=== PATIENT | female | born 1940 | race Caucasian/White ===

== ENCOUNTER 2016-09-08 18:44 | Inpatient (IN) ==
[2016-09-08] MEDS ORDERED: Aspirin 81 MG TAB.CHEW PO ONE (18:51)
[2016-09-08] MEDS ORDERED: Ipratropium/Albuterol Neb 3 ML IH ONE ×2 (18:55→19:16)
[2016-09-08] MEDS ORDERED: Ondansetron 4 MG/2 ML VIAL IVP ONE (19:29)
[2016-09-08] MEDS ORDERED: *HR* HYDROmorphone (PF) 1 MG/ML SYRINGE IVP ONE (19:30)
--- NOTE | 2016-09-08 19:30 | Emergency Department Note ---
START Narrative - START START: I examined this patient and my medical decision-making was reviewed with the EXPLOSIVE OPERATOR FUSE/PA/Advanced Practice Nurse/Resident Physician. I agree with the documented findings, disposition and treatment plan as described except to the extent set forth below. ED attending note: Patient seen with TRANSITIONAL Resident Dr. Cartagena. Please see a copy of his note for details of the H&P, evaluation, management and disposition of this patient. We independently had [id number] contact with the patient Briefly: 76-year-old female via EMS from alf facility diagnosed with pneumonia on IV antibiotics next 4 days. Comes in with increasing thoracic back discomfort like "elephant on back. Cough shortness of breath and abdominal distention that slightly tympanitic. COPD, pneumonia, acute coronary syndrome, MO, small bowel obstruction normal other items in the differential. Provided 40 minutes critical care service this patient. She is getting parenteral narcotics for pain control and was otherwise bronchodilators and IV fluids anti-emetics. Disposition pending. Patient stable.
--- NOTE | 2016-09-08 19:34 | Emergency Department Note ---
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 Patient reports right sided, thoracic pain. She described it as a "elephant sitting on my back." The pain did come and go but is now constant, and is 7/10 in severity. She states the pain is so bad that it is hard to breath. Patient was diagnosed with pneumonia 4 days ago by the doctor at the care home and started on antibiotics. She also complains of progressive abdominal distention and pain for the past 3 weeks. The care home is watching it , measuring daily weights and was recently started on lasix. Patient reports associated cough, congestion and runny nose. Patient states that she is chronically constipated from her medication but denies any changes in bowel habits from normal or any blood in her stool. Patient denies fever/chills, headache or nausea/vomiting. On arrival, patient was afebrile with heart rate of 114-118, respiratory rate around 20 and blood pressure of 118/64. Oxygenation saturation of 92-94% on 4L supplemental oxygen. She is awake and alert, communicating appropriately. Lungs are clear to auscultation bilaterally - no wheezing noted. Abdomen significantly distended, tympanic and tender to palpation. Onset (ago): hour(s) Location: back Radiation: non-radiation Pain Severity: moderate Pain Scale: 6 Quality: crushing, constant Consistency: constant Improves with: nothing Worsens with: nothing Associated symptoms: Reports: cough, shortness of breath. Denies: confusion, chest pain, diaphoresis, fever/chills, headaches, loss of appetite, malaise, nausea/vomiting, rash, seizure, syncope, weakness Treatments Prior to Arrival: none - Related Data Home Medications Medication Instructions Recorded Confirmed Acetaminophen [Tylenol] 500 mg PO HS 04/20/16 04/20/16 Albuterol Neb [Proventil Neb] 2.5 mg IH QID PRN 04/20/16 04/20/16 Albuterol Sulfate [Ventolin Hfa] 2 puff IH QID PRN 04/20/16 04/20/16 Ascorbate Calcium [Vitamin C] 500 mg PO DAILY 04/20/16 04/20/16 Aspirin 81 mg PO DAILY 04/20/16 04/20/16 Bisacodyl [Dulcolax] 10 mg PO DAILY PRN 04/20/16 04/20/16 Carvedilol 3.125 mg PO BID 04/20/16 04/20/16 Cetirizine HCl [Zyrtec] 10 mg PO DAILY 04/20/16 04/20/16 Citalopram [CeleXA] 20 mg PO DAILY 04/20/16 04/20/16 Cyanocobalamin (Vitamin B-12) 1,000 mcg SL DAILY 04/20/16 04/20/16 [Vitamin B-12] Ergocalciferol (VITAMIN D2) 50,000 unit PO Q2W 04/20/16 04/20/16 [Vitamin D2 (50,000 UNIT)] Fluticasone Propionate Nasal 2 spr NS DAILY 04/20/16 04/20/16 [Flonase] Gabapentin [Neurontin] 300 mg PO QA 04/20/16 04/20/16 Gabapentin [Neurontin] 600 mg PO 04/20/16 04/20/16 Hydrochlorothiazide 12.5 mg PO DAILY 04/20/16 04/20/16 Levothyroxine [Synthroid] 112 mcg PO 0630 04/20/16 04/20/16 Montelukast [Singulair] 10 mg PO 04/20/16 04/20/16 Mv-Mn/FA/Vit K1/Lycop/Lut/Zeax 2 tab PO DAILY 04/20/16 04/20/16 [Ocuvite Eye + Multi Tablet] Omeprazole [PriLOSEC] 20 mg PO DAILY 04/20/16 04/20/16 OxyCODONE Immed Rel [Roxicodone 5 5 mg PO Q6HR PRN 04/20/16 04/20/16 MG] Tiotropium [place] [Spiriva 2 puff IH DAILY 04/20/16 04/20/16 Respimat] TraZODone 50 mg PO HS 04/20/16 04/20/16 Previous Rx's Medication Instructions Recorded Docusate [Colace] 100 mg PO BID #60 capsule 04/20/16 HYDROcodone/Acet 5/325 mg [Hiram 1 tab PO Q4H PRN #15 tab 04/20/16 5-325 mg] Phenazopyridine HCl [Pyridium] 200 mg PO TIDAC #12 tab 04/20/16 Allergies Allergy/AdvReac Type Severity Reaction Status Date / Time codeine AdvReac Rash Verified 09/08/16 18:47 levofloxacin [From Levaquin] AdvReac Hives Verified 09/08/16 18:47 NSAIDS (Non-Steroidal AdvReac Nausea Verified 09/08/16 18:47 Anti-Inflamma Penicillins AdvReac Rash Verified 09/08/16 18:47 pregabalin [From Lyrica] AdvReac Blurry Verified 09/08/16 18:47 Vision Constitutional: Denies: fever, chills ENT ED: Reports: congestion Cardiovascular: Reports: dyspnea on exertion. Denies: chest pain, palpitations Respiratory: Reports: cough, dyspnea, wheezes Gastrointestinal: Reports: abdominal pain, constipation. Denies: nausea, vomiting, diarrhea, hematemesis, melena, hematochezia Genitourinary: Denies: urgency, dysuria, frequency Musculoskeletal: Reports: back pain Integumentary: Denies: rash Neurological: Denies: headache, weakness, numbness Past Medical History - Past Medical History Medical history: Reports: asthma, atrial fibrillation, COPD, coronary artery disease, GERD, hypertension, myocardial infarction, other Surgical history: Reports: other Psychiatric history: Reports: no psych history CATTLE STICKER history: Reports: no CATTLE STICKER history - Social History Smoking Status: Current some day smoker Smokeless Tobacco Status: No Alcohol use: Reports: none Drug use: Reports: none Physical Exam - General Limitations: no limitations General appearance: alert, anxious - Head Head exam: atraumatic, normocephalic - Eye Eye exam: Present: normal appearance, PERRL, EOMI. Absent: conjunctival injection - ENT ENT exam: normal exam, normal oropharynx, mucous membranes moist - Neck Neck exam: Present: normal inspection, full ROM - Chest Chest inspection: Present: normal inspection, symmetric chest wall rise. Absent : tenderness - Respiratory Respiratory exam: Present: normal lung sounds bilaterally. Absent: respiratory distress, wheezes - Cardiovascular Cardiovascular exam: Present: tachycardia, other (ventricular pacemaker) - Abdominal Exam Abdominal exam: Present: tenderness, distention - Extremities Exam Extremities exam: Present: pedal edema (2+ pitting edema) - Back Exam Back exam: Present: normal inspection - Neurological Exam Neurological exam: Present: alert, oriented X3, CN II-XII intact - Psychiatric Psychiatric exam: Present: normal affect, normal mood - Skin Skin exam: Present: warm, dry, intact Course Course Narrative: Ms Perez is a 76yo female who was brought via EMS to the ED for back pain described as a "elephant sitting on my back." Patient was diagnosed with pneumonia 4 days ago by the doctor at the care home and started on antibiotics. She also complains of progressive abdominal distention and pain for the past 3 weeks. TOn arrival, patient was afebrile with heart rate of 114- 118, respiratory rate around 20 and blood pressure of 118/64. Oxygenation saturation of 92-94% on 4L supplemental oxygen. She is awake and alert, communicating appropriately. Lungs are clear to auscultation bilaterally - no wheezing noted. Abdomen significantly distended, tympanic and tender to palpation. Differential diagnosis includes ACS and other cardiac causes, pneumonia, pulmonary edema, bowel obstruction, ascities or other GI abnormality. Will get a CXR, EKG and labs including BNP and troponin. Will get a CT abdomen/pelvis with IV contrast. Will get hepatic labs. - Reevaluation(s) Reevaluation #1: Nurse reported that patient had sustained lower blood pressure around 80 systolic compared to the 118 systolic on admit. Also reports oxygenation saturation around 81-84% on nasal canulla. Patient has just received pain medications. She is mentating appropriately and responds to questions. Will give patient 500cc fluid bolus for the hypotension and switch patient from nasal cannula to venti mask for the low oxygenation saturation. Thus far, CXR read as no acute process with some course lung markings likely chornic. Patient does have an elevated WBC of 16.5, Hgb 10.7 which on review appears to be within normal limits for patient. Time: 20:26 Reevaluation #2: Patient with troponin of 0.07 with last troponin in medical records 0.02. This could be demand ischemia or ACS. BNP is elevated at 386. GFR low at 48 - CT scan will be done with decreased amount of contrast. Blood pressure improved with fluid bolus. Patient continues to have lower oxygenation saturation despite increase oxygen - as such must rule out a PE. Will get a D-Dimer to start. Time: 21:02 Reevaluation #3: D-dimer elevated at 1585. Will get CTA evaluate for PE. Time: 22:49 Additional Reevaluation(s): CTA came back negative for acute PE. Will give patient 500cc bolus and start maintance fluids at 150ml/hr due to contrast load for CTA. Discussed patient with hospitalist and she accepted the patient for admission - Consultations Consultation #1: Discussed patient with Dr. Malin and she accepted the patient for admission. She asked for blood cultures, IV steroids and levaquin. Vital Signs Temperature 98.0 F 09/08/16 18:48 Pulse Rate 114 09/08/16 18:48 Respiratory Rate 21 09/08/16 18:48 Blood Pressure 118/64 09/08/16 18:48 O2 Sat by Pulse Oximetry 93 L 09/08/16 18:48 Temperature 98.0 F 09/08/16 18:48 Pulse Rate 116 09/08/16 23:57 Respiratory Rate 17 09/09/16 00:37 Blood Pressure 111/95 09/09/16 00:37 O2 Sat by Pulse Oximetry 97 09/08/16 23:57 Oxygen Delivery Oxygen Delivery Bipap Medical Decision Making - [facility] Narrative Medical decision making narrative: Ms Perez is a 76yo female who was brought via EMS to the ED for back pain described as a "elephant sitting on my back." Patient was diagnosed with pneumonia 4 days ago by the doctor at the care home and started on antibiotics. She also complains of progressive abdominal distention and pain for the past 3 weeks. TOn arrival, patient was afebrile with heart rate of 114- 118, respiratory rate around 20 and blood pressure of 118/64. Oxygenation saturation of 92-94% on 4L supplemental oxygen. She is awake and alert, communicating appropriately. Lungs are clear to auscultation bilaterally - no wheezing noted. Abdomen significantly distended, tympanic and tender to palpation. Differential diagnosis includes ACS and other cardiac causes, pneumonia, pulmonary edema, bowel obstruction, ascities or other GI abnormality. CXR read as no acute process with some course lung markings likely chornic. Patient does have an elevated WBC of 16.5. While down in the in the ED patient had lower blood pressures that improved with IV fluids. She also had lower oxygenation saturation and required placement on oxygen mask and then BiPAP to maintain oxygenation. Patient with troponin of 0.07 with last troponin in medical records 0.02. This could be demand ischemia or ACS. BNP is elevated at 386. GFR low at 48. CTA came back negative for acute PE. Will give patient 500cc bolus and start maintance fluids at 150ml/hr due to contrast load for CTA. Believe this is a COPD exacerbation, possibly secondary to a pneumonia. However cannot rule out another cause. Patient also warrants further work up for her progressive abdominal distention. Patient accepted by hospitalist for admission. - Lab Data Lab results reviewed: Yes I reviewed the patient's lab results. Lab results narrative: WBC elevated at 16.5. Hgb low at 10.7 in setting of chronic anemia. BNP elevated at 386. Troponin acutely elevated at 0.07. D-Dimer 1538 Result diagrams: 09/08/16 19:58 09/08/16 19:58 Lab Results 09/08/16 09/08/16 09/08/16 Range/Units 19:58 19:58 19:58 WBC 16.5 H (4.3-11.1) K/mcL RBC 3.79 L (3.82-4.97) M/mcL Hgb 10.7 L (11.5-15.4) g/dL Hct 35.6 (35.3-44.9) % MCV 93.9 (83.0-100.0) fL MCH 28.2 (28.0-33.3) pg MCHC 30.1 L (31.6-35.5) g/dL RDW 16.5 H (11.5-14.5) % Plt Count 238 (140-400) K/mcL MPV 9.7 (9.4-12.4) fL Immature Gran % 0.9 (0-4) % Seg Neutrophils % 66.8 % Lymphocytes % 16.6 % Monocytes % 10.8 % Eosinophils % 4.4 % Basophils % 0.5 % Neutrophils # 11.0 H (1.6-8.9) K/mcL Lymphocytes # 2.7 (0.6-4.6) K/mcL Monocytes # 1.8 H (0.0-1.3) K/mcL Eosinophils # 0.7 H (0.0-0.6) K/mcL Basophils # 0.1 (0.0-0.2) K/mcL PT 11.2 (9.4-12.1) Seconds INR 1.0 APTT 28.4 (26.0-36.0) Seconds D-Dimer (0-500) ng/mLFEU Sodium (136-145) mEq/L Potassium (3.5-4.5) mEq/L Chloride (98-109) mEq/L Carbon Dioxide (19-29) mEq/L BUN (7-20) mg/dL Creatinine (0.57-1.11) mg/dL Est GFR ( Amer) (> 60) Est GFR (Non-Af Amer) (> 60) BUN/Creatinine Ratio (6-26) Glucose (70-99) mg/dL Calculated Osmolality (280-300) Calcium (8.6-10.8) mg/dL Total Bilirubin (0.2-1.2) mg/dL Direct Bilirubin (0.0-0.5) mg/dL Indirect Bilirubin (0.0-1.2) mg/dL AST (5-34) Units/L ALT (0-55) Units/L Alkaline Phosphatase (38-126) Units/L Troponin I (0-0.03) ng/mL B-Natriuretic Peptide 386 H (0-100) pg/mL Serum Total Protein (6.0-8.3) g/dL Albumin (3.5-5.0) g/dL Globulin (2.4-3.5) g/dL Albumin/Globulin Ratio (1.1-2.2) Amylase (25-125) Units/L 09/08/16 09/08/16 09/08/16 Range/Units 19:58 19:58 22:22 WBC (4.3-11.1) K/mcL RBC (3.82-4.97) M/mcL Hgb (11.5-15.4) g/dL Hct (35.3-44.9) % MCV (83.0-100.0) fL MCH (28.0-33.3) pg MCHC (31.6-35.5) g/dL RDW (11.5-14.5) % Plt Count (140-400) K/mcL MPV (9.4-12.4) fL Immature Gran % (0-4) % Seg Neutrophils % % Lymphocytes % % Monocytes % % Eosinophils % % Basophils % % Neutrophils # (1.6-8.9) K/mcL Lymphocytes # (0.6-4.6) K/mcL Monocytes # (0.0-1.3) K/mcL Eosinophils # (0.0-0.6) K/mcL Basophils # (0.0-0.2) K/mcL PT (9.4-12.1) Seconds INR APTT (26.0-36.0) Seconds D-Dimer 1585 H (0-500) ng/mLFEU Sodium 140 (136-145) mEq/L Potassium 3.9 (3.5-4.5) mEq/L Chloride 100 (98-109) mEq/L Carbon Dioxide 29 (19-29) mEq/L BUN 20 (7-20) mg/dL Creatinine 1.11 (0.57-1.11) mg/dL Est GFR ( Amer) 58 L (> 60) Est GFR (Non-Af Amer) 48 L (> 60) BUN/Creatinine Ratio 18 (6-26) Glucose 180 H (70-99) mg/dL Calculated Osmolality 297 (280-300) Calcium 8.8 (8.6-10.8) mg/dL Total Bilirubin 0.3 (0.2-1.2) mg/dL Direct Bilirubin 0.1 (0.0-0.5) mg/dL Indirect Bilirubin 0.2 (0.0-1.2) mg/dL AST 24 (5-34) Units/L ALT 18 (0-55) Units/L Alkaline Phosphatase 115 (38-126) Units/L Troponin I 0.07 H* (0-0.03) ng/mL B-Natriuretic Peptide (0-100) pg/mL Serum Total Protein 6.7 (6.0-8.3) g/dL Albumin 3.1 L (3.5-5.0) g/dL Globulin 3.6 H (2.4-3.5) g/dL Albumin/Globulin Ratio 0.9 L (1.1-2.2) Amylase 26 (25-125) Units/L - Radiology Data Radiology results reviewed: Yes I reviewed the patient's radiology results. Chest X-Ray 09/08/16 18:51 IMPRESSION: No acute cardiopulmonary disease. Coarsening of the interstitial markings, likely chronic. D/ / Mansoor Rawls MD / Mansoor Rawls MD Interpreting Provider: Mansoor Rawls MD Abdomen/Pelvis CT 09/08/16 19:29 IMPRESSION: 1. No acute abdominal or pelvic abnormality. 2. Stable 0.9 cm left adrenal nodule, likely an adenoma. 3. Stable mild biliary dilation likely related to postcholecystectomy changes. Findings can be correlated with LFTs. 4. Small amount of fluid and gas within the vagina. Given closely opposed small bowel, a fistula is not excluded and can be correlated clinically. 5. Mild mediastinal adenopathy which is partially visualized and not significantly changed since 2012. This is likely reactive. Bibasilar atelectasis and/or scarring. 6. Age-indeterminate compression deformity of the T8 vertebral body. Findings can be further evaluated with MRI for acuity given patient's symptoms. D/ / 09/08/2016 21:58:55 Jelly Bee MD / vasiliy Interpreting Provider: Jelly Bee MD Chest CTA 09/08/16 22:49 IMPRESSION: 1. Slightly limited exam due to significant respiratory motion. No acute pulmonary embolus. 2. Patchy opacities predominate within the lingula and right lower lobe which are nonspecific and may reflect atelectasis. Pneumonia is not excluded. 3. Mild mediastinal adenopathy, which is nonspecific but new since the prior exam. Correlate with any history of malignancy. 4. Reflux of contrast into the hepatic veins and IVC which can be seen in setting of right heart failure. D/ / Jelly Bee MD / Jelly Bee MD Interpreting Provider: Jelly Bee MD - EKG Data EKG #1 EKG attestation: Yes I reviewed and interpreted this EKG. EKG results narrative: EKG shows a ventricular paced rhythm. There is some slight ST elevation in leads II, III. Vent rate 103bpm, NV int 152ms, QR 146ms, QTC 440ms. Previous EKG from 04/11/2016 showed the ventricular paced rhythm.
[2016-09-08 20:08] LABS: Basophils # 0.1 K/mcL (0.0-0.2); Basophils % 0.5 %; Eosinophils # 0.7 K/mcL (0.0-0.6); Eosinophils % 4.4 %; Hematocrit 35.6 % (35.3-44.9); Hemoglobin 10.7 g/dL (11.5-15.4); Immature Granulocytes % 0.9 % (0-4); Lymphocytes # 2.7 K/mcL (0.6-4.6); Lymphocytes % 16.6 %; Mean Corpuscular HGB Conc 30.1 g/dL (31.6-35.5); Mean Corpuscular Hemoglobin 28.2 pg (28.0-33.3); Mean Corpuscular Volume 93.9 fL (83.0-100.0); Mean Platelet Volume 9.7 fL (9.4-12.4); Monocytes # 1.8 K/mcL (0.0-1.3); Monocytes % 10.8 %; Platelet Count 238 K/mcL (140-400); Red Blood Count 3.79 M/mcL (3.82-4.97); Red Cell Distribution Width 16.5 % (11.5-14.5); Segmented Neutrophils % 66.8 %
[2016-09-08 20:14] LABS: Prothrombin Time 11.2 Seconds (9.4-12.1)
[2016-09-08 20:16] LABS: Activated Partial Thrombo Time 28.4 Seconds (26.0-36.0)
[2016-09-08] MEDS ORDERED: 0.9 % Sodium Chloride 500 ML IVC ONE ×2 (20:23→23:17)
[2016-09-08 20:24] LABS: Albumin 3.1 g/dL (3.5-5.0); Albumin/Globulin Ratio 0.9 (1.1-2.2); Bilirubin,Direct 0.1 mg/dL (0.0-0.5); Bilirubin,Indirect 0.2 mg/dL (0.0-1.2); Bilirubin,Total 0.3 mg/dL (0.2-1.2); Calcium 8.8 mg/dL (8.6-10.8); Globulin 3.6 g/dL (2.4-3.5); Potassium 3.9 mEq/L (3.5-4.5); Total Protein 6.7 g/dL (6.0-8.3)
[2016-09-08] MEDS ORDERED: 0.9 % Sodium Chloride 1,000 ML IVC SCH (23:15)
[2016-09-08] MEDS: 0.9 % Sodium Chloride 1,000 ML IVC SCH (23:56)
[2016-09-09] MEDS ORDERED: methylPREDNISolone 125 MG/2 ML VIAL IVP ONE (00:02)
[2016-09-09] MEDS ORDERED: levoFLOXacin 500 MG TABLET PO ONE (00:02)
[2016-09-09] MEDS ORDERED: Levofloxacin 750 MG/150 ML 750 MG/150 ML BAG IVPB ONE (00:17)
[2016-09-09] MEDS ORDERED: *HR* LORazepam 2 MG/ML VIAL IVP ONE (00:22)
[2016-09-09 01:18] LABS: ABG HCO3 32.5 mEQ/L (21-27); ABG Oxygen Saturation 98 % (95-98); ABG PO2 127 mmHg (85-104); ABG TCO2 35.2 mEq/L (20-26)
[2016-09-09 01:19] LABS: Blood Gas FiO2 50 %
[2016-09-09 01:21] LABS: ABG PCO2 87 mmHg (35-45); ABG PH 7.18 pH Units (7.32-7.45)
--- NOTE | 2016-09-09 01:22 | Internal Med History&Physical ---
Date of Encounter: 09/09/16 Time of Encounter: 01:05 Internal Medicine - H&P: HPI Chief complaint: Patient unarousable, as per ED notes, she reported back pain, SOB Admitted From: Emergency Dept Plans for Post Hospital Care: Transfer Longterm Facility History of present illness: Ms. Perez is a 76 year old female resident of [place], with medical history significant for COPD, CAD/paroxysmal atrial fibrillation s/p implanted pacemaker was brought to the ED ht via EMS for evaluation of back pain which as per ED staff was described as "an elephant sitting on my in place, back." I am unable to obtain qualifiers for her pain as she is sleeping. I am unbale to obtain any history from the patient as she is sedated. She is wearing BiPAP. Apparently As per ED notes, she was diagnosed with pneumonia and treated by the doctor at the shelter and started on antibiotics. As per ED notes: she was able to give some history at arrival: "Ms Perez is a 76yo female with reported PMH of COPD, GERD, CAD with pacemaker in place, paroxysmal atrial fibrillation and chronic low back pain who was brought via EMS to the ED for back pain. Patient reports right sided, thoracic pain. She described it as a "elephant sitting on my back." The pain did come and go but is now constant, and is 7/10 in severity. She states the pain is so bad that it is hard to breath. Patient was diagnosed with pneumonia 4 days ago by the doctor at the shelter and started on antibiotics. She also complains of progressive abdominal distention and pain for the past 3 weeks. The shelter is watching it , measuring daily weights and was recently started on lasix. Patient reports associated cough, congestion and runny nose. Patient states that she is chronically constipated from her medication but denies any changes in bowel habits from normal or any blood in her stool. Patient denies fever/chills, headache or nausea/vomiting" Upon arriving the ED, the patient was afebrile with heart rate of 114-118, respiratory rate around 20 and blood pressure of 118/64. Oxygenation saturation of 92-94% on 4L supplemental oxygen. At the time of arrival in the ED , she is awake and alert, communicating appropriately. No one is listed as her NOK/POA. [facility] is listed as her emergency conatct. I am unable to obtain he CODE STATUS, hence will assume a FULL CODE STATUS until informed otherwise by patient, NOK/POA or a living will document. Medical history: Reports: asthma, atrial fibrillation, COPD, coronary artery disease, GERD, hypertension, myocardial infarction, other Surgical history: Reports: other Psychiatric history: Reports: no psych history VOUCHER EXAMINER history: Reports: no VOUCHER EXAMINER history Smoking Status: Current some day smoker Smokeless Tobacco Status: No Alcohol use: Reports: none Drug use: Reports: none Family history: unable to obatin due to patients status ROS: unable to obatin due to patients status Vital Signs Temperature 98.0 F 09/08/16 18:48 Pulse Rate 114 09/08/16 18:48 Respiratory Rate 21 09/08/16 18:48 Blood Pressure 118/64 09/08/16 18:48 O2 Sat by Pulse Oximetry 93 L 09/08/16 18:48 Temperature 98.0 F 09/08/16 18:48 Pulse Rate 116 09/08/16 23:57 Respiratory Rate 18 09/08/16 23:57 Blood Pressure 109/58 09/08/16 23:57 O2 Sat by Pulse Oximetry 97 09/08/16 23:57 O/E: Not pale, anicteric, febrile,acyanotic. HEENT: Trachea is central, no cervical or jugular lymphadenopathy Chest: BiPAP-generated breath sounds Heart: hs1/2 Abdomen: Distended++, soft, , non-tender,no masses. BS+ : unable to assess FLOOR COVERINGS SALESPERSON: Difficult to arouse, she is unable to localize sternal pressure Psychiatry: unable to assess Extremities: 2- pitting peal edema, left>right, normal pedal pulses, no calf tenderness SKIN: No active skin lesion Lab Results 09/08/16 09/08/16 09/08/16 Range/Units 19:58 19:58 19:58 WBC 16.5 H (4.3-11.1) K/mcL RBC 3.79 L (3.82-4.97) M/mcL Hgb 10.7 L (11.5-15.4) g/dL Hct 35.6 (35.3-44.9) % MCV 93.9 (83.0-100.0) fL MCH 28.2 (28.0-33.3) pg MCHC 30.1 L (31.6-35.5) g/dL RDW 16.5 H (11.5-14.5) % Plt Count 238 (140-400) K/mcL MPV 9.7 (9.4-12.4) fL Immature Gran % 0.9 (0-4) % Seg Neutrophils % 66.8 % Lymphocytes % 16.6 % Monocytes % 10.8 % Eosinophils % 4.4 % Basophils % 0.5 % Neutrophils # 11.0 H (1.6-8.9) K/mcL Lymphocytes # 2.7 (0.6-4.6) K/mcL Monocytes # 1.8 H (0.0-1.3) K/mcL Eosinophils # 0.7 H (0.0-0.6) K/mcL Basophils # 0.1 (0.0-0.2) K/mcL PT 11.2 (9.4-12.1) Seconds INR 1.0 APTT 28.4 (26.0-36.0) Seconds D-Dimer (0-500) ng/mLFEU Sodium (136-145) mEq/L Potassium (3.5-4.5) mEq/L Chloride (98-109) mEq/L Carbon Dioxide (19-29) mEq/L BUN (7-20) mg/dL Creatinine (0.57-1.11) mg/dL Est GFR ( Amer) (> 60) Est GFR (Non-Af Amer) (> 60) BUN/Creatinine Ratio (6-26) Glucose (70-99) mg/dL Calculated Osmolality (280-300) Calcium (8.6-10.8) mg/dL Total Bilirubin (0.2-1.2) mg/dL Direct Bilirubin (0.0-0.5) mg/dL Indirect Bilirubin (0.0-1.2) mg/dL AST (5-34) Units/L ALT (0-55) Units/L Alkaline Phosphatase (38-126) Units/L Troponin I (0-0.03) ng/mL B-Natriuretic Peptide 386 H (0-100) pg/mL Serum Total Protein (6.0-8.3) g/dL Albumin (3.5-5.0) g/dL Globulin (2.4-3.5) g/dL Albumin/Globulin Ratio (1.1-2.2) Amylase (25-125) Units/L 09/08/16 09/08/16 09/08/16 Range/Units 19:58 19:58 22:22 WBC (4.3-11.1) K/mcL RBC (3.82-4.97) M/mcL Hgb (11.5-15.4) g/dL Hct (35.3-44.9) % MCV (83.0-100.0) fL MCH (28.0-33.3) pg MCHC (31.6-35.5) g/dL RDW (11.5-14.5) % Plt Count (140-400) K/mcL MPV (9.4-12.4) fL Immature Gran % (0-4) % Seg Neutrophils % % Lymphocytes % % Monocytes % % Eosinophils % % Basophils % % Neutrophils # (1.6-8.9) K/mcL Lymphocytes # (0.6-4.6) K/mcL Monocytes # (0.0-1.3) K/mcL Eosinophils # (0.0-0.6) K/mcL Basophils # (0.0-0.2) K/mcL PT (9.4-12.1) Seconds INR APTT (26.0-36.0) Seconds D-Dimer 1585 H (0-500) ng/mLFEU Sodium 140 (136-145) mEq/L Potassium 3.9 (3.5-4.5) mEq/L Chloride 100 (98-109) mEq/L Carbon Dioxide 29 (19-29) mEq/L BUN 20 (7-20) mg/dL Creatinine 1.11 (0.57-1.11) mg/dL Est GFR ( Amer) 58 L (> 60) Est GFR (Non-Af Amer) 48 L (> 60) BUN/Creatinine Ratio 18 (6-26) Glucose 180 H (70-99) mg/dL Calculated Osmolality 297 (280-300) Calcium 8.8 (8.6-10.8) mg/dL Total Bilirubin 0.3 (0.2-1.2) mg/dL Direct Bilirubin 0.1 (0.0-0.5) mg/dL Indirect Bilirubin 0.2 (0.0-1.2) mg/dL AST 24 (5-34) Units/L ALT 18 (0-55) Units/L Alkaline Phosphatase 115 (38-126) Units/L Troponin I 0.07 H* (0-0.03) ng/mL B-Natriuretic Peptide (0-100) pg/mL Serum Total Protein 6.7 (6.0-8.3) g/dL Albumin 3.1 L (3.5-5.0) g/dL Globulin 3.6 H (2.4-3.5) g/dL Albumin/Globulin Ratio 0.9 L (1.1-2.2) Amylase 26 (25-125) Units/L ABG: pH=7.18, pCO2=87, mD7=518. Chest X-Ray 09/08/16 18:51 No acute cardiopulmonary disease. Coarsening of the interstitial markings, likely chronic. Abdomen/Pelvis CT 09/08/16 19:29 1. No acute abdominal or pelvic abnormality. 2. Stable 0.9 cm left adrenal nodule, likely an adenoma. 3. Stable mild biliary dilation likely related to postcholecystectomy changes. Findings can be correlated with LFTs. 4. Small amount of fluid and gas within the vagina. Given closely opposed small bowel, a fistula is not excluded and can be correlated clinically. 5. Mild mediastinal adenopathy which is partially visualized and not significantly changed since 2012. This is likely reactive. Bibasilar atelectasis and/or scarring. 6. Age-indeterminate compression deformity of the T8 vertebral body. Chest CTA 09/08/16 22:49 1. Slightly limited exam due to significant respiratory motion. No acute pulmonary embolus. 2. Patchy opacities predominate within the lingula and right lower lobe which are nonspecific and may reflect atelectasis. Pneumonia is not excluded. 3. Mild mediastinal adenopathy, which is nonspecific but new since the prior exam. Correlate with any history of malignancy. 4. Reflux of contrast into the hepatic veins and IVC which can be seen in setting of right heart failure. EKG: ventricular paced rhythm. similar to EKG OF 04/11/2016. IMP: Hypercapneic respiratory failure with severe respiratory acidosis Right lobar pneumonia COPD exacerbation Pleuritic chest pain Elevated troponin in the setting of respiratory failure and tachycardia, more consistent with troponin leak CT concern for probable enterovaginal fistula, likely an artifact, but worth investigating. with barium Follow-through later. Abdominal distension with abnormal CT ABDOMEN FINDING. Chronic morbidities COPD/ASTHMA CAD s/p [place] HTN Atrial fibrillation GERD Morbid obesity Probable sleep apnea. osteoporosis with vertebral compression fracture PLAN admit BiPAP 12/02, 14 fIo2=35% Lovenox 80mg Q12H IV Cefepime and Azithromycin Duonebs QIDR, albuterol nebs q4h prn. Solumedol 40mg Q8H IV Protonix 40mg mg QD Trend troponin, 2D ECHO Cardiology and pulmonary consult. I am unable to discuss my assessment with the patient due to her status. She is high risk due to acute hypercapneic respiratory failure Past Med Surg Social Fam HX - Past Medical History Medical history: asthma, atrial fibrillation, COPD, coronary artery disease, GERD, hypertension, myocardial infarction, other Psychiatric history: no psych history - Past Surgical History Surgical History: other - Social History Smoking Status: Current some day smoker Smokeless Tobacco Status: No Alcohol use: none Drug use: none Internal Medicine - H&P: Meds Acetaminophen [Tylenol] 500 mg PO HS 04/20/16 [History] Albuterol Neb [Proventil Neb] 2.5 mg IH QID PRN 04/20/16 [History] Albuterol Sulfate [Ventolin Hfa] 2 puff IH QID PRN 04/20/16 [History] Ascorbate Calcium [Vitamin C] 500 mg PO DAILY 04/20/16 [History] Aspirin 81 mg PO DAILY 04/20/16 [History] Bisacodyl [Dulcolax] 10 mg PO DAILY PRN 04/20/16 [History] Carvedilol 3.125 mg PO BID 04/20/16 [History] Cetirizine HCl [Zyrtec] 10 mg PO DAILY 04/20/16 [History] Citalopram [CeleXA] 20 mg PO DAILY 04/20/16 [History] Cyanocobalamin (Vitamin B-12) [Vitamin B-12] 1,000 mcg SL DAILY 04/20/16 [ History] Docusate [Colace] 100 mg PO BID #60 capsule 04/20/16 [Rx] Ergocalciferol (VITAMIN D2) [Vitamin D2 (50,000 UNIT)] 50,000 unit PO Q2W [History] Fluticasone Propionate Nasal [Flonase] 2 spr NS DAILY 04/20/16 [History] Gabapentin [Neurontin] 300 mg PO QAM 04/20/16 [History] Gabapentin [Neurontin] 600 mg PO HS 04/20/16 [History] HYDROcodone/Acet 5/325 mg [[place] 5-325 mg] 1 tab PO Q4H PRN #15 tab 04/20/16 [Rx ] Hydrochlorothiazide 12.5 mg PO DAILY 04/20/16 [History] Levothyroxine [Synthroid] 112 mcg PO 0630 04/20/16 [History] Montelukast [Singulair] 10 mg PO HS 04/20/16 [History] Mv-Mn/FA/Vit K1/Lycop/Lut/Zeax [Ocuvite Eye + Multi Tablet] 2 tab PO DAILY 04/20 [History] Omeprazole [PriLOSEC] 20 mg PO DAILY 04/20/16 [History] OxyCODONE Immed Rel [Roxicodone 5 MG] 5 mg PO Q6HR PRN 04/20/16 [History] Phenazopyridine HCl [Pyridium] 200 mg PO TIDAC #12 tab 04/20/16 [Rx] Tiotropium [place] [Spiriva Respimat] 2 puff IH DAILY 04/20/16 [History] TraZODone 50 mg PO HS 04/20/16 [History] Allergies codeine Adverse Reaction (Verified 09/08/16 18:47) Rash levofloxacin [From Levaquin] Adverse Reaction (Verified 09/08/16 18:47) Hives NSAIDS (Non-Steroidal Anti-Inflamma Adverse Reaction (Verified 09/08/16 18:47) Nausea Penicillins Adverse Reaction (Verified 09/08/16 18:47) Rash pregabalin [From Lyrica] Adverse Reaction (Verified 09/08/16 18:47) Blurry [employer] Systems PM: A 10-system review of systems was performed and is negative for pertinent findings except as documented above in the HPI. - Constitutional Vitals: Temp Pulse Resp BP Pulse Ox 98.0 F 116 17 111/95 97 09/08/16 18:48 09/08/16 23:57 09/09/16 00:37 09/09/16 00:37 09/08/16 23:57 Internal Med - H&P Results - Labs CBC & Chem 7: 09/08/16 19:58 09/08/16 19:58
[2016-09-09] MEDS ORDERED: *HR* Enoxaparin 80 MG/0.8 ML SYRINGE SQ SCH (03:00)
[2016-09-09] MEDS: Azithromycin 500 MG in D5% in Water 250 ML IVPB SCH (03:07)
[2016-09-09] MEDS ORDERED: Ipratropium/Albuterol Neb 3 ML IH SCH (05:00)
[2016-09-09] MEDS ORDERED: *HR* Enoxaparin 40 MG/0.4 ML SYRINGE SQ SCH (06:00)
[2016-09-09] MEDS: Cefepime HCl 2,000 MG in D5% in Water (Mini-Bag+) 100 ML IVPB SCH ×2 (06:39→17:46)
[2016-09-09] MEDS ORDERED: *HR* Etomidate 20 MG/10 ML AMPUL IVP ONE (07:41)
[2016-09-09] MEDS ORDERED: *HR* Midazolam HCl 2 MG/2 ML VIAL IV ONE (07:41)
--- NOTE | 2016-09-09 08:10 | Internal Med Progress Note ---
Date of Encounter: 09/09/16 Time of Encounter: 08:00 - Assessment and plan (1) Atrial fibrillation Current Visit: Yes Status: Acute Assessment and plan: Add Lopressor, continue Lovenox, cardiology was consulted Qualifiers: Atrial fibrillation type: chronic Qualified Code(s): I48.2 - Chronic atrial fibrillation (2) Abdominal pain Current Visit: Yes Status: Acute Assessment and plan: Possible secondary to constipation, question about the enterovaginal fistula. Once is stable we will investigate Qualifiers: Abdominal location: generalized Qualified Code(s): R10.84 - Generalized abdominal pain (3) Costochondritis, acute Current Visit: Yes Status: Acute Assessment and plan: Continue steroid (4) Acute respiratory failure Current Visit: Yes Status: Acute Assessment and plan: ABG stat discussed with staff about need for BiPAP. We will decide after ABG. Pulmonary was consulted Qualifiers: Respiratory failure complication: hypoxia and hypercapnia Qualified Code(s) : J96.01 - Acute respiratory failure with hypoxia; J96.02 - Acute respiratory failure with hypercapnia (5) COPD exacerbation Current Visit: Yes Status: Acute (6) Elevated troponin Current Visit: Yes Status: Acute Assessment and plan: Continue Lovenox and beta lena nitroglycerin cardiology was consulted. Aspirin 325 mg daily - Time Spent With Patient 25 - 35 minutes - Subjective Interval history: Patient is awake now, staff stated that patient was more arousable BiPAP was removed .Per staff early this morning . Patient complaining of generalized abdominal and chest wall pain. She complains of shortness of breath - Constitutional Vitals: Temp Pulse Resp BP Pulse Ox 98.1 F 102 18 152/100 94 L 09/09/16 06:55 09/09/16 06:55 09/09/16 06:55 09/09/16 06:55 09/09/16 06:55 General appearance: Present: mild distress, morbidly obese - Respiratory Respiratory exam: Present: accessory muscle use, decreased breath sounds, prolonged expiratory phase, rales, respiratory distress, rhonchi, wheezes, tachypnea - Cardiovascular Cardiovascular exam: Present: RRR, +S1, +S2. Absent: diastolic murmur, gallop, rubs, systolic murmur - GI/Abdominal GI/Abdominal exam: Present: normal bowel sounds, soft, tenderness (Diffuse abdominal tenderness) - Extremities Exam Extremities exam: Present: pedal edema (Positive 3 bilateral), warm. Absent: calf tenderness, cyanotic - Neurological Exam Neurological exam: Present: alert - Skin Skin exam: Present: dry, intact Internal Medicine: Result - Labs CBC & Chem 7: 09/08/16 19:58 09/08/16 19:58 Labs: Cardiac Enzymes 09/09/16 Range/Units 06:43 Troponin I 0.20 H* (0-0.03) ng/mL - ABG Interpretation ABG results: ABG ABG pH 7.18 pH Units (7.32-7.45) L* 09/09/16 01:10 ABG pCO2 87 mmHg (35-45) H* 09/09/16 01:10 ABG pO2 127 mmHg (85-104) H 09/09/16 01:10 ABG O2 Saturation 98 % (95-98) 09/09/16 01:10 PT/INR, D-dimer PT 11.2 Seconds (9.4-12.1) 09/08/16 19:58 D-Dimer 1585 ng/mLFEU (0-500) H 09/08/16 22:22 Consult Discharge Plan - Plan Referrals: Bushra Landry MD [Primary Care Provider] -
[2016-09-09] MEDS ORDERED: *HR* Metoprolol 5 MG/5 ML VIAL IVP PRN (08:15)
[2016-09-09] MEDS ORDERED: Nitroglycerin 0.4 MG TAB.SUBL SL PRN (08:26)
[2016-09-09] MEDS: Ipratropium/Albuterol Neb 3 ML IH SCH ×4 (08:31→20:52)
[2016-09-09 08:32] LABS: ABG Base Excess 0.7 mEq/L (-2.0 to 3.0); ABG Oxygen Saturation 99 % (95-98); ABG PO2 166 mmHg (85-104); ABG TCO2 36.2 mEq/L (20-26)
[2016-09-09 08:34] LABS: Blood Gas FiO2 44 %
[2016-09-09 08:35] LABS: ABG PCO2 104 mmHg (35-45); ABG PH 7.11 pH Units (7.32-7.45)
--- NOTE | 2016-09-09 08:50 | Pulmonology Consult Note ---
Date of Encounter: 09/09/16 Time of Encounter: 08:47 Assessment and Plan (1) Acute respiratory failure Current Visit: Yes Status: Acute Acute hypoxic hypercapnic respiratory failure likely secondary to COPD exacerbation possible underlying acquired pneumonia was the trigger. She has been given BiPAP trial for now may require intubation based upon clinical course recommended transfer to ICU for higher for closer monitoring given tenuous respiratory status. Will need aggressive bronchodilators and IV steroids and will initiate empiric and antimicrobials. Qualifiers: Respiratory failure complication: hypoxia and hypercapnia Qualified Code(s) : J96.01 - Acute respiratory failure with hypoxia; J96.02 - Acute respiratory failure with hypercapnia (2) NSTEMI (non-ST elevated myocardial infarction) Current Visit: Yes Status: Acute Patient has vague abdominal/chest pain with rising troponin history of coronary artery disease in the past concerning for non-ST elevation [place]. Will start ACS protocol has been on Lovenox when she transitioned over to heparin drip has been given aspirin which we will continue beta lena etiologies been consult and echocardiogram pending (3) Community acquired pneumonia Current Visit: Yes Status: Acute CT scan is inconclusive but possibly consistent with infiltrate in the lingula and right lower lobe will cover in. Clear for me acquired organisms restrained infectious panel pending sputum culture pending blood cultures pending legionella and strep pneumo antigens have been sent (4) Atrial fibrillation Current Visit: Yes Status: Acute Currently rate controlled will continue beta lena at this time Qualifiers: Atrial fibrillation type: chronic Qualified Code(s): I48.2 - Chronic atrial fibrillation (5) COPD exacerbation Current Visit: Yes Status: Acute IV Solu-Medrol and Medrol has been given which we will continue also bronchodilators every 2-4 hours as needed noninvasive positive pressure ventilation. Check ABG good saturation on minimal oxygen at this time goal approximately SPO2 of 90% (6) Abdominal pain Current Visit: Yes Status: Acute Unclear if this is clearly coming from her abdomen or if this is more chest associated with pleuritic pain with possible pneumonia although CT scan is not conclusive for this this could be a manifestation of ACS which workup is ongoing could have underlying and entero-vaginal fistula doubt this is the acute cause of her pain but would consult surgery to evaluate if this is a real or more artifactual finding on CT scan. Clearly with history of atrial fibrillation coronary artery disease would be at risk for mesenteric ischemia or ischemic colitis no clear radiographic evidence of this lactate pending will have serial abdominal exams which to my exam in the room at this time was not concerning for surgical abdomen. Additionally she has had some findings of chronic biliary dilatation which may or may not be compatible with current presentation although suspect this is more chronic and not responsible surgical consult also be helpful for this Qualifiers: Abdominal location: generalized Qualified Code(s): R10.84 - Generalized abdominal pain (7) Sepsis Current Visit: Yes Status: Acute Patient has surgical criteria with evidence of infectious source including lung possibly abdomen being covered with azithromycin and cefepime currently cultures pending checking lactate blood pressures been stable urine output is appropriate with underlying heart failure and respiratory issues would not aggressively fluid resuscitate unless clinical course changes. Qualifiers: Sepsis type: sepsis due to unspecified organism Qualified Code(s): A41.9 - Sepsis, unspecified organism (8) (HFpEF) heart failure with preserved ejection fraction Current Visit: Yes Status: Acute Preserved ejection fraction elevated BNP on arrival some increased septal thickening all c/w with cardiogenic edema that is likely complicating respiratory failure based on clinical course and blood pressure would consider trial of diuresis after cardiology evaluation and echocardiogram History of Present Illness Consult date: 09/09/16 Requesting physician: Kirsten Chávez Reason for consult: COPD Chief complaint: Chest Pain History of present illness: This is a 76-year-old woman with past medical history of CAD status post permanent pacemaker placement also with COPD unclear what her FEV1 is based upon history that I have shows a history of paroxysmal atrial fibrillation she presented with 3-4 days history of shortness of breath that has gotten worse also presented with chest pain that felt like something was sitting on her back per the report. Thus far she presented to the ED with increased work of breathing aboeminal pain and back pain found to have respiratory acidosis her on BiPAP CTA was performed which was notable for atelectasis versus infiltrate without evidence of venous thromboembolism she was placed on noninvasive positive pressure ventilation given bronchodilators and antibiotics and triaged to the medical floor overnight she has had worsening respiratory status and has become increasingly lethargic when I saw her she was off BiPAP saturating well on a few liters of oxygen but complaining of pain and quite disoriented. She was not using BiPAP at the time that I saw her. CT of abd and pelvis was notable for possible entrovaginal fistula but this is not conclusive. Additionally she has had ECG was some changes but without evidence of STEMI however troponin has continued to rise cardiology been consult and echo as been requested results of the result has not been obtained as of yet Past Med Surg Social Fam HX - Past Medical History Medical history: asthma, atrial fibrillation, COPD, coronary artery disease, GERD, hypertension, myocardial infarction, other Psychiatric history: no psych history - Past Surgical History Surgical History: other - Social History Smoking Status: Current some day smoker Smokeless Tobacco Status: No Alcohol use: none Drug use: none Medications and Allergies Acetaminophen [Tylenol] 500 mg PO HS 04/20/16 [History] Albuterol Neb [Proventil Neb] 2.5 mg IH QID PRN 04/20/16 [History] Albuterol Sulfate [Ventolin Hfa] 2 puff IH QID PRN 04/20/16 [History] Ascorbate Calcium [Vitamin C] 500 mg PO DAILY 04/20/16 [History] Aspirin 81 mg PO DAILY 04/20/16 [History] Bisacodyl [Dulcolax] 10 mg PO DAILY PRN 04/20/16 [History] Carvedilol 3.125 mg PO BID 04/20/16 [History] Cetirizine HCl [Zyrtec] 10 mg PO DAILY 04/20/16 [History] Citalopram [CeleXA] 20 mg PO DAILY 04/20/16 [History] Cyanocobalamin (Vitamin B-12) [Vitamin B-12] 1,000 mcg SL DAILY 04/20/16 [ History] Docusate [Colace] 100 mg PO BID #60 capsule 04/20/16 [Rx] Ergocalciferol (VITAMIN D2) [Vitamin D2 (50,000 UNIT)] 50,000 unit PO Q2W [History] Fluticasone Propionate Nasal [Flonase] 2 spr NS DAILY 04/20/16 [History] Gabapentin [Neurontin] 300 mg PO QAM 04/20/16 [History] Gabapentin [Neurontin] 600 mg PO HS 04/20/16 [History] HYDROcodone/Acet 5/325 mg [[place] 5-325 mg] 1 tab PO Q4H PRN #15 tab 04/20/16 [Rx ] Hydrochlorothiazide 12.5 mg PO DAILY 04/20/16 [History] Levothyroxine [Synthroid] 112 mcg PO 0630 04/20/16 [History] Montelukast [Singulair] 10 mg PO HS 04/20/16 [History] Mv-Mn/FA/Vit K1/Lycop/Lut/Zeax [Ocuvite Eye + Multi Tablet] 2 tab PO DAILY 04/20 [History] Omeprazole [PriLOSEC] 20 mg PO DAILY 04/20/16 [History] OxyCODONE Immed Rel [Roxicodone 5 MG] 5 mg PO Q6HR PRN 04/20/16 [History] Phenazopyridine HCl [Pyridium] 200 mg PO TIDAC #12 tab 04/20/16 [Rx] Tiotropium [place] [Spiriva Respimat] 2 puff IH DAILY 04/20/16 [History] TraZODone 50 mg PO HS 04/20/16 [History] Allergies codeine Adverse Reaction (Verified 09/08/16 18:47) Rash levofloxacin [From Levaquin] Adverse Reaction (Verified 09/08/16 18:47) Hives NSAIDS (Non-Steroidal Anti-Inflamma Adverse Reaction (Verified 09/08/16 18:47) Nausea Penicillins Adverse Reaction (Verified 09/08/16 18:47) Rash pregabalin [From Lyrica] Adverse Reaction (Verified 09/08/16 18:47) Blurry Vision All Systems: A 10-system review of systems was performed and is negative for pertinent findings except as documented above in the HPI. Physical Examination Vital Signs: Vital Signs, Last 4 Hours Temp Pulse Resp BP Pulse Ox 09/09/16 06:55 98.1 F 102 18 152/100 94 L General appearance: lethargic, appears uncomfortable Eyes: nonicteric ENT: oropharynx dry Neck: supple Effort: mildly labored Auscultation: bilateral: diminished breath sounds, wheezes Gastrointestinal: normoactive bowel sounds, non-tender Integumentary: normal Extremities: edema Musculoskeletal: no deformities pupils equal and round, unable to assess due to mental status, other (does have movement of all extremities and will follow commands with prodding ) anxious Results - Laboratory Findings CBC and BMP: 09/08/16 19:58 09/08/16 19:58 ABG ABG pH 7.11 pH Units (7.32-7.45) L* 09/09/16 08:20 ABG pCO2 104 mmHg (35-45) H* 09/09/16 08:20 ABG pO2 166 mmHg (85-104) H 09/09/16 08:20 ABG O2 Saturation 99 % (95-98) H 09/09/16 08:20 PT/INR, D-dimer PT 11.2 Seconds (9.4-12.1) 09/08/16 19:58 D-Dimer 1585 ng/mLFEU (0-500) H 09/08/16 22:22 Abnormal lab findings: Abnormal lab results WBC 16.5 K/mcL (4.3-11.1) H 09/08/16 19:58 RBC 3.79 M/mcL (3.82-4.97) L 09/08/16 19:58 Hgb 10.7 g/dL (11.5-15.4) L 09/08/16 19:58 MCHC 30.1 g/dL (31.6-35.5) L 09/08/16 19:58 RDW 16.5 % (11.5-14.5) H 09/08/16 19:58 Neutrophils # 11.0 K/mcL (1.6-8.9) H 09/08/16 19:58 Monocytes # 1.8 K/mcL (0.0-1.3) H 09/08/16 19:58 Eosinophils # 0.7 K/mcL (0.0-0.6) H 09/08/16 19:58 D-Dimer 1585 ng/mLFEU (0-500) H 09/08/16 22:22 ABG pH 7.11 pH Units (7.32-7.45) L* 09/09/16 08:20 ABG pCO2 104 mmHg (35-45) H* 09/09/16 08:20 ABG pO2 166 mmHg (85-104) H 09/09/16 08:20 ABG HCO3 33.0 mEQ/L (21-27) H 09/09/16 08:20 ABG Total CO2 36.2 mEq/L (20-26) H 09/09/16 08:20 ABG O2 Saturation 99 % (95-98) H 09/09/16 08:20 Est GFR ( Amer) 58 (> 60) L 09/08/16 19:58 Est GFR (Non-Af Amer) 48 (> 60) L 09/08/16 19:58 Glucose 180 mg/dL (70-99) H 09/08/16 19:58 Troponin I 0.20 ng/mL (0-0.03) H* 09/09/16 06:43 B-Natriuretic Peptide 386 pg/mL (0-100) H 09/08/16 19:58 Albumin 3.1 g/dL (3.5-5.0) L 09/08/16 19:58 Globulin 3.6 g/dL (2.4-3.5) H 09/08/16 19:58 Albumin/Globulin Ratio 0.9 (1.1-2.2) L 09/08/16 19:58 - Diagnostic Findings Chest x-ray: report reviewed, image reviewed CT scan - chest: report reviewed, image reviewed - Clinical Findings Intake & Output: Intake & Output 09/08/16 09/09/16 09/09/16 23:59 07:59 15:59 Output Total 425 / 425 Balance -425 / -425 Weight 75.8 kg Consult Discharge Plan - Plan Referrals: Bushra Landry MD [Primary Care Provider] -
[2016-09-09] MEDS: *HR* Morphine 2 MG/ML SYRINGE IVP PRN (08:59)
[2016-09-09] MEDS: MethylPREDNISolone 40 MG/ML VIAL IVP SCH ×2 (08:59→15:44)
[2016-09-09] MEDS ORDERED: Aspirin 325 MG TABLET PO SCH (09:00)
[2016-09-09] MEDS ORDERED: Aspirin 81 MG TAB.CHEW PO SCH ×2 (09:00)
[2016-09-09 09:30] LABS: Magnesium 2.1 mg/dL (1.6-2.6); Phosphorous 4.6 mg/dL (2.3-4.7)
--- NOTE | 2016-09-09 10:11 | Cardiology Consult Note ---
Date of Encounter: 09/09/16 Time of Encounter: 10:09 Assessment and Plan (1) (HFpEF) heart failure with preserved ejection fraction Current Visit: Yes Status: Acute Agree with Bipap - and transfer to the ICU. May need intubation. D/w activity director - agree CXR and BNP are underwhelming. Await echo results (2) Acute respiratory failure Current Visit: Yes Status: Acute Continue supportive care. Worsening ABG is concerning - may need intubation. Diuresis as tolerated Await Echo Qualifiers: Respiratory failure complication: hypoxia and hypercapnia Qualified Code(s) : J96.01 - Acute respiratory failure with hypoxia; J96.02 - Acute respiratory failure with hypercapnia (3) COPD exacerbation Current Visit: Yes Status: Acute (4) Elevated troponin Current Visit: Yes Status: Acute Given acidosis/respiratory failure - this could be secondary to other issues. Will need to trend. Standard [place] type care for now, in addition to respiratory support Discussion w patient/family: Care was discussed with the family - however due to respiratory distress - will need to be discussed further once stabillized History of Present Illness Consult date: 09/09/16 Requesting physician: Kirsten Chávez Consult reason: + Trop, chest pain, Resp Failure Chief complaint: SOB History of present illness: Ms. Perez is a 76 year old female with known HFpEF, Afib, s/p PPM - presents with Respiratory failure/SOB. She mentioned some back pain while being assessed in the ER. After arrival - was noted to have worsening Acidosis - with BiPAP started. While this occured - serial troponins showed an increase - prompting cardiology consultation. The patient is currently on Bi-PAP - and is unable to provide much usable history - therefore history obtained from the medical record. She was able to open her eyes and gave brief nods - did not indicate any holly chest pain while at bedside. Past Med Surg Social Fam HX - Past Medical History Medical history: asthma, atrial fibrillation, COPD, coronary artery disease, GERD, hypertension, myocardial infarction, other Psychiatric history: no psych history - Past Surgical History Surgical History: other - Social History Smoking Status: Current some day smoker Smokeless Tobacco Status: No Alcohol use: none Drug use: none Medications and Allergies Acetaminophen [Tylenol] 500 mg PO HS 04/20/16 [History] Albuterol Neb [Proventil Neb] 2.5 mg IH QID PRN 04/20/16 [History] Albuterol Sulfate [Ventolin Hfa] 2 puff IH QID PRN 04/20/16 [History] Ascorbate Calcium [Vitamin C] 500 mg PO DAILY 04/20/16 [History] Aspirin 81 mg PO DAILY 04/20/16 [History] Bisacodyl [Dulcolax] 10 mg PO DAILY PRN 04/20/16 [History] Carvedilol 3.125 mg PO BID 04/20/16 [History] Cetirizine HCl [Zyrtec] 10 mg PO DAILY 04/20/16 [History] Citalopram [CeleXA] 20 mg PO DAILY 04/20/16 [History] Cyanocobalamin (Vitamin B-12) [Vitamin B-12] 1,000 mcg SL DAILY 04/20/16 [ History] Docusate [Colace] 100 mg PO BID #60 capsule 04/20/16 [Rx] Ergocalciferol (VITAMIN D2) [Vitamin D2 (50,000 UNIT)] 50,000 unit PO Q2W [History] Fluticasone Propionate Nasal [Flonase] 2 spr NS DAILY 04/20/16 [History] Gabapentin [Neurontin] 300 mg PO QAM 04/20/16 [History] Gabapentin [Neurontin] 600 mg PO HS 04/20/16 [History] HYDROcodone/Acet 5/325 mg [[place] 5-325 mg] 1 tab PO Q4H PRN #15 tab 04/20/16 [Rx ] Hydrochlorothiazide 12.5 mg PO DAILY 04/20/16 [History] Levothyroxine [Synthroid] 112 mcg PO 0630 04/20/16 [History] Montelukast [Singulair] 10 mg PO HS 04/20/16 [History] Mv-Mn/FA/Vit K1/Lycop/Lut/Zeax [Ocuvite Eye + Multi Tablet] 2 tab PO DAILY 04/20 [History] Omeprazole [PriLOSEC] 20 mg PO DAILY 04/20/16 [History] OxyCODONE Immed Rel [Roxicodone 5 MG] 5 mg PO Q6HR PRN 04/20/16 [History] Phenazopyridine HCl [Pyridium] 200 mg PO TIDAC #12 tab 04/20/16 [Rx] Tiotropium [employer] [Spiriva Respimat] 2 puff IH DAILY 04/20/16 [History] TraZODone 50 mg PO HS 04/20/16 [History] Allergies codeine Adverse Reaction (Verified 09/08/16 18:47) Rash levofloxacin [From Levaquin] Adverse Reaction (Verified 09/08/16 18:47) Hives NSAIDS (Non-Steroidal Anti-Inflamma Adverse Reaction (Verified 09/08/16 18:47) Nausea Penicillins Adverse Reaction (Verified 09/08/16 18:47) Rash pregabalin [From Lyrica] Adverse Reaction (Verified 09/08/16 18:47) Blurry Vision ROS unobtainable: due to mental status All Systems Review: A 10-system review of systems was performed and is negative for pertinent findings except as documented above in the HPI. Physical Examination General: No Apparent Distress, Other (Opens eyes to voice - on BiPAP - minimal verbal responses) HEENT: Atraumatic, Normocephaly Neck: No JVD Cardiac: Normal S1 and S2, No Murmur Lungs: Other (Decreased Breath sounds, reduced air movement) Neuro: Other (spontaneously moves extremities) Abdomen: Soft, Non-Tender Skin: No rashes noted on visualized skin Musculoskeletal: Other Extremities: No Clubbing, No Cyanosis Results 09/08/16 19:58 09/08/16 19:58 Lab Results 09/09/16 09/09/16 09:10 09:10 Magnesium 2.1 B-Natriuretic Peptide 1617 H Laboratory Results - last 24 hr 09/08/16 09/08/16 09/08/16 19:58 19:58 19:58 WBC 16.5 H RBC 3.79 L Hgb 10.7 L Hct 35.6 MCV 93.9 MCH 28.2 MCHC 30.1 L RDW 16.5 H Plt Count 238 MPV 9.7 Immature Gran % 0.9 Seg Neutrophils % 66.8 Lymphocytes % 16.6 Monocytes % 10.8 Eosinophils % 4.4 Basophils % 0.5 Neutrophils # 11.0 H Lymphocytes # 2.7 Monocytes # 1.8 H Eosinophils # 0.7 H Basophils # 0.1 PT 11.2 INR 1.0 APTT 28.4 D-Dimer ABG pH ABG pCO2 ABG pO2 ABG HCO3 ABG Total CO2 ABG O2 Saturation ABG Base Excess Blood Gas Modality Inspired O2 Sodium Potassium Chloride Carbon Dioxide BUN Creatinine Est GFR ( Amer) Est GFR (Non-Af Amer) BUN/Creatinine Ratio Glucose Calculated Osmolality Lactic Acid Calcium Phosphorus Magnesium Total Bilirubin Direct Bilirubin Indirect Bilirubin AST ALT Alkaline Phosphatase Troponin I B-Natriuretic Peptide 386 H Serum Total Protein Albumin Globulin Albumin/Globulin Ratio Amylase 09/08/16 09/08/16 09/08/16 19:58 19:58 22:22 WBC RBC Hgb Hct MCV MCH MCHC RDW Plt Count MPV Immature Gran % Seg Neutrophils % Lymphocytes % Monocytes % Eosinophils % Basophils % Neutrophils # Lymphocytes # Monocytes # Eosinophils # Basophils # PT INR APTT D-Dimer 1585 H ABG pH ABG pCO2 ABG pO2 ABG HCO3 ABG Total CO2 ABG O2 Saturation ABG Base Excess Blood Gas Modality Inspired O2 Sodium 140 Potassium 3.9 Chloride 100 Carbon Dioxide 29 BUN 20 Creatinine 1.11 Est GFR ( Amer) 58 L Est GFR (Non-Af Amer) 48 L BUN/Creatinine Ratio 18 Glucose 180 H Calculated Osmolality 297 Lactic Acid Calcium 8.8 Phosphorus Magnesium Total Bilirubin 0.3 Direct Bilirubin 0.1 Indirect Bilirubin 0.2 AST 24 ALT 18 Alkaline Phosphatase 115 Troponin I 0.07 H* B-Natriuretic Peptide Serum Total Protein 6.7 Albumin 3.1 L Globulin 3.6 H Albumin/Globulin Ratio 0.9 L Amylase 26 09/09/16 09/09/16 09/09/16 01:10 06:43 08:20 WBC RBC Hgb Hct MCV MCH MCHC RDW Plt Count MPV Immature Gran % Seg Neutrophils % Lymphocytes % Monocytes % Eosinophils % Basophils % Neutrophils # Lymphocytes # Monocytes # Eosinophils # Basophils # PT INR APTT D-Dimer ABG pH 7.18 L* 7.11 L* ABG pCO2 87 H* 104 H* ABG pO2 127 H 166 H ABG HCO3 32.5 H 33.0 H ABG Total CO2 35.2 H 36.2 H ABG O2 Saturation 98 99 H ABG Base Excess 2.0 0.7 Blood Gas Modality BIPAP [place] Inspired O2 50 44 Sodium Potassium Chloride Carbon Dioxide BUN Creatinine Est GFR ( Amer) Est GFR (Non-Af Amer) BUN/Creatinine Ratio Glucose Calculated Osmolality Lactic Acid Calcium Phosphorus Magnesium Total Bilirubin Direct Bilirubin Indirect Bilirubin AST ALT Alkaline Phosphatase Troponin I 0.20 H* B-Natriuretic Peptide Serum Total Protein Albumin Globulin Albumin/Globulin Ratio Amylase 09/09/16 09/09/16 09/09/16 09:10 09:10 09:10 WBC RBC Hgb Hct MCV MCH MCHC RDW Plt Count MPV Immature Gran % Seg Neutrophils % Lymphocytes % Monocytes % Eosinophils % Basophils % Neutrophils # Lymphocytes # Monocytes # Eosinophils # Basophils # PT INR APTT D-Dimer ABG pH ABG pCO2 ABG pO2 ABG HCO3 ABG Total CO2 ABG O2 Saturation ABG Base Excess Blood Gas Modality Inspired O2 Sodium Potassium Chloride Carbon Dioxide BUN Creatinine Est GFR ( Amer) Est GFR (Non-Af Amer) BUN/Creatinine Ratio Glucose Calculated Osmolality Lactic Acid 1.5 Calcium Phosphorus 4.6 Magnesium 2.1 Total Bilirubin Direct Bilirubin Indirect Bilirubin AST ALT Alkaline Phosphatase Troponin I B-Natriuretic Peptide 1617 H Serum Total Protein Albumin Globulin Albumin/Globulin Ratio Amylase - Imaging and Cardiology Chest Xray: report reviewed Echo: pending - EKG Interpretation EKG results cardiology: personally reviewed, ventricular paced rhythm Consult Discharge Plan - Plan Referrals: Bushra Landry MD [Primary Care Provider] -
[2016-09-09 10:28] LABS: ABG Base Excess 2.6 mEq/L (-2.0 to 3.0); ABG HCO3 31.7 mEQ/L (21-27); ABG Oxygen Saturation 96 % (95-98); ABG PH 7.24 pH Units (7.32-7.45); ABG PO2 91 mmHg (85-104)
[2016-09-09 10:29] LABS: ABG PCO2 74 mmHg (35-45); Blood Gas FiO2 35 %
[2016-09-09] MEDS ORDERED: Perflutren Lipid Microsphere 1.3 ML in 0.9 % Sodium Chloride 8.7 ML IVP ONE (11:15)
[2016-09-09] MEDS ORDERED: *HR* FentaNYL (PF) 100 MCG/2 ML VIAL ONE (11:51)
--- NOTE | 2016-09-09 12:17 | Procedure Note ---
Date of procedure: 09/09/16 Pre-op diagnosis: respiratory failure Post-op diagnosis: same Procedure: A time-out was deferred as the procedure was emergent. Sedative agent used: Etomidate, fentanyl and versed see nursing flow sheet for doses. Paralysis agent used: None The patient was prepared in the appropriate fashion and a 3.0 glidescope was used vocal cords were visualized a 7. 5 [place] endotracheal tube was placed under under direct visualization on the first attempt to 24 cm at the lip and balloon was inflated with 10mL of air. Bilateral breath sounds were heard without air sounds in the abdomen. An end-tital Co2 monitor was used to confirm tracheal placement of the ET tube. Patient tolerated the procedure well and there were no complications. Chest xray was ordered to assess for pneumothorax and endotracheal tube placement. Anesthesia: IV sedation Surgeon: Leno Bowers Condition: critical Disposition: ICU
--- NOTE | 2016-09-09 12:19 | Event Note ---
Date of Encounter: 09/09/16 Time of Encounter: 12:18 Patient in the ICU was given trial BiPAP for respiratory failure had some improvement in ABG with BiPAP settings and became more responsive however during echocardiogram patient was known to take off mask and quickly became much more lethargic unresponsive with drop in saturations emergent endotracheal intubation was performed as outlined in procedure note I attempted update the family's emergency contact which is listed as her son I reached his girlfriend which said that he was on his way to [place] but she would attempt to contact him for further update.
[2016-09-09] MEDS: FentaNYL (PF) 1,000 MCG in 0.9 % Sodium Chloride 80 ML IVC SCH ×2 (12:31→22:27)
[2016-09-09] MEDS ORDERED: *HR* FentaNYL (PF) 100 MCG/2 ML VIAL IVP ONE (12:35)
[2016-09-09 12:39] LABS: Bilirubin,Urine Negative (Negative); Blood,Urine Large (Negative); Clarity,Urine Clear (Clear); Color,Urine Yellow (Yellow); Glucose,Urine (UA) Normal (Normal); Ketones,Urine Negative (Negative); Leukocyte Esterase,Urine Negative (Negative); Nitrite,Urine Negative (Negative); Protein,Urine 100 mg/dL (Neg-Trace); Specific Gravity,Urine > 1.030 (1.010-1.025); Urobilinogen,Urine Normal (Normal)
[2016-09-09 12:42] LABS: RBC,Urine TNTC per hpf (0-3); WBC,Urine 15-30 per hpf (0-3)
[2016-09-09 12:49] LABS: Bacteria,Urine Few per hpf (None-Few); Hyaline Casts,Urine Few per lpf (None-Few); Squamous Epithelial Cell,Urine Moderate per lpf (None-Few)
--- NOTE | 2016-09-09 13:06 | ECHO - Doppler Report ---
Echo with Imaging Enhancement Agent Name: Chani Ryder Recor Date of Study: 09/09/2016 Date: 1940 Ht: 58.0 in Medical Record#: [id number] Age: 76 Wt: 167.0 lb Gender: Female BSA: 1.69 Order #: [id number] Location: [facility] Room #: 07 Reading Physician: Nigel Bernard MD, [facility] [employer] Filler: Annemarie Stapleton RDCS, T Ordering Physician: Kirsten Chávez MD Primary Physician: Bushra Landry MD Indications: Congestive heart failure Impressions: LVEF 40% with regional wall motion abnormality consistent with ischemic cardiomyopathy. EF decreased compared to 2016 echo There is a moderate pericardial effusion present measuring at maximal 1.7cm mostly located inferoposteriorly. No definite echo criteria for tamponade. Clinical correlation is advised as cardiac tamponade is a clinical diagnosis. The IVC is dilated. < 50% respiratory change which is commonly seen on patients on mechanical ventilator Recommend repeat limited echo in 1-2 days, consider cardiology consultation. Results sent via [employer] to ordering physician Left Ventricular Wall Motion: Rest Echo Findings The apex, apical inferior, apical anterior, apical septal, mid inferior septal and apical lateral hope were hypokinetic. All other wall segments showed normal motion. Findings: Study Quality * Technically adequate exam. Right Ventricle * Normal right ventricular structure and function. Left Atrium * Normal left atrial size. Aorta * Normally sized aortic root. Pulmonic Valve * No pulmonic stenosis. * Mild pulmonic regurgitation. Pericardium * There is a moderate pericardial effusion present measuring at maximal 1.7cm mostly located inferoposteriorly * Excessive respiratory variation is absent. Aortic Valve * No aortic regurgitation. * No aortic stenosis. * Aortic valve not well visualized. Tricuspid Valve * Estimated RA pressure is 10-15 mmHg. * Borderline pulmonary hypertension. * No tricuspid stenosis. * Trace tricuspid regurgitation. * Estimated RVSP is 28 mmHg. Mitral Valve * Normal mitral valve structure. * Trace mitral regurgitation. * No mitral stenosis. Interatrial Septum * Interatrial septum not well evaluated. IVC * The IVC is dilated. * < 50% respiratory change. ECG Findings * Sinus rhythm with BBB. Left Ventricle * LVEF 40%. * Mild segmental left ventricular systolic dysfunction. * Indeterminate diastolic function. Right Atrium * Normal right atrial size. History Hypertension History of Smoking Years 55 Packs 0.1 Congestive Heart Failure Pacer/ICD Implant 10-19-2015 a Previous Echo was performed. Contrast: Definity 1.3 ml in 8.7 ml of saline 2 ml. Measurements: BP: 152/ 100 2D Normal Values RVIDd: 3.45 cm <2.7 cm IVSd: .90 cm 0.6 - 1.0 cm LVIDd: 5.04 cm 3.7 - 5.6 cm LVPWd: .93 cm 0.6 - 1.1 cm LVIDs: 3.92 cm 1.5 - 3.6 cm AO: 3.10 cm < 4.0 cm LA: 3.30 cm 2.0 - 4.0cm %FS: 22.20 cm >25 % LA volume: 56 Mitral Valve Peak E:1.32 m/sec Peak A:1.05 m/sec E/A Ratio:1.3 Peak E' Lat Deacon:6.74 cm/s Peak E' Med Deacon:4.46 cm/s E/E' Lat Ratio:19.6 E/E' Med Ratio:29.6 Tricuspid Valve TV Regurg Peak Grad: 25.00mmHg TV Regurg Peak Deacon: 2.52m/sec Updated by Nigel Bernard MD, [facility] on 09/09/2016 12:52:46 PM electronically signed on 09/09/2016 1:00:10 PM with status of Final Wall Motion Marie: 1=Normal, 2=Hypokinesis, 3=Akinesis, 4=Dyskinesis, 5=Aneurysmal, 6=Hyperkinetic, X=Not Visualized (Blank)=Missing
[2016-09-09 13:24] LABS: ABG Base Excess -1.5 mEq/L (-2.0 to 3.0); ABG HCO3 29.3 mEQ/L (21-27); ABG Oxygen Saturation 95 % (95-98); ABG PO2 98 mmHg (85-104)
[2016-09-09 13:25] LABS: ABG PCO2 88 mmHg (35-45); ABG PH 7.13 pH Units (7.32-7.45); Blood Gas FiO2 50 %
[2016-09-09] MEDS: *HR* Midazolam HCl 2 MG/2 ML VIAL IVP PRN ×2 (13:34→14:39)
[2016-09-09] MEDS: Gabapentin 300 MG CAPSULE PO SCH ×2 (13:34→22:05)
[2016-09-09] MEDS: Sennosides 8.6 MG TABLET PO SCH ×2 (13:34→22:06)
[2016-09-09] MEDS: Pantoprazole 40 MG VIAL IVP SCH (13:34)
[2016-09-09] MEDS: *HR* HYDROcodone/Acet 5/325 mg TABLET PO PRN (13:36)
[2016-09-09] MEDS: Loratadine 10 MG TABLET PO SCH (13:37)
[2016-09-09] MEDS ORDERED: *HR* Heparin 5,000 UNIT/ML VIAL IVP PRN ×2 (13:56)
[2016-09-09] MEDS ORDERED: *HR* Heparin 5,000 UNIT/ML VIAL IVP ONE (13:56)
[2016-09-09] MEDS ORDERED: Heparin 25,000 UNIT/500 ML D5W 25,000 UNIT/500 ML MLS IVC SCH (14:00)
[2016-09-09 14:04] LABS: Adenovirus Not Detected (Not Detect); Bordetella Pertussis Not Detected (Not Detect); Chlamydophila pneumoniae Not Detected (Not Detect); Coronavirus 229E Not Detected (Not Detect); Coronavirus HKU1 Not Detected (Not Detect); Coronavirus NL63 Not Detected (Not Detect); Coronavirus OC43 ***DETECTED*** (Not Detect); Human Metapneumovirus Not Detected (Not Detect); Human Rhinovirus/Enterovirus Not Detected (Not Detect); Influenza A Subtype 2009 H1 Not Detected (Not Detect); Influenza A Untypeable Not Detected (Not Detect); Influenza B Not Detected (Not Detect); Mycoplasma pneumoniae Not Detected (Not Detect); Parainfluenza Virus 1 Not Detected (Not Detect); Parainfluenza Virus 2 Not Detected (Not Detect); Parainfluenza Virus 3 Not Detected (Not Detect); Parainfluenza Virus 4 Not Detected (Not Detect); Respiratory Syncytial Virus Not Detected (Not Detect)
[2016-09-09] MEDS: Albuterol 2.5 MG/3 ML NEBULIZER IH PRN ×3 (14:26→22:22)
[2016-09-09] MEDS: hydroCHLOROthiazide 25 MG TABLET PO SCH (14:41)
--- NOTE | 2016-09-09 14:50 | Event Note ---
Date of Encounter: 09/09/16 Time of Encounter: 14:48 - Cardiology Event Note Patient's echo was reviewed. EF has decreased compared to previous- possible regional wall motion abnormalities Pericardial effusion noted - small to moderate Clinically no tamponade at present Case d/w [place] - heparin gtt and supportive care Will eventually need an ischemic evaluation.
[2016-09-09 14:56] LABS: Hematocrit 33.6 % (35.3-44.9); Hemoglobin 9.9 g/dL (11.5-15.4); Mean Corpuscular HGB Conc 29.5 g/dL (31.6-35.5); Mean Corpuscular Hemoglobin 28.4 pg (28.0-33.3); Mean Corpuscular Volume 96.3 fL (83.0-100.0); Mean Platelet Volume 9.7 fL (9.4-12.4); Platelet Count 212 K/mcL (140-400); Red Blood Count 3.49 M/mcL (3.82-4.97); Red Cell Distribution Width 16.7 % (11.5-14.5)
[2016-09-09 15:02] LABS: INR 1.2; Prothrombin Time 12.6 Seconds (9.4-12.1)
[2016-09-09 15:05] LABS: Activated Partial Thrombo Time 31.7 Seconds (26.0-36.0)
[2016-09-09 15:55] LABS: ABG Base Excess 2.3 mEq/L (-2.0 to 3.0); ABG Oxygen Saturation 99 % (95-98); ABG PCO2 55 mmHg (35-45); ABG PH 7.33 pH Units (7.32-7.45); ABG PO2 137 mmHg (85-104); ABG TCO2 30.7 mEq/L (20-26)
[2016-09-09 15:56] LABS: Blood Gas FiO2 50 %
[2016-09-09] MEDS ORDERED: traZODone 50 MG TABLET PO SCH (21:00)
[2016-09-10] MEDS: MethylPREDNISolone 40 MG/ML VIAL IVP SCH ×2 (00:08→08:31)
[2016-09-10] MEDS: Ipratropium/Albuterol Neb 3 ML IH SCH ×6 (00:30→20:41)
[2016-09-10] MEDS: Albuterol 2.5 MG/3 ML NEBULIZER IH PRN (02:29)
[2016-09-10 03:27] LABS: Basophils % 0.1 %; Hematocrit 30.2 % (35.3-44.9); Hemoglobin 9.3 g/dL (11.5-15.4); Immature Granulocytes % 1.1 % (0-4); Immature Platelets 3.3 % (1.1-6.1); Lymphocytes % 7.4 %; Mean Corpuscular HGB Conc 30.8 g/dL (31.6-35.5); Mean Corpuscular Hemoglobin 28.1 pg (28.0-33.3); Mean Corpuscular Volume 91.2 fL (83.0-100.0); Mean Platelet Volume 10.1 fL (9.4-12.4); Monocytes # 1.3 K/mcL (0.0-1.3); Monocytes % 9.9 %; Neutrophils # 10.9 K/mcL (1.6-8.9); Platelet Count 227 K/mcL (140-400); Red Blood Count 3.31 M/mcL (3.82-4.97); Red Cell Distribution Width 16.8 % (11.5-14.5); Segmented Neutrophils % 81.5 %
[2016-09-10 03:40] LABS: Alanine Aminotransferase 25 Units/L (0-55); Albumin 2.9 g/dL (3.5-5.0); Albumin/Globulin Ratio 0.9 (1.1-2.2); Alkaline Phosphatase 98 Units/L (38-126); Aspartate Amino Transferase 33 Units/L (5-34); BUN/Creatinine Ratio 22 (6-26); Bilirubin,Total 0.5 mg/dL (0.2-1.2); Blood Urea Nitrogen 20 mg/dL (7-20); Calcium 8.8 mg/dL (8.6-10.8); Carbon Dioxide 22 mEq/L (19-29); Chloride 104 mEq/L (98-109); Globulin 3.4 g/dL (2.4-3.5); Glucose 195 mg/dL (70-99); Osmolality,Calculated 298 (280-300); Potassium 4.1 mEq/L (3.5-4.5); Sodium 140 mEq/L (136-145); Total Protein 6.3 g/dL (6.0-8.3); eGFR For African Americans > 60 (> 60); eGFR For Non-African Americans 59 (> 60)
[2016-09-10 05:28] LABS: ABG Base Excess 5.5 mEq/L (-2.0 to 3.0); ABG HCO3 29.9 mEQ/L (21-27); ABG Oxygen Saturation 99 % (95-98); ABG PCO2 42 mmHg (35-45); ABG PH 7.46 pH Units (7.32-7.45); ABG PO2 117 mmHg (85-104); ABG TCO2 31.2 mEq/L (20-26)
[2016-09-10] MEDS: Cefepime HCl 2,000 MG in D5% in Water (Mini-Bag+) 100 ML IVPB SCH (05:28)
[2016-09-10 05:37] LABS: Blood Gas FiO2 40 %
[2016-09-10] MEDS: FentaNYL (PF) 1,000 MCG in 0.9 % Sodium Chloride 80 ML IVC SCH ×3 (07:05→16:16)
[2016-09-10] MEDS: Aspirin 81 MG TAB.CHEW PO SCH (08:30)
[2016-09-10] MEDS: Gabapentin 300 MG CAPSULE PO SCH ×2 (08:30→21:15)
[2016-09-10] MEDS: Sennosides 8.6 MG TABLET PO SCH ×2 (08:30→21:16)
[2016-09-10] MEDS: Pantoprazole 40 MG VIAL IVP SCH (08:31)
[2016-09-10] MEDS: Loratadine 10 MG TABLET PO SCH (08:31)
--- NOTE | 2016-09-10 09:26 | Pulmonology Progress Note ---
Date of Encounter: 09/10/16 Time of Encounter: 07:30 Assessment and Plan (1) Acute respiratory failure Current Visit: Yes Status: Acute Acute hypoxic hypercapnic respiratory failure likely s/t COPD exacerbation, possible underlying acquired pneumonia Was intubated yesterday afternoon due to decreased responsiveness and drop in saturations during echocardiogram Currently on FIO2 40%, PEEP 5, with saturation of 98% Bronchodilators and IV steroids Coronavirus positive Urine culture for Legionella and S. pneumoniae were negative Sputum demonstrated no bacteria Will discontinue Cefepime today Continue Azithromycin for COPD exacerbation Qualifiers: Respiratory failure complication: hypoxia and hypercapnia Qualified Code(s) : J96.01 - Acute respiratory failure with hypoxia; J96.02 - Acute respiratory failure with hypercapnia (2) NSTEMI (non-ST elevated myocardial infarction) Current Visit: Yes Status: Acute Pt had vague abd/chest pain with rising troponin (0.07, 0.20, 0.20) History of CAD in past concerning for NSTEMI Echo showed LVEF 40% with regional wall motion abnormality consistent with ischemic cardiomyopathy, Moderate pericardial effusion present located inferoposteriorly with no criteria for tamponade Cardiology consulted (3) Cardiomyopathy Current Visit: Yes Status: Acute Newly diagnosed cardiomyopathy Segmental wall motion abnormalities on echo suggest ischemic origin Per cardiology, diurese as tolerated-creatinine 0.92 today, continue aspirin, statin therapy, stop heparin drip LHC recommended prior to discharge once stable Qualifiers: Cardiomyopathy type: unspecified Qualified Code(s): I42.9 - Cardiomyopathy , unspecified (4) Systolic CHF, acute Current Visit: Yes Status: Acute Serial CXRs and BNPs suggest development of CHF, BNP:1617 EF newly reduced on echo at 40% HCTZ held and lasix 20mg IV given this morning per cardiology (5) Community acquired pneumonia Current Visit: Yes Status: Acute CT scan inconclusive but possibly consistent with infiltrate in lingula and RLL Cultures negative Will discontinue Cefepime, continue Azithromycin for COPD exacerbation (6) Atrial fibrillation Current Visit: Yes Status: Acute Currently rate controlled, continue beta lena Qualifiers: Atrial fibrillation type: chronic Qualified Code(s): I48.2 - Chronic atrial fibrillation (7) COPD exacerbation Current Visit: Yes Status: Acute IV steroids and bronchodilators Azithromycin 500mg (8) Abdominal pain Current Visit: Yes Status: Acute CT Abd/Pelvis demonstrated small amount of fluid and gas within the vagina, given closely opposed small bowel, fistula is not excluded Doubt this is acute cause of pain Qualifiers: Abdominal location: generalized Qualified Code(s): R10.84 - Generalized abdominal pain (9) Sepsis Current Visit: Yes Status: Acute Pt met criteria with evidence of infectious source including lung, possibly abdomen Was started on Cefepime and Azithromycin, cultures are negative Cefepime stopped today, will continue Azithromycin Qualifiers: Sepsis type: sepsis due to unspecified organism Qualified Code(s): A41.9 - Sepsis, unspecified organism Subjective Principal diagnosis: Acute respiratory failure Interval history: Pt intubated, will respond to verbal commands. Marsh catheter and NG tube in place. Objective PUL Vital signs: Last Vital Signs Temp 98.9 F 09/10/16 07:25 Pulse 96 09/10/16 08:00 Resp 26 09/10/16 08:00 BP 111/71 09/10/16 08:00 Pulse Ox 97 09/10/16 08:00 General appearance: other (Currently intubated and sedated, Will respond to verbal commands) Eyes: nonicteric Neck: supple Auscultation: bilateral: rhonchi Cardiovascular: regular rate and rhythm Gastrointestinal: absent bowel sounds, other (distended) Extremities: no cyanosis, edema Musculoskeletal: no deformities non-focal exam, other (Able to move all extremities) Ventilator Settings Ventilator Settings: Ventilator Settings, Last 8 Hours Ventilator Mode A/C Ventilator Mode A/C Ventilator Mode A/C Ventilator Mode SIMV Ventilator Mode A/C Ventilator Mode A/C Ventilator Mode A/C Ventilator Mode A/C Ventilator Mode A/C Ventilator Tidal Volume 380 Setting Ventilator Tidal Volume 380 Setting Ventilator Tidal Volume 380 Setting Ventilator Tidal Volume 380 Setting Ventilator Tidal Volume 380 Setting Ventilator Tidal Volume 380 Setting Ventilator Tidal Volume 380 Setting Ventilator Tidal Volume 380 Setting Ventilator Tidal Volume 380 Setting Ventilator Respiratory Rate 26 Setting Ventilator Respiratory Rate 26 Setting Ventilator Respiratory Rate 26 Setting Ventilator Respiratory Rate 26 Setting Ventilator Respiratory Rate 26 Setting Ventilator Respiratory Rate 26 Setting Ventilator Respiratory Rate 26 Setting Ventilator Respiratory Rate 26 Setting Ventilator Respiratory Rate 26 Setting Actual Respiratory Rate 26 Actual Respiratory Rate 26 Actual Respiratory Rate 26 Actual Respiratory Rate 26 Actual Respiratory Rate 26 Actual Respiratory Rate 26 Actual Respiratory Rate 26 Actual Respiratory Rate 26 Actual Respiratory Rate 26 Positive End Expiratory 5 Pressure Positive End Expiratory 5 Pressure Positive End Expiratory 5 Pressure Positive End Expiratory 5 Pressure Positive End Expiratory 5 Pressure Positive End Expiratory 5 Pressure Positive End Expiratory 5 Pressure Positive End Expiratory 5 Pressure Positive End Expiratory 5 Pressure Peak Inspiratory Airway 45 Pressure Peak Inspiratory Airway 46 Pressure Peak Inspiratory Airway 41 Pressure Peak Inspiratory Airway 39 Pressure Peak Inspiratory Airway 41 Pressure Peak Inspiratory Airway 40 Pressure Peak Inspiratory Airway 37 Pressure Peak Inspiratory Airway 38 Pressure Peak Inspiratory Airway 36 Pressure Results - Laboratory Findings CBC and BMP: 09/10/16 03:09 09/10/16 03:09 ABG ABG pH 7.46 pH Units (7.32-7.45) H 09/10/16 05:18 ABG pCO2 42 mmHg (35-45) 09/10/16 05:18 ABG pO2 117 mmHg (85-104) H 09/10/16 05:18 ABG O2 Saturation 99 % (95-98) H 09/10/16 05:18 PT/INR, D-dimer PT 12.6 Seconds (9.4-12.1) H 09/09/16 14:50 D-Dimer 1585 ng/mLFEU (0-500) H 09/08/16 22:22 Abnormal lab findings: Abnormal lab results WBC 13.3 K/mcL (4.3-11.1) H 09/10/16 03:09 RBC 3.31 M/mcL (3.82-4.97) L 09/10/16 03:09 Hgb 9.3 g/dL (11.5-15.4) L 09/10/16 03:09 Hct 30.2 % (35.3-44.9) L 09/10/16 03:09 MCHC 30.8 g/dL (31.6-35.5) L 09/10/16 03:09 RDW 16.8 % (11.5-14.5) H 09/10/16 03:09 Neutrophils # 10.9 K/mcL (1.6-8.9) H 09/10/16 03:09 PT 12.6 Seconds (9.4-12.1) H 09/09/16 14:50 APTT 81.4 Seconds (26.0-36.0) H 09/10/16 03:09 D-Dimer 1585 ng/mLFEU (0-500) H 09/08/16 22:22 ABG pH 7.46 pH Units (7.32-7.45) H 09/10/16 05:18 ABG pO2 117 mmHg (85-104) H 09/10/16 05:18 ABG HCO3 29.9 mEQ/L (21-27) H 09/10/16 05:18 ABG Total CO2 31.2 mEq/L (20-26) H 09/10/16 05:18 ABG O2 Saturation 99 % (95-98) H 09/10/16 05:18 ABG Base Excess 5.5 mEq/L (-2.0 to 3.0) H 09/10/16 05:18 Est GFR (Non-Af Amer) 59 (> 60) L 09/10/16 03:09 Glucose 195 mg/dL (70-99) H 09/10/16 03:09 POC Glucose 189 (58-89) H 09/09/16 23:50 Troponin I 0.20 ng/mL (0-0.03) H* 09/09/16 14:50 B-Natriuretic Peptide 1617 pg/mL (0-100) H 09/09/16 09:10 Albumin 2.9 g/dL (3.5-5.0) L 09/10/16 03:09 Albumin/Globulin Ratio 0.9 (1.1-2.2) L 09/10/16 03:09 Ur Specific [place] > 1.030 (1.010-1.025) H 09/09/16 12:17 Urine Protein 100 mg/dL (Neg-Trace) H 09/09/16 12:17 Urine Blood Large (Negative) H 09/09/16 12:17 Urine Microscopic RBC TNTC per hpf (0-3) H 09/09/16 12:17 Urine Microscopic WBC 15-30 per hpf (0-3) H 09/09/16 12:17 Ur Squamous Epith Cells Moderate per lpf (None-Few) H 09/09/16 12:17 Ur Culture Indicated? YES (NO) A 09/09/16 12:17 Coronavirus OC43 (PCR) DETECTED (Not Detect) A 09/09/16 12:20 - Microbiology Findings Microbiology Findings: Microbiology, Last 48 Hours 09/09/16 22:39 Sputum Culture - Preliminary Sputum 09/09/16 13:00 Legionella Antigen - Final Urine,Catheterized 09/09/16 13:00 Streptococcus pneumoniae Antigen (M - Final Urine,Catheterized - Clinical Findings Intake & Output: Intake & Output 09/09/16 09/10/16 09/10/16 23:59 07:59 15:59 Intake Total 295 / 295 317 / 317 Output Total 250 / 250 500 / 500 Balance 45 / 45 -183 / -183 Weight 78.381 kg Consult Discharge Plan - Plan Referrals: Bushra Landry MD [Primary Care Provider] -
--- NOTE | 2016-09-10 09:35 | Cardiology Progress Note ---
Date of Encounter: 09/10/16 Time of Encounter: 09:34 Assessment and Plan (1) Cardiomyopathy Current Visit: Yes Status: Acute Newly diagnosed CMP. Segmental wall motion abnormalities suggest ischemic origin. Currently, appears stable, but remains intubated/sedated. Minimal troponin elevation - ? significance, trend not indicative of ACS. No acute ECG changes. Recommend ongoing supportive care for respiratory issues. Diurese as tolerated - Cr stable. Your pulmonary management regarding AECOPD. Continue aspirin, statin therapy. Okay to stop heparin drip. Resume BB therapy if okay from a pulmonology standpoint. Avoid ACEi for now given relative hypotension. Once stable, I would recommend LHC prior to discharge. Qualifiers: Cardiomyopathy type: unspecified Qualified Code(s): I42.9 - Cardiomyopathy , unspecified (2) Systolic CHF, acute Current Visit: Yes Status: Acute Initial presentation suggestive of AECOPD. Serial CXRs and BNPs suggests development of CHF. EF newly reduced, 40%. Recommend 2L daily fluid restriction, low sodium diet when PO. Cautions diuresis, monitor Cr - should hopefully help improve respiratory status. Hold HCTZ. Given lasix 20 mg IV this morning. See other recs with CMP dx. (3) COPD exacerbation Current Visit: Yes Status: Acute Your pulmonary management. Discussion w patient/family: The assessment and plan as outlined above was discussed with the patient and/or family members who expressed understanding and agreement. All questions were answered. Thank you for involving us in the care of your patient. Please call with any questions. Subjective Principal diagnosis: Acute respiratory failure Interval history: Patient seen and examined in ICU - my first encounter with her. 76 y/o with a history of SVT s/p ablation, SSS s/p pacemaker. Presented with respiratory insufficency. CT negative for PE. No pleural effusions reported. Worsening respiratory acidosis noted, requiring intubation. Serial CXR and BNPs suggests developement of CHF. EF 40%, SWMAs on echocardiogram, which is new. Minimal, mostly adynamic troponin elevation. Currently sedated - unable to provide history. Objective Vital Signs, Last 4 Hours Temp Pulse Resp BP Pulse Ox 09/10/16 09:00 103 26 106/61 98 09/10/16 08:00 96 26 111/71 97 09/10/16 07:46 26 108/65 98 09/10/16 07:25 98.9 F 09/10/16 06:00 101 26 111/56 98 General: Other (Sedated, intubated, appears comfortable. ) HEENT: Atraumatic, Normocephaly, Mucus Membranes Moist Neck: No JVD Cardiac: Reg Rate and Rhythm, Normal S1 and S2, No Murmur Lungs: Other (Shallow, few rhonchi) Neuro: Other (Sedated. ) Abdomen: Soft, Non-Tender Skin: No rashes noted on visualized skin Musculoskeletal: No Chest Wall Tenderness Extremities: No Clubbing, No Cyanosis, No Edema Results 09/10/16 03:09 09/10/16 03:09 Lab Results 09/09/16 09/09/16 09/09/16 09:10 14:50 14:50 WBC 10.3 Hgb 9.9 L Hct 33.6 L Plt Count 212 INR APTT Sodium Potassium Chloride Carbon Dioxide BUN Creatinine Glucose Calcium Total Bilirubin AST ALT Alkaline Phosphatase Troponin I 0.20 H* B-Natriuretic Peptide 1617 H 09/09/16 09/09/16 09/10/16 14:50 21:20 03:09 WBC Hgb Hct Plt Count INR 1.2 APTT 31.7 81.8 H D Sodium 140 Potassium 4.1 Chloride 104 Carbon Dioxide 22 BUN 20 Creatinine 0.92 Glucose 195 H Calcium 8.8 Total Bilirubin 0.5 AST 33 ALT 25 Alkaline Phosphatase 98 Troponin I B-Natriuretic Peptide 09/10/16 09/10/16 03:09 03:09 WBC 13.3 H Hgb 9.3 L Hct 30.2 L Plt Count 227 INR APTT 81.4 H Sodium Potassium Chloride Carbon Dioxide BUN Creatinine Glucose Calcium Total Bilirubin AST ALT Alkaline Phosphatase Troponin I B-Natriuretic Peptide - Imaging and Cardiology Chest Xray: report reviewed Echo: report reviewed - EKG Interpretation EKG results cardiology: personally reviewed Consult Discharge Plan - Plan Referrals: Bushra Landry MD [Primary Care Provider] -
[2016-09-10] MEDS: Furosemide 20 MG/2 ML VIAL IVP SCH (10:46)
[2016-09-10] MEDS: Metoprolol XL (24 HR) Succ 25 MG TAB.ER.24H PO SCH (10:46)
[2016-09-10] MEDS: Azithromycin 500 MG in D5% in Water 250 ML IVPB SCH (10:47)
[2016-09-10] MEDS: *HR* HYDROcodone/Acet 5/325 mg TABLET PO PRN (13:04)
[2016-09-10] MEDS ORDERED: D5% in Water 1,000 ML IV PRN (14:31)
[2016-09-10] MEDS ORDERED: Dextrose Gel 15 GM PO PRN ×2 (14:31)
[2016-09-10] MEDS ORDERED: *HR* Dextrose 50 % in Water (Syg) 50 ML SYRINGE IVP PRN (14:31)
[2016-09-10] MEDS ORDERED: Bisacodyl 10 MG RECTAL SUPPOSITORY RC ONE (16:23)
[2016-09-10] MEDS: *HR* Heparin 5,000 UNIT/ML VIAL SQ SCH (16:25)
[2016-09-10] MEDS ORDERED: MethylPREDNISolone 40 MG/ML VIAL IVP SCH (18:00)
[2016-09-10] MEDS: Insulin LISPRO 300 UNITS/3 ML VIAL SQ SCH (18:18)
[2016-09-10] MEDS: 0.9 % Sodium Chloride 1,000 ML IVC SCH ×2 (20:36→21:23)
[2016-09-10] MEDS: hydroCHLOROthiazide 25 MG TABLET PO SCH (20:36)
[2016-09-10] MEDS: Chlorhexidine Rinse 15 ML MOUTHWASH MM SCH (21:15)
[2016-09-10] MEDS: *HR* Morphine 2 MG/ML SYRINGE IVP PRN (22:00)
[2016-09-11] MEDS: *HR* Heparin 5,000 UNIT/ML VIAL SQ SCH ×3 (00:13→20:56)
[2016-09-11] MEDS: Insulin LISPRO 300 UNITS/3 ML VIAL SQ SCH ×4 (00:14→20:56)
[2016-09-11] MEDS: Ipratropium/Albuterol Neb 3 ML IH SCH ×6 (00:23→19:50)
[2016-09-11] MEDS: FentaNYL (PF) 1,000 MCG in 0.9 % Sodium Chloride 80 ML IVC SCH ×2 (02:16→15:33)
[2016-09-11 03:37] LABS: Basophils % 0.1 %; Hematocrit 29.1 % (35.3-44.9); Hemoglobin 9.2 g/dL (11.5-15.4); Immature Granulocytes % 0.7 % (0-4); Immature Platelets 3.1 % (1.1-6.1); Lymphocytes # 1.7 K/mcL (0.6-4.6); Lymphocytes % 11.8 %; Mean Corpuscular HGB Conc 31.6 g/dL (31.6-35.5); Mean Corpuscular Volume 88.7 fL (83.0-100.0); Mean Platelet Volume 9.5 fL (9.4-12.4); Monocytes # 1.4 K/mcL (0.0-1.3); Monocytes % 9.8 %; Neutrophils # 10.9 K/mcL (1.6-8.9); Platelet Count 252 K/mcL (140-400); Red Blood Count 3.28 M/mcL (3.82-4.97); Red Cell Distribution Width 17.4 % (11.5-14.5); Segmented Neutrophils % 77.6 %
[2016-09-11 03:52] LABS: BUN/Creatinine Ratio 35 (6-26); Blood Urea Nitrogen 30 mg/dL (7-20); Calcium 8.7 mg/dL (8.6-10.8); Carbon Dioxide 26 mEq/L (19-29); Chloride 103 mEq/L (98-109); Glucose 119 mg/dL (70-99); Osmolality,Calculated 293 (280-300); Potassium 3.6 mEq/L (3.5-4.5); Sodium 138 mEq/L (136-145); eGFR For African Americans > 60 (> 60); eGFR For Non-African Americans > 60 (> 60)
[2016-09-11] MEDS: predniSONE 20 MG TABLET PO SCH ×2 (05:26→08:39)
[2016-09-11 06:41] LABS: ABG Base Excess 9.7 mEq/L (-2.0 to 3.0); ABG HCO3 31.7 mEQ/L (21-27); ABG PCO2 33 mmHg (35-45); ABG PH 7.59 pH Units (7.32-7.45); ABG PO2 109 mmHg (85-104); ABG TCO2 32.7 mEq/L (20-26)
[2016-09-11 06:42] LABS: ABG Oxygen Saturation 99 % (95-98); Blood Gas FiO2 40 %
--- NOTE | 2016-09-11 08:05 | Pulmonology Progress Note ---
Date of Encounter: 09/11/16 Time of Encounter: 07:30 Assessment and Plan (1) Acute respiratory failure Current Visit: Yes Status: Acute Acute hypoxic hypercapnic respiratory failure likely s/t COPD exacerbation, possible underlying acquired pneumonia Was intubated 09/09 due to decreased responsiveness and drop in saturations during echocardiogram Currently on FIO2 40%, PEEP 5, with saturation of 98% Bronchodilators and IV steroids Coronavirus positive Urine culture for Legionella and S. pneumoniae were negative Sputum demonstrated no bacteria Discontinued Cefepime yesterday Continue Azithromycin for COPD exacerbation Qualifiers: Respiratory failure complication: hypoxia and hypercapnia Qualified Code(s) : J96.01 - Acute respiratory failure with hypoxia; J96.02 - Acute respiratory failure with hypercapnia (2) NSTEMI (non-ST elevated myocardial infarction) Current Visit: Yes Status: Acute Pt had vague abd/chest pain with rising troponin (0.07, 0.20, 0.20) History of CAD in past concerning for NSTEMI Echo showed LVEF 40% with regional wall motion abnormality consistent with ischemic cardiomyopathy, Moderate pericardial effusion present located inferoposteriorly with no criteria for tamponade Cardiology consulted (3) Cardiomyopathy Current Visit: Yes Status: Acute Newly diagnosed cardiomyopathy Segmental wall motion abnormalities on echo suggest ischemic origin Per cardiology, diurese as tolerated-creatinine 0.86 today, continue aspirin, statin therapy Heparin drip stopped yesterday and placed on Heparin SQ LHC recommended prior to discharge once stable Qualifiers: Cardiomyopathy type: unspecified Qualified Code(s): I42.9 - Cardiomyopathy , unspecified (4) Systolic CHF, acute Current Visit: Yes Status: Acute Serial CXRs and BNPs suggest development of CHF, BNP:1617 EF newly reduced on echo at 40% HCTZ held and lasix 20mg IV given this morning per cardiology (5) Community acquired pneumonia Current Visit: Yes Status: Acute CT scan inconclusive but possibly consistent with infiltrate in lingula and RLL Cultures negative Discontinued Cefepime, continue Azithromycin for COPD exacerbation (6) Atrial fibrillation Current Visit: Yes Status: Acute Currently rate controlled, continue beta lena Qualifiers: Atrial fibrillation type: chronic Qualified Code(s): I48.2 - Chronic atrial fibrillation (7) COPD exacerbation Current Visit: Yes Status: Acute IV steroids and bronchodilators Azithromycin 500mg (8) Abdominal pain Current Visit: Yes Status: Acute CT Abd/Pelvis demonstrated small amount of fluid and gas within the vagina, given closely opposed small bowel, fistula is not excluded Qualifiers: Abdominal location: generalized Qualified Code(s): R10.84 - Generalized abdominal pain (9) Sepsis Current Visit: Yes Status: Acute Pt met criteria with evidence of infectious source including lung, possibly abdomen Was started on Cefepime and Azithromycin, cultures are negative Cefepime stopped, will continue Azithromycin Qualifiers: Sepsis type: sepsis due to unspecified organism Qualified Code(s): A41.9 - Sepsis, unspecified organism Subjective Principal diagnosis: Acute respiratory failure Interval history: Pt intubated, will respond to verbal commands. Marsh catheter with 1675 output and NG tube in place with 250mL output. Spoke with nurse who states pt has had no vaginal discharge Objective PUL Vital signs: Last Vital Signs Temp 98.9 F 09/11/16 07:46 Pulse 93 09/11/16 07:54 Resp 14 09/11/16 07:54 BP 145/83 09/11/16 07:54 Pulse Ox 96 09/11/16 07:54 General appearance: other (Intubated, will respond to verbal commands) Eyes: nonicteric Effort: other (Ventilator) Auscultation: bilateral: rhonchi Cardiovascular: regular rate and rhythm Gastrointestinal: hypoactive bowel sounds, non-tender, other (Distende) Extremities: no cyanosis, edema Musculoskeletal: no deformities non-focal exam anxious Ventilator Settings Ventilator Settings: Ventilator Settings, Last 8 Hours Ventilator Mode A/C Ventilator Mode A/C Ventilator Mode A/C Ventilator Mode A/C Ventilator Mode A/C Ventilator Mode A/C Ventilator Mode A/C Ventilator Tidal Volume 380 Setting Ventilator Tidal Volume 380 Setting Ventilator Tidal Volume 380 Setting Ventilator Tidal Volume 380 Setting Ventilator Tidal Volume 380 Setting Ventilator Respiratory Rate 26 Setting Ventilator Respiratory Rate 26 Setting Ventilator Respiratory Rate 26 Setting Ventilator Respiratory Rate 26 Setting Ventilator Respiratory Rate 26 Setting Actual Respiratory Rate 14 Actual Respiratory Rate 14 Actual Respiratory Rate 26 Actual Respiratory Rate 26 Actual Respiratory Rate 26 Actual Respiratory Rate 26 Positive End Expiratory 5 Pressure Positive End Expiratory 5 Pressure Positive End Expiratory 5 Pressure Positive End Expiratory 5 Pressure Positive End Expiratory 5 Pressure Positive End Expiratory 5 Pressure Positive End Expiratory 5 Pressure Peak Inspiratory Airway 11 Pressure Peak Inspiratory Airway 11 Pressure Peak Inspiratory Airway 32 Pressure Peak Inspiratory Airway 33 Pressure Peak Inspiratory Airway 31 Pressure Peak Inspiratory Airway 33 Pressure Results - Laboratory Findings CBC and BMP: 09/11/16 03:23 09/11/16 03:23 ABG ABG pH 7.59 pH Units (7.32-7.45) H 09/11/16 04:33 ABG pCO2 33 mmHg (35-45) L 09/11/16 04:33 ABG pO2 109 mmHg (85-104) H 09/11/16 04:33 ABG O2 Saturation 99 % (95-98) H 09/11/16 04:33 PT/INR, D-dimer PT 12.6 Seconds (9.4-12.1) H 09/09/16 14:50 D-Dimer 1585 ng/mLFEU (0-500) H 09/08/16 22:22 Abnormal lab findings: Abnormal lab results WBC 14.0 K/mcL (4.3-11.1) H 09/11/16 03:23 RBC 3.28 M/mcL (3.82-4.97) L 09/11/16 03:23 Hgb 9.2 g/dL (11.5-15.4) L 09/11/16 03:23 Hct 29.1 % (35.3-44.9) L 09/11/16 03:23 RDW 17.4 % (11.5-14.5) H 09/11/16 03:23 Neutrophils # 10.9 K/mcL (1.6-8.9) H 09/11/16 03:23 Monocytes # 1.4 K/mcL (0.0-1.3) H 09/11/16 03:23 PT 12.6 Seconds (9.4-12.1) H 09/09/16 14:50 APTT 81.4 Seconds (26.0-36.0) H 09/10/16 03:09 D-Dimer 1585 ng/mLFEU (0-500) H 09/08/16 22:22 ABG pH 7.59 pH Units (7.32-7.45) H 09/11/16 04:33 ABG pCO2 33 mmHg (35-45) L 09/11/16 04:33 ABG pO2 109 mmHg (85-104) H 09/11/16 04:33 ABG HCO3 31.7 mEQ/L (21-27) H 09/11/16 04:33 ABG Total CO2 32.7 mEq/L (20-26) H 09/11/16 04:33 ABG O2 Saturation 99 % (95-98) H 09/11/16 04:33 ABG Base Excess 9.7 mEq/L (-2.0 to 3.0) H 09/11/16 04:33 BUN 30 mg/dL (7-20) H D 09/11/16 03:23 BUN/Creatinine Ratio 35 (6-26) H 09/11/16 03:23 Glucose 119 mg/dL (70-99) H 09/11/16 03:23 POC Glucose 127 (58-89) H 09/11/16 00:01 Troponin I 0.20 ng/mL (0-0.03) H* 09/09/16 14:50 B-Natriuretic Peptide 1617 pg/mL (0-100) H 09/09/16 09:10 Albumin 2.9 g/dL (3.5-5.0) L 09/10/16 03:09 Albumin/Globulin Ratio 0.9 (1.1-2.2) L 09/10/16 03:09 Ur Specific [place] > 1.030 (1.010-1.025) H 09/09/16 12:17 Urine Protein 100 mg/dL (Neg-Trace) H 09/09/16 12:17 Urine Blood Large (Negative) H 09/09/16 12:17 Urine Microscopic RBC TNTC per hpf (0-3) H 09/09/16 12:17 Urine Microscopic WBC 15-30 per hpf (0-3) H 09/09/16 12:17 Ur Squamous Epith Cells Moderate per lpf (None-Few) H 09/09/16 12:17 Ur Culture Indicated? YES (NO) A 09/09/16 12:17 Coronavirus OC43 (PCR) DETECTED (Not Detect) A 09/09/16 12:20 - Microbiology Findings Microbiology Findings: Microbiology, Last 48 Hours 09/09/16 22:39 Sputum Culture - Preliminary Sputum Yeast Species 09/09/16 12:17 Urine Culture - Final Urine,[place] No growth. 09/09/16 13:00 Legionella Antigen - Final Urine,Catheterized 09/09/16 13:00 Streptococcus pneumoniae Antigen (M - Final Urine,Catheterized - Clinical Findings Intake & Output: Intake & Output 09/10/16 09/11/16 09/11/16 23:59 07:59 15:59 Intake Total 200 / 200 100 / 100 Output Total 100 / 100 400 / 400 Balance 100 / 100 -300 / -300 Consult Discharge Plan - Plan Referrals: Bushra Landry MD [Primary Care Provider] -
[2016-09-11] MEDS: Aspirin 81 MG TAB.CHEW PO SCH (08:37)
[2016-09-11] MEDS: Sennosides 8.6 MG TABLET PO SCH ×2 (08:37→21:03)
[2016-09-11] MEDS: Metoprolol XL (24 HR) Succ 25 MG TAB.ER.24H PO SCH (08:37)
[2016-09-11] MEDS: Gabapentin 300 MG CAPSULE PO SCH ×2 (08:38→21:02)
[2016-09-11] MEDS: Furosemide 20 MG/2 ML VIAL IVP SCH (08:38)
[2016-09-11] MEDS: Pantoprazole 40 MG VIAL IVP SCH (08:38)
[2016-09-11] MEDS: Chlorhexidine Rinse 15 ML MOUTHWASH MM SCH ×2 (08:38→21:02)
[2016-09-11] MEDS: Loratadine 10 MG TABLET PO SCH (08:38)
[2016-09-11] MEDS ORDERED: Bisacodyl 10 MG RECTAL SUPPOSITORY RC PRN (11:05)
[2016-09-11] MEDS ORDERED: Docusate Oral Soln 100 MG/10 ML UDC PO PRN (11:07)
[2016-09-11] MEDS: Azithromycin 500 MG in D5% in Water 250 ML IVPB SCH (11:24)
--- NOTE | 2016-09-11 12:46 | Cardiology Progress Note ---
Date of Encounter: 09/11/16 Time of Encounter: 12:42 Assessment and Plan (1) Cardiomyopathy Current Visit: Yes Status: Acute Newly diagnosed cardiomyopathy during this admission. Segmental wall motion abnormalities on echo suggest ischemic origin. Continue diuresis as tolerated. Monitor I/Os, daily weights, Cr. LHC should be considered prior to discharge as overall condition hopefully improves. Qualifiers: Cardiomyopathy type: unspecified Qualified Code(s): I42.9 - Cardiomyopathy , unspecified (2) Systolic CHF, acute Current Visit: Yes Status: Acute No effusions described on CXR 09/10. Agree with diuresis as tolerated. (3) COPD exacerbation Current Visit: Yes Status: Acute Your pulmonary management. Discussion w patient/family: The assessment and plan as outlined above was discussed with the patient and/or family members who expressed understanding and agreement. All questions were answered. Thank you for involving us in the care of your patient. Please call with any questions. Subjective Principal diagnosis: Acute respiratory failure Interval history: Patient seen and examined. Remains sedated and intubated. Per ICU, patient did not tolerate weaning trial well. Objective Vital Signs, Last 4 Hours Temp Pulse Resp BP Pulse Ox 09/11/16 12:27 26 99 09/11/16 11:43 72 26 144/88 99 09/11/16 11:24 98.2 F 09/11/16 11:02 26 99 09/11/16 10:00 70 14 118/66 96 09/11/16 09:00 91 14 110/65 96 HEENT: Atraumatic, Normocephaly, Mucus Membranes Moist Neck: No JVD, Normal carotid pulses Cardiac: Reg Rate and Rhythm, Normal S1 and S2, No Murmur Lungs: Normal Breath Sounds, No Wheeze, Rales, Rhonchi Neuro: Alert and responsive, No focal deficits noted Abdomen: Soft, Non-Tender Skin: No rashes noted on visualized skin Musculoskeletal: No Chest Wall Tenderness Extremities: No Clubbing, No Cyanosis, No Edema Results 09/11/16 03:23 09/11/16 03:23 Lab Results 09/11/16 09/11/16 03:23 03:23 WBC 14.0 H Hgb 9.2 L Hct 29.1 L Plt Count 252 Sodium 138 Potassium 3.6 Chloride 103 Carbon Dioxide 26 BUN 30 H D Creatinine 0.86 Glucose 119 H Calcium 8.7 - Imaging and Cardiology Chest Xray: report reviewed Echo: report reviewed Consult Discharge Plan - Plan Referrals: Bushra Landry MD [Primary Care Provider] -
--- NOTE | 2016-09-11 17:08 | Electrocardiograph Report ---
[facility] Test Date: 2016-09-10 Pat Name: Chani Perez Department: 109 Room: [facility] Gender: F Rf Engineer: VALERIA : 1940 Requested By: J Carlos Mendez Order Number: [id number] Reading MD: Dara Castelan Measurements Intervals [place] Rate: 102 P: 69 DC: 159 QRS: -80 QRSD: 139 T: 112 QT: 420 QTc: 479 Interpretive Statements ELECTRONIC VENTRICULAR PACEMAKER ABNORMAL RHYTHM ECG Electronically Signed On 09-11-16 17:06:03 EST by Dara Castelan
[2016-09-12] MEDS: Ipratropium/Albuterol Neb 3 ML IH SCH ×7 (00:03→23:48)
[2016-09-12] MEDS: *HR* Heparin 5,000 UNIT/ML VIAL SQ SCH ×3 (00:21→16:48)
[2016-09-12] MEDS: Insulin LISPRO 300 UNITS/3 ML VIAL SQ SCH ×4 (00:21→18:13)
[2016-09-12] MEDS: FentaNYL (PF) 1,000 MCG in 0.9 % Sodium Chloride 80 ML IVC SCH ×3 (01:15→21:28)
[2016-09-12 04:29] LABS: Basophils % 0.1 %; Eosinophils # 0.4 K/mcL (0.0-0.6); Eosinophils % 2.2 %; Hemoglobin 9.5 g/dL (11.5-15.4); Immature Granulocytes % 0.7 % (0-4); Lymphocytes # 3.5 K/mcL (0.6-4.6); Lymphocytes % 21.6 %; Mean Corpuscular HGB Conc 31.7 g/dL (31.6-35.5); Mean Corpuscular Hemoglobin 28.4 pg (28.0-33.3); Mean Corpuscular Volume 89.8 fL (83.0-100.0); Mean Platelet Volume 9.8 fL (9.4-12.4); Monocytes # 1.7 K/mcL (0.0-1.3); Monocytes % 10.7 %; Neutrophils # 10.4 K/mcL (1.6-8.9); Platelet Count 262 K/mcL (140-400); Red Blood Count 3.34 M/mcL (3.82-4.97); Red Cell Distribution Width 17.9 % (11.5-14.5); Segmented Neutrophils % 64.7 %
[2016-09-12 04:31] LABS: ABG Base Excess 8.2 mEq/L (-2.0 to 3.0); ABG HCO3 31.9 mEQ/L (21-27); ABG Oxygen Saturation 95 % (95-98); ABG PCO2 40 mmHg (35-45); ABG PH 7.51 pH Units (7.32-7.45); ABG PO2 66 mmHg (85-104); ABG TCO2 33.1 mEq/L (20-26)
[2016-09-12 04:35] LABS: Blood Gas FiO2 30 %
[2016-09-12 04:38] LABS: Ionized Calcium 1.09 mmol/L (1.15-1.35)
[2016-09-12 04:45] LABS: BUN/Creatinine Ratio 38 (6-26); Blood Urea Nitrogen 35 mg/dL (7-20); Calcium 8.7 mg/dL (8.6-10.8); Carbon Dioxide 26 mEq/L (19-29); Chloride 102 mEq/L (98-109); Glucose 99 mg/dL (70-99); Magnesium 2.1 mg/dL (1.6-2.6); Osmolality,Calculated 298 (280-300); Potassium 3.3 mEq/L (3.5-4.5); Sodium 140 mEq/L (136-145); eGFR For African Americans > 60 (> 60); eGFR For Non-African Americans 59 (> 60)
[2016-09-12 04:49] LABS: Phosphorous 2.2 mg/dL (2.3-4.7)
--- NOTE | 2016-09-12 07:18 | Pulmonology Progress Note ---
Date of Encounter: 09/12/16 Time of Encounter: 07:45 Assessment and Plan (1) Acute respiratory failure Current Visit: Yes Status: Acute Acute hypoxic hypercapnic respiratory failure likely s/t COPD exacerbation, possible underlying acquired pneumonia Was intubated 09/09 due to decreased responsiveness and drop in saturations during echocardiogram Currently on FIO2 30%, PEEP 5, with saturation of 96%, Unable to tolerate CPAP trials, will discuss with family today Bronchodilators and IV steroids Coronavirus positive Urine culture for Legionella and S. pneumoniae were negative Sputum demonstrated no bacteria Continue Azithromycin for COPD exacerbation Tube feeds initiated for nutritional support Qualifiers: Respiratory failure complication: hypoxia and hypercapnia Qualified Code(s) : J96.01 - Acute respiratory failure with hypoxia; J96.02 - Acute respiratory failure with hypercapnia (2) NSTEMI (non-ST elevated myocardial infarction) Current Visit: Yes Status: Acute Pt had vague abd/chest pain with rising troponin (0.07, 0.20, 0.20) History of CAD in past concerning for NSTEMI Echo showed LVEF 40% with regional wall motion abnormality consistent with ischemic cardiomyopathy, Moderate pericardial effusion present located inferoposteriorly with no criteria for tamponade Cardiology consulted (3) Cardiomyopathy Current Visit: Yes Status: Acute Newly diagnosed cardiomyopathy Segmental wall motion abnormalities on echo suggest ischemic origin Per cardiology, diurese as tolerated-creatinine 0.92 today, continue aspirin, statin therapy Heparin drip stopped yesterday and placed on Heparin SQ LHC recommended prior to discharge once stable Qualifiers: Cardiomyopathy type: unspecified Qualified Code(s): I42.9 - Cardiomyopathy , unspecified (4) Systolic CHF, acute Current Visit: Yes Status: Acute Serial CXRs and BNPs suggest development of CHF, BNP:1617 EF newly reduced on echo at 40% HCTZ held and lasix 20mg IV given this morning per cardiology (5) Community acquired pneumonia Current Visit: Yes Status: Acute CT scan inconclusive but possibly consistent with infiltrate in lingula and RLL Cultures negative Continue Azithromycin for COPD exacerbation (6) Atrial fibrillation Current Visit: Yes Status: Acute Currently rate controlled, continue beta lena Qualifiers: Atrial fibrillation type: chronic Qualified Code(s): I48.2 - Chronic atrial fibrillation (7) COPD exacerbation Current Visit: Yes Status: Acute IV steroids and bronchodilators Azithromycin 500mg (8) Abdominal pain Current Visit: Yes Status: Acute CT Abd/Pelvis demonstrated small amount of fluid and gas within the vagina, given closely opposed small bowel, fistula is not excluded Qualifiers: Abdominal location: generalized Qualified Code(s): R10.84 - Generalized abdominal pain (9) Sepsis Current Visit: Yes Status: Acute Pt met criteria with evidence of infectious source including lung, possibly abdomen Was started on Cefepime and Azithromycin, cultures are negative Cefepime stopped, will continue Azithromycin Qualifiers: Sepsis type: sepsis due to unspecified organism Qualified Code(s): A41.9 - Sepsis, unspecified organism Subjective Principal diagnosis: Acute respiratory failure Interval history: Pt intubated, will respond to verbal commands. Marsh catheter and NG tube in place. Pt had multiple bowel movements yesterday. Abdomen is distended and tender this morning with no bowel movements last shift. Objective PUL Vital signs: Last Vital Signs Temp 99.1 F 09/12/16 04:59 Pulse 90 09/12/16 06:00 Resp 26 09/12/16 06:19 BP 116/73 09/12/16 06:00 Pulse Ox 96 09/12/16 06:19 General appearance: other (Intubated, responds to verbal commands) Eyes: nonicteric ENT: oropharynx moist Auscultation: bilateral: wheezes, rhonchi Cardiovascular: regular rate and rhythm Gastrointestinal: hypoactive bowel sounds, tender (Diffusely), other (Distended) Extremities: no cyanosis, no edema, no clubbing Musculoskeletal: no deformities non-focal exam Ventilator Settings Ventilator Settings: Ventilator Settings, Last 8 Hours Ventilator Mode A/C Ventilator Mode A/C Ventilator Mode A/C Ventilator Mode A/C Ventilator Mode A/C Ventilator Mode A/C Ventilator Tidal Volume 380 Setting Ventilator Tidal Volume 380 Setting Ventilator Tidal Volume 380 Setting Ventilator Tidal Volume 380 Setting Ventilator Tidal Volume 380 Setting Ventilator Tidal Volume 380 Setting Ventilator Respiratory Rate 26 Setting Ventilator Respiratory Rate 26 Setting Ventilator Respiratory Rate 26 Setting Ventilator Respiratory Rate 26 Setting Ventilator Respiratory Rate 26 Setting Ventilator Respiratory Rate 26 Setting Actual Respiratory Rate 26 Actual Respiratory Rate 26 Actual Respiratory Rate 26 Positive End Expiratory 5 Pressure Positive End Expiratory 5 Pressure Positive End Expiratory 5 Pressure Positive End Expiratory 5 Pressure Positive End Expiratory 5 Pressure Positive End Expiratory 5 Pressure Peak Inspiratory Airway 27 Pressure Peak Inspiratory Airway 29 Pressure Peak Inspiratory Airway 30 Pressure Peak Inspiratory Airway 32 Pressure Peak Inspiratory Airway 36 Pressure Results - Laboratory Findings CBC and BMP: 09/12/16 04:15 09/12/16 04:15 ABG ABG pH 7.51 pH Units (7.32-7.45) H 09/12/16 04:11 ABG pCO2 40 mmHg (35-45) 09/12/16 04:11 ABG pO2 66 mmHg (85-104) L 09/12/16 04:11 ABG O2 Saturation 95 % (95-98) 09/12/16 04:11 PT/INR, D-dimer PT 12.6 Seconds (9.4-12.1) H 09/09/16 14:50 D-Dimer 1585 ng/mLFEU (0-500) H 09/08/16 22:22 Abnormal lab findings: Abnormal lab results WBC 16.1 K/mcL (4.3-11.1) H 09/12/16 04:15 RBC 3.34 M/mcL (3.82-4.97) L 09/12/16 04:15 Hgb 9.5 g/dL (11.5-15.4) L 09/12/16 04:15 Hct 30.0 % (35.3-44.9) L 09/12/16 04:15 RDW 17.9 % (11.5-14.5) H 09/12/16 04:15 Neutrophils # 10.4 K/mcL (1.6-8.9) H 09/12/16 04:15 Monocytes # 1.7 K/mcL (0.0-1.3) H 09/12/16 04:15 PT 12.6 Seconds (9.4-12.1) H 09/09/16 14:50 APTT 81.4 Seconds (26.0-36.0) H 09/10/16 03:09 D-Dimer 1585 ng/mLFEU (0-500) H 09/08/16 22:22 ABG pH 7.51 pH Units (7.32-7.45) H 09/12/16 04:11 ABG pO2 66 mmHg (85-104) L 09/12/16 04:11 ABG HCO3 31.9 mEQ/L (21-27) H 09/12/16 04:11 ABG Total CO2 33.1 mEq/L (20-26) H 09/12/16 04:11 ABG Base Excess 8.2 mEq/L (-2.0 to 3.0) H 09/12/16 04:11 Potassium 3.3 mEq/L (3.5-4.5) L 09/12/16 04:15 BUN 35 mg/dL (7-20) H 09/12/16 04:15 Est GFR (Non-Af Amer) 59 (> 60) L 09/12/16 04:15 BUN/Creatinine Ratio 38 (6-26) H 09/12/16 04:15 POC Glucose 98 (58-89) H 09/12/16 05:13 Ionized Calcium 1.09 mmol/L (1.15-1.35) L 09/12/16 04:15 Phosphorus 2.2 mg/dL (2.3-4.7) L D 09/12/16 04:15 Troponin I 0.20 ng/mL (0-0.03) H* 09/09/16 14:50 B-Natriuretic Peptide 1617 pg/mL (0-100) H 09/09/16 09:10 Albumin 2.9 g/dL (3.5-5.0) L 09/10/16 03:09 Albumin/Globulin Ratio 0.9 (1.1-2.2) L 09/10/16 03:09 Ur Specific [place] > 1.030 (1.010-1.025) H 09/09/16 12:17 Urine Protein 100 mg/dL (Neg-Trace) H 09/09/16 12:17 Urine Blood Large (Negative) H 09/09/16 12:17 Urine Microscopic RBC TNTC per hpf (0-3) H 09/09/16 12:17 Urine Microscopic WBC 15-30 per hpf (0-3) H 09/09/16 12:17 Ur Squamous Epith Cells Moderate per lpf (None-Few) H 09/09/16 12:17 Ur Culture Indicated? YES (NO) A 09/09/16 12:17 Coronavirus OC43 (PCR) DETECTED (Not Detect) A 09/09/16 12:20 - Microbiology Findings Microbiology Findings: Microbiology, Last 48 Hours 09/09/16 22:39 Sputum Culture - Preliminary Sputum Yeast Species 09/09/16 12:17 Urine Culture - Final Urine,[place] No growth. - Clinical Findings Intake & Output: Intake & Output 09/11/16 09/11/1609/12/17 15:59 23:59 07:59 Intake Total 320 / 320 100 / 100 200 / 200 Output Total 1000 / 1000 100 / 100 255 / 255 Balance -680 / -680 0 / 0 -55 / -55 Weight 79.038 kg Consult Discharge Plan - Plan Referrals: Bushra Landry MD [Primary Care Provider] -
[2016-09-12] MEDS: Chlorhexidine Rinse 15 ML MOUTHWASH MM SCH ×2 (08:41→19:52)
[2016-09-12] MEDS: Gabapentin 300 MG CAPSULE PO SCH ×2 (08:41→19:51)
[2016-09-12] MEDS: Aspirin 81 MG TAB.CHEW PO SCH (08:41)
[2016-09-12] MEDS: Sennosides 8.6 MG TABLET PO SCH ×2 (08:41→19:51)
[2016-09-12] MEDS: Pantoprazole 40 MG VIAL IVP SCH (08:41)
[2016-09-12] MEDS: Furosemide 20 MG/2 ML VIAL IVP SCH (08:41)
[2016-09-12] MEDS: predniSONE 20 MG TABLET PO SCH (08:42)
[2016-09-12] MEDS: Loratadine 10 MG TABLET PO SCH (08:43)
--- NOTE | 2016-09-12 09:42 | Cardiology Progress Note ---
Date of Encounter: 09/12/16 Time of Encounter: 09:40 Assessment and Plan (1) Cardiomyopathy Current Visit: Yes Status: Acute Newly diagnosed cardiomyopathy. Segmental wall motion to suggest ischemic origin. Clinically and on chest x-ray, appears to be euvolemic at this time. Suspect ongoing respiratory failure related to underlying COPD/pulmonary issues. Continue aspirin, statin, beta lena therapy. Continue low-dose Lasix for now. Monitor time status, daily weights, and creatinine. Consider diagnostic left heart catheterization once condition improves. Qualifiers: Cardiomyopathy type: unspecified Qualified Code(s): I42.9 - Cardiomyopathy , unspecified (2) Systolic CHF, acute Current Visit: Yes Status: Acute No effusions described on chest x-ray. Continue diuresis as tolerated. See recommendations under cardiomyopathy. (3) COPD exacerbation Current Visit: Yes Status: Acute Your pulmonary management. Discussion w patient/family: The assessment and plan as outlined above was discussed with the patient and/or family members who expressed understanding and agreement. All questions were answered. Thank you for involving us in the care of your patient. Please call with any questions. Subjective Principal diagnosis: Acute respiratory failure Interval history: Patient seen and examined. She remained sedated and intubated. Hemodynamics remained stable. Per reports, positive cornavirus. Also being treated for an acute exacerbation of COPD. Newly diagnosed cardiomyopathy, EF 40% with segmental wall motion abnormalities. Cumulative intake/output - 1256 mL with cautious diuresis. Creatinine remains normal. Objective Vital Signs, Last 4 Hours Temp Pulse Resp BP Pulse Ox 09/12/16 09:00 91 26 142/82 97 09/12/16 08:06 98.5 F 09/12/16 08:00 89 27 109/59 96 09/12/16 07:38 26 102/53 97 09/12/16 06:19 26 96 09/12/16 06:00 90 26 116/73 97 General: Other (Sedated.) HEENT: Atraumatic, Normocephaly, Mucus Membranes Moist Neck: No JVD Cardiac: Reg Rate and Rhythm, Normal S1 and S2, Other (No murmurs appreciated.) Lungs: Other (Shallow.) Neuro: Other (Sedated, intubated.) Abdomen: Soft, Non-Tender Skin: No rashes noted on visualized skin Musculoskeletal: No Chest Wall Tenderness Extremities: No Clubbing, No Cyanosis, Other (Minimal edema bilaterally.) Results 09/12/16 04:15 09/12/16 04:15 Lab Results 09/12/16 09/12/16 04:15 04:15 WBC 16.1 H Hgb 9.5 L Hct 30.0 L Plt Count 262 Sodium 140 Potassium 3.3 L Chloride 102 Carbon Dioxide 26 BUN 35 H Creatinine 0.92 Glucose 99 Calcium 8.7 Magnesium 2.1 - Imaging and Cardiology Echo: report reviewed Consult Discharge Plan - Plan Referrals: Bushra Landry MD [Primary Care Provider] -
[2016-09-12] MEDS: Potassium Chloride Elixir 20 MEQ/15 ML UDC PO SCH ×2 (10:41→19:50)
[2016-09-12] MEDS: Azithromycin 500 MG in D5% in Water 250 ML IVPB SCH (10:41)
[2016-09-12] MEDS ORDERED: Magnesium Sulfate 2 GM in D5% in Water 100 ML IVPB PRN (11:04)
[2016-09-12] MEDS ORDERED: Potassium Phosphate 44 MEQ in 0.9 % Sodium Chloride 250 ML IVPB PRN (11:04)
[2016-09-12] MEDS ORDERED: Calcium Gluconate 1,000 MG in D5% in Water 100 ML IVPB PRN (11:04)
[2016-09-12] MEDS: *HR* Metoprolol 5 MG/5 ML VIAL IVP SCH ×2 (12:17→18:08)
[2016-09-12 13:32] LABS: BUN/Creatinine Ratio 31 (6-26); Blood Urea Nitrogen 32 mg/dL (7-20); Calcium 8.5 mg/dL (8.6-10.8); Carbon Dioxide 23 mEq/L (19-29); Chloride 102 mEq/L (98-109); Glucose 171 mg/dL (70-99); Osmolality,Calculated 297 (280-300); Potassium 4.2 mEq/L (3.5-4.5); Sodium 138 mEq/L (136-145); eGFR For African Americans > 60 (> 60); eGFR For Non-African Americans 52 (> 60)
[2016-09-13] MEDS: Insulin LISPRO 300 UNITS/3 ML VIAL SQ SCH ×5 (00:16→23:49)
[2016-09-13] MEDS: *HR* Heparin 5,000 UNIT/ML VIAL SQ SCH ×4 (00:26→23:48)
[2016-09-13] MEDS: *HR* Metoprolol 5 MG/5 ML VIAL IVP SCH ×5 (00:27→23:44)
[2016-09-13] MEDS: Ipratropium/Albuterol Neb 3 ML IH SCH ×6 (03:22→23:50)
[2016-09-13] MEDS ORDERED: Dexmedetomidine HCl 400 MCG/100 ML MLS IVC ONE (04:19)
[2016-09-13 04:22] LABS: Basophils % 0.1 %; Eosinophils # 0.4 K/mcL (0.0-0.6); Eosinophils % 2.6 %; Hematocrit 27.8 % (35.3-44.9); Hemoglobin 8.8 g/dL (11.5-15.4); Immature Granulocytes % 0.8 % (0-4); Immature Platelets 3.5 % (1.1-6.1); Lymphocytes # 3.8 K/mcL (0.6-4.6); Lymphocytes % 27.7 %; Mean Corpuscular HGB Conc 31.7 g/dL (31.6-35.5); Mean Corpuscular Hemoglobin 28.4 pg (28.0-33.3); Mean Corpuscular Volume 89.7 fL (83.0-100.0); Mean Platelet Volume 9.9 fL (9.4-12.4); Monocytes # 1.4 K/mcL (0.0-1.3); Monocytes % 10.4 %; Platelet Count 273 K/mcL (140-400); Red Cell Distribution Width 17.9 % (11.5-14.5); Segmented Neutrophils % 58.4 %
[2016-09-13 04:27] LABS: Ionized Calcium 1.11 mmol/L (1.15-1.35)
[2016-09-13] MEDS: Dexmedetomidine HCl 400 MCG/100 ML MLS IVC SCH (04:31)
[2016-09-13 04:37] LABS: BUN/Creatinine Ratio 40 (6-26); Blood Urea Nitrogen 34 mg/dL (7-20); Calcium 8.6 mg/dL (8.6-10.8); Carbon Dioxide 24 mEq/L (19-29); Chloride 106 mEq/L (98-109); Glucose 114 mg/dL (70-99); Magnesium 2.2 mg/dL (1.6-2.6); Osmolality,Calculated 298 (280-300); Phosphorous 2.7 mg/dL (2.3-4.7); Potassium 3.9 mEq/L (3.5-4.5); Sodium 140 mEq/L (136-145); eGFR For African Americans > 60 (> 60); eGFR For Non-African Americans > 60 (> 60)
--- NOTE | 2016-09-13 07:07 | Pulmonology Progress Note ---
Date of Encounter: 09/13/16 Time of Encounter: 06:30 Assessment and Plan (1) Acute respiratory failure Current Visit: Yes Status: Acute Acute hypoxic hypercapnic respiratory failure likely s/t COPD exacerbation, possible underlying acquired pneumonia Was intubated 09/09 due to decreased responsiveness and drop in saturations during echocardiogram Currently on FIO2 30%, PEEP 5, with saturation of 100%, continue with CPAP trial , Will discuss course with family today Bronchodilators and Steroids Coronavirus positive Urine culture for Legionella and S. pneumoniae were negative Sputum demonstrated Claudia tropicalis Continue Azithromycin for COPD exacerbation Tube feeds for nutritional support Qualifiers: Respiratory failure complication: hypoxia and hypercapnia Qualified Code(s) : J96.01 - Acute respiratory failure with hypoxia; J96.02 - Acute respiratory failure with hypercapnia (2) NSTEMI (non-ST elevated myocardial infarction) Current Visit: Yes Status: Acute Pt had vague abd/chest pain with rising troponin (0.07, 0.20, 0.20) History of CAD in past concerning for NSTEMI Echo showed LVEF 40% with regional wall motion abnormality consistent with ischemic cardiomyopathy, Moderate pericardial effusion present located inferoposteriorly with no criteria for tamponade Cardiology consulted (3) Cardiomyopathy Current Visit: Yes Status: Acute Newly diagnosed cardiomyopathy Segmental wall motion abnormalities on echo suggest ischemic origin Per cardiology, diurese as tolerated-creatinine 0.92 today, continue aspirin, statin therapy Heparin SQ LHC recommended prior to discharge once stable Qualifiers: Cardiomyopathy type: unspecified Qualified Code(s): I42.9 - Cardiomyopathy , unspecified (4) Systolic CHF, acute Current Visit: Yes Status: Acute Serial CXRs and BNPs suggest development of CHF, BNP:1617 EF newly reduced on echo at 40% HCTZ held and lasix 20mg IV given per cardiology (5) Community acquired pneumonia Current Visit: Yes Status: Acute CT scan inconclusive but possibly consistent with infiltrate in lingula and RLL Cultures negative Continue Azithromycin for COPD exacerbation (6) Atrial fibrillation Current Visit: Yes Status: Acute Currently rate controlled, continue beta lena Qualifiers: Atrial fibrillation type: chronic Qualified Code(s): I48.2 - Chronic atrial fibrillation (7) COPD exacerbation Current Visit: Yes Status: Acute IV steroids and bronchodilators Azithromycin 500mg (8) Abdominal pain Current Visit: Yes Status: Acute CT Abd/Pelvis demonstrated small amount of fluid and gas within the vagina, given closely opposed small bowel, fistula is not excluded Qualifiers: Abdominal location: generalized Qualified Code(s): R10.84 - Generalized abdominal pain (9) Sepsis Current Visit: Yes Status: Acute Pt met criteria with evidence of infectious source including lung, possibly abdomen Was started on Cefepime and Azithromycin initially, cultures are negative Continue Azithromycin Qualifiers: Sepsis type: sepsis due to unspecified organism Qualified Code(s): A41.9 - Sepsis, unspecified organism Subjective Principal diagnosis: Acute respiratory failure Interval history: Pt intubated and resting comfortably. Marsh catheter and NG tube in place. Switched to Precedex this morning, Propofol stopped. Objective PUL Vital signs: Last Vital Signs Temp 97.6 F 09/13/16 04:07 Pulse 69 09/13/16 06:00 Resp 26 09/13/16 06:00 BP 129/69 09/13/16 06:00 Pulse Ox 100 09/13/16 06:00 General appearance: other (Intubated, appears comfortable) Eyes: nonicteric ENT: oropharynx moist Neck: supple Auscultation: bilateral: rhonchi Cardiovascular: regular rate and rhythm Gastrointestinal: hypoactive bowel sounds, soft, non-tender Extremities: no cyanosis, edema (BUE edema) Musculoskeletal: no deformities Ventilator Settings Ventilator Settings: Ventilator Settings, Last 8 Hours Ventilator Mode A/C Ventilator Mode A/C Ventilator Mode A/C Ventilator Mode A/C Ventilator Mode A/C Ventilator Mode A/C Ventilator Mode A/C Ventilator Mode A/C Ventilator Mode A/C Ventilator Mode A/C Ventilator Mode A/C Ventilator Tidal Volume 380 Setting Ventilator Tidal Volume 380 Setting Ventilator Tidal Volume 380 Setting Ventilator Tidal Volume 380 Setting Ventilator Tidal Volume 380 Setting Ventilator Tidal Volume 380 Setting Ventilator Tidal Volume 380 Setting Ventilator Tidal Volume 380 Setting Ventilator Tidal Volume 380 Setting Ventilator Tidal Volume 380 Setting Ventilator Tidal Volume 380 Setting Ventilator Respiratory Rate 26 Setting Ventilator Respiratory Rate 26 Setting Ventilator Respiratory Rate 26 Setting Ventilator Respiratory Rate 26 Setting Ventilator Respiratory Rate 26 Setting Ventilator Respiratory Rate 26 Setting Ventilator Respiratory Rate 26 Setting Ventilator Respiratory Rate 26 Setting Ventilator Respiratory Rate 26 Setting Ventilator Respiratory Rate 26 Setting Ventilator Respiratory Rate 26 Setting Actual Respiratory Rate 26 Actual Respiratory Rate 26 Actual Respiratory Rate 26 Actual Respiratory Rate 26 Positive End Expiratory 5 Pressure Positive End Expiratory 5 Pressure Positive End Expiratory 5 Pressure Positive End Expiratory 5 Pressure Positive End Expiratory 5 Pressure Positive End Expiratory 5 Pressure Positive End Expiratory 5 Pressure Positive End Expiratory 5 Pressure Positive End Expiratory 5 Pressure Positive End Expiratory 5 Pressure Positive End Expiratory 5 Pressure Peak Inspiratory Airway 27 Pressure Peak Inspiratory Airway 32 Pressure Peak Inspiratory Airway 26 Pressure Peak Inspiratory Airway 29 Pressure Results - Laboratory Findings CBC and BMP: 09/13/16 04:04 09/13/16 04:04 ABG ABG pH 7.51 pH Units (7.32-7.45) H 09/12/16 04:11 ABG pCO2 40 mmHg (35-45) 09/12/16 04:11 ABG pO2 66 mmHg (85-104) L 09/12/16 04:11 ABG O2 Saturation 95 % (95-98) 09/12/16 04:11 PT/INR, D-dimer PT 12.6 Seconds (9.4-12.1) H 09/09/16 14:50 D-Dimer 1585 ng/mLFEU (0-500) H 09/08/16 22:22 Abnormal lab findings: Abnormal lab results WBC 13.6 K/mcL (4.3-11.1) H 09/13/16 04:04 RBC 3.10 M/mcL (3.82-4.97) L 09/13/16 04:04 Hgb 8.8 g/dL (11.5-15.4) L 09/13/16 04:04 Hct 27.8 % (35.3-44.9) L 09/13/16 04:04 RDW 17.9 % (11.5-14.5) H 09/13/16 04:04 Monocytes # 1.4 K/mcL (0.0-1.3) H 09/13/16 04:04 PT 12.6 Seconds (9.4-12.1) H 09/09/16 14:50 APTT 81.4 Seconds (26.0-36.0) H 09/10/16 03:09 D-Dimer 1585 ng/mLFEU (0-500) H 09/08/16 22:22 ABG pH 7.51 pH Units (7.32-7.45) H 09/12/16 04:11 ABG pO2 66 mmHg (85-104) L 09/12/16 04:11 ABG HCO3 31.9 mEQ/L (21-27) H 09/12/16 04:11 ABG Total CO2 33.1 mEq/L (20-26) H 09/12/16 04:11 ABG Base Excess 8.2 mEq/L (-2.0 to 3.0) H 09/12/16 04:11 BUN 34 mg/dL (7-20) H 09/13/16 04:04 BUN/Creatinine Ratio 40 (6-26) H 09/13/16 04:04 Glucose 114 mg/dL (70-99) H 09/13/16 04:04 POC Glucose 134 (58-89) H 09/13/16 05:41 Ionized Calcium 1.11 mmol/L (1.15-1.35) L 09/13/16 04:04 Troponin I 0.20 ng/mL (0-0.03) H* 09/09/16 14:50 B-Natriuretic Peptide 1617 pg/mL (0-100) H 09/09/16 09:10 Albumin 2.9 g/dL (3.5-5.0) L 09/10/16 03:09 Albumin/Globulin Ratio 0.9 (1.1-2.2) L 09/10/16 03:09 Ur Specific [place] > 1.030 (1.010-1.025) H 09/09/16 12:17 Urine Protein 100 mg/dL (Neg-Trace) H 09/09/16 12:17 Urine Blood Large (Negative) H 09/09/16 12:17 Urine Microscopic RBC TNTC per hpf (0-3) H 09/09/16 12:17 Urine Microscopic WBC 15-30 per hpf (0-3) H 09/09/16 12:17 Ur Squamous Epith Cells Moderate per lpf (None-Few) H 09/09/16 12:17 Ur Culture Indicated? YES (NO) A 09/09/16 12:17 Coronavirus OC43 (PCR) DETECTED (Not Detect) A 09/09/16 12:20 - Microbiology Findings Microbiology Findings: Microbiology, Last 48 Hours 09/09/16 22:39 Sputum Culture - Final Sputum Claudia tropicalis - Clinical Findings Intake & Output: Intake & Output 09/12/16 09/12/16 09/13/16 15:59 23:59 07:59 Intake Total 100 / 100 502 / 502 139.6 / 139.6 Output Total 725 / 725 100 / 100 150 / 150 Balance -625 / -625 402 / 402 -10.4 / -10.4 Consult Discharge Plan - Plan Referrals: Bushra Landry MD [Primary Care Provider] -
[2016-09-13] MEDS: Gabapentin 300 MG CAPSULE PO SCH ×2 (07:51→20:28)
[2016-09-13] MEDS: Aspirin 81 MG TAB.CHEW PO SCH (07:51)
[2016-09-13] MEDS: Sennosides 8.6 MG TABLET PO SCH ×2 (07:56→20:28)
[2016-09-13] MEDS: Pantoprazole 40 MG VIAL IVP SCH (07:56)
[2016-09-13] MEDS: Chlorhexidine Rinse 15 ML MOUTHWASH MM SCH (07:56)
[2016-09-13] MEDS: Potassium Chloride Elixir 20 MEQ/15 ML UDC PO SCH ×2 (07:56→20:27)
[2016-09-13] MEDS: Furosemide 20 MG/2 ML VIAL IVP SCH (07:56)
[2016-09-13] MEDS: predniSONE 20 MG TABLET PO SCH (07:57)
[2016-09-13] MEDS: Loratadine 10 MG TABLET PO SCH (07:57)
[2016-09-13] MEDS: Azithromycin 500 MG in D5% in Water 250 ML IVPB SCH (12:00)
--- NOTE | 2016-09-13 12:04 | Cardiology Progress Note ---
Date of Encounter: 09/13/16 Time of Encounter: 12:00 Assessment and Plan (1) Cardiomyopathy Current Visit: Yes Status: Acute Newly diagnosed cardiomyopathy. Segmental wall motion to suggest ischemic origin. Continue aspirin, statin therapy. Start BB if able after extubation. Continue low-dose Lasix for now. Monitor time status, daily weights, and creatinine. Patient to be extubated to BIPAP today. Consider diagnostic left heart catheterization if condition continues to improve. Qualifiers: Cardiomyopathy type: unspecified Qualified Code(s): I42.9 - Cardiomyopathy , unspecified (2) Systolic CHF, acute Current Visit: Yes Status: Acute (3) COPD exacerbation Current Visit: Yes Status: Acute Your ICU management. Discussion w patient/family: The assessment and plan as outlined above was discussed with the patient and/or family members who expressed understanding and agreement. All questions were answered. Thank you for involving us in the care of your patient. Please call with any questions. Subjective Principal diagnosis: Acute respiratory failure Interval history: Patient seen and examined. Intubated during my encounter. Remains somewhat tenuous from a breathing standpoint. Imaging has not demonstrated any effusions. ICU plans to extubate to BIPAP today. No new cardiac issues to report. Objective Vital Signs, Last 4 Hours Temp Pulse Resp BP Pulse Ox 09/13/16 11:50 100/50 97 09/13/16 11:44 98.3 F 09/13/16 11:13 20 100/50 97 09/13/16 10:30 76 20 112/57 96 09/13/16 10:00 21 100/51 97 09/13/16 09:30 68 14 109/60 09/13/16 08:30 67 26 148/71 96 General: Other (Intubated during my encounter. ) HEENT: Atraumatic, Normocephaly, Mucus Membranes Moist Neck: No JVD, Normal carotid pulses Cardiac: Reg Rate and Rhythm, Normal S1 and S2, No Murmur Lungs: Normal Breath Sounds, No Wheeze, Rales, Rhonchi Neuro: Alert and responsive, No focal deficits noted Abdomen: Soft, Non-Tender Skin: No rashes noted on visualized skin Musculoskeletal: No Chest Wall Tenderness Extremities: No Clubbing, No Cyanosis, No Edema Results 09/13/16 04:04 09/13/16 04:04 Lab Results 09/12/16 09/13/16 09/13/16 12:40 04:04 04:04 WBC 13.6 H Hgb 8.8 L Hct 27.8 L Plt Count 273 Sodium 138 140 Potassium 4.2 3.9 Chloride 102 106 Carbon Dioxide 23 24 BUN 32 H 34 H Creatinine 1.04 0.84 Glucose 171 H 114 H Calcium 8.5 L 8.6 Magnesium 2.2 Consult Discharge Plan - Plan Referrals: Bushra Landry MD [Primary Care Provider] -
[2016-09-13] MEDS: *HR* HYDROmorphone (PF) 1 MG/ML SYRINGE IVP PRN ×2 (15:35→23:49)
[2016-09-13] MEDS: *HR* HYDROcodone/Acet 5/325 mg TABLET PO PRN (20:28)
[2016-09-14] MEDS: Dexmedetomidine HCl 400 MCG/100 ML MLS IVC SCH (04:32)
[2016-09-14 04:35] LABS: Basophils % 0.2 %; Eosinophils # 0.3 K/mcL (0.0-0.6); Eosinophils % 2.1 %; Hematocrit 30.1 % (35.3-44.9); Hemoglobin 9.2 g/dL (11.5-15.4); Immature Granulocytes % 1.4 % (0-4); Lymphocytes # 3.3 K/mcL (0.6-4.6); Lymphocytes % 23.6 %; Mean Corpuscular HGB Conc 30.6 g/dL (31.6-35.5); Mean Corpuscular Hemoglobin 28.1 pg (28.0-33.3); Mean Platelet Volume 9.9 fL (9.4-12.4); Monocytes # 1.7 K/mcL (0.0-1.3); Monocytes % 11.8 %; Neutrophils # 8.5 K/mcL (1.6-8.9); Platelet Count 295 K/mcL (140-400); Red Blood Count 3.27 M/mcL (3.82-4.97); Red Cell Distribution Width 17.6 % (11.5-14.5); Segmented Neutrophils % 60.9 %
[2016-09-14] MEDS: *HR* HYDROcodone/Acet 5/325 mg TABLET PO PRN ×4 (04:35→20:44)
[2016-09-14] MEDS: Ipratropium/Albuterol Neb 3 ML IH SCH ×5 (04:44→21:07)
[2016-09-14 04:45] LABS: Magnesium 2.4 mg/dL (1.6-2.6); Phosphorous 3.6 mg/dL (2.3-4.7)
[2016-09-14 05:15] LABS: Ionized Calcium 1.18 mmol/L (1.15-1.35)
[2016-09-14] MEDS: Insulin LISPRO 300 UNITS/3 ML VIAL SQ SCH ×2 (06:07→12:00)
[2016-09-14] MEDS: *HR* Metoprolol 5 MG/5 ML VIAL IVP SCH ×2 (06:13→12:02)
--- NOTE | 2016-09-14 07:25 | Pulmonology Progress Note ---
Date of Encounter: 09/14/16 Time of Encounter: 07:00 Assessment and Plan (1) Acute respiratory failure Current Visit: Yes Status: Acute Acute hypoxic hypercapnic respiratory failure likely s/t COPD exacerbation, possible underlying acquired pneumonia Was intubated 09/09 due to decreased responsiveness and drop in saturations during echocardiogram Currently on BiPAP, FiO2: 40% with O2 sat 98%, trials off BiPAP today Bronchodilators and Steroids Coronavirus positive Urine culture for Legionella and S. pneumoniae were negative Sputum demonstrated Claudia tropicalis On day four of Azithromycin, will finish five day course for COPD exacerbation Qualifiers: Respiratory failure complication: hypoxia and hypercapnia Qualified Code(s) : J96.01 - Acute respiratory failure with hypoxia; J96.02 - Acute respiratory failure with hypercapnia (2) NSTEMI (non-ST elevated myocardial infarction) Current Visit: Yes Status: Acute Pt had vague abd/chest pain with rising troponin (0.07, 0.20, 0.20) History of CAD in past concerning for NSTEMI Echo showed LVEF 40% with regional wall motion abnormality consistent with ischemic cardiomyopathy, Moderate pericardial effusion present located inferoposteriorly with no criteria for tamponade Cardiology consulted (3) Cardiomyopathy Current Visit: Yes Status: Acute Newly diagnosed cardiomyopathy Segmental wall motion abnormalities on echo suggest ischemic origin Per cardiology, diurese as tolerated, continue aspirin, statin therapy Heparin SQ LHC recommended prior to discharge once stable Qualifiers: Cardiomyopathy type: unspecified Qualified Code(s): I42.9 - Cardiomyopathy , unspecified (4) Systolic CHF, acute Current Visit: Yes Status: Acute Serial CXRs and BNPs suggest development of CHF, BNP:1617 EF newly reduced on echo at 40% HCTZ held and lasix 20mg (5) Community acquired pneumonia Current Visit: Yes Status: Acute CT scan inconclusive but possibly consistent with infiltrate in lingula and RLL Cultures negative Continue Azithromycin for COPD exacerbation (6) Atrial fibrillation Current Visit: Yes Status: Acute Currently rate controlled, continue beta lena Qualifiers: Atrial fibrillation type: chronic Qualified Code(s): I48.2 - Chronic atrial fibrillation (7) COPD exacerbation Current Visit: Yes Status: Acute IV steroids and bronchodilators Azithromycin 500mg for 5 days (8) Abdominal pain Current Visit: Yes Status: Acute CT Abd/Pelvis demonstrated small amount of fluid and gas within the vagina, given closely opposed small bowel, fistula is not excluded Qualifiers: Abdominal location: generalized Qualified Code(s): R10.84 - Generalized abdominal pain (9) Sepsis Current Visit: Yes Status: Acute Pt met criteria with evidence of infectious source including lung, possibly abdomen Was started on Cefepime and Azithromycin initially, cultures are negative Continue Azithromycin Qualifiers: Sepsis type: sepsis due to unspecified organism Qualified Code(s): A41.9 - Sepsis, unspecified organism Subjective Principal diagnosis: Acute respiratory failure Interval history: Pt extubated yesterday and now on BiPAP. Marsh catheter in place. Had a bowel movement yesterday, however continues to have discomfort in her abdomen. Objective PUL Vital signs: Last Vital Signs Temp 97.2 F L 09/14/16 04:01 Pulse 77 09/14/16 06:00 Resp 24 09/14/16 06:00 BP 129/70 09/14/16 06:00 Pulse Ox 97 09/14/16 06:00 General appearance: no acute distress, other (On BiPAP) Eyes: nonicteric ENT: oropharynx moist Neck: supple Effort: normal Auscultation: bilateral: rhonchi Cardiovascular: regular rate and rhythm Gastrointestinal: normoactive bowel sounds, tender (Diffusely) Integumentary: normal Extremities: no cyanosis, no edema, no clubbing Musculoskeletal: no deformities normal mental status, non-focal exam mood appropriate, affect normal Results - Laboratory Findings CBC and BMP: 09/14/16 04:13 09/13/16 04:04 ABG ABG pH 7.51 pH Units (7.32-7.45) H 09/12/16 04:11 ABG pCO2 40 mmHg (35-45) 09/12/16 04:11 ABG pO2 66 mmHg (85-104) L 09/12/16 04:11 ABG O2 Saturation 95 % (95-98) 09/12/16 04:11 PT/INR, D-dimer PT 12.6 Seconds (9.4-12.1) H 09/09/16 14:50 D-Dimer 1585 ng/mLFEU (0-500) H 09/08/16 22:22 Abnormal lab findings: Abnormal lab results WBC 14.0 K/mcL (4.3-11.1) H 09/14/16 04:13 RBC 3.27 M/mcL (3.82-4.97) L 09/14/16 04:13 Hgb 9.2 g/dL (11.5-15.4) L 09/14/16 04:13 Hct 30.1 % (35.3-44.9) L 09/14/16 04:13 MCHC 30.6 g/dL (31.6-35.5) L 09/14/16 04:13 RDW 17.6 % (11.5-14.5) H 09/14/16 04:13 Monocytes # 1.7 K/mcL (0.0-1.3) H 09/14/16 04:13 PT 12.6 Seconds (9.4-12.1) H 09/09/16 14:50 APTT 81.4 Seconds (26.0-36.0) H 09/10/16 03:09 D-Dimer 1585 ng/mLFEU (0-500) H 09/08/16 22:22 ABG pH 7.51 pH Units (7.32-7.45) H 09/12/16 04:11 ABG pO2 66 mmHg (85-104) L 09/12/16 04:11 ABG HCO3 31.9 mEQ/L (21-27) H 09/12/16 04:11 ABG Total CO2 33.1 mEq/L (20-26) H 09/12/16 04:11 ABG Base Excess 8.2 mEq/L (-2.0 to 3.0) H 09/12/16 04:11 BUN 34 mg/dL (7-20) H 09/13/16 04:04 BUN/Creatinine Ratio 40 (6-26) H 09/13/16 04:04 Glucose 114 mg/dL (70-99) H 09/13/16 04:04 Troponin I 0.20 ng/mL (0-0.03) H* 09/09/16 14:50 B-Natriuretic Peptide 1617 pg/mL (0-100) H 09/09/16 09:10 Albumin 2.9 g/dL (3.5-5.0) L 09/10/16 03:09 Albumin/Globulin Ratio 0.9 (1.1-2.2) L 09/10/16 03:09 Ur Specific [place] > 1.030 (1.010-1.025) H 09/09/16 12:17 Urine Protein 100 mg/dL (Neg-Trace) H 09/09/16 12:17 Urine Blood Large (Negative) H 09/09/16 12:17 Urine Microscopic RBC TNTC per hpf (0-3) H 09/09/16 12:17 Urine Microscopic WBC 15-30 per hpf (0-3) H 09/09/16 12:17 Ur Squamous Epith Cells Moderate per lpf (None-Few) H 09/09/16 12:17 Ur Culture Indicated? YES (NO) A 09/09/16 12:17 Coronavirus OC43 (PCR) DETECTED (Not Detect) A 09/09/16 12:20 - Microbiology Findings Microbiology Findings: Microbiology, Last 48 Hours 09/09/16 22:39 Sputum Culture - Final Sputum Claudia tropicalis - Clinical Findings Intake & Output: Intake & Output 09/13/16 09/13/16 09/14/16 15:59 23:59 07:59 Intake Total 254.4 / 254.4 Output Total 1075 / 1075 200 / 200 275 / 275 Balance -820.6 / -820.6 -200 / -200 -275 / -275 Weight 74.616 kg - VTE Documentation of Mechanical Device: Intermittent pneumatic compression device Consult Discharge Plan - Plan Referrals: Bushra Landry MD [Primary Care Provider] -
[2016-09-14] MEDS: *HR* Heparin 5,000 UNIT/ML VIAL SQ SCH ×2 (08:21→15:49)
[2016-09-14] MEDS: Furosemide 20 MG/2 ML VIAL IVP SCH (08:21)
[2016-09-14] MEDS: Pantoprazole 40 MG VIAL IVP SCH (08:22)
[2016-09-14] MEDS: Sennosides 8.6 MG TABLET PO SCH ×2 (08:38→21:44)
[2016-09-14] MEDS: predniSONE 20 MG TABLET PO SCH (08:39)
[2016-09-14] MEDS: Aspirin 81 MG TAB.CHEW PO SCH (08:40)
[2016-09-14] MEDS: Gabapentin 300 MG CAPSULE PO SCH ×2 (08:41→21:44)
[2016-09-14] MEDS: Potassium Chloride Elixir 20 MEQ/15 ML UDC PO SCH (08:50)
[2016-09-14] MEDS: Azithromycin 500 MG in D5% in Water 250 ML IVPB SCH (11:58)
--- NOTE | 2016-09-14 12:11 | Cardiology Progress Note ---
Date of Encounter: 09/14/16 Time of Encounter: 12:07 Assessment and Plan (1) Cardiomyopathy Current Visit: Yes Status: Acute Cardiomyopathy, EF 40%. Segmental wall motion abnormalities described. Patient remains euvolemic on examination. Continue aspirin, statin, and beta lena therapy. Add low-dose LUIS inhibitor. Transition Lasix to by mouth. Patient recently extubated. Recommend ongoing medical therapy for now. As condition/strength continues to improve, consider cardiac catheterization early next week. Qualifiers: Cardiomyopathy type: unspecified Qualified Code(s): I42.9 - Cardiomyopathy , unspecified (2) Systolic CHF, acute Current Visit: Yes Status: Acute Patient euvolemic. See recommendations under cardiomyopathy. (3) COPD exacerbation Current Visit: Yes Status: Acute Your IM/pulmonary management. Discussion w patient/family: The assessment and plan as outlined above was discussed with the patient and/or family members who expressed understanding and agreement. All questions were answered. Thank you for involving us in the care of your patient. Please call with any questions. Subjective Principal diagnosis: Acute respiratory failure Interval history: Patient seen and examined. Patient now on nasal cannula. Breathing appears to be stable. No chest pain reported. Objective Vital Signs, Last 4 Hours Temp Pulse Resp BP Pulse Ox 09/14/16 11:52 98.1 F 09/14/16 10:00 81 18 131/67 96 09/14/16 09:00 79 20 133/66 97 09/14/16 08:20 15 127/65 99 General: Conversant, No Apparent Distress HEENT: Atraumatic, Normocephaly, Mucus Membranes Moist Neck: No JVD, Normal carotid pulses Cardiac: Reg Rate and Rhythm, Normal S1 and S2, No Murmur Lungs: Other (Shallow breath sounds. No rales.) Neuro: Alert and responsive, No focal deficits noted Abdomen: Soft, Non-Tender Skin: No rashes noted on visualized skin Musculoskeletal: No Chest Wall Tenderness Extremities: No Clubbing, No Cyanosis, No Edema Results 09/14/16 04:13 09/13/16 04:04 Lab Results 09/14/16 09/14/16 04:13 04:13 WBC 14.0 H Hgb 9.2 L Hct 30.1 L Plt Count 295 Magnesium 2.4 ITS Impressions Chest X-Ray 09/08/16 18:51 IMPRESSION: No acute cardiopulmonary disease. Coarsening of the interstitial markings, likely chronic. D/ / Mansoor Rawls MD / Mansoor Rawls MD Interpreting Provider: Mansoor Rawls MD Abdomen/Pelvis CT 09/08/16 19:29 IMPRESSION: 1. No acute abdominal or pelvic abnormality. 2. Stable 0.9 cm left adrenal nodule, likely an adenoma. 3. Stable mild biliary dilation likely related to postcholecystectomy changes. Findings can be correlated with LFTs. 4. Small amount of fluid and gas within the vagina. Given closely opposed small bowel, a fistula is not excluded and can be correlated clinically. 5. Mild mediastinal adenopathy which is partially visualized and not significantly changed since 2012. This is likely reactive. Bibasilar atelectasis and/or scarring. 6. Age-indeterminate compression deformity of the T8 vertebral body. Findings can be further evaluated with MRI for acuity given patient's symptoms. D/ / 09/08/2016 21:58:55 Jelly Bee MD / vasiliy Interpreting Provider: Jelly Bee MD Chest CTA 09/08/16 22:49 IMPRESSION: 1. Slightly limited exam due to significant respiratory motion. No acute pulmonary embolus. 2. Patchy opacities predominately within the lingula and right lower lobe which are nonspecific and may reflect atelectasis. Pneumonia is not excluded. 3. Mild mediastinal adenopathy, which is nonspecific but new since the prior exam. Correlate with any history of malignancy. 4. Reflux of contrast into the hepatic veins and IVC which can be seen in setting of right heart failure. D/ / 09/09/2016 07:08:32 Jelly Bee MD / Zara Burnett Interpreting Provider: Jelly Bee MD Chest X-Ray 09/09/16 12:08 IMPRESSION: 1. Interval placement of endotracheal tube, in satisfactory position. 2. Interval worsening of mild to moderate interstitial pulmonary edema. 3. Stable bibasilar airspace disease, likely representing either asymmetric edema or atelectasis. 4. Stable cardiomegaly. D/ / Clint Vaz MD / Clint Vaz MD Interpreting Provider: Clint Vaz MD X-Ray 09/09/16 12:08 IMPRESSION: 1. Orogastric tube too high in position, with side port near the GE junction. Suggest advancement of the tube by approximately 5 cm for more ideal positioning. 2. Nonspecific bowel gas pattern, without evidence of free air. The findings were sent to the Radiology Results Communication [facility] at 1:23 pm on 09/09/2016to be communicated to a licensed caregiver. D/ / Clint Vaz MD / Clint Vaz MD Interpreting Provider: Clint Vaz MD X-Ray 09/09/16 20:57 IMPRESSION: Interval advancement of enteric tube. The tip either overlies the distal stomach or proximal duodenum. The proximal side port is likely within the distal stomach. D/ / Jelly Bee MD / Jelly Bee MD Interpreting Provider: Jelly Bee MD Chest X-Ray 09/10/16 05:00 IMPRESSION: Stable exam. D/ / 09/10/2016 07:15:59 Gerry Lucas MD / [facility] Interpreting Provider: Gerry Lucas MD Chest X-Ray 09/11/16 11:18 IMPRESSION: 1. Stable chest x-ray. Active Medications Acetaminophen/Hydrocodone Bitart ([place] 5-325 Mg) 1 tab PO Q4H PRN PRN Reason: Pain Stop: 03/11/17 02:07 Last Admin: 09/14/16 09:21 Dose: 1 tab Albuterol Sulfate (Proventil Neb) 2.5 mg IH [id number] PRN; Protocol PRN Reason: Shortness Of Breath/Wheezing Stop: 03/11/17 02:26 Last Admin: 09/10/16 02:29 Dose: 2.5 mg Albuterol/Ipratropium (Duoneb) 3 ml IH Q4H RADHA PRN Reason: Protocol Stop: 03/11/17 08:31 Last Admin: 09/14/16 08:20 Dose: 3 ml Aspirin (Aspirin) 81 mg PO DAILY [facility] Stop: 03/12/17 09:01 Last Admin: 09/14/16 08:40 Dose: 81 mg Atorvastatin Calcium (Lipitor) 40 mg PO HS [facility] Stop: 03/11/17 21:01 Last Admin: 09/13/16 20:28 Dose: 40 mg Bisacodyl (Dulcolax) 10 mg RC DAILY PRN PRN Reason: Constipation Stop: 03/13/17 11:06 Last Admin: 09/11/16 11:26 Dose: 10 mg Citalopram Hydrobromide (Celexa) 20 mg PO DAILY [facility] Stop: 03/11/17 09:01 Last Admin: 09/14/16 08:40 Dose: 20 mg Dextrose/Water (Dextrose 50% (Syg)) 25 ml IVP AD PRN PRN Reason: Hypoglycemia Stop: 03/12/17 14:32 Docusate Sodium (Colace) 100 mg PO BID PRN; Protocol PRN Reason: stool softner for constipation Stop: 03/11/17 08:26 Last Admin: 09/11/16 11:26 Dose: 100 mg Furosemide (Lasix) 20 mg IVP DAILY [facility] Stop: 03/12/17 10:01 Last Admin: 09/14/16 08:21 Dose: 20 mg Gabapentin (Neurontin) 600 mg PO HS [facility] Stop: 03/11/17 21:01 Last Admin: 09/13/16 20:28 Dose: 600 mg [facility]ontin) [facility]: 03/11/17 09:01 Last Admin: 09/14/16 08:41 Dose: 300 mg Glucagon (Glucagen) 1 mg IM ONCE PRN PRN Reason: Hypoglycemia Stop: 03/12/17 14:32 Glucose (Gluctose) 15 gm PO ONCE PRN PRN Reason: Hypoglycemia Stop: 03/12/17 14:32 Glucose (Gluctose) 30 gm PO ONCE PRN PRN Reason: Hypoglycemia Stop: 03/12/17 14:32 Heparin Sodium (Porcine) (Heparin) 5,000 unit SQ Q8HR [facility] Stop: 03/12/17 16:01 Last Admin: 09/14/16 08:21 Dose: 5,000 unit Hydromorphone HCl (Dilaudid) 0.25 mg IVP Q4HR PRN PRN Reason: Pain Stop: 03/15/17 12:11 Last Admin: 09/13/16 23:49 Dose: 0.25 mg Dextrose (Dextrose 5%) 1,000 mls @ 100 mls/hr IV CONT PRN PRN Reason: HYPOGLYCEMIA Stop: 03/12/17 14:32 Azithromycin 500 mg/ Dextrose 250 mls @ 252 mls/hr IVPB Q24H [facility] Stop: 03/13/17 11:01 Last Admin: 09/14/16 11:58 Dose: 250 mls/hr Calcium Gluconate 1,000 mg/ (Dextrose) 110 mls @ 50 mls/hr IVPB Q6HR PRN PRN Reason: Hypocalcemia Stop: 03/14/17 11:05 Magnesium Sulfate 2 gm/ (Dextrose) 104 mls @ 50 mls/hr IVPB Q6H PRN PRN Reason: Hypomagnesemia Stop: 03/14/17 11:05 Potassium Phosphate 44 meq/ (Sodium Chloride) 260 mls @ 40 mls/hr IVPB Q10H PRN PRN Reason: Phosphate less than 3 Stop: 03/14/17 11:05 Insulin Human Lispro (Humalog) 0 units SQ Q6HR RADHA PRN Reason: Protocol Stop: 03/12/17 18:01 Last Admin: 09/14/16 12:00 Dose: Not Given Levothyroxine Sodium (Synthroid) 112 mcg PO 0630 [facility] Stop: 03/11/17 06:31 Last Admin: 09/14/16 06:13 Dose: 112 mcg Metoprolol Succinate (Toprol Xl) 25 mg PO DAILY [facility] Stop: 03/17/17 09:01 Metoprolol Tartrate (Lopressor) 5 mg IVP Q6HR RADHA Stop: 09/15/16 02:00 Last Admin: 09/14/16 12:02 Dose: 5 mg Metoprolol Tartrate (Lopressor) 5 mg IVP Q6HR PRN PRN Reason: Heart Rate- High >120 Stop: 03/17/17 09:01 Montelukast Sodium (Singulair) 10 mg PO HS RADHA Stop: 03/11/17 21:01 Last Admin: 09/13/16 20:28 Dose: 10 mg Nitroglycerin (Nitroglycerin) 0.4 mg SL Q5MIN PRN PRN Reason: Chest Pain Stop: 03/11/17 08:27 Omeprazole (Prilosec) 20 mg PO DAILY@0730 RADHA Stop: 03/17/17 07:31 Potassium Chloride (Potassium Chloride) 40 meq PO BID RADHA Stop: 03/14/17 09:16 Last Admin: 09/14/16 08:50 Dose: 40 meq Prednisone (Prednisone) 40 mg PO DAILY RADHA Stop: 03/14/17 09:01 Last Admin: 09/14/16 08:39 Dose: 40 mg Senna (Senna) 17.2 mg PO BID RADHA Stop: 03/11/17 09:01 Last Admin: 09/14/16 08:38 Dose: 17.2 mg D/ / Sorin Rossi MD / Sorin Rossi MD Interpreting Provider: Sorin Rossi MD Chest X-Ray 09/12/16 06:00 IMPRESSION: No acute pulmonary process. D/ / Cesar Treviño MD / Cesar Treviño MD Interpreting Provider: Cesar Treviño MD - Imaging and Cardiology Echo: report reviewed - VTE Documentation of Mechanical Device: Intermittent pneumatic compression device Consult Discharge Plan - Plan Referrals: Bushra Landry MD [Primary Care Provider] -
[2016-09-14] MEDS ORDERED: Furosemide 20 MG TABLET PO PRN (12:14)
[2016-09-14 16:04] LABS: BUN/Creatinine Ratio 32 (6-26); Blood Urea Nitrogen 27 mg/dL (7-20); Calcium 9.2 mg/dL (8.6-10.8); Carbon Dioxide 27 mEq/L (19-29); Chloride 107 mEq/L (98-109); Glucose 147 mg/dL (70-99); Osmolality,Calculated 306 (280-300); Potassium 5.1 mEq/L (3.5-4.5); Sodium 144 mEq/L (136-145); eGFR For African Americans > 60 (> 60); eGFR For Non-African Americans > 60 (> 60)
[2016-09-14] MEDS ORDERED: Bisacodyl 10 MG RECTAL SUPPOSITORY RC PRN (18:01)
[2016-09-14] MEDS ORDERED: Albuterol 2.5 MG/3 ML NEBULIZER IH PRN (18:01)
[2016-09-14] MEDS ORDERED: Docusate Oral Soln 100 MG/10 ML UDC PO PRN (18:01)
[2016-09-14] MEDS ORDERED: Dextrose Gel 15 GM PO PRN ×2 (18:01)
[2016-09-14] MEDS ORDERED: D5% in Water 1,000 ML IV PRN (18:01)
[2016-09-14] MEDS ORDERED: Nitroglycerin 0.4 MG TAB.SUBL SL PRN (18:01)
[2016-09-14] MEDS ORDERED: *HR* Dextrose 50 % in Water (Syg) 50 ML SYRINGE IVP PRN (18:01)
[2016-09-14] MEDS: *HR* HYDROmorphone (PF) 1 MG/ML SYRINGE IVP PRN (22:04)
[2016-09-15] MEDS ORDERED: *HR* Metoprolol 5 MG/5 ML VIAL IVP SCH
[2016-09-15] MEDS: Ipratropium/Albuterol Neb 3 ML IH SCH ×6 (00:02→20:42)
[2016-09-15] MEDS: *HR* Metoprolol 5 MG/5 ML VIAL IVP SCH ×3 (00:15→06:03)
[2016-09-15] MEDS: *HR* Heparin 5,000 UNIT/ML VIAL SQ SCH ×4 (00:16→23:32)
[2016-09-15 04:40] LABS: Hematocrit 31.6 % (35.3-44.9); Hemoglobin 9.5 g/dL (11.5-15.4); Mean Corpuscular HGB Conc 30.1 g/dL (31.6-35.5); Mean Corpuscular Hemoglobin 28.3 pg (28.0-33.3); Mean Platelet Volume 9.8 fL (9.4-12.4); Platelet Count 351 K/mcL (140-400); Red Blood Count 3.36 M/mcL (3.82-4.97); Red Cell Distribution Width 16.9 % (11.5-14.5); Segmented Neutrophils % 58.3 %
[2016-09-15 04:41] LABS: Basophils % 0.3 %; Eosinophils # 0.5 K/mcL (0.0-0.6); Eosinophils % 3.3 %; Immature Granulocytes % 1.7 % (0-4); Lymphocytes % 25.8 %; Monocytes # 1.7 K/mcL (0.0-1.3); Monocytes % 10.6 %; Neutrophils # 9.1 K/mcL (1.6-8.9)
[2016-09-15 04:53] LABS: BUN/Creatinine Ratio 28 (6-26); Blood Urea Nitrogen 21 mg/dL (7-20); Calcium 9.5 mg/dL (8.6-10.8); Carbon Dioxide 27 mEq/L (19-29); Chloride 107 mEq/L (98-109); Glucose 87 mg/dL (70-99); Osmolality,Calculated 302 (280-300); Potassium 4.4 mEq/L (3.5-4.5); Sodium 145 mEq/L (136-145); eGFR For African Americans > 60 (> 60); eGFR For Non-African Americans > 60 (> 60)
[2016-09-15] MEDS: Insulin LISPRO 300 UNITS/3 ML VIAL SQ SCH ×4 (05:33→17:27)
[2016-09-15] MEDS: *HR* HYDROcodone/Acet 5/325 mg TABLET PO PRN ×2 (05:34→11:33)
[2016-09-15] MEDS: Sennosides 8.6 MG TABLET PO SCH ×2 (08:31→20:18)
[2016-09-15] MEDS: predniSONE 20 MG TABLET PO SCH (08:31)
[2016-09-15] MEDS: Gabapentin 300 MG CAPSULE PO SCH ×2 (08:32→20:18)
[2016-09-15] MEDS: Aspirin 81 MG TAB.CHEW PO SCH (08:32)
[2016-09-15] MEDS: Metoprolol XL (24 HR) Succ 25 MG TAB.ER.24H PO SCH (08:32)
[2016-09-15] MEDS: *HR* HYDROmorphone (PF) 1 MG/ML SYRINGE IVP PRN ×3 (08:45→23:03)
[2016-09-15] MEDS ORDERED: *HR* Metoprolol 5 MG/5 ML VIAL IVP PRN ×3 (09:00)
[2016-09-15] MEDS ORDERED: Metoprolol XL (24 HR) Succ 25 MG TAB.ER.24H PO SCH (09:00)
--- NOTE | 2016-09-15 11:08 | Cardiology Progress Note ---
Date of Encounter: 09/15/16 Time of Encounter: 11:05 Assessment and Plan (1) Cardiomyopathy Current Visit: Yes Status: Acute Cardiomyopathy, EF 40%. Segmental wall motion abnormalities described. Continue aspirin, statin, LUIS inhibitor, and beta lena therapy. Continue low-dose oral Lasix. Clinically, she continues to improve. R/B/A to a [facility] discussed. Patient agreeable. Plan for Saturday. Qualifiers: Cardiomyopathy type: unspecified Qualified Code(s): I42.9 - Cardiomyopathy , unspecified (2) Systolic CHF, acute Current Visit: Yes Status: Acute Patient euvolemic. See recommendations under cardiomyopathy. (3) COPD exacerbation Current Visit: Yes Status: Acute Your IM/pulmonary management. Discussion w patient/family: The assessment and plan as outlined above was discussed with the patient and/or family members who expressed understanding and agreement. All questions were answered. Thank you for involving us in the care of your patient. Please call with any questions. Subjective Principal diagnosis: Acute respiratory failure Interval history: Patient now on 2 N. Clinically, she continues to improve. She reports breathing is near baseline. No orthopnea, PND, or lower extremity edema described. No chest pain reported. Objective Vital Signs, Last 4 Hours Temp Pulse Resp BP Pulse Ox 09/15/16 08:15 96 09/15/16 07:49 18 98 09/15/16 07:08 98.4 F 83 16 104/62 98 General: Conversant, No Apparent Distress HEENT: Atraumatic, Normocephaly, Mucus Membranes Moist Neck: No JVD, Normal carotid pulses Cardiac: Reg Rate and Rhythm, Normal S1 and S2, No Murmur Lungs: Normal Breath Sounds, No Wheeze, Rales, Rhonchi Neuro: Alert and responsive, No focal deficits noted Abdomen: Soft, Non-Tender Skin: No rashes noted on visualized skin Musculoskeletal: No Chest Wall Tenderness Extremities: No Clubbing, No Cyanosis, No Edema Results 09/15/16 04:12 09/15/16 04:12 Lab Results 09/14/16 09/15/16 09/15/16 15:42 04:12 04:12 WBC 15.6 H Hgb 9.5 L Hct 31.6 L Plt Count 351 Sodium 144 145 Potassium 5.1 H D 4.4 Chloride 107 107 Carbon Dioxide 27 27 BUN 27 H 21 H Creatinine 0.84 0.74 Glucose 147 H 87 Calcium 9.2 9.5 - Imaging and Cardiology Echo: report reviewed - EKG Interpretation EKG results cardiology: personally reviewed - VTE Documentation of Mechanical Device: Intermittent pneumatic compression device Consult Discharge Plan - Plan Referrals: Indio Aguayo CNP [Advanced Practice Nurse] - 10/03/16 10:00 am Bushra Landry MD [Primary Care Provider] - (Pt is from [facility], no PCP appointment is needed)
[2016-09-15] MEDS: Azithromycin 500 MG in D5% in Water 250 ML IVPB SCH (11:30)
[2016-09-15] MEDS: *HR* OxyCODONE/APAP 5/325 TABLET PO PRN ×2 (14:00→20:19)
--- NOTE | 2016-09-15 15:07 | Internal Med Progress Note ---
Date of Encounter: 09/15/16 Time of Encounter: 10:15 - Assessment and plan (1) Acute respiratory failure Current Visit: Yes Status: Acute Assessment and plan: Improving. Continue O2 supplementation. On prednisone taper. bronchodilator nebs. Qualifiers: Respiratory failure complication: hypoxia and hypercapnia Qualified Code(s) : J96.01 - Acute respiratory failure with hypoxia; J96.02 - Acute respiratory failure with hypercapnia (2) Atrial fibrillation Current Visit: Yes Status: Chronic Assessment and plan: Rate Controlled. Qualifiers: Atrial fibrillation type: chronic Qualified Code(s): I48.2 - Chronic atrial fibrillation (3) Cardiomyopathy Current Visit: Yes Status: Suspected Assessment and plan: Cardiology following. Suspected ischemic cardiomyopathy. Plan for cardiac catheterization per cardiology recommendations. Qualifiers: Cardiomyopathy type: ischemic Qualified Code(s): I25.5 - Ischemic cardiomyopathy (4) Community acquired pneumonia Current Visit: Yes Status: Acute Assessment and plan: On azithromycin. CT chest inconclusive. Treatment course with azithromycin. (5) COPD exacerbation Current Visit: Yes Status: Acute Assessment and plan: Continue current management as above with steroid taper, DuoNeb's. (6) NSTEMI (non-ST elevated myocardial infarction) Current Visit: Yes Status: Acute Assessment and plan: Plan for cardiac evaluation and left heart catheterization as recommended by cardiology prior to discharge. Currently on aspirin, statin. (7) Sepsis Current Visit: Yes Status: Resolved Assessment and plan: Cultures negative. Leukocytosis persisted but this could be related to prednisone usage. Qualifiers: Sepsis type: sepsis due to unspecified organism Qualified Code(s): A41.9 - Sepsis, unspecified organism - Subjective Interval history: Patient complains of back pain gets worse as the patient is not receiving Percocet that she takes at home. She was receiving [place] but that does not seem to be helping her pain. Denies any chest pain at this time. Breathing is improving. Denies any other new complaints at this time. - Constitutional Vitals: Temp Pulse Resp BP Pulse Ox 97.6 F 78 16 114/60 97 09/15/16 11:12 09/15/16 11:35 09/15/16 11:48 09/15/16 11:12 09/15/16 11:48 General appearance: Present: cooperative, mild distress, A&O X 3, morbidly obese - Neck Neck exam general surgery: Present: supple, trachea midline. Absent: lymphadenopathy - Respiratory Respiratory exam: Present: decreased breath sounds (Diminished bilaterally), prolonged expiratory phase, wheezes. Absent: accessory muscle use, rales, rhonchi - Cardiovascular Cardiovascular exam: Present: RRR, +S1, +S2. Absent: diastolic murmur, gallop, rubs, systolic murmur - GI/Abdominal GI/Abdominal exam: Present: normal bowel sounds, soft, no peritoneal signs. Absent: distended, tenderness - Extremities Exam Extremities exam: Present: warm, radial pulses palpable and symetrical. Absent : calf tenderness, cyanotic, pedal edema - Neurological Exam Neurological exam: Present: oriented X3, no focal deficits. Absent: facial droop, speech deficit - Skin Skin exam: Present: dry, intact Internal Medicine: Result - Labs CBC & Chem 7: 09/15/16 04:12 09/15/16 04:12 Labs: Short CBC 09/15/16 Range/Units 04:12 WBC 15.6 H (4.3-11.1) K/mcL Hgb 9.5 L (11.5-15.4) g/dL Hct 31.6 L (35.3-44.9) % Plt Count 351 (140-400) K/mcL Neutrophils # 9.1 H (1.6-8.9) K/mcL BMP 09/14/16 09/15/16 15:42 04:12 Sodium 144 145 Potassium 5.1 H D 4.4 Chloride 107 107 Carbon Dioxide 27 27 BUN 27 H 21 H Creatinine 0.84 0.74 Glucose 147 H 87 Calcium 9.2 9.5 - ABG Interpretation ABG results: ABG ABG pH 7.51 pH Units (7.32-7.45) H 09/12/16 04:11 ABG pCO2 40 mmHg (35-45) 09/12/16 04:11 ABG pO2 66 mmHg (85-104) L 09/12/16 04:11 ABG O2 Saturation 95 % (95-98) 09/12/16 04:11 PT/INR, D-dimer PT 12.6 Seconds (9.4-12.1) H 09/09/16 14:50 D-Dimer 1585 ng/mLFEU (0-500) H 09/08/16 22:22 - Impressions Impressions Head CT 09/15/16 12:38 IMPRESSION: Stable appearance of the brain with no acute intracranial abnormality. D/ / Salvador Garrett MD / Salvador Garrett MD Interpreting Provider: Salvador Garrett MD - VTE Documentation of Mechanical Device: Intermittent pneumatic compression device Consult Discharge Plan - Plan Referrals: Indio Aguayo CNP [Advanced Practice Nurse] - 10/03/16 10:00 am Bushra Landry MD [Primary Care Provider] - (Pt is from [facility], no PCP appointment is needed) - Attending Attestation This document has been at least partially created by [employer]gorith[employer] recognition technology by Dr. Chavez. Errors in grammar, wording or other phrases may exist. If errors are found after the documentation is signed, they will be addressed individually in the addendum section of this document when appropriate. Medical Decision Making - MDM Narrative Medical decision making narrative: High risk for complications - Lab Data Result diagrams: 09/15/16 04:12 09/15/16 04:12 Lab Results 09/09/16 09/09/16 09/09/16 Range/Units 09:10 09:10 09:10 WBC (4.3-11.1) K/mcL RBC (3.82-4.97) M/mcL Hgb (11.5-15.4) g/dL Hct (35.3-44.9) % MCV (83.0-100.0) fL MCH (28.0-33.3) pg MCHC (31.6-35.5) g/dL RDW (11.5-14.5) % Plt Count (140-400) K/mcL MPV (9.4-12.4) fL Immature Gran % (0-4) % Seg Neutrophils % % Lymphocytes % % Monocytes % % Eosinophils % % Basophils % % Neutrophils # (1.6-8.9) K/mcL Lymphocytes # (0.6-4.6) K/mcL Monocytes # (0.0-1.3) K/mcL Eosinophils # (0.0-0.6) K/mcL Basophils # (0.0-0.2) K/mcL Immature Plt Fraction (1.1-6.1) % PT (9.4-12.1) Seconds INR APTT (26.0-36.0) Seconds ABG pH (7.32-7.45) pH Units ABG pCO2 (35-45) mmHg ABG pO2 (85-104) mmHg ABG HCO3 (21-27) mEQ/L ABG Total CO2 (20-26) mEq/L ABG O2 Saturation (95-98) % ABG Base Excess (-2.0 to 3.0) mEq/L Blood Gas Modality Inspired O2 % Sodium (136-145) mEq/L Potassium (3.5-4.5) mEq/L Chloride (98-109) mEq/L Carbon Dioxide (19-29) mEq/L BUN (7-20) mg/dL Creatinine (0.57-1.11) mg/dL Est GFR ( Amer) (> 60) Est GFR (Non-Af Amer) (> 60) BUN/Creatinine Ratio (6-26) Glucose (70-99) mg/dL POC Glucose (58-89) Calculated Osmolality (280-300) Lactic Acid 1.5 (0.5-2.2) mmol/L Calcium (8.6-10.8) mg/dL Ionized Calcium (1.15-1.35) mmol/L Phosphorus 4.6 (2.3-4.7) mg/dL Magnesium 2.1 (1.6-2.6) mg/dL Total Bilirubin (0.2-1.2) mg/dL AST (5-34) Units/L ALT (0-55) Units/L Alkaline Phosphatase (38-126) Units/L Troponin I (0-0.03) ng/mL B-Natriuretic Peptide 1617 H (0-100) pg/mL Serum Total Protein (6.0-8.3) g/dL Albumin (3.5-5.0) g/dL Globulin (2.4-3.5) g/dL Albumin/Globulin Ratio (1.1-2.2) Urine Color (Yellow) Urine Clarity (Clear) Urine pH (5.0-8.0) pH Units Ur Specific [employer] (1.010-1.025) Urine Protein (Neg-Trace) mg/dL Urine Glucose (UA) (Normal) mg/dL Urine Ketones (Negative) mg/dL Urine Blood (Negative) Urine Nitrite (Negative) Urine Bilirubin (Negative) Urine Urobilinogen (Normal) mg/dL Ur Leukocyte Esterase (Negative) Urine Microscopic RBC (0-3) per hpf Urine Microscopic WBC (0-3) per hpf Ur Squamous Epith Cells (None-Few) per lpf Urine Bacteria (None-Few) per hpf Hyaline Casts (None-Few) per lpf Ur Culture Indicated? (NO) Chlamy pneumoniae PCR (Not Detect) Adenovirus (PCR) (Not Detect) B. pertussis DNA (PCR) (Not Detect) C. difficile Tox (PCR) (Negative) Coronavirus OC43 (PCR) (Not Detect) Coronavirus HKU1 (PCR) (Not Detect) Coronavirus 229E (PCR) (Not Detect) Coronavirus NL63 (PCR) (Not Detect) Human Metapneumovirus (Not Detect) Influenza A (H1) PCR (Not Detect) Influ A (H1N1/09) PCR (Not Detect) Influenza A (H3) PCR (Not Detect) Influenza A Untype (PCR) (Not Detect) Influenza Type B (PCR) (Not Detect) M.pneumoniae DNA (PCR) (Not Detect) Parainfluenza 1 (PCR) (Not Detect) Parainfluenza 2 (PCR) (Not Detect) Parainfluenza 3 (PCR) (Not Detect) Parainfluenza 4 (PCR) (Not Detect) RSV (PCR) (Not Detect) Entero/Rhino (PCR) (Not Detect) Specimen Rejected 09/09/16 09/09/16 09/09/16 Range/Units 10:07 10:10 12:17 WBC (4.3-11.1) K/mcL RBC (3.82-4.97) M/mcL Hgb (11.5-15.4) g/dL Hct (35.3-44.9) % MCV (83.0-100.0) fL MCH (28.0-33.3) pg MCHC (31.6-35.5) g/dL RDW (11.5-14.5) % Plt Count (140-400) K/mcL MPV (9.4-12.4) fL Immature Gran % (0-4) % Seg Neutrophils % % Lymphocytes % % Monocytes % % Eosinophils % % Basophils % % Neutrophils # (1.6-8.9) K/mcL Lymphocytes # (0.6-4.6) K/mcL Monocytes # (0.0-1.3) K/mcL Eosinophils # (0.0-0.6) K/mcL Basophils # (0.0-0.2) K/mcL Immature Plt Fraction (1.1-6.1) % PT (9.4-12.1) Seconds INR APTT (26.0-36.0) Seconds ABG pH 7.24 L D (7.32-7.45) pH Units ABG pCO2 74 H* D (35-45) mmHg ABG pO2 91 (85-104) mmHg ABG HCO3 31.7 H (21-27) mEQ/L ABG Total CO2 34.0 H (20-26) mEq/L ABG O2 Saturation 96 (95-98) % ABG Base Excess 2.6 (-2.0 to 3.0) mEq/L Blood Gas Modality BIPAP Inspired O2 35 % Sodium (136-145) mEq/L Potassium (3.5-4.5) mEq/L Chloride (98-109) mEq/L Carbon Dioxide (19-29) mEq/L BUN (7-20) mg/dL Creatinine (0.57-1.11) mg/dL Est GFR ( Amer) (> 60) Est GFR (Non-Af Amer) (> 60) BUN/Creatinine Ratio (6-26) Glucose (70-99) mg/dL POC Glucose 188 H (58-89) Calculated Osmolality (280-300) Lactic Acid (0.5-2.2) mmol/L Calcium (8.6-10.8) mg/dL Ionized Calcium (1.15-1.35) mmol/L Phosphorus (2.3-4.7) mg/dL Magnesium (1.6-2.6) mg/dL Total Bilirubin (0.2-1.2) mg/dL AST (5-34) Units/L ALT (0-55) Units/L Alkaline Phosphatase (38-126) Units/L Troponin I (0-0.03) ng/mL B-Natriuretic Peptide (0-100) pg/mL Serum Total Protein (6.0-8.3) g/dL Albumin (3.5-5.0) g/dL Globulin (2.4-3.5) g/dL Albumin/Globulin Ratio (1.1-2.2) Urine Color Yellow (Yellow) Urine Clarity Clear (Clear) Urine pH 6.0 (5.0-8.0) pH Units Ur Specific [employer] > 1.030 H (1.010-1.025) Urine Protein 100 H (Neg-Trace) mg/dL Urine Glucose (UA) Normal (Normal) mg/dL Urine Ketones Negative (Negative) mg/dL Urine Blood Large H (Negative) Urine Nitrite Negative (Negative) Urine Bilirubin Negative (Negative) Urine Urobilinogen Normal (Normal) mg/dL Ur Leukocyte Esterase Negative (Negative) Urine Microscopic RBC TNTC H (0-3) per hpf Urine Microscopic WBC 15-30 H (0-3) per hpf Ur Squamous Epith Cells Moderate H (None-Few) per lpf Urine Bacteria Few (None-Few) per hpf Hyaline Casts Few (None-Few) per lpf Ur Culture Indicated? YES A (NO) Chlamy pneumoniae PCR (Not Detect) Adenovirus (PCR) (Not Detect) B. pertussis DNA (PCR) (Not Detect) C. difficile Tox (PCR) (Negative) Coronavirus OC43 (PCR) (Not Detect) Coronavirus HKU1 (PCR) (Not Detect) Coronavirus 229E (PCR) (Not Detect) Coronavirus NL63 (PCR) (Not Detect) Human Metapneumovirus (Not Detect) Influenza A (H1) PCR (Not Detect) Influ A (H1N1/09) PCR (Not Detect) Influenza A (H3) PCR (Not Detect) Influenza A Untype (PCR) (Not Detect) Influenza Type B (PCR) (Not Detect) M.pneumoniae DNA (PCR) (Not Detect) Parainfluenza 1 (PCR) (Not Detect) Parainfluenza 2 (PCR) (Not Detect) Parainfluenza 3 (PCR) (Not Detect) Parainfluenza 4 (PCR) (Not Detect) RSV (PCR) (Not Detect) Entero/Rhino (PCR) (Not Detect) Specimen Rejected 09/09/16 09/09/16 09/09/16 Range/Units 12:20 13:10 14:50 WBC (4.3-11.1) K/mcL RBC (3.82-4.97) M/mcL Hgb (11.5-15.4) g/dL Hct (35.3-44.9) % MCV (83.0-100.0) fL MCH (28.0-33.3) pg MCHC (31.6-35.5) g/dL RDW (11.5-14.5) % Plt Count (140-400) K/mcL MPV (9.4-12.4) fL Immature Gran % (0-4) % Seg Neutrophils % % Lymphocytes % % Monocytes % % Eosinophils % % Basophils % % Neutrophils # (1.6-8.9) K/mcL Lymphocytes # (0.6-4.6) K/mcL Monocytes # (0.0-1.3) K/mcL Eosinophils # (0.0-0.6) K/mcL Basophils # (0.0-0.2) K/mcL Immature Plt Fraction (1.1-6.1) % PT (9.4-12.1) Seconds INR APTT (26.0-36.0) Seconds ABG pH 7.13 L* (7.32-7.45) pH Units ABG pCO2 88 H* (35-45) mmHg ABG pO2 98 (85-104) mmHg ABG HCO3 29.3 H (21-27) mEQ/L ABG Total CO2 32.0 H (20-26) mEq/L ABG O2 Saturation 95 (95-98) % ABG Base Excess -1.5 (-2.0 to 3.0) mEq/L Blood Gas Modality ASSIST CONTROL Inspired O2 50 % Sodium (136-145) mEq/L Potassium (3.5-4.5) mEq/L Chloride (98-109) mEq/L Carbon Dioxide (19-29) mEq/L BUN (7-20) mg/dL Creatinine (0.57-1.11) mg/dL Est GFR ( Amer) (> 60) Est GFR (Non-Af Amer) (> 60) BUN/Creatinine Ratio (6-26) Glucose (70-99) mg/dL POC Glucose (58-89) Calculated Osmolality (280-300) Lactic Acid (0.5-2.2) mmol/L Calcium (8.6-10.8) mg/dL Ionized Calcium (1.15-1.35) mmol/L Phosphorus (2.3-4.7) mg/dL Magnesium (1.6-2.6) mg/dL Total Bilirubin (0.2-1.2) mg/dL AST (5-34) Units/L ALT (0-55) Units/L Alkaline Phosphatase (38-126) Units/L Troponin I 0.20 H* (0-0.03) ng/mL B-Natriuretic Peptide (0-100) pg/mL Serum Total Protein (6.0-8.3) g/dL Albumin (3.5-5.0) g/dL Globulin (2.4-3.5) g/dL Albumin/Globulin Ratio (1.1-2.2) Urine Color (Yellow) Urine Clarity (Clear) Urine pH (5.0-8.0) pH Units Ur Specific [employer] (1.010-1.025) Urine Protein (Neg-Trace) mg/dL Urine Glucose (UA) (Normal) mg/dL Urine Ketones (Negative) mg/dL Urine Blood (Negative) Urine Nitrite (Negative) Urine Bilirubin (Negative) Urine Urobilinogen (Normal) mg/dL Ur Leukocyte Esterase (Negative) Urine Microscopic RBC (0-3) per hpf Urine Microscopic WBC (0-3) per hpf Ur Squamous Epith Cells (None-Few) per lpf Urine Bacteria (None-Few) per hpf Hyaline Casts (None-Few) per lpf Ur Culture Indicated? (NO) Chlamy pneumoniae PCR Not Detected (Not Detect) Adenovirus (PCR) Not Detected (Not Detect) B. pertussis DNA (PCR) Not Detected (Not Detect) C. difficile Tox (PCR) (Negative) Coronavirus OC43 (PCR) DETECTED A (Not Detect) Coronavirus HKU1 (PCR) Not Detected (Not Detect) Coronavirus 229E (PCR) Not Detected (Not Detect) Coronavirus NL63 (PCR) Not Detected (Not Detect) Human Metapneumovirus Not Detected (Not Detect) Influenza A (H1) PCR Not Detected (Not Detect) Influ A (H1N1/09) PCR Not Detected (Not Detect) Influenza A (H3) PCR Not Detected (Not Detect) Influenza A Untype (PCR) Not Detected (Not Detect) Influenza Type B (PCR) Not Detected (Not Detect) M.pneumoniae DNA (PCR) Not Detected (Not Detect) Parainfluenza 1 (PCR) Not Detected (Not Detect) Parainfluenza 2 (PCR) Not Detected (Not Detect) Parainfluenza 3 (PCR) Not Detected (Not Detect) Parainfluenza 4 (PCR) Not Detected (Not Detect) RSV (PCR) Not Detected (Not Detect) Entero/Rhino (PCR) Not Detected (Not Detect) Specimen Rejected 09/09/16 09/09/16 09/09/16 Range/Units 14:50 14:50 15:42 WBC 10.3 (4.3-11.1) K/mcL RBC 3.49 L (3.82-4.97) M/mcL Hgb 9.9 L (11.5-15.4) g/dL Hct 33.6 L (35.3-44.9) % MCV 96.3 (83.0-100.0) fL MCH 28.4 (28.0-33.3) pg MCHC 29.5 L (31.6-35.5) g/dL RDW 16.7 H (11.5-14.5) % Plt Count 212 (140-400) K/mcL MPV 9.7 (9.4-12.4) fL Immature Gran % (0-4) % Seg Neutrophils % % Lymphocytes % % Monocytes % % Eosinophils % % Basophils % % Neutrophils # (1.6-8.9) K/mcL Lymphocytes # (0.6-4.6) K/mcL Monocytes # (0.0-1.3) K/mcL Eosinophils # (0.0-0.6) K/mcL Basophils # (0.0-0.2) K/mcL Immature Plt Fraction (1.1-6.1) % PT 12.6 H (9.4-12.1) Seconds INR 1.2 APTT 31.7 (26.0-36.0) Seconds ABG pH 7.33 D (7.32-7.45) pH Units ABG pCO2 55 H D (35-45) mmHg ABG pO2 137 H (85-104) mmHg ABG HCO3 29.0 H (21-27) mEQ/L ABG Total CO2 30.7 H (20-26) mEq/L ABG O2 Saturation 99 H (95-98) % ABG Base Excess 2.3 (-2.0 to 3.0) mEq/L Blood Gas Modality ASSIST CONTROL Inspired O2 50 % Sodium (136-145) mEq/L Potassium (3.5-4.5) mEq/L Chloride (98-109) mEq/L Carbon Dioxide (19-29) mEq/L BUN (7-20) mg/dL Creatinine (0.57-1.11) mg/dL Est GFR ( Amer) (> 60) Est GFR (Non-Af Amer) (> 60) BUN/Creatinine Ratio (6-26) Glucose (70-99) mg/dL POC Glucose (58-89) Calculated Osmolality (280-300) Lactic Acid (0.5-2.2) mmol/L Calcium (8.6-10.8) mg/dL Ionized Calcium (1.15-1.35) mmol/L Phosphorus (2.3-4.7) mg/dL Magnesium (1.6-2.6) mg/dL Total Bilirubin (0.2-1.2) mg/dL AST (5-34) Units/L ALT (0-55) Units/L Alkaline Phosphatase (38-126) Units/L Troponin I (0-0.03) ng/mL B-Natriuretic Peptide (0-100) pg/mL Serum Total Protein (6.0-8.3) g/dL Albumin (3.5-5.0) g/dL Globulin (2.4-3.5) g/dL Albumin/Globulin Ratio (1.1-2.2) Urine Color (Yellow) Urine Clarity (Clear) Urine pH (5.0-8.0) pH Units Ur Specific [employer] (1.010-1.025) Urine Protein (Neg-Trace) mg/dL Urine Glucose (UA) (Normal) mg/dL Urine Ketones (Negative) mg/dL Urine Blood (Negative) Urine Nitrite (Negative) Urine Bilirubin (Negative) Urine Urobilinogen (Normal) mg/dL Ur Leukocyte Esterase (Negative) Urine Microscopic RBC (0-3) per hpf Urine Microscopic WBC (0-3) per hpf Ur Squamous Epith Cells (None-Few) per lpf Urine Bacteria (None-Few) per hpf Hyaline Casts (None-Few) per lpf Ur Culture Indicated? (NO) Chlamy pneumoniae PCR (Not Detect) Adenovirus (PCR) (Not Detect) B. pertussis DNA (PCR) (Not Detect) C. difficile Tox (PCR) (Negative) Coronavirus OC43 (PCR) (Not Detect) Coronavirus HKU1 (PCR) (Not Detect) Coronavirus 229E (PCR) (Not Detect) Coronavirus NL63 (PCR) (Not Detect) Human Metapneumovirus (Not Detect) Influenza A (H1) PCR (Not Detect) Influ A (H1N1/09) PCR (Not Detect) Influenza A (H3) PCR (Not Detect) Influenza A Untype (PCR) (Not Detect) Influenza Type B (PCR) (Not Detect) M.pneumoniae DNA (PCR) (Not Detect) Parainfluenza 1 (PCR) (Not Detect) Parainfluenza 2 (PCR) (Not Detect) Parainfluenza 3 (PCR) (Not Detect) Parainfluenza 4 (PCR) (Not Detect) RSV (PCR) (Not Detect) Entero/Rhino (PCR) (Not Detect) Specimen Rejected 09/09/16 09/09/16 09/10/16 Range/Units 21:20 23:50 03:09 WBC (4.3-11.1) K/mcL RBC (3.82-4.97) M/mcL Hgb (11.5-15.4) g/dL Hct (35.3-44.9) % MCV (83.0-100.0) fL MCH (28.0-33.3) pg MCHC (31.6-35.5) g/dL RDW (11.5-14.5) % Plt Count (140-400) K/mcL MPV (9.4-12.4) fL Immature Gran % (0-4) % Seg Neutrophils % % Lymphocytes % % Monocytes % % Eosinophils % % Basophils % % Neutrophils # (1.6-8.9) K/mcL Lymphocytes # (0.6-4.6) K/mcL Monocytes # (0.0-1.3) K/mcL Eosinophils # (0.0-0.6) K/mcL Basophils # (0.0-0.2) K/mcL Immature Plt Fraction (1.1-6.1) % PT (9.4-12.1) Seconds INR APTT 81.8 H D (26.0-36.0) Seconds ABG pH (7.32-7.45) pH Units ABG pCO2 (35-45) mmHg ABG pO2 (85-104) mmHg ABG HCO3 (21-27) mEQ/L ABG Total CO2 (20-26) mEq/L ABG O2 Saturation (95-98) % ABG Base Excess (-2.0 to 3.0) mEq/L Blood Gas Modality Inspired O2 % Sodium 140 (136-145) mEq/L Potassium 4.1 (3.5-4.5) mEq/L Chloride 104 (98-109) mEq/L Carbon Dioxide 22 (19-29) mEq/L BUN 20 (7-20) mg/dL Creatinine 0.92 (0.57-1.11) mg/dL Est GFR ( Amer) > 60 (> 60) Est GFR (Non-Af Amer) 59 L (> 60) BUN/Creatinine Ratio 22 (6-26) Glucose 195 H (70-99) mg/dL POC Glucose 189 H (58-89) Calculated Osmolality 298 (280-300) Lactic Acid (0.5-2.2) mmol/L Calcium 8.8 (8.6-10.8) mg/dL Ionized Calcium (1.15-1.35) mmol/L Phosphorus (2.3-4.7) mg/dL Magnesium (1.6-2.6) mg/dL Total Bilirubin 0.5 (0.2-1.2) mg/dL AST 33 (5-34) Units/L ALT 25 (0-55) Units/L Alkaline Phosphatase 98 (38-126) Units/L Troponin I (0-0.03) ng/mL B-Natriuretic Peptide (0-100) pg/mL Serum Total Protein 6.3 (6.0-8.3) g/dL Albumin 2.9 L (3.5-5.0) g/dL Globulin 3.4 (2.4-3.5) g/dL Albumin/Globulin Ratio 0.9 L (1.1-2.2) Urine Color (Yellow) Urine Clarity (Clear) Urine pH (5.0-8.0) pH Units Ur Specific [employer] [place] (1.010-1.025) Urine Protein (Neg-Trace) mg/dL Urine Glucose (UA) (Normal) mg/dL Urine Ketones (Negative) mg/dL Urine Blood (Negative) Urine Nitrite (Negative) Urine Bilirubin (Negative) Urine Urobilinogen (Normal) mg/dL Ur Leukocyte Esterase (Negative) Urine Microscopic RBC (0-3) per hpf Urine Microscopic WBC (0-3) per hpf Ur Squamous Epith Cells (None-Few) per lpf Urine Bacteria (None-Few) per hpf Hyaline Casts (None-Few) per lpf Ur Culture Indicated? (NO) Chlamy pneumoniae PCR (Not Detect) Adenovirus (PCR) (Not Detect) B. pertussis DNA (PCR) (Not Detect) C. difficile Tox (PCR) (Negative) Coronavirus OC43 (PCR) (Not Detect) Coronavirus HKU1 (PCR) (Not Detect) Coronavirus 229E (PCR) (Not Detect) Coronavirus NL63 (PCR) (Not Detect) Human Metapneumovirus (Not Detect) Influenza A (H1) PCR (Not Detect) Influ A (H1N1/09) PCR (Not Detect) Influenza A (H3) PCR (Not Detect) Influenza A Untype (PCR) (Not Detect) Influenza Type B (PCR) (Not Detect) M.pneumoniae DNA (PCR) (Not Detect) Parainfluenza 1 (PCR) (Not Detect) Parainfluenza 2 (PCR) (Not Detect) Parainfluenza 3 (PCR) (Not Detect) Parainfluenza 4 (PCR) (Not Detect) RSV (PCR) (Not Detect) Entero/Rhino (PCR) (Not Detect) Specimen Rejected 09/10/16 09/10/16 09/10/16 Range/Units 03:09 03:09 05:18 WBC 13.3 H (4.3-11.1) K/mcL RBC 3.31 L (3.82-4.97) M/mcL Hgb 9.3 L (11.5-15.4) g/dL Hct 30.2 L (35.3-44.9) % MCV 91.2 (83.0-100.0) fL MCH 28.1 (28.0-33.3) pg MCHC 30.8 L (31.6-35.5) g/dL RDW 16.8 H (11.5-14.5) % Plt Count 227 (140-400) K/mcL MPV 10.1 (9.4-12.4) fL Immature Gran % 1.1 (0-4) % Seg Neutrophils % 81.5 % Lymphocytes % 7.4 % Monocytes % 9.9 % Eosinophils % 0.0 % Basophils % 0.1 % Neutrophils # 10.9 H (1.6-8.9) K/mcL Lymphocytes # 1.0 (0.6-4.6) K/mcL Monocytes # 1.3 (0.0-1.3) K/mcL Eosinophils # 0.0 (0.0-0.6) K/mcL Basophils # 0.0 (0.0-0.2) K/mcL Immature Plt Fraction 3.3 (1.1-6.1) % PT (9.4-12.1) Seconds INR APTT 81.4 H (26.0-36.0) Seconds ABG pH 7.46 H (7.32-7.45) pH Units ABG pCO2 42 (35-45) mmHg ABG pO2 117 H (85-104) mmHg ABG HCO3 29.9 H (21-27) mEQ/L ABG Total CO2 31.2 H (20-26) mEq/L ABG O2 Saturation 99 H (95-98) % ABG Base Excess 5.5 H (-2.0 to 3.0) mEq/L Blood Gas Modality VENT Inspired O2 40 % Sodium (136-145) mEq/L Potassium (3.5-4.5) mEq/L Chloride (98-109) mEq/L Carbon Dioxide (19-29) mEq/L BUN (7-20) mg/dL Creatinine (0.57-1.11) mg/dL Est GFR ( Amer) (> 60) Est GFR (Non-Af Amer) (> 60) BUN/Creatinine Ratio (6-26) Glucose (70-99) mg/dL POC Glucose (58-89) Calculated Osmolality (280-300) Lactic Acid (0.5-2.2) mmol/L Calcium (8.6-10.8) mg/dL Ionized Calcium (1.15-1.35) mmol/L Phosphorus (2.3-4.7) mg/dL Magnesium (1.6-2.6) mg/dL Total Bilirubin (0.2-1.2) mg/dL AST (5-34) Units/L ALT (0-55) Units/L Alkaline Phosphatase (38-126) Units/L Troponin I (0-0.03) ng/mL B-Natriuretic Peptide (0-100) pg/mL Serum Total Protein (6.0-8.3) g/dL Albumin (3.5-5.0) g/dL Globulin (2.4-3.5) g/dL Albumin/Globulin Ratio (1.1-2.2) Urine Color (Yellow) Urine Clarity (Clear) Urine pH (5.0-8.0) pH Units Ur Specific [employer] (1.010-1.025) Urine Protein (Neg-Trace) mg/dL Urine Glucose (UA) (Normal) mg/dL Urine Ketones (Negative) mg/dL Urine Blood (Negative) Urine Nitrite (Negative) Urine Bilirubin (Negative) Urine Urobilinogen (Normal) mg/dL Ur Leukocyte Esterase (Negative) Urine Microscopic RBC (0-3) per hpf Urine Microscopic WBC (0-3) per hpf Ur Squamous Epith Cells (None-Few) per lpf Urine Bacteria (None-Few) per hpf Hyaline Casts (None-Few) per lpf Ur Culture Indicated? (NO) Chlamy pneumoniae PCR (Not Detect) Adenovirus (PCR) (Not Detect) B. pertussis DNA (PCR) (Not Detect) C. difficile Tox (PCR) (Negative) Coronavirus OC43 (PCR) (Not Detect) Coronavirus HKU1 (PCR) (Not Detect) Coronavirus 229E (PCR) (Not Detect) Coronavirus NL63 (PCR) (Not Detect) Human Metapneumovirus (Not Detect) Influenza A (H1) PCR (Not Detect) Influ A (H1N1/09) PCR (Not Detect) Influenza A (H3) PCR (Not Detect) Influenza A Untype (PCR) (Not Detect) Influenza Type B (PCR) (Not Detect) M.pneumoniae DNA (PCR) (Not Detect) Parainfluenza 1 (PCR) (Not Detect) Parainfluenza 2 (PCR) (Not Detect) Parainfluenza 3 (PCR) (Not Detect) Parainfluenza 4 (PCR) (Not Detect) RSV (PCR) (Not Detect) Entero/Rhino (PCR) (Not Detect) Specimen Rejected 09/10/16 09/10/16 09/11/16 Range/Units 11:30 17:15 00:01 WBC (4.3-11.1) K/mcL RBC (3.82-4.97) M/mcL Hgb (11.5-15.4) g/dL Hct (35.3-44.9) % MCV (83.0-100.0) fL MCH (28.0-33.3) pg MCHC (31.6-35.5) g/dL RDW (11.5-14.5) % Plt Count (140-400) K/mcL MPV (9.4-12.4) fL Immature Gran % (0-4) % Seg Neutrophils % % Lymphocytes % % Monocytes % % Eosinophils % % Basophils % % Neutrophils # (1.6-8.9) K/mcL Lymphocytes # (0.6-4.6) K/mcL Monocytes # (0.0-1.3) K/mcL Eosinophils # (0.0-0.6) K/mcL Basophils # (0.0-0.2) K/mcL Immature Plt Fraction (1.1-6.1) % PT (9.4-12.1) Seconds INR APTT (26.0-36.0) Seconds ABG pH (7.32-7.45) pH Units ABG pCO2 (35-45) mmHg ABG pO2 (85-104) mmHg ABG HCO3 (21-27) mEQ/L ABG Total CO2 (20-26) mEq/L ABG O2 Saturation (95-98) % ABG Base Excess (-2.0 to 3.0) mEq/L Blood Gas Modality Inspired O2 % Sodium (136-145) mEq/L Potassium (3.5-4.5) mEq/L Chloride (98-109) mEq/L Carbon Dioxide (19-29) mEq/L BUN (7-20) mg/dL Creatinine (0.57-1.11) mg/dL Est GFR ( Amer) (> 60) Est GFR (Non-Af Amer) (> 60) BUN/Creatinine Ratio (6-26) Glucose (70-99) mg/dL POC Glucose 198 H 159 H 127 H (58-89) Calculated Osmolality (280-300) Lactic Acid (0.5-2.2) mmol/L Calcium (8.6-10.8) mg/dL Ionized Calcium (1.15-1.35) mmol/L Phosphorus (2.3-4.7) mg/dL Magnesium (1.6-2.6) mg/dL Total Bilirubin (0.2-1.2) mg/dL AST (5-34) Units/L ALT (0-55) Units/L Alkaline Phosphatase (38-126) Units/L Troponin I (0-0.03) ng/mL B-Natriuretic Peptide (0-100) pg/mL Serum Total Protein (6.0-8.3) g/dL Albumin (3.5-5.0) g/dL Globulin (2.4-3.5) g/dL Albumin/Globulin Ratio (1.1-2.2) Urine Color (Yellow) Urine Clarity (Clear) Urine pH (5.0-8.0) pH Units Ur Specific [employer] (1.010-1.025) Urine Protein (Neg-Trace) mg/dL Urine Glucose (UA) (Normal) mg/dL Urine Ketones (Negative) mg/dL Urine Blood (Negative) Urine Nitrite (Negative) Urine Bilirubin (Negative) Urine Urobilinogen (Normal) mg/dL Ur Leukocyte Esterase (Negative) Urine Microscopic RBC (0-3) per hpf Urine Microscopic WBC (0-3) per hpf Ur Squamous Epith Cells (None-Few) per lpf Urine Bacteria (None-Few) per hpf Hyaline Casts (None-Few) per lpf Ur Culture Indicated? (NO) Chlamy pneumoniae PCR (Not Detect) Adenovirus (PCR) (Not Detect) B. pertussis DNA (PCR) (Not Detect) C. difficile Tox (PCR) (Negative) Coronavirus OC43 (PCR) (Not Detect) Coronavirus HKU1 (PCR) (Not Detect) Coronavirus 229E (PCR) (Not Detect) Coronavirus NL63 (PCR) (Not Detect) Human Metapneumovirus (Not Detect) Influenza A (H1) PCR (Not Detect) Influ A (H1N1/09) PCR (Not Detect) Influenza A (H3) PCR (Not Detect) Influenza A Untype (PCR) (Not Detect) Influenza Type B (PCR) (Not Detect) M.pneumoniae DNA (PCR) (Not Detect) Parainfluenza 1 (PCR) (Not Detect) Parainfluenza 2 (PCR) (Not Detect) Parainfluenza 3 (PCR) (Not Detect) Parainfluenza 4 (PCR) (Not Detect) RSV (PCR) (Not Detect) Entero/Rhino (PCR) (Not Detect) Specimen Rejected 09/11/16 09/11/16 09/11/16 Range/Units 03:23 03:23 04:33 WBC 14.0 H (4.3-11.1) K/mcL RBC 3.28 L (3.82-4.97) M/mcL Hgb 9.2 L (11.5-15.4) g/dL Hct 29.1 L (35.3-44.9) % MCV 88.7 (83.0-100.0) fL MCH 28.0 (28.0-33.3) pg MCHC 31.6 (31.6-35.5) g/dL RDW 17.4 H (11.5-14.5) % Plt Count 252 (140-400) K/mcL MPV 9.5 (9.4-12.4) fL Immature Gran % 0.7 (0-4) % Seg Neutrophils % 77.6 % Lymphocytes % 11.8 % Monocytes % 9.8 % Eosinophils % 0.0 % Basophils % 0.1 % Neutrophils # 10.9 H (1.6-8.9) K/mcL Lymphocytes # 1.7 (0.6-4.6) K/mcL Monocytes # 1.4 H (0.0-1.3) K/mcL Eosinophils # 0.0 (0.0-0.6) K/mcL Basophils # 0.0 (0.0-0.2) K/mcL Immature Plt Fraction 3.1 (1.1-6.1) % PT (9.4-12.1) Seconds INR APTT (26.0-36.0) Seconds ABG pH 7.59 H (7.32-7.45) pH Units ABG pCO2 33 L (35-45) mmHg ABG pO2 109 H (85-104) mmHg ABG HCO3 31.7 H (21-27) mEQ/L ABG Total CO2 32.7 H (20-26) mEq/L ABG O2 Saturation 99 H (95-98) % ABG Base Excess 9.7 H (-2.0 to 3.0) mEq/L Blood Gas Modality [employer] O2 40 % Sodium 138 (136-145) mEq/L Potassium 3.6 (3.5-4.5) mEq/L Chloride 103 (98-109) mEq/L Carbon Dioxide 26 (19-29) mEq/L BUN 30 H D (7-20) mg/dL Creatinine 0.86 (0.57-1.11) mg/dL Est GFR ( Amer) > 60 (> 60) Est GFR (Non-Af Amer) > 60 (> 60) BUN/Creatinine Ratio 35 H (6-26) Glucose 119 H (70-99) mg/dL POC Glucose (58-89) Calculated Osmolality 293 (280-300) Lactic Acid (0.5-2.2) mmol/L Calcium 8.7 (8.6-10.8) mg/dL Ionized Calcium (1.15-1.35) mmol/L Phosphorus (2.3-4.7) mg/dL Magnesium (1.6-2.6) mg/dL Total Bilirubin (0.2-1.2) mg/dL AST (5-34) Units/L ALT (0-55) Units/L Alkaline Phosphatase (38-126) Units/L Troponin I (0-0.03) ng/mL B-Natriuretic Peptide (0-100) pg/mL Serum Total Protein (6.0-8.3) g/dL Albumin (3.5-5.0) g/dL Globulin (2.4-3.5) g/dL Albumin/Globulin Ratio (1.1-2.2) Urine Color (Yellow) Urine Clarity (Clear) Urine pH (5.0-8.0) pH Units Ur Specific [employer] (1.010-1.025) Urine Protein (Neg-Trace) mg/dL Urine Glucose (UA) (Normal) mg/dL Urine Ketones (Negative) mg/dL Urine Blood (Negative) Urine Nitrite (Negative) Urine Bilirubin (Negative) Urine Urobilinogen (Normal) mg/dL Ur Leukocyte Esterase (Negative) Urine Microscopic RBC (0-3) per hpf Urine Microscopic WBC (0-3) per hpf Ur Squamous Epith Cells (None-Few) per lpf Urine Bacteria (None-Few) per hpf Hyaline Casts (None-Few) per lpf Ur Culture Indicated? (NO) Chlamy pneumoniae PCR (Not Detect) Adenovirus (PCR) (Not Detect) B. pertussis DNA (PCR) (Not Detect) C. difficile Tox (PCR) (Negative) Coronavirus OC43 (PCR) (Not Detect) Coronavirus HKU1 (PCR) (Not Detect) Coronavirus 229E (PCR) (Not Detect) Coronavirus NL63 (PCR) (Not Detect) Human Metapneumovirus (Not Detect) Influenza A (H1) PCR (Not Detect) Influ A (H1N1/09) PCR (Not Detect) Influenza A (H3) PCR (Not Detect) Influenza A Untype (PCR) (Not Detect) Influenza Type B (PCR) (Not Detect) M.pneumoniae DNA (PCR) (Not Detect) Parainfluenza 1 (PCR) (Not Detect) Parainfluenza 2 (PCR) (Not Detect) Parainfluenza 3 (PCR) (Not Detect) Parainfluenza 4 (PCR) (Not Detect) RSV (PCR) (Not Detect) Entero/Rhino (PCR) (Not Detect) Specimen Rejected 09/11/16 09/11/16 09/11/16 Range/Units 11:06 15:22 23:58 WBC (4.3-11.1) K/mcL RBC (3.82-4.97) M/mcL Hgb (11.5-15.4) g/dL Hct (35.3-44.9) % MCV (83.0-100.0) fL MCH (28.0-33.3) pg MCHC (31.6-35.5) g/dL RDW (11.5-14.5) % Plt Count (140-400) K/mcL MPV (9.4-12.4) fL Immature Gran % (0-4) % Seg Neutrophils % % Lymphocytes % % Monocytes % % Eosinophils % % Basophils % % Neutrophils # (1.6-8.9) K/mcL Lymphocytes # (0.6-4.6) K/mcL Monocytes # (0.0-1.3) K/mcL Eosinophils # (0.0-0.6) K/mcL Basophils # (0.0-0.2) K/mcL Immature Plt Fraction (1.1-6.1) % PT (9.4-12.1) Seconds INR APTT (26.0-36.0) Seconds ABG pH (7.32-7.45) pH Units ABG pCO2 (35-45) mmHg ABG pO2 (85-104) mmHg ABG HCO3 (21-27) mEQ/L ABG Total CO2 (20-26) mEq/L ABG O2 Saturation (95-98) % ABG Base Excess (-2.0 to 3.0) mEq/L Blood Gas Modality Inspired O2 % Sodium (136-145) mEq/L Potassium (3.5-4.5) mEq/L Chloride (98-109) mEq/L Carbon Dioxide (19-29) mEq/L BUN (7-20) mg/dL Creatinine (0.57-1.11) mg/dL Est GFR ( Amer) (> 60) Est GFR (Non-Af Amer) (> 60) BUN/Creatinine Ratio (6-26) Glucose (70-99) mg/dL POC Glucose 147 H 148 H 99 H (58-89) Calculated Osmolality (280-300) Lactic Acid (0.5-2.2) mmol/L Calcium (8.6-10.8) mg/dL Ionized Calcium (1.15-1.35) mmol/L Phosphorus (2.3-4.7) mg/dL Magnesium (1.6-2.6) mg/dL Total Bilirubin (0.2-1.2) mg/dL AST (5-34) Units/L ALT (0-55) Units/L Alkaline Phosphatase (38-126) Units/L Troponin I (0-0.03) ng/mL B-Natriuretic Peptide (0-100) pg/mL Serum Total Protein (6.0-8.3) g/dL Albumin (3.5-5.0) g/dL Globulin (2.4-3.5) g/dL Albumin/Globulin Ratio (1.1-2.2) Urine Color (Yellow) Urine Clarity (Clear) Urine pH (5.0-8.0) pH Units Ur Specific [employer] (1.010-1.025) Urine Protein (Neg-Trace) mg/dL Urine Glucose (UA) (Normal) mg/dL Urine Ketones (Negative) mg/dL Urine Blood (Negative) Urine Nitrite (Negative) Urine Bilirubin (Negative) Urine Urobilinogen (Normal) mg/dL Ur Leukocyte Esterase (Negative) Urine Microscopic RBC (0-3) per hpf Urine Microscopic WBC (0-3) per hpf Ur Squamous Epith Cells (None-Few) per lpf Urine Bacteria (None-Few) per hpf Hyaline Casts (None-Few) per lpf Ur Culture Indicated? (NO) Chlamy pneumoniae PCR (Not Detect) Adenovirus (PCR) (Not Detect) B. pertussis DNA (PCR) (Not Detect) C. difficile Tox (PCR) (Negative) Coronavirus OC43 (PCR) (Not Detect) Coronavirus HKU1 (PCR) (Not Detect) Coronavirus 229E (PCR) (Not Detect) Coronavirus NL63 (PCR) (Not Detect) Human Metapneumovirus (Not Detect) Influenza A (H1) PCR (Not Detect) Influ A (H1N1/09) PCR (Not Detect) Influenza A (H3) PCR (Not Detect) Influenza A Untype (PCR) (Not Detect) Influenza Type B (PCR) (Not Detect) M.pneumoniae DNA (PCR) (Not Detect) Parainfluenza 1 (PCR) (Not Detect) Parainfluenza 2 (PCR) (Not Detect) Parainfluenza 3 (PCR) (Not Detect) Parainfluenza 4 (PCR) (Not Detect) RSV (PCR) (Not Detect) Entero/Rhino (PCR) (Not Detect) Specimen Rejected 09/12/16 09/12/16 09/12/16 Range/Units 04:11 04:15 04:15 WBC 16.1 H (4.3-11.1) K/mcL RBC 3.34 L (3.82-4.97) M/mcL Hgb 9.5 L (11.5-15.4) g/dL Hct 30.0 L (35.3-44.9) % MCV 89.8 (83.0-100.0) fL MCH 28.4 (28.0-33.3) pg MCHC 31.7 (31.6-35.5) g/dL RDW 17.9 H (11.5-14.5) % Plt Count 262 (140-400) K/mcL MPV 9.8 (9.4-12.4) fL Immature Gran % 0.7 (0-4) % Seg Neutrophils % 64.7 % Lymphocytes % 21.6 % Monocytes % 10.7 % Eosinophils % 2.2 % Basophils % 0.1 % Neutrophils # 10.4 H (1.6-8.9) K/mcL Lymphocytes # 3.5 (0.6-4.6) K/mcL Monocytes # 1.7 H (0.0-1.3) K/mcL Eosinophils # 0.4 (0.0-0.6) K/mcL Basophils # 0.0 (0.0-0.2) K/mcL Immature Plt Fraction (1.1-6.1) % PT (9.4-12.1) Seconds INR APTT (26.0-36.0) Seconds ABG pH 7.51 H (7.32-7.45) pH Units ABG pCO2 40 (35-45) mmHg ABG pO2 66 L (85-104) mmHg ABG HCO3 31.9 H (21-27) mEQ/L ABG Total CO2 33.1 H (20-26) mEq/L ABG O2 Saturation 95 (95-98) % ABG Base Excess 8.2 H (-2.0 to 3.0) mEq/L Blood Gas Modality [employer] Inspired O2 30 % Sodium 140 (136-145) mEq/L Potassium 3.3 L (3.5-4.5) mEq/L Chloride 102 (98-109) mEq/L Carbon Dioxide 26 (19-29) mEq/L BUN 35 H (7-20) mg/dL Creatinine 0.92 (0.57-1.11) mg/dL Est GFR ( Amer) > 60 (> 60) Est GFR (Non-Af Amer) 59 L (> 60) BUN/Creatinine Ratio 38 H (6-26) Glucose 99 (70-99) mg/dL POC Glucose (58-89) Calculated Osmolality 298 (280-300) Lactic Acid (0.5-2.2) mmol/L Calcium 8.7 (8.6-10.8) mg/dL Ionized Calcium 1.09 L (1.15-1.35) mmol/L Phosphorus 2.2 L D (2.3-4.7) mg/dL Magnesium 2.1 (1.6-2.6) mg/dL Total Bilirubin (0.2-1.2) mg/dL AST (5-34) Units/L ALT (0-55) Units/L Alkaline Phosphatase (38-126) Units/L Troponin I (0-0.03) ng/mL B-Natriuretic Peptide (0-100) pg/mL Serum Total Protein (6.0-8.3) g/dL Albumin (3.5-5.0) g/dL Globulin (2.4-3.5) g/dL Albumin/Globulin Ratio (1.1-2.2) Urine Color (Yellow) Urine Clarity (Clear) Urine pH (5.0-8.0) pH Units Ur Specific [employer] (1.010-1.025) Urine Protein (Neg-Trace) mg/dL Urine Glucose (UA) (Normal) mg/dL Urine Ketones (Negative) mg/dL Urine Blood (Negative) Urine Nitrite (Negative) Urine Bilirubin (Negative) Urine Urobilinogen (Normal) mg/dL Ur Leukocyte Esterase (Negative) Urine Microscopic RBC (0-3) per hpf Urine Microscopic WBC (0-3) per hpf Ur Squamous Epith Cells (None-Few) per lpf Urine Bacteria (None-Few) per hpf Hyaline Casts (None-Few) per lpf Ur Culture Indicated? (NO) Chlamy pneumoniae PCR (Not Detect) Adenovirus (PCR) (Not Detect) B. pertussis DNA (PCR) (Not Detect) C. difficile Tox (PCR) (Negative) Coronavirus OC43 (PCR) (Not Detect) Coronavirus HKU1 (PCR) (Not Detect) Coronavirus 229E (PCR) (Not Detect) Coronavirus NL63 (PCR) (Not Detect) Human Metapneumovirus (Not Detect) Influenza A (H1) PCR (Not Detect) Influ A (H1N1/09) PCR (Not Detect) Influenza A (H3) PCR (Not Detect) Influenza A Untype (PCR) (Not Detect) Influenza Type B (PCR) (Not Detect) M.pneumoniae DNA (PCR) (Not Detect) Parainfluenza 1 (PCR) (Not Detect) Parainfluenza 2 (PCR) (Not Detect) Parainfluenza 3 (PCR) (Not Detect) Parainfluenza 4 (PCR) (Not Detect) RSV (PCR) (Not Detect) Entero/Rhino (PCR) (Not Detect) Specimen Rejected 01/18/17 01/18/17 01/18/17 Range/Units 05:13 11:25 12:40 WBC (4.3-11.1) K/mcL RBC (3.82-4.97) M/mcL Hgb (11.5-15.4) g/dL Hct (35.3-44.9) % MCV (83.0-100.0) fL MCH (28.0-33.3) pg MCHC (31.6-35.5) g/dL RDW (11.5-14.5) % Plt Count (140-400) K/mcL MPV (9.4-12.4) fL Immature Gran % (0-4) % Seg Neutrophils % % Lymphocytes % % Monocytes % % Eosinophils % % Basophils % % Neutrophils # (1.6-8.9) K/mcL Lymphocytes # (0.6-4.6) K/mcL Monocytes # (0.0-1.3) K/mcL Eosinophils # (0.0-0.6) K/mcL Basophils # (0.0-0.2) K/mcL Immature Plt Fraction (1.1-6.1) % PT (9.4-12.1) Seconds INR APTT (26.0-36.0) Seconds ABG pH (7.32-7.45) pH Units ABG pCO2 (35-45) mmHg ABG pO2 (85-104) mmHg ABG HCO3 (21-27) mEQ/L ABG Total CO2 (20-26) mEq/L ABG O2 Saturation (95-98) % ABG Base Excess (-2.0 to 3.0) mEq/L Blood Gas Modality Inspired O2 % Sodium 138 (136-145) mEq/L Potassium 4.2 (3.5-4.5) mEq/L Chloride 102 (98-109) mEq/L Carbon Dioxide 23 (19-29) mEq/L BUN 32 H (7-20) mg/dL Creatinine 1.04 (0.57-1.11) mg/dL Est GFR ( Amer) > 60 (> 60) Est GFR (Non-Af Amer) 52 L (> 60) BUN/Creatinine Ratio 31 H (6-26) Glucose 171 H (70-99) mg/dL POC Glucose 98 H 117 H (58-89) Calculated Osmolality 297 (280-300) Lactic Acid (0.5-2.2) mmol/L Calcium 8.5 L (8.6-10.8) mg/dL Ionized Calcium (1.15-1.35) mmol/L Phosphorus (2.3-4.7) mg/dL Magnesium (1.6-2.6) mg/dL Total Bilirubin (0.2-1.2) mg/dL AST (5-34) Units/L ALT (0-55) Units/L Alkaline Phosphatase (38-126) Units/L Troponin I (0-0.03) ng/mL B-Natriuretic Peptide (0-100) pg/mL Serum Total Protein (6.0-8.3) g/dL Albumin (3.5-5.0) g/dL Globulin (2.4-3.5) g/dL Albumin/Globulin Ratio (1.1-2.2) Urine Color (Yellow) Urine Clarity (Clear) Urine pH (5.0-8.0) pH Units Ur Specific [employer] (1.010-1.025) Urine Protein (Neg-Trace) mg/dL Urine Glucose (UA) (Normal) mg/dL Urine Ketones (Negative) mg/dL Urine Blood (Negative) Urine Nitrite (Negative) Urine Bilirubin (Negative) Urine Urobilinogen (Normal) mg/dL Ur Leukocyte Esterase (Negative) Urine Microscopic RBC (0-3) per hpf Urine Microscopic WBC (0-3) per hpf Ur Squamous Epith Cells (None-Few) per lpf Urine Bacteria (None-Few) per hpf Hyaline Casts (None-Few) per lpf Ur Culture Indicated? (NO) Chlamy pneumoniae PCR (Not Detect) Adenovirus (PCR) (Not Detect) B. pertussis DNA (PCR) (Not Detect) C. difficile Tox (PCR) (Negative) Coronavirus OC43 (PCR) (Not Detect) Coronavirus HKU1 (PCR) (Not Detect) Coronavirus 229E (PCR) (Not Detect) Coronavirus NL63 (PCR) (Not Detect) Human Metapneumovirus (Not Detect) Influenza A (H1) PCR (Not Detect) Influ A (H1N1/09) PCR (Not Detect) Influenza A (H3) PCR (Not Detect) Influenza A Untype (PCR) (Not Detect) Influenza Type B (PCR) (Not Detect) M.pneumoniae DNA (PCR) (Not Detect) Parainfluenza 1 (PCR) (Not Detect) Parainfluenza 2 (PCR) (Not Detect) Parainfluenza 3 (PCR) (Not Detect) Parainfluenza 4 (PCR) (Not Detect) RSV (PCR) (Not Detect) Entero/Rhino (PCR) (Not Detect) Specimen Rejected 09/12/16 09/13/16 09/13/16 Range/Units 18:10 00:12 04:04 WBC 13.6 H (4.3-11.1) K/mcL RBC 3.10 L (3.82-4.97) M/mcL Hgb 8.8 L (11.5-15.4) g/dL Hct 27.8 L (35.3-44.9) % MCV 89.7 (83.0-100.0) fL MCH 28.4 (28.0-33.3) pg MCHC 31.7 (31.6-35.5) g/dL RDW 17.9 H (11.5-14.5) % Plt Count 273 (140-400) K/mcL MPV 9.9 (9.4-12.4) fL Immature Gran % 0.8 (0-4) % Seg Neutrophils % 58.4 % Lymphocytes % 27.7 % Monocytes % 10.4 % Eosinophils % 2.6 % Basophils % 0.1 % Neutrophils # 8.0 (1.6-8.9) K/mcL Lymphocytes # 3.8 (0.6-4.6) K/mcL Monocytes # 1.4 H (0.0-1.3) K/mcL Eosinophils # 0.4 (0.0-0.6) K/mcL Basophils # 0.0 (0.0-0.2) K/mcL Immature Plt Fraction 3.5 (1.1-6.1) % PT (9.4-12.1) Seconds INR APTT (26.0-36.0) Seconds ABG pH (7.32-7.45) pH Units ABG pCO2 (35-45) mmHg ABG pO2 (85-104) mmHg ABG HCO3 (21-27) mEQ/L ABG Total CO2 (20-26) mEq/L ABG O2 Saturation (95-98) % ABG Base Excess (-2.0 to 3.0) mEq/L Blood Gas Modality Inspired O2 % Sodium (136-145) mEq/L Potassium (3.5-4.5) mEq/L Chloride (98-109) mEq/L Carbon Dioxide (19-29) mEq/L BUN (7-20) mg/dL Creatinine (0.57-1.11) mg/dL Est GFR ( Amer) (> 60) Est GFR (Non-Af Amer) (> 60) BUN/Creatinine Ratio (6-26) Glucose (70-99) mg/dL POC Glucose 147 H 125 H (58-89) Calculated Osmolality (280-300) Lactic Acid (0.5-2.2) mmol/L Calcium (8.6-10.8) mg/dL Ionized Calcium (1.15-1.35) mmol/L Phosphorus (2.3-4.7) mg/dL Magnesium (1.6-2.6) mg/dL Total Bilirubin (0.2-1.2) mg/dL AST (5-34) Units/L ALT (0-55) Units/L Alkaline Phosphatase (38-126) Units/L Troponin I (0-0.03) ng/mL B-Natriuretic Peptide (0-100) pg/mL Serum Total Protein (6.0-8.3) g/dL Albumin (3.5-5.0) g/dL Globulin (2.4-3.5) g/dL Albumin/Globulin Ratio (1.1-2.2) Urine Color (Yellow) Urine Clarity (Clear) Urine pH (5.0-8.0) pH Units Ur Specific [employer] (1.010-1.025) Urine Protein (Neg-Trace) mg/dL Urine Glucose (UA) (Normal) mg/dL Urine Ketones (Negative) mg/dL Urine Blood (Negative) Urine Nitrite (Negative) Urine Bilirubin (Negative) Urine Urobilinogen (Normal) mg/dL Ur Leukocyte Esterase (Negative) Urine Microscopic RBC (0-3) per hpf Urine Microscopic WBC (0-3) per hpf Ur Squamous Epith Cells (None-Few) per lpf Urine Bacteria (None-Few) per hpf Hyaline Casts (None-Few) per lpf Ur Culture Indicated? (NO) Chlamy pneumoniae PCR (Not Detect) Adenovirus (PCR) (Not Detect) B. pertussis DNA (PCR) (Not Detect) C. difficile Tox (PCR) (Negative) Coronavirus OC43 (PCR) (Not Detect) Coronavirus HKU1 (PCR) (Not Detect) Coronavirus 229E (PCR) (Not Detect) Coronavirus NL63 (PCR) (Not Detect) Human Metapneumovirus (Not Detect) Influenza A (H1) PCR (Not Detect) Influ A (H1N1/09) PCR (Not Detect) Influenza A (H3) PCR (Not Detect) Influenza A Untype (PCR) (Not Detect) Influenza Type B (PCR) (Not Detect) M.pneumoniae DNA (PCR) (Not Detect) Parainfluenza 1 (PCR) (Not Detect) Parainfluenza 2 (PCR) (Not Detect) Parainfluenza 3 (PCR) (Not Detect) Parainfluenza 4 (PCR) (Not Detect) RSV (PCR) (Not Detect) Entero/Rhino (PCR) (Not Detect) Specimen Rejected 09/13/16 09/13/16 09/13/16 Range/Units 04:04 05:41 11:21 WBC (4.3-11.1) K/mcL RBC (3.82-4.97) M/mcL Hgb (11.5-15.4) g/dL Hct (35.3-44.9) % MCV (83.0-100.0) fL MCH (28.0-33.3) pg MCHC (31.6-35.5) g/dL RDW (11.5-14.5) % Plt Count (140-400) K/mcL MPV (9.4-12.4) fL Immature Gran % (0-4) % Seg Neutrophils % % Lymphocytes % % Monocytes % % Eosinophils % % Basophils % % Neutrophils # (1.6-8.9) K/mcL Lymphocytes # (0.6-4.6) K/mcL Monocytes # (0.0-1.3) K/mcL Eosinophils # (0.0-0.6) K/mcL Basophils # (0.0-0.2) K/mcL Immature Plt Fraction (1.1-6.1) % PT (9.4-12.1) Seconds INR APTT (26.0-36.0) Seconds ABG pH (7.32-7.45) pH Units ABG pCO2 (35-45) mmHg ABG pO2 (85-104) mmHg ABG HCO3 (21-27) mEQ/L ABG Total CO2 (20-26) mEq/L ABG O2 Saturation (95-98) % ABG Base Excess (-2.0 to 3.0) mEq/L Blood Gas Modality Inspired O2 % Sodium 140 (136-145) mEq/L Potassium 3.9 (3.5-4.5) mEq/L Chloride 106 (98-109) mEq/L Carbon Dioxide 24 (19-29) mEq/L BUN 34 H (7-20) mg/dL Creatinine 0.84 (0.57-1.11) mg/dL Est GFR ( Amer) > 60 (> 60) Est GFR (Non-Af Amer) > 60 (> 60) BUN/Creatinine Ratio 40 H (6-26) Glucose 114 H (70-99) mg/dL POC Glucose 134 H 159 H (58-89) Calculated Osmolality 298 (280-300) Lactic Acid (0.5-2.2) mmol/L Calcium 8.6 (8.6-10.8) mg/dL Ionized Calcium 1.11 L (1.15-1.35) mmol/L Phosphorus 2.7 (2.3-4.7) mg/dL Magnesium 2.2 (1.6-2.6) mg/dL Total Bilirubin (0.2-1.2) mg/dL AST (5-34) Units/L ALT (0-55) Units/L Alkaline Phosphatase (38-126) Units/L Troponin I (0-0.03) ng/mL B-Natriuretic Peptide (0-100) pg/mL Serum Total Protein (6.0-8.3) g/dL Albumin (3.5-5.0) g/dL Globulin (2.4-3.5) g/dL Albumin/Globulin Ratio (1.1-2.2) Urine Color (Yellow) Urine Clarity (Clear) Urine pH (5.0-8.0) pH Units Ur Specific [employer] (1.010-1.025) Urine Protein (Neg-Trace) mg/dL Urine Glucose (UA) (Normal) mg/dL Urine Ketones (Negative) mg/dL Urine Blood (Negative) Urine Nitrite (Negative) Urine Bilirubin (Negative) Urine Urobilinogen (Normal) mg/dL Ur Leukocyte Esterase (Negative) Urine Microscopic RBC (0-3) per hpf Urine Microscopic WBC (0-3) per hpf Ur Squamous Epith Cells (None-Few) per lpf Urine Bacteria (None-Few) per hpf Hyaline Casts (None-Few) per lpf Ur Culture Indicated? (NO) Chlamy pneumoniae PCR (Not Detect) Adenovirus (PCR) (Not Detect) B. pertussis DNA (PCR) (Not Detect) C. difficile Tox (PCR) (Negative) Coronavirus OC43 (PCR) (Not Detect) Coronavirus HKU1 (PCR) (Not Detect) Coronavirus 229E (PCR) (Not Detect) Coronavirus NL63 (PCR) (Not Detect) Human Metapneumovirus (Not Detect) Influenza A (H1) PCR (Not Detect) Influ A (H1N1/09) PCR (Not Detect) Influenza A (H3) PCR (Not Detect) Influenza A Untype (PCR) (Not Detect) Influenza Type B (PCR) (Not Detect) M.pneumoniae DNA (PCR) (Not Detect) Parainfluenza 1 (PCR) (Not Detect) Parainfluenza 2 (PCR) (Not Detect) Parainfluenza 3 (PCR) (Not Detect) Parainfluenza 4 (PCR) (Not Detect) RSV (PCR) (Not Detect) Entero/Rhino (PCR) (Not Detect) Specimen Rejected 09/13/16 09/14/16 09/14/16 Range/Units 23:38 04:13 04:13 WBC 14.0 H (4.3-11.1) K/mcL RBC 3.27 L (3.82-4.97) M/mcL Hgb 9.2 L (11.5-15.4) g/dL Hct 30.1 L (35.3-44.9) % MCV 92.0 (83.0-100.0) fL MCH 28.1 (28.0-33.3) pg MCHC 30.6 L (31.6-35.5) g/dL RDW 17.6 H (11.5-14.5) % Plt Count 295 (140-400) K/mcL MPV 9.9 (9.4-12.4) fL Immature Gran % 1.4 (0-4) % Seg Neutrophils % 60.9 % Lymphocytes % 23.6 % Monocytes % 11.8 % Eosinophils % 2.1 % Basophils % 0.2 % Neutrophils # 8.5 (1.6-8.9) K/mcL Lymphocytes # 3.3 (0.6-4.6) K/mcL Monocytes # 1.7 H (0.0-1.3) K/mcL Eosinophils # 0.3 (0.0-0.6) K/mcL Basophils # 0.0 (0.0-0.2) K/mcL Immature Plt Fraction (1.1-6.1) % PT (9.4-12.1) Seconds INR APTT (26.0-36.0) Seconds ABG pH (7.32-7.45) pH Units ABG pCO2 (35-45) mmHg ABG pO2 (85-104) mmHg ABG HCO3 (21-27) mEQ/L ABG Total CO2 (20-26) mEq/L ABG O2 Saturation (95-98) % ABG Base Excess (-2.0 to 3.0) mEq/L Blood Gas Modality Inspired O2 % Sodium (136-145) mEq/L Potassium (3.5-4.5) mEq/L Chloride (98-109) mEq/L Carbon Dioxide (19-29) mEq/L BUN (7-20) mg/dL Creatinine (0.57-1.11) mg/dL Est GFR ( Amer) (> 60) Est GFR (Non-Af Amer) (> 60) BUN/Creatinine Ratio (6-26) Glucose (70-99) mg/dL POC Glucose 80 (58-89) Calculated Osmolality (280-300) Lactic Acid (0.5-2.2) mmol/L Calcium (8.6-10.8) mg/dL Ionized Calcium 1.18 (1.15-1.35) mmol/L Phosphorus 3.6 (2.3-4.7) mg/dL Magnesium 2.4 (1.6-2.6) mg/dL Total Bilirubin (0.2-1.2) mg/dL AST (5-34) Units/L ALT (0-55) Units/L Alkaline Phosphatase (38-126) Units/L Troponin I (0-0.03) ng/mL B-Natriuretic Peptide (0-100) pg/mL Serum Total Protein (6.0-8.3) g/dL Albumin (3.5-5.0) g/dL Globulin (2.4-3.5) g/dL Albumin/Globulin Ratio (1.1-2.2) Urine Color (Yellow) Urine Clarity (Clear) Urine pH (5.0-8.0) pH Units Ur Specific [employer] (1.010-1.025) Urine Protein (Neg-Trace) mg/dL Urine Glucose (UA) (Normal) mg/dL Urine Ketones (Negative) mg/dL Urine Blood (Negative) Urine Nitrite (Negative) Urine Bilirubin (Negative) Urine Urobilinogen (Normal) mg/dL Ur Leukocyte Esterase (Negative) Urine Microscopic RBC (0-3) per hpf Urine Microscopic WBC (0-3) per hpf Ur Squamous Epith Cells (None-Few) per lpf Urine Bacteria (None-Few) per hpf Hyaline Casts (None-Few) per lpf Ur Culture Indicated? (NO) Chlamy pneumoniae PCR (Not Detect) Adenovirus (PCR) (Not Detect) B. pertussis DNA (PCR) (Not Detect) C. difficile Tox (PCR) (Negative) Coronavirus OC43 (PCR) (Not Detect) Coronavirus HKU1 (PCR) (Not Detect) Coronavirus 229E (PCR) (Not Detect) Coronavirus NL63 (PCR) (Not Detect) Human Metapneumovirus (Not Detect) Influenza A (H1) PCR (Not Detect) Influ A (H1N1/09) PCR (Not Detect) Influenza A (H3) PCR (Not Detect) Influenza A Untype (PCR) (Not Detect) Influenza Type B (PCR) (Not Detect) M.pneumoniae DNA (PCR) (Not Detect) Parainfluenza 1 (PCR) (Not Detect) Parainfluenza 2 (PCR) (Not Detect) Parainfluenza 3 (PCR) (Not Detect) Parainfluenza 4 (PCR) (Not Detect) RSV (PCR) (Not Detect) Entero/Rhino (PCR) (Not Detect) Specimen Rejected 09/14/16 09/14/16 09/14/16 Range/Units 11:30 13:20 14:30 WBC (4.3-11.1) K/mcL RBC (3.82-4.97) M/mcL Hgb (11.5-15.4) g/dL Hct (35.3-44.9) % MCV (83.0-100.0) fL MCH (28.0-33.3) pg MCHC (31.6-35.5) g/dL RDW (11.5-14.5) % Plt Count (140-400) K/mcL MPV (9.4-12.4) fL Immature Gran % (0-4) % Seg Neutrophils % % Lymphocytes % % Monocytes % % Eosinophils % % Basophils % % Neutrophils # (1.6-8.9) K/mcL Lymphocytes # (0.6-4.6) K/mcL Monocytes # (0.0-1.3) K/mcL Eosinophils # (0.0-0.6) K/mcL Basophils # (0.0-0.2) K/mcL Immature Plt Fraction (1.1-6.1) % PT (9.4-12.1) Seconds INR APTT (26.0-36.0) Seconds ABG pH (7.32-7.45) pH Units ABG pCO2 (35-45) mmHg ABG pO2 (85-104) mmHg ABG HCO3 (21-27) mEQ/L ABG Total CO2 (20-26) mEq/L ABG O2 Saturation (95-98) % ABG Base Excess (-2.0 to 3.0) mEq/L Blood Gas Modality Inspired O2 % Sodium (136-145) mEq/L Potassium (3.5-4.5) mEq/L Chloride (98-109) mEq/L Carbon Dioxide (19-29) mEq/L BUN (7-20) mg/dL Creatinine (0.57-1.11) mg/dL Est GFR ( Amer) (> 60) Est GFR (Non-Af Amer) (> 60) BUN/Creatinine Ratio (6-26) Glucose (70-99) mg/dL POC Glucose 91 H (58-89) Calculated Osmolality (280-300) Lactic Acid (0.5-2.2) mmol/L Calcium (8.6-10.8) mg/dL Ionized Calcium (1.15-1.35) mmol/L Phosphorus (2.3-4.7) mg/dL Magnesium (1.6-2.6) mg/dL Total Bilirubin (0.2-1.2) mg/dL AST (5-34) Units/L ALT (0-55) Units/L Alkaline Phosphatase (38-126) Units/L Troponin I (0-0.03) ng/mL B-Natriuretic Peptide (0-100) pg/mL Serum Total Protein (6.0-8.3) g/dL Albumin (3.5-5.0) g/dL Globulin (2.4-3.5) g/dL Albumin/Globulin Ratio (1.1-2.2) Urine Color (Yellow) Urine Clarity (Clear) Urine pH (5.0-8.0) pH Units Ur Specific [employer] (1.010-1.025) Urine Protein (Neg-Trace) mg/dL Urine Glucose (UA) (Normal) mg/dL Urine Ketones (Negative) mg/dL Urine Blood (Negative) Urine Nitrite (Negative) Urine Bilirubin (Negative) Urine Urobilinogen (Normal) mg/dL Ur Leukocyte Esterase (Negative) Urine Microscopic RBC (0-3) per hpf Urine Microscopic WBC (0-3) per hpf Ur Squamous Epith Cells (None-Few) per lpf Urine Bacteria (None-Few) per hpf Hyaline Casts (None-Few) per lpf Ur Culture Indicated? (NO) Chlamy pneumoniae PCR (Not Detect) Adenovirus (PCR) (Not Detect) B. pertussis DNA (PCR) (Not Detect) C. difficile Tox (PCR) Negative (Negative) Coronavirus OC43 (PCR) (Not Detect) Coronavirus HKU1 (PCR) (Not Detect) Coronavirus 229E (PCR) (Not Detect) Coronavirus NL63 (PCR) (Not Detect) Human Metapneumovirus (Not Detect) Influenza A (H1) PCR (Not Detect) Influ A (H1N1/09) PCR (Not Detect) Influenza A (H3) PCR (Not Detect) Influenza A Untype (PCR) (Not Detect) Influenza Type B (PCR) (Not Detect) M.pneumoniae DNA (PCR) (Not Detect) Parainfluenza 1 (PCR) (Not Detect) Parainfluenza 2 (PCR) (Not Detect) Parainfluenza 3 (PCR) (Not Detect) Parainfluenza 4 (PCR) (Not Detect) RSV (PCR) (Not Detect) Entero/Rhino (PCR) (Not Detect) Specimen Rejected Hemolyzed 09/14/16 09/14/16 09/14/16 Range/Units 15:42 16:58 23:57 WBC (4.3-11.1) K/mcL RBC (3.82-4.97) M/mcL Hgb (11.5-15.4) g/dL Hct (35.3-44.9) % MCV (83.0-100.0) fL MCH (28.0-33.3) pg MCHC (31.6-35.5) g/dL RDW (11.5-14.5) % Plt Count (140-400) K/mcL MPV (9.4-12.4) fL Immature Gran % (0-4) % Seg Neutrophils % % Lymphocytes % % Monocytes % % Eosinophils % % Basophils % % Neutrophils # (1.6-8.9) K/mcL Lymphocytes # (0.6-4.6) K/mcL Monocytes # (0.0-1.3) K/mcL Eosinophils # (0.0-0.6) K/mcL Basophils # (0.0-0.2) K/mcL Immature Plt Fraction (1.1-6.1) % PT (9.4-12.1) Seconds INR APTT (26.0-36.0) Seconds ABG pH (7.32-7.45) pH Units ABG pCO2 (35-45) mmHg ABG pO2 (85-104) mmHg ABG HCO3 (21-27) mEQ/L ABG Total CO2 (20-26) mEq/L ABG O2 Saturation (95-98) % ABG Base Excess (-2.0 to 3.0) mEq/L Blood Gas Modality Inspired O2 % Sodium 144 (136-145) mEq/L Potassium 5.1 H D (3.5-4.5) mEq/L Chloride 107 (98-109) mEq/L Carbon Dioxide 27 (19-29) mEq/L BUN 27 H (7-20) mg/dL Creatinine 0.84 (0.57-1.11) mg/dL Est GFR ( Amer) > 60 (> 60) Est GFR (Non-Af Amer) > 60 (> 60) BUN/Creatinine Ratio 32 H (6-26) Glucose 147 H (70-99) mg/dL POC Glucose 152 H 84 (58-89) Calculated Osmolality 306 H (280-300) Lactic Acid (0.5-2.2) mmol/L Calcium 9.2 (8.6-10.8) mg/dL Ionized Calcium (1.15-1.35) mmol/L Phosphorus (2.3-4.7) mg/dL Magnesium (1.6-2.6) mg/dL Total Bilirubin (0.2-1.2) mg/dL AST (5-34) Units/L ALT (0-55) Units/L Alkaline Phosphatase (38-126) Units/L Troponin I (0-0.03) ng/mL B-Natriuretic Peptide (0-100) pg/mL Serum Total Protein (6.0-8.3) g/dL Albumin (3.5-5.0) g/dL Globulin (2.4-3.5) g/dL Albumin/Globulin Ratio (1.1-2.2) Urine Color (Yellow) Urine Clarity (Clear) Urine pH (5.0-8.0) pH Units Ur Specific [employer] (1.010-1.025) Urine Protein (Neg-Trace) mg/dL Urine Glucose (UA) (Normal) mg/dL Urine Ketones (Negative) mg/dL Urine Blood (Negative) Urine Nitrite (Negative) Urine Bilirubin (Negative) Urine Urobilinogen (Normal) mg/dL Ur Leukocyte Esterase (Negative) Urine Microscopic RBC (0-3) per hpf Urine Microscopic WBC (0-3) per hpf Ur Squamous Epith Cells (None-Few) per lpf Urine Bacteria (None-Few) per hpf Hyaline Casts (None-Few) per lpf Ur Culture Indicated? (NO) Chlamy pneumoniae PCR (Not Detect) Adenovirus (PCR) (Not Detect) B. pertussis DNA (PCR) (Not Detect) C. difficile Tox (PCR) (Negative) Coronavirus OC43 (PCR) (Not Detect) Coronavirus HKU1 (PCR) (Not Detect) Coronavirus 229E (PCR) (Not Detect) Coronavirus NL63 (PCR) (Not Detect) Human Metapneumovirus (Not Detect) Influenza A (H1) PCR (Not Detect) Influ A (H1N1/09) PCR (Not Detect) Influenza A (H3) PCR (Not Detect) Influenza A Untype (PCR) (Not Detect) Influenza Type B (PCR) (Not Detect) M.pneumoniae DNA (PCR) (Not Detect) Parainfluenza 1 (PCR) (Not Detect) Parainfluenza 2 (PCR) (Not Detect) Parainfluenza 3 (PCR) (Not Detect) Parainfluenza 4 (PCR) (Not Detect) RSV (PCR) (Not Detect) Entero/Rhino (PCR) (Not Detect) Specimen Rejected 09/15/16 09/15/16 Range/Units 04:12 04:12 WBC 15.6 H (4.3-11.1) K/mcL RBC 3.36 L (3.82-4.97) M/mcL Hgb 9.5 L (11.5-15.4) g/dL Hct 31.6 L (35.3-44.9) % MCV 94.0 (83.0-100.0) fL MCH 28.3 (28.0-33.3) pg MCHC 30.1 L (31.6-35.5) g/dL RDW 16.9 H (11.5-14.5) % Plt Count 351 (140-400) K/mcL MPV 9.8 (9.4-12.4) fL Immature Gran % 1.7 (0-4) % Seg Neutrophils % 58.3 % Lymphocytes % 25.8 % Monocytes % 10.6 % Eosinophils % 3.3 % Basophils % 0.3 % Neutrophils # 9.1 H (1.6-8.9) K/mcL Lymphocytes # 4.0 (0.6-4.6) K/mcL Monocytes # 1.7 H (0.0-1.3) K/mcL Eosinophils # 0.5 (0.0-0.6) K/mcL Basophils # 0.0 (0.0-0.2) K/mcL Immature Plt Fraction (1.1-6.1) % PT (9.4-12.1) Seconds INR APTT (26.0-36.0) Seconds ABG pH (7.32-7.45) pH Units ABG pCO2 (35-45) mmHg ABG pO2 (85-104) mmHg ABG HCO3 (21-27) mEQ/L ABG Total CO2 (20-26) mEq/L ABG O2 Saturation (95-98) % ABG Base Excess (-2.0 to 3.0) mEq/L Blood Gas Modality Inspired O2 % Sodium 145 (136-145) mEq/L Potassium 4.4 (3.5-4.5) mEq/L Chloride 107 (98-109) mEq/L Carbon Dioxide 27 (19-29) mEq/L BUN 21 H (7-20) mg/dL Creatinine 0.74 (0.57-1.11) mg/dL Est GFR ( Amer) > 60 (> 60) Est GFR (Non-Af Amer) > 60 (> 60) BUN/Creatinine Ratio 28 H (6-26) Glucose 87 (70-99) mg/dL POC Glucose (58-89) Calculated Osmolality 302 H (280-300) Lactic Acid (0.5-2.2) mmol/L Calcium 9.5 (8.6-10.8) mg/dL Ionized Calcium (1.15-1.35) mmol/L Phosphorus (2.3-4.7) mg/dL Magnesium (1.6-2.6) mg/dL Total Bilirubin (0.2-1.2) mg/dL AST (5-34) Units/L ALT (0-55) Units/L Alkaline Phosphatase (38-126) Units/L Troponin I (0-0.03) ng/mL B-Natriuretic Peptide (0-100) pg/mL Serum Total Protein (6.0-8.3) g/dL Albumin (3.5-5.0) g/dL Globulin (2.4-3.5) g/dL Albumin/Globulin Ratio (1.1-2.2) Urine Color (Yellow) Urine Clarity (Clear) Urine pH (5.0-8.0) pH Units Ur Specific [employer] (1.010-1.025) Urine Protein (Neg-Trace) mg/dL Urine Glucose (UA) (Normal) mg/dL Urine Ketones (Negative) mg/dL Urine Blood (Negative) Urine Nitrite (Negative) Urine Bilirubin (Negative) Urine Urobilinogen (Normal) mg/dL Ur Leukocyte Esterase (Negative) Urine Microscopic RBC (0-3) per hpf Urine Microscopic WBC (0-3) per hpf Ur Squamous Epith Cells (None-Few) per lpf Urine Bacteria (None-Few) per hpf Hyaline Casts (None-Few) per lpf Ur Culture Indicated? (NO) Chlamy pneumoniae PCR (Not Detect) Adenovirus (PCR) (Not Detect) B. pertussis DNA (PCR) (Not Detect) C. difficile Tox (PCR) (Negative) Coronavirus OC43 (PCR) (Not Detect) Coronavirus HKU1 (PCR) (Not Detect) Coronavirus 229E (PCR) (Not Detect) Coronavirus NL63 (PCR) (Not Detect) Human Metapneumovirus (Not Detect) Influenza A (H1) PCR (Not Detect) Influ A (H1N1/09) PCR (Not Detect) Influenza A (H3) PCR (Not Detect) Influenza A Untype (PCR) (Not Detect) Influenza Type B (PCR) (Not Detect) M.pneumoniae DNA (PCR) (Not Detect) Parainfluenza 1 (PCR) (Not Detect) Parainfluenza 2 (PCR) (Not Detect) Parainfluenza 3 (PCR) (Not Detect) Parainfluenza 4 (PCR) (Not Detect) RSV (PCR) (Not Detect) Entero/Rhino (PCR) (Not Detect) Specimen Rejected
[2016-09-16] MEDS: Ipratropium/Albuterol Neb 3 ML IH SCH ×7 (00:43→20:06)
[2016-09-16] MEDS: Insulin LISPRO 300 UNITS/3 ML VIAL SQ SCH ×3 (03:44→11:45)
[2016-09-16] MEDS: *HR* OxyCODONE/APAP 5/325 TABLET PO PRN ×2 (03:50→09:00)
[2016-09-16 04:46] LABS: Basophils % 0.2 %; Eosinophils # 0.3 K/mcL (0.0-0.6); Eosinophils % 1.7 %; Hematocrit 29.5 % (35.3-44.9); Hemoglobin 9.1 g/dL (11.5-15.4); Immature Granulocytes % 2.9 % (0-4); Lymphocytes # 4.8 K/mcL (0.6-4.6); Mean Corpuscular HGB Conc 30.8 g/dL (31.6-35.5); Mean Corpuscular Hemoglobin 28.4 pg (28.0-33.3); Mean Corpuscular Volume 92.2 fL (83.0-100.0); Mean Platelet Volume 9.9 fL (9.4-12.4); Monocytes # 1.5 K/mcL (0.0-1.3); Monocytes % 9.3 %; Neutrophils # 9.5 K/mcL (1.6-8.9); Platelet Count 341 K/mcL (140-400); Red Cell Distribution Width 16.4 % (11.5-14.5); Segmented Neutrophils % 56.9 %
[2016-09-16 04:48] LABS: BUN/Creatinine Ratio 26 (6-26); Blood Urea Nitrogen 19 mg/dL (7-20); Calcium 8.9 mg/dL (8.6-10.8); Carbon Dioxide 27 mEq/L (19-29); Chloride 105 mEq/L (98-109); Glucose 110 mg/dL (70-99); Osmolality,Calculated 299 (280-300); Potassium 3.8 mEq/L (3.5-4.5); Sodium 143 mEq/L (136-145); eGFR For African Americans > 60 (> 60); eGFR For Non-African Americans > 60 (> 60)
[2016-09-16] MEDS: Sennosides 8.6 MG TABLET PO SCH ×2 (09:00→21:45)
[2016-09-16] MEDS: Aspirin 81 MG TAB.CHEW PO SCH (09:01)
[2016-09-16] MEDS: Metoprolol XL (24 HR) Succ 25 MG TAB.ER.24H PO SCH (09:01)
[2016-09-16] MEDS: Gabapentin 300 MG CAPSULE PO SCH ×2 (09:01→21:45)
[2016-09-16] MEDS: predniSONE 20 MG TABLET PO SCH (09:01)
[2016-09-16] MEDS: *HR* Heparin 5,000 UNIT/ML VIAL SQ SCH ×2 (09:01→15:45)
[2016-09-16 09:45] LABS: Hemoglobin A1C 5.7 %
--- NOTE | 2016-09-16 10:01 | Cardiology Progress Note ---
Date of Encounter: 09/16/16 Time of Encounter: 09:59 Assessment and Plan (1) Cardiomyopathy Current Visit: Yes Status: Suspected Cardiomyopathy, EF 40%. Segmental wall motion abnormalities described. Continue aspirin, statin, and beta lena therapy. Blood pressure marginal and may not tolerate LUIS inhibitor. Continue low-dose oral Lasix. Clinically, she continues to improve. R/B/A to a [facility] discussed. Patient agreeable. Plan for Saturday. Qualifiers: Cardiomyopathy type: ischemic Qualified Code(s): I25.5 - Ischemic cardiomyopathy (2) Systolic CHF, acute Current Visit: Yes Status: Acute Patient euvolemic. See recommendations under cardiomyopathy. (3) COPD exacerbation Current Visit: Yes Status: Acute Your IM/pulmonary management. Discussion w patient/family: The assessment and plan as outlined above was discussed with the patient and/or family members who expressed understanding and agreement. All questions were answered. Thank you for involving us in the care of your patient. Please call with any questions. Subjective Principal diagnosis: Acute respiratory failure Interval history: Patient continues to do well clinically. No chest pain or dyspnea reported. Objective Vital Signs, Last 4 Hours Temp Pulse Resp BP Pulse Ox 09/16/16 09:10 89 09/16/16 07:57 18 98 09/16/16 07:12 98.5 F 86 18 105/56 98 General: Conversant, No Apparent Distress HEENT: Atraumatic, Normocephaly, Mucus Membranes Moist Neck: No JVD, Normal carotid pulses Cardiac: Reg Rate and Rhythm, Normal S1 and S2, No Murmur Lungs: Normal Breath Sounds, No Wheeze, Rales, Rhonchi Neuro: Alert and responsive, No focal deficits noted Abdomen: Soft, Non-Tender Skin: No rashes noted on visualized skin Musculoskeletal: No Chest Wall Tenderness Extremities: No Clubbing, No Cyanosis, No Edema Results 09/16/16 04:25 09/16/16 04:25 Lab Results 09/16/16 09/16/16 04:25 04:25 WBC 16.6 H Hgb 9.1 L Hct 29.5 L Plt Count 341 Sodium 143 Potassium 3.8 Chloride 105 Carbon Dioxide 27 BUN 19 Creatinine 0.73 Glucose 110 H Calcium 8.9 - Imaging and Cardiology Echo: report reviewed - EKG Interpretation EKG results cardiology: personally reviewed - VTE Documentation of Mechanical Device: Intermittent pneumatic compression device Consult Discharge Plan - Plan Referrals: Indio Aguayo CNP [Advanced Practice Nurse] - 10/03/16 10:00 am Bushra Landry MD [Primary Care Provider] - (Pt is from [facility], no PCP appointment is needed)
[2016-09-16] MEDS: *HR* HYDROmorphone (PF) 1 MG/ML SYRINGE IVP PRN ×2 (10:17→21:44)
[2016-09-16] MEDS: Azithromycin 500 MG in D5% in Water 250 ML IVPB SCH (11:45)
--- NOTE | 2016-09-16 12:13 | Internal Med Progress Note ---
Date of Encounter: 09/16/16 Time of Encounter: 09:50 - Assessment and plan (1) Acute respiratory failure Current Visit: Yes Status: Acute Assessment and plan: Continue O2 supplementation. We will start to taper steroids. Qualifiers: Respiratory failure complication: hypoxia and hypercapnia Qualified Code(s) : J96.01 - Acute respiratory failure with hypoxia; J96.02 - Acute respiratory failure with hypercapnia (2) Atrial fibrillation Current Visit: Yes Status: Chronic Assessment and plan: Rate controlled. Qualifiers: Atrial fibrillation type: chronic Qualified Code(s): I48.2 - Chronic atrial fibrillation (3) Cardiomyopathy Current Visit: Yes Status: Suspected Assessment and plan: Awaiting cardiac catheterization tomorrow Qualifiers: Cardiomyopathy type: ischemic Qualified Code(s): I25.5 - Ischemic cardiomyopathy (4) Community acquired pneumonia Current Visit: Yes Status: Acute Assessment and plan: On azithromycin. We will complete treatment course. (5) COPD exacerbation Current Visit: Yes Status: Acute Assessment and plan: Management as above (6) NSTEMI (non-ST elevated myocardial infarction) Current Visit: Yes Status: Acute Assessment and plan: Continue cardiac monitoring. During cardiac catheterization tomorrow. On aspirin, statin. (7) Sepsis Current Visit: Yes Status: Resolved Qualifiers: Sepsis type: sepsis due to unspecified organism Qualified Code(s): A41.9 - Sepsis, unspecified organism - Subjective Interval history: Patient is feeling much better today. She says her the swelling in her lower extremities is significant improved significantly. Health breathing is improving. Her back pain is much better controlled but still present. - Constitutional Vitals: Temp Pulse Resp BP Pulse Ox 97.5 F L 80 18 109/51 100 09/16/16 11:05 09/16/16 11:53 09/16/16 11:05 09/16/16 11:05 09/16/16 11:05 General appearance: Present: cooperative, mild distress, A&O X 3, morbidly obese - Respiratory Respiratory exam: Present: prolonged expiratory phase, wheezes. Absent: accessory muscle use, rales, rhonchi - Cardiovascular Cardiovascular exam: Present: RRR, +S1, +S2. Absent: diastolic murmur, gallop, rubs, systolic murmur - GI/Abdominal GI/Abdominal exam: Present: normal bowel sounds, soft, no peritoneal signs. Absent: distended, tenderness - Extremities Exam Extremities exam: Present: warm, radial pulses palpable and symetrical. Absent : calf tenderness, cyanotic, pedal edema - Neurological Exam Neurological exam: Present: oriented X3, no focal deficits. Absent: facial droop, speech deficit Internal Medicine: Result - Labs CBC & Chem 7: 09/16/16 04:25 09/16/16 04:25 Labs: Short CBC 09/16/16 Range/Units 04:25 WBC 16.6 H (4.3-11.1) K/mcL Hgb 9.1 L (11.5-15.4) g/dL Hct 29.5 L (35.3-44.9) % Plt Count 341 (140-400) K/mcL Neutrophils # 9.5 H (1.6-8.9) K/mcL BMP 09/16/16 04:25 Sodium 143 Potassium 3.8 Chloride 105 Carbon Dioxide 27 BUN 19 Creatinine 0.73 Glucose 110 H Calcium 8.9 - ABG Interpretation ABG results: ABG ABG pH 7.51 pH Units (7.32-7.45) H 09/12/16 04:11 ABG pCO2 40 mmHg (35-45) 09/12/16 04:11 ABG pO2 66 mmHg (85-104) L 09/12/16 04:11 ABG O2 Saturation 95 % (95-98) 09/12/16 04:11 PT/INR, D-dimer PT 12.6 Seconds (9.4-12.1) H 09/09/16 14:50 D-Dimer 1585 ng/mLFEU (0-500) H 09/08/16 22:22 - Impressions Impressions Head CT 09/15/16 12:38 IMPRESSION: Stable appearance of the brain with no acute intracranial abnormality. D/ / Salvador Garrett MD / Salvador Garrett MD Interpreting Provider: Salvador Garrett MD - VTE Documentation of Mechanical Device: Intermittent pneumatic compression device Consult Discharge Plan - Plan Referrals: Indio Aguayo CNP [Advanced Practice Nurse] - 10/03/16 10:00 am Bushra Landry MD [Primary Care Provider] - (Pt is from [facility], no PCP appointment is needed) - Attending Attestation This document has been at least partially created by [facility] recognition technology by Dr. Chavez. Errors in grammar, wording or other phrases may exist. If errors are found after the documentation is signed, they will be addressed individually in the addendum section of this document when appropriate. Medical Decision Making - MDM Narrative Medical decision making narrative: Moderate risk for complications - Lab Data Result diagrams: 09/16/16 04:25 09/16/16 04:25 Lab Results 09/09/16 09/09/16 09/09/16 Range/Units 09:10 09:10 09:10 WBC (4.3-11.1) K/mcL RBC (3.82-4.97) M/mcL Hgb (11.5-15.4) g/dL Hct (35.3-44.9) % MCV (83.0-100.0) fL MCH (28.0-33.3) pg MCHC (31.6-35.5) g/dL RDW (11.5-14.5) % Plt Count (140-400) K/mcL MPV (9.4-12.4) fL Immature Gran % (0-4) % Seg Neutrophils % % Lymphocytes % % Monocytes % % Eosinophils % % Basophils % % Neutrophils # (1.6-8.9) K/mcL Lymphocytes # (0.6-4.6) K/mcL Monocytes # (0.0-1.3) K/mcL Eosinophils # (0.0-0.6) K/mcL Basophils # (0.0-0.2) K/mcL Immature Plt Fraction (1.1-6.1) % PT (9.4-12.1) Seconds INR APTT (26.0-36.0) Seconds ABG pH (7.32-7.45) pH Units ABG pCO2 (35-45) mmHg ABG pO2 (85-104) mmHg ABG HCO3 (21-27) mEQ/L ABG Total CO2 (20-26) mEq/L ABG O2 Saturation (95-98) % ABG Base Excess (-2.0 to 3.0) mEq/L Blood Gas Modality Inspired O2 % Sodium (136-145) mEq/L Potassium (3.5-4.5) mEq/L Chloride (98-109) mEq/L Carbon Dioxide (19-29) mEq/L BUN (7-20) mg/dL Creatinine (0.57-1.11) mg/dL Est GFR ( Amer) (> 60) Est GFR (Non-Af Amer) (> 60) BUN/Creatinine Ratio (6-26) Glucose (70-99) mg/dL POC Glucose (58-89) Est Mean Plasma Glucose mg/dl Hemoglobin A1c ( - 5.6) % Calculated Osmolality (280-300) Lactic Acid 1.5 (0.5-2.2) mmol/L Calcium (8.6-10.8) mg/dL Ionized Calcium (1.15-1.35) mmol/L Phosphorus 4.6 (2.3-4.7) mg/dL Magnesium 2.1 (1.6-2.6) mg/dL Total Bilirubin (0.2-1.2) mg/dL AST (5-34) Units/L ALT (0-55) Units/L Alkaline Phosphatase (38-126) Units/L Troponin I (0-0.03) ng/mL B-Natriuretic Peptide 1617 H (0-100) pg/mL Serum Total Protein (6.0-8.3) g/dL Albumin (3.5-5.0) g/dL Globulin (2.4-3.5) g/dL Albumin/Globulin Ratio (1.1-2.2) Urine Color (Yellow) Urine Clarity (Clear) Urine pH (5.0-8.0) pH Units Ur Specific [place] (1.010-1.025) Urine Protein (Neg-Trace) mg/dL Urine Glucose (UA) (Normal) mg/dL Urine Ketones (Negative) mg/dL Urine Blood (Negative) Urine Nitrite (Negative) Urine Bilirubin (Negative) Urine Urobilinogen (Normal) mg/dL Ur Leukocyte Esterase (Negative) Urine Microscopic RBC (0-3) per hpf Urine Microscopic WBC (0-3) per hpf Ur Squamous Epith Cells (None-Few) per lpf Urine Bacteria (None-Few) per hpf Hyaline Casts (None-Few) per lpf Ur Culture Indicated? (NO) Chlamy pneumoniae PCR (Not Detect) Adenovirus (PCR) (Not Detect) B. pertussis DNA (PCR) (Not Detect) C. difficile Tox (PCR) (Negative) Coronavirus OC43 (PCR) (Not Detect) Coronavirus HKU1 (PCR) (Not Detect) Coronavirus 229E (PCR) (Not Detect) Coronavirus NL63 (PCR) (Not Detect) Human Metapneumovirus (Not Detect) Influenza A (H1) PCR (Not Detect) Influ A (H1N1/09) PCR (Not Detect) Influenza A (H3) PCR (Not Detect) Influenza A Untype (PCR) (Not Detect) Influenza Type B (PCR) (Not Detect) M.pneumoniae DNA (PCR) (Not Detect) Parainfluenza 1 (PCR) (Not Detect) Parainfluenza 2 (PCR) (Not Detect) Parainfluenza 3 (PCR) (Not Detect) Parainfluenza 4 (PCR) (Not Detect) RSV (PCR) (Not Detect) Entero/Rhino (PCR) (Not Detect) Specimen Rejected 09/09/16 09/09/16 09/09/16 Range/Units 10:07 10:10 12:17 WBC (4.3-11.1) K/mcL RBC (3.82-4.97) M/mcL Hgb (11.5-15.4) g/dL Hct (35.3-44.9) % MCV (83.0-100.0) fL MCH (28.0-33.3) pg MCHC (31.6-35.5) g/dL RDW (11.5-14.5) % Plt Count (140-400) K/mcL MPV (9.4-12.4) fL Immature Gran % (0-4) % Seg Neutrophils % % Lymphocytes % % Monocytes % % Eosinophils % % Basophils % % Neutrophils # (1.6-8.9) K/mcL Lymphocytes # (0.6-4.6) K/mcL Monocytes # (0.0-1.3) K/mcL Eosinophils # (0.0-0.6) K/mcL Basophils # (0.0-0.2) K/mcL Immature Plt Fraction (1.1-6.1) % PT (9.4-12.1) Seconds INR APTT (26.0-36.0) Seconds ABG pH 7.24 L D (7.32-7.45) pH Units ABG pCO2 74 H* D (35-45) mmHg ABG pO2 91 (85-104) mmHg ABG HCO3 31.7 H (21-27) mEQ/L ABG Total CO2 34.0 H (20-26) mEq/L ABG O2 Saturation 96 (95-98) % ABG Base Excess 2.6 (-2.0 to 3.0) mEq/L Blood Gas Modality BIPAP Inspired O2 35 % Sodium (136-145) mEq/L Potassium (3.5-4.5) mEq/L Chloride (98-109) mEq/L Carbon Dioxide (19-29) mEq/L BUN (7-20) mg/dL Creatinine (0.57-1.11) mg/dL Est GFR ( Amer) (> 60) Est GFR (Non-Af Amer) (> 60) BUN/Creatinine Ratio (6-26) Glucose (70-99) mg/dL POC Glucose 188 H (58-89) Est Mean Plasma Glucose mg/dl Hemoglobin A1c ( - 5.6) % Calculated Osmolality (280-300) Lactic Acid (0.5-2.2) mmol/L Calcium (8.6-10.8) mg/dL Ionized Calcium (1.15-1.35) mmol/L Phosphorus (2.3-4.7) mg/dL Magnesium (1.6-2.6) mg/dL Total Bilirubin (0.2-1.2) mg/dL AST (5-34) Units/L ALT (0-55) Units/L Alkaline Phosphatase (38-126) Units/L Troponin I (0-0.03) ng/mL B-Natriuretic Peptide (0-100) pg/mL Serum Total Protein (6.0-8.3) g/dL Albumin (3.5-5.0) g/dL Globulin (2.4-3.5) g/dL Albumin/Globulin Ratio (1.1-2.2) Urine Color Yellow (Yellow) Urine Clarity Clear (Clear) Urine pH 6.0 (5.0-8.0) pH Units Ur Specific [place] > 1.030 H (1.010-1.025) Urine Protein 100 H (Neg-Trace) mg/dL Urine Glucose (UA) Normal (Normal) mg/dL Urine Ketones Negative (Negative) mg/dL Urine Blood Large H (Negative) Urine Nitrite Negative (Negative) Urine Bilirubin Negative (Negative) Urine Urobilinogen Normal (Normal) mg/dL Ur Leukocyte Esterase Negative (Negative) Urine Microscopic RBC TNTC H (0-3) per hpf Urine Microscopic WBC 15-30 H (0-3) per hpf Ur Squamous Epith Cells Moderate H (None-Few) per lpf Urine Bacteria Few (None-Few) per hpf Hyaline Casts Few (None-Few) per lpf Ur Culture Indicated? YES A (NO) Chlamy pneumoniae PCR (Not Detect) Adenovirus (PCR) (Not Detect) B. pertussis DNA (PCR) (Not Detect) C. difficile Tox (PCR) (Negative) Coronavirus OC43 (PCR) (Not Detect) Coronavirus HKU1 (PCR) (Not Detect) Coronavirus 229E (PCR) (Not Detect) Coronavirus NL63 (PCR) (Not Detect) Human Metapneumovirus (Not Detect) Influenza A (H1) PCR (Not Detect) Influ A (H1N1/09) PCR (Not Detect) Influenza A (H3) PCR (Not Detect) Influenza A Untype (PCR) (Not Detect) Influenza Type B (PCR) (Not Detect) M.pneumoniae DNA (PCR) (Not Detect) Parainfluenza 1 (PCR) (Not Detect) Parainfluenza 2 (PCR) (Not Detect) Parainfluenza 3 (PCR) (Not Detect) Parainfluenza 4 (PCR) (Not Detect) RSV (PCR) (Not Detect) Entero/Rhino (PCR) (Not Detect) Specimen Rejected 09/09/16 09/09/16 09/09/16 Range/Units 12:20 13:10 14:50 WBC (4.3-11.1) K/mcL RBC (3.82-4.97) M/mcL Hgb (11.5-15.4) g/dL Hct (35.3-44.9) % MCV (83.0-100.0) fL MCH (28.0-33.3) pg MCHC (31.6-35.5) g/dL RDW (11.5-14.5) % Plt Count (140-400) K/mcL MPV (9.4-12.4) fL Immature Gran % (0-4) % Seg Neutrophils % % Lymphocytes % % Monocytes % % Eosinophils % % Basophils % % Neutrophils # (1.6-8.9) K/mcL Lymphocytes # (0.6-4.6) K/mcL Monocytes # (0.0-1.3) K/mcL Eosinophils # (0.0-0.6) K/mcL Basophils # (0.0-0.2) K/mcL Immature Plt Fraction (1.1-6.1) % PT (9.4-12.1) Seconds INR APTT (26.0-36.0) Seconds ABG pH 7.13 L* (7.32-7.45) pH Units ABG pCO2 88 H* (35-45) mmHg ABG pO2 98 (85-104) mmHg ABG HCO3 29.3 H (21-27) mEQ/L ABG Total CO2 32.0 H (20-26) mEq/L ABG O2 Saturation 95 (95-98) % ABG Base Excess -1.5 (-2.0 to 3.0) mEq/L Blood Gas Modality ASSIST CONTROL Inspired O2 50 % Sodium (136-145) mEq/L Potassium (3.5-4.5) mEq/L Chloride (98-109) mEq/L Carbon Dioxide (19-29) mEq/L BUN (7-20) mg/dL Creatinine (0.57-1.11) mg/dL Est GFR ( Amer) (> 60) Est GFR (Non-Af Amer) (> 60) BUN/Creatinine Ratio (6-26) Glucose (70-99) mg/dL POC Glucose (58-89) Est Mean Plasma Glucose mg/dl Hemoglobin A1c ( - 5.6) % Calculated Osmolality (280-300) Lactic Acid (0.5-2.2) mmol/L Calcium (8.6-10.8) mg/dL Ionized Calcium (1.15-1.35) mmol/L Phosphorus (2.3-4.7) mg/dL Magnesium (1.6-2.6) mg/dL Total Bilirubin (0.2-1.2) mg/dL AST (5-34) Units/L ALT (0-55) Units/L Alkaline Phosphatase (38-126) Units/L Troponin I 0.20 H* (0-0.03) ng/mL B-Natriuretic Peptide (0-100) pg/mL Serum Total Protein (6.0-8.3) g/dL Albumin (3.5-5.0) g/dL Globulin (2.4-3.5) g/dL Albumin/Globulin Ratio (1.1-2.2) Urine Color (Yellow) Urine Clarity (Clear) Urine pH (5.0-8.0) pH Units Ur Specific [place] (1.010-1.025) Urine Protein (Neg-Trace) mg/dL Urine Glucose (UA) (Normal) mg/dL Urine Ketones (Negative) mg/dL Urine Blood (Negative) Urine Nitrite (Negative) Urine Bilirubin (Negative) Urine Urobilinogen (Normal) mg/dL Ur Leukocyte Esterase (Negative) Urine Microscopic RBC (0-3) per hpf Urine Microscopic WBC (0-3) per hpf Ur Squamous Epith Cells (None-Few) per lpf Urine Bacteria (None-Few) per hpf Hyaline Casts (None-Few) per lpf Ur Culture Indicated? (NO) Chlamy pneumoniae PCR Not Detected (Not Detect) Adenovirus (PCR) Not Detected (Not Detect) B. pertussis DNA (PCR) Not Detected (Not Detect) C. difficile Tox (PCR) (Negative) Coronavirus OC43 (PCR) DETECTED A (Not Detect) Coronavirus HKU1 (PCR) Not Detected (Not Detect) Coronavirus 229E (PCR) Not Detected (Not Detect) Coronavirus NL63 (PCR) Not Detected (Not Detect) Human Metapneumovirus Not Detected (Not Detect) Influenza A (H1) PCR Not Detected (Not Detect) Influ A (H1N1/09) PCR Not Detected (Not Detect) Influenza A (H3) PCR Not Detected (Not Detect) Influenza A Untype (PCR) Not Detected (Not Detect) Influenza Type B (PCR) Not Detected (Not Detect) M.pneumoniae DNA (PCR) Not Detected (Not Detect) Parainfluenza 1 (PCR) Not Detected (Not Detect) Parainfluenza 2 (PCR) Not Detected (Not Detect) Parainfluenza 3 (PCR) Not Detected (Not Detect) Parainfluenza 4 (PCR) Not Detected (Not Detect) RSV (PCR) Not Detected (Not Detect) Entero/Rhino (PCR) Not Detected (Not Detect) Specimen Rejected 01/15/17 01/15/17 01/15/17 Range/Units 14:50 14:50 15:42 WBC 10.3 (4.3-11.1) K/mcL RBC 3.49 L (3.82-4.97) M/mcL Hgb 9.9 L (11.5-15.4) g/dL Hct 33.6 L (35.3-44.9) % MCV 96.3 (83.0-100.0) fL MCH 28.4 (28.0-33.3) pg MCHC 29.5 L (31.6-35.5) g/dL RDW 16.7 H (11.5-14.5) % Plt Count 212 (140-400) K/mcL MPV 9.7 (9.4-12.4) fL Immature Gran % (0-4) % Seg Neutrophils % % Lymphocytes % % Monocytes % % Eosinophils % % Basophils % % Neutrophils # (1.6-8.9) K/mcL Lymphocytes # (0.6-4.6) K/mcL Monocytes # (0.0-1.3) K/mcL Eosinophils # (0.0-0.6) K/mcL Basophils # (0.0-0.2) K/mcL Immature Plt Fraction (1.1-6.1) % PT 12.6 H (9.4-12.1) Seconds INR 1.2 APTT 31.7 (26.0-36.0) Seconds ABG pH 7.33 D (7.32-7.45) pH Units ABG pCO2 55 H D (35-45) mmHg ABG pO2 137 H (85-104) mmHg ABG HCO3 29.0 H (21-27) mEQ/L ABG Total CO2 30.7 H (20-26) mEq/L ABG O2 Saturation 99 H (95-98) % ABG Base Excess 2.3 (-2.0 to 3.0) mEq/L Blood Gas Modality ASSIST CONTROL Inspired O2 50 % Sodium (136-145) mEq/L Potassium (3.5-4.5) mEq/L Chloride (98-109) mEq/L Carbon Dioxide (19-29) mEq/L BUN (7-20) mg/dL Creatinine (0.57-1.11) mg/dL Est GFR ( Amer) (> 60) Est GFR (Non-Af Amer) (> 60) BUN/Creatinine Ratio (6-26) Glucose (70-99) mg/dL POC Glucose (58-89) Est Mean Plasma Glucose mg/dl Hemoglobin A1c ( - 5.6) % Calculated Osmolality (280-300) Lactic Acid (0.5-2.2) mmol/L Calcium (8.6-10.8) mg/dL Ionized Calcium (1.15-1.35) mmol/L Phosphorus (2.3-4.7) mg/dL Magnesium (1.6-2.6) mg/dL Total Bilirubin (0.2-1.2) mg/dL AST (5-34) Units/L ALT (0-55) Units/L Alkaline Phosphatase (38-126) Units/L Troponin I (0-0.03) ng/mL B-Natriuretic Peptide (0-100) pg/mL Serum Total Protein (6.0-8.3) g/dL Albumin (3.5-5.0) g/dL Globulin (2.4-3.5) g/dL Albumin/Globulin Ratio (1.1-2.2) Urine Color (Yellow) Urine Clarity (Clear) Urine pH (5.0-8.0) pH Units Ur Specific [place] (1.010-1.025) Urine Protein (Neg-Trace) mg/dL Urine Glucose (UA) (Normal) mg/dL Urine Ketones (Negative) mg/dL Urine Blood (Negative) Urine Nitrite (Negative) Urine Bilirubin (Negative) Urine Urobilinogen (Normal) mg/dL Ur Leukocyte Esterase (Negative) Urine Microscopic RBC (0-3) per hpf Urine Microscopic WBC (0-3) per hpf Ur Squamous Epith Cells (None-Few) per lpf Urine Bacteria (None-Few) per hpf Hyaline Casts (None-Few) per lpf Ur Culture Indicated? (NO) Chlamy pneumoniae PCR (Not Detect) Adenovirus (PCR) (Not Detect) B. pertussis DNA (PCR) (Not Detect) C. difficile Tox (PCR) (Negative) Coronavirus OC43 (PCR) (Not Detect) Coronavirus HKU1 (PCR) (Not Detect) Coronavirus 229E (PCR) (Not Detect) Coronavirus NL63 (PCR) (Not Detect) Human Metapneumovirus (Not Detect) Influenza A (H1) PCR (Not Detect) Influ A (H1N1/09) PCR (Not Detect) Influenza A (H3) PCR (Not Detect) Influenza A Untype (PCR) (Not Detect) Influenza Type B (PCR) (Not Detect) M.pneumoniae DNA (PCR) (Not Detect) Parainfluenza 1 (PCR) (Not Detect) Parainfluenza 2 (PCR) (Not Detect) Parainfluenza 3 (PCR) (Not Detect) Parainfluenza 4 (PCR) (Not Detect) RSV (PCR) (Not Detect) Entero/Rhino (PCR) (Not Detect) Specimen Rejected 09/09/16 09/09/16 09/10/16 Range/Units 21:20 23:50 03:09 WBC (4.3-11.1) K/mcL RBC (3.82-4.97) M/mcL Hgb (11.5-15.4) g/dL Hct (35.3-44.9) % MCV (83.0-100.0) fL MCH (28.0-33.3) pg MCHC (31.6-35.5) g/dL RDW (11.5-14.5) % Plt Count (140-400) K/mcL MPV (9.4-12.4) fL Immature Gran % (0-4) % Seg Neutrophils % % Lymphocytes % % Monocytes % % Eosinophils % % Basophils % % Neutrophils # (1.6-8.9) K/mcL Lymphocytes # (0.6-4.6) K/mcL Monocytes # (0.0-1.3) K/mcL Eosinophils # (0.0-0.6) K/mcL Basophils # (0.0-0.2) K/mcL Immature Plt Fraction (1.1-6.1) % PT (9.4-12.1) Seconds INR APTT 81.8 H D (26.0-36.0) Seconds ABG pH (7.32-7.45) pH Units ABG pCO2 (35-45) mmHg ABG pO2 (85-104) mmHg ABG HCO3 (21-27) mEQ/L ABG Total CO2 (20-26) mEq/L ABG O2 Saturation (95-98) % ABG Base Excess (-2.0 to 3.0) mEq/L Blood Gas Modality Inspired O2 % Sodium 140 (136-145) mEq/L Potassium 4.1 (3.5-4.5) mEq/L Chloride 104 (98-109) mEq/L Carbon Dioxide 22 (19-29) mEq/L BUN 20 (7-20) mg/dL Creatinine 0.92 (0.57-1.11) mg/dL Est GFR ( Amer) > 60 (> 60) Est GFR (Non-Af Amer) 59 L (> 60) BUN/Creatinine Ratio 22 (6-26) Glucose 195 H (70-99) mg/dL POC Glucose 189 H (58-89) Est Mean Plasma Glucose mg/dl Hemoglobin A1c ( - 5.6) % Calculated Osmolality 298 (280-300) Lactic Acid (0.5-2.2) mmol/L Calcium 8.8 (8.6-10.8) mg/dL Ionized Calcium (1.15-1.35) mmol/L Phosphorus (2.3-4.7) mg/dL Magnesium (1.6-2.6) mg/dL Total Bilirubin 0.5 (0.2-1.2) mg/dL AST 33 (5-34) Units/L ALT 25 (0-55) Units/L Alkaline Phosphatase 98 (38-126) Units/L Troponin I (0-0.03) ng/mL B-Natriuretic Peptide (0-100) pg/mL Serum Total Protein 6.3 (6.0-8.3) g/dL Albumin 2.9 L (3.5-5.0) g/dL Globulin 3.4 (2.4-3.5) g/dL Albumin/Globulin Ratio 0.9 L (1.1-2.2) Urine Color (Yellow) Urine Clarity (Clear) Urine pH (5.0-8.0) pH Units Ur Specific [place] (1.010-1.025) Urine Protein (Neg-Trace) mg/dL Urine Glucose (UA) (Normal) mg/dL Urine Ketones (Negative) mg/dL Urine Blood (Negative) Urine Nitrite (Negative) Urine Bilirubin (Negative) Urine Urobilinogen (Normal) mg/dL Ur Leukocyte Esterase (Negative) Urine Microscopic RBC (0-3) per hpf Urine Microscopic WBC (0-3) per hpf Ur Squamous Epith Cells (None-Few) per lpf Urine Bacteria (None-Few) per hpf Hyaline Casts (None-Few) per lpf Ur Culture Indicated? (NO) Chlamy pneumoniae PCR (Not Detect) Adenovirus (PCR) (Not Detect) B. pertussis DNA (PCR) (Not Detect) C. difficile Tox (PCR) (Negative) Coronavirus OC43 (PCR) (Not Detect) Coronavirus HKU1 (PCR) (Not Detect) Coronavirus 229E (PCR) (Not Detect) Coronavirus NL63 (PCR) (Not Detect) Human Metapneumovirus (Not Detect) Influenza A (H1) PCR (Not Detect) Influ A (H1N1/09) PCR (Not Detect) Influenza A (H3) PCR (Not Detect) Influenza A Untype (PCR) (Not Detect) Influenza Type B (PCR) (Not Detect) M.pneumoniae DNA (PCR) (Not Detect) Parainfluenza 1 (PCR) (Not Detect) Parainfluenza 2 (PCR) (Not Detect) Parainfluenza 3 (PCR) (Not Detect) Parainfluenza 4 (PCR) (Not Detect) RSV (PCR) (Not Detect) Entero/Rhino (PCR) (Not Detect) Specimen Rejected 09/10/16 09/10/16 09/10/16 Range/Units 03:09 03:09 05:18 WBC 13.3 H (4.3-11.1) K/mcL RBC 3.31 L (3.82-4.97) M/mcL Hgb 9.3 L (11.5-15.4) g/dL Hct 30.2 L (35.3-44.9) % MCV 91.2 (83.0-100.0) fL MCH 28.1 (28.0-33.3) pg MCHC 30.8 L (31.6-35.5) g/dL RDW 16.8 H (11.5-14.5) % Plt Count 227 (140-400) K/mcL MPV 10.1 (9.4-12.4) fL Immature Gran % 1.1 (0-4) % Seg Neutrophils % 81.5 % Lymphocytes % 7.4 % Monocytes % 9.9 % Eosinophils % 0.0 % Basophils % 0.1 % Neutrophils # 10.9 H (1.6-8.9) K/mcL Lymphocytes # 1.0 (0.6-4.6) K/mcL Monocytes # 1.3 (0.0-1.3) K/mcL Eosinophils # 0.0 (0.0-0.6) K/mcL Basophils # 0.0 (0.0-0.2) K/mcL Immature Plt Fraction 3.3 (1.1-6.1) % PT (9.4-12.1) Seconds INR APTT 81.4 H (26.0-36.0) Seconds ABG pH 7.46 H (7.32-7.45) pH Units ABG pCO2 42 (35-45) mmHg ABG pO2 117 H (85-104) mmHg ABG HCO3 29.9 H (21-27) mEQ/L ABG Total CO2 31.2 H (20-26) mEq/L ABG O2 Saturation 99 H (95-98) % ABG Base Excess 5.5 H (-2.0 to 3.0) mEq/L Blood Gas Modality VENT Inspired O2 40 % Sodium (136-145) mEq/L Potassium (3.5-4.5) mEq/L Chloride (98-109) mEq/L Carbon Dioxide (19-29) mEq/L BUN (7-20) mg/dL Creatinine (0.57-1.11) mg/dL Est GFR ( Amer) (> 60) Est GFR (Non-Af Amer) (> 60) BUN/Creatinine Ratio (6-26) Glucose (70-99) mg/dL POC Glucose (58-89) Est Mean Plasma Glucose mg/dl Hemoglobin A1c ( - 5.6) % Calculated Osmolality (280-300) Lactic Acid (0.5-2.2) mmol/L Calcium (8.6-10.8) mg/dL Ionized Calcium (1.15-1.35) mmol/L Phosphorus (2.3-4.7) mg/dL Magnesium (1.6-2.6) mg/dL Total Bilirubin (0.2-1.2) mg/dL AST (5-34) Units/L ALT (0-55) Units/L Alkaline Phosphatase (38-126) Units/L Troponin I (0-0.03) ng/mL B-Natriuretic Peptide (0-100) pg/mL Serum Total Protein (6.0-8.3) g/dL Albumin (3.5-5.0) g/dL Globulin (2.4-3.5) g/dL Albumin/Globulin Ratio (1.1-2.2) Urine Color (Yellow) Urine Clarity (Clear) Urine pH (5.0-8.0) pH Units Ur Specific [place] (1.010-1.025) Urine Protein (Neg-Trace) mg/dL Urine Glucose (UA) (Normal) mg/dL Urine Ketones (Negative) mg/dL Urine Blood (Negative) Urine Nitrite (Negative) Urine Bilirubin (Negative) Urine Urobilinogen (Normal) mg/dL Ur Leukocyte Esterase (Negative) Urine Microscopic RBC (0-3) per hpf Urine Microscopic WBC (0-3) per hpf Ur Squamous Epith Cells (None-Few) per lpf Urine Bacteria (None-Few) per hpf Hyaline Casts (None-Few) per lpf Ur Culture Indicated? (NO) Chlamy pneumoniae PCR (Not Detect) Adenovirus (PCR) (Not Detect) B. pertussis DNA (PCR) (Not Detect) C. difficile Tox (PCR) (Negative) Coronavirus OC43 (PCR) (Not Detect) Coronavirus HKU1 (PCR) (Not Detect) Coronavirus 229E (PCR) (Not Detect) Coronavirus NL63 (PCR) (Not Detect) Human Metapneumovirus (Not Detect) Influenza A (H1) PCR (Not Detect) Influ A (H1N1/09) PCR (Not Detect) Influenza A (H3) PCR (Not Detect) Influenza A Untype (PCR) (Not Detect) Influenza Type B (PCR) (Not Detect) M.pneumoniae DNA (PCR) (Not Detect) Parainfluenza 1 (PCR) (Not Detect) Parainfluenza 2 (PCR) (Not Detect) Parainfluenza 3 (PCR) (Not Detect) Parainfluenza 4 (PCR) (Not Detect) RSV (PCR) (Not Detect) Entero/Rhino (PCR) (Not Detect) Specimen Rejected 09/10/16 09/10/16 09/11/16 Range/Units 11:30 17:15 00:01 WBC (4.3-11.1) K/mcL RBC (3.82-4.97) M/mcL Hgb (11.5-15.4) g/dL Hct (35.3-44.9) % MCV (83.0-100.0) fL MCH (28.0-33.3) pg MCHC (31.6-35.5) g/dL RDW (11.5-14.5) % Plt Count (140-400) K/mcL MPV (9.4-12.4) fL Immature Gran % (0-4) % Seg Neutrophils % % Lymphocytes % % Monocytes % % Eosinophils % % Basophils % % Neutrophils # (1.6-8.9) K/mcL Lymphocytes # (0.6-4.6) K/mcL Monocytes # (0.0-1.3) K/mcL Eosinophils # (0.0-0.6) K/mcL Basophils # (0.0-0.2) K/mcL Immature Plt Fraction (1.1-6.1) % PT (9.4-12.1) Seconds INR APTT (26.0-36.0) Seconds ABG pH (7.32-7.45) pH Units ABG pCO2 (35-45) mmHg ABG pO2 (85-104) mmHg ABG HCO3 (21-27) mEQ/L ABG Total CO2 (20-26) mEq/L ABG O2 Saturation (95-98) % ABG Base Excess (-2.0 to 3.0) mEq/L Blood Gas Modality Inspired O2 % Sodium (136-145) mEq/L Potassium (3.5-4.5) mEq/L Chloride (98-109) mEq/L Carbon Dioxide (19-29) mEq/L BUN (7-20) mg/dL Creatinine (0.57-1.11) mg/dL Est GFR ( Amer) (> 60) Est GFR (Non-Af Amer) (> 60) BUN/Creatinine Ratio (6-26) Glucose (70-99) mg/dL POC Glucose 198 H 159 H 127 H (58-89) Est Mean Plasma Glucose mg/dl Hemoglobin A1c ( - 5.6) % Calculated Osmolality (280-300) Lactic Acid (0.5-2.2) mmol/L Calcium (8.6-10.8) mg/dL Ionized Calcium (1.15-1.35) mmol/L Phosphorus (2.3-4.7) mg/dL Magnesium (1.6-2.6) mg/dL Total Bilirubin (0.2-1.2) mg/dL AST (5-34) Units/L ALT (0-55) Units/L Alkaline Phosphatase (38-126) Units/L Troponin I (0-0.03) ng/mL B-Natriuretic Peptide (0-100) pg/mL Serum Total Protein (6.0-8.3) g/dL Albumin (3.5-5.0) g/dL Globulin (2.4-3.5) g/dL Albumin/Globulin Ratio (1.1-2.2) Urine Color (Yellow) Urine Clarity (Clear) Urine pH (5.0-8.0) pH Units Ur Specific [place] (1.010-1.025) Urine Protein (Neg-Trace) mg/dL Urine Glucose (UA) (Normal) mg/dL Urine Ketones (Negative) mg/dL Urine Blood (Negative) Urine Nitrite (Negative) Urine Bilirubin (Negative) Urine Urobilinogen (Normal) mg/dL Ur Leukocyte Esterase (Negative) Urine Microscopic RBC (0-3) per hpf Urine Microscopic WBC (0-3) per hpf Ur Squamous Epith Cells (None-Few) per lpf Urine Bacteria (None-Few) per hpf Hyaline Casts (None-Few) per lpf Ur Culture Indicated? (NO) Chlamy pneumoniae PCR (Not Detect) Adenovirus (PCR) (Not Detect) B. pertussis DNA (PCR) (Not Detect) C. difficile Tox (PCR) (Negative) Coronavirus OC43 (PCR) (Not Detect) Coronavirus HKU1 (PCR) (Not Detect) Coronavirus 229E (PCR) (Not Detect) Coronavirus NL63 (PCR) (Not Detect) Human Metapneumovirus (Not Detect) Influenza A (H1) PCR (Not Detect) Influ A (H1N1/09) PCR (Not Detect) Influenza A (H3) PCR (Not Detect) Influenza A Untype (PCR) (Not Detect) Influenza Type B (PCR) (Not Detect) M.pneumoniae DNA (PCR) (Not Detect) Parainfluenza 1 (PCR) (Not Detect) Parainfluenza 2 (PCR) (Not Detect) Parainfluenza 3 (PCR) (Not Detect) Parainfluenza 4 (PCR) (Not Detect) RSV (PCR) (Not Detect) Entero/Rhino (PCR) (Not Detect) Specimen Rejected 09/11/16 09/11/16 09/11/16 Range/Units 03:23 03:23 04:33 WBC 14.0 H (4.3-11.1) K/mcL RBC 3.28 L (3.82-4.97) M/mcL Hgb 9.2 L (11.5-15.4) g/dL Hct 29.1 L (35.3-44.9) % MCV 88.7 (83.0-100.0) fL MCH 28.0 (28.0-33.3) pg MCHC 31.6 (31.6-35.5) g/dL RDW 17.4 H (11.5-14.5) % Plt Count 252 (140-400) K/mcL MPV 9.5 (9.4-12.4) fL Immature Gran % 0.7 (0-4) % Seg Neutrophils % 77.6 % Lymphocytes % 11.8 % Monocytes % 9.8 % Eosinophils % 0.0 % Basophils % 0.1 % Neutrophils # 10.9 H (1.6-8.9) K/mcL Lymphocytes # 1.7 (0.6-4.6) K/mcL Monocytes # 1.4 H (0.0-1.3) K/mcL Eosinophils # 0.0 (0.0-0.6) K/mcL Basophils # 0.0 (0.0-0.2) K/mcL Immature Plt Fraction 3.1 (1.1-6.1) % PT (9.4-12.1) Seconds INR APTT (26.0-36.0) Seconds ABG pH 7.59 H (7.32-7.45) pH Units ABG pCO2 33 L (35-45) mmHg ABG pO2 109 H (85-104) mmHg ABG HCO3 31.7 H (21-27) mEQ/L ABG Total CO2 32.7 H (20-26) mEq/L ABG O2 Saturation 99 H (95-98) % ABG Base Excess 9.7 H (-2.0 to 3.0) mEq/L Blood Gas Modality VENT Inspired O2 40 % Sodium 138 (136-145) mEq/L Potassium 3.6 (3.5-4.5) mEq/L Chloride 103 (98-109) mEq/L Carbon Dioxide 26 (19-29) mEq/L BUN 30 H D (7-20) mg/dL Creatinine 0.86 (0.57-1.11) mg/dL Est GFR ( Amer) > 60 (> 60) Est GFR (Non-Af Amer) > 60 (> 60) BUN/Creatinine Ratio 35 H (6-26) Glucose 119 H (70-99) mg/dL POC Glucose (58-89) Est Mean Plasma Glucose mg/dl Hemoglobin A1c ( - 5.6) % Calculated Osmolality 293 (280-300) Lactic Acid (0.5-2.2) mmol/L Calcium 8.7 (8.6-10.8) mg/dL Ionized Calcium (1.15-1.35) mmol/L Phosphorus (2.3-4.7) mg/dL Magnesium (1.6-2.6) mg/dL Total Bilirubin (0.2-1.2) mg/dL AST (5-34) Units/L ALT (0-55) Units/L Alkaline Phosphatase (38-126) Units/L Troponin I (0-0.03) ng/mL B-Natriuretic Peptide (0-100) pg/mL Serum Total Protein (6.0-8.3) g/dL Albumin (3.5-5.0) g/dL Globulin (2.4-3.5) g/dL Albumin/Globulin Ratio (1.1-2.2) Urine Color (Yellow) Urine Clarity (Clear) Urine pH (5.0-8.0) pH Units Ur Specific [place] (1.010-1.025) Urine Protein (Neg-Trace) mg/dL Urine Glucose (UA) (Normal) mg/dL Urine Ketones (Negative) mg/dL Urine Blood (Negative) Urine Nitrite (Negative) Urine Bilirubin (Negative) Urine Urobilinogen (Normal) mg/dL Ur Leukocyte Esterase (Negative) Urine Microscopic RBC (0-3) per hpf Urine Microscopic WBC (0-3) per hpf Ur Squamous Epith Cells (None-Few) per lpf Urine Bacteria (None-Few) per hpf Hyaline Casts (None-Few) per lpf Ur Culture Indicated? (NO) Chlamy pneumoniae PCR (Not Detect) Adenovirus (PCR) (Not Detect) B. pertussis DNA (PCR) (Not Detect) C. difficile Tox (PCR) (Negative) Coronavirus OC43 (PCR) (Not Detect) Coronavirus HKU1 (PCR) (Not Detect) Coronavirus 229E (PCR) (Not Detect) Coronavirus NL63 (PCR) (Not Detect) Human Metapneumovirus (Not Detect) Influenza A (H1) PCR (Not Detect) Influ A (H1N1/09) PCR (Not Detect) Influenza A (H3) PCR (Not Detect) Influenza A Untype (PCR) (Not Detect) Influenza Type B (PCR) (Not Detect) M.pneumoniae DNA (PCR) (Not Detect) Parainfluenza 1 (PCR) (Not Detect) Parainfluenza 2 (PCR) (Not Detect) Parainfluenza 3 (PCR) (Not Detect) Parainfluenza 4 (PCR) (Not Detect) RSV (PCR) (Not Detect) Entero/Rhino (PCR) (Not Detect) Specimen Rejected 09/11/16 09/11/16 09/11/16 Range/Units 11:06 15:22 23:58 WBC (4.3-11.1) K/mcL RBC (3.82-4.97) M/mcL Hgb (11.5-15.4) g/dL Hct (35.3-44.9) % MCV (83.0-100.0) fL MCH (28.0-33.3) pg MCHC (31.6-35.5) g/dL RDW (11.5-14.5) % Plt Count (140-400) K/mcL MPV (9.4-12.4) fL Immature Gran % (0-4) % Seg Neutrophils % % Lymphocytes % % Monocytes % % Eosinophils % % Basophils % % Neutrophils # (1.6-8.9) K/mcL Lymphocytes # (0.6-4.6) K/mcL Monocytes # (0.0-1.3) K/mcL Eosinophils # (0.0-0.6) K/mcL Basophils # (0.0-0.2) K/mcL Immature Plt Fraction (1.1-6.1) % PT (9.4-12.1) Seconds INR APTT (26.0-36.0) Seconds ABG pH (7.32-7.45) pH Units ABG pCO2 (35-45) mmHg ABG pO2 (85-104) mmHg ABG HCO3 (21-27) mEQ/L ABG Total CO2 (20-26) mEq/L ABG O2 Saturation (95-98) % ABG Base Excess (-2.0 to 3.0) mEq/L Blood Gas Modality Inspired O2 % Sodium (136-145) mEq/L Potassium (3.5-4.5) mEq/L Chloride (98-109) mEq/L Carbon Dioxide (19-29) mEq/L BUN (7-20) mg/dL Creatinine (0.57-1.11) mg/dL Est GFR ( Amer) (> 60) Est GFR (Non-Af Amer) (> 60) BUN/Creatinine Ratio (6-26) Glucose (70-99) mg/dL POC Glucose 147 H 148 H 99 H (58-89) Est Mean Plasma Glucose mg/dl Hemoglobin A1c ( - 5.6) % Calculated Osmolality (280-300) Lactic Acid (0.5-2.2) mmol/L Calcium (8.6-10.8) mg/dL Ionized Calcium (1.15-1.35) mmol/L Phosphorus (2.3-4.7) mg/dL Magnesium (1.6-2.6) mg/dL Total Bilirubin (0.2-1.2) mg/dL AST (5-34) Units/L ALT (0-55) Units/L Alkaline Phosphatase (38-126) Units/L Troponin I (0-0.03) ng/mL B-Natriuretic Peptide (0-100) pg/mL Serum Total Protein (6.0-8.3) g/dL Albumin (3.5-5.0) g/dL Globulin (2.4-3.5) g/dL Albumin/Globulin Ratio (1.1-2.2) Urine Color (Yellow) Urine Clarity (Clear) Urine pH (5.0-8.0) pH Units Ur Specific [place] (1.010-1.025) Urine Protein (Neg-Trace) mg/dL Urine Glucose (UA) (Normal) mg/dL Urine Ketones (Negative) mg/dL Urine Blood (Negative) Urine Nitrite (Negative) Urine Bilirubin (Negative) Urine Urobilinogen (Normal) mg/dL Ur Leukocyte Esterase (Negative) Urine Microscopic RBC (0-3) per hpf Urine Microscopic WBC (0-3) per hpf Ur Squamous Epith Cells (None-Few) per lpf Urine Bacteria (None-Few) per hpf Hyaline Casts (None-Few) per lpf Ur Culture Indicated? (NO) Chlamy pneumoniae PCR (Not Detect) Adenovirus (PCR) (Not Detect) B. pertussis DNA (PCR) (Not Detect) C. difficile Tox (PCR) (Negative) Coronavirus OC43 (PCR) (Not Detect) Coronavirus HKU1 (PCR) (Not Detect) Coronavirus 229E (PCR) (Not Detect) Coronavirus NL63 (PCR) (Not Detect) Human Metapneumovirus (Not Detect) Influenza A (H1) PCR (Not Detect) Influ A (H1N1/09) PCR (Not Detect) Influenza A (H3) PCR (Not Detect) Influenza A Untype (PCR) (Not Detect) Influenza Type B (PCR) (Not Detect) M.pneumoniae DNA (PCR) (Not Detect) Parainfluenza 1 (PCR) (Not Detect) Parainfluenza 2 (PCR) (Not Detect) Parainfluenza 3 (PCR) (Not Detect) Parainfluenza 4 (PCR) (Not Detect) RSV (PCR) (Not Detect) Entero/Rhino (PCR) (Not Detect) Specimen Rejected 09/12/16 09/12/16 09/12/16 Range/Units 04:11 04:15 04:15 WBC 16.1 H (4.3-11.1) K/mcL RBC 3.34 L (3.82-4.97) M/mcL Hgb 9.5 L (11.5-15.4) g/dL Hct 30.0 L (35.3-44.9) % MCV 89.8 (83.0-100.0) fL MCH 28.4 (28.0-33.3) pg MCHC 31.7 (31.6-35.5) g/dL RDW 17.9 H (11.5-14.5) % Plt Count 262 (140-400) K/mcL MPV 9.8 (9.4-12.4) fL Immature Gran % 0.7 (0-4) % Seg Neutrophils % 64.7 % Lymphocytes % 21.6 % Monocytes % 10.7 % Eosinophils % 2.2 % Basophils % 0.1 % Neutrophils # 10.4 H (1.6-8.9) K/mcL Lymphocytes # 3.5 (0.6-4.6) K/mcL Monocytes # 1.7 H (0.0-1.3) K/mcL Eosinophils # 0.4 (0.0-0.6) K/mcL Basophils # 0.0 (0.0-0.2) K/mcL Immature Plt Fraction (1.1-6.1) % PT (9.4-12.1) Seconds INR APTT (26.0-36.0) Seconds ABG pH 7.51 H (7.32-7.45) pH Units ABG pCO2 40 (35-45) mmHg ABG pO2 66 L (85-104) mmHg ABG HCO3 31.9 H (21-27) mEQ/L ABG Total CO2 33.1 H (20-26) mEq/L ABG O2 Saturation 95 (95-98) % ABG Base Excess 8.2 H (-2.0 to 3.0) mEq/L Blood Gas Modality ac Inspired O2 30 % Sodium 140 (136-145) mEq/L Potassium 3.3 L (3.5-4.5) mEq/L Chloride 102 (98-109) mEq/L Carbon Dioxide 26 (19-29) mEq/L BUN 35 H (7-20) mg/dL Creatinine 0.92 (0.57-1.11) mg/dL Est GFR ( Amer) > 60 (> 60) Est GFR (Non-Af Amer) 59 L (> 60) BUN/Creatinine Ratio 38 H (6-26) Glucose 99 (70-99) mg/dL POC Glucose (58-89) Est Mean Plasma Glucose mg/dl Hemoglobin A1c ( - 5.6) % Calculated Osmolality 298 (280-300) Lactic Acid (0.5-2.2) mmol/L Calcium 8.7 (8.6-10.8) mg/dL Ionized Calcium 1.09 L (1.15-1.35) mmol/L Phosphorus 2.2 L D (2.3-4.7) mg/dL Magnesium 2.1 (1.6-2.6) mg/dL Total Bilirubin (0.2-1.2) mg/dL AST (5-34) Units/L ALT (0-55) Units/L Alkaline Phosphatase (38-126) Units/L Troponin I (0-0.03) ng/mL B-Natriuretic Peptide (0-100) pg/mL Serum Total Protein (6.0-8.3) g/dL Albumin (3.5-5.0) g/dL Globulin (2.4-3.5) g/dL Albumin/Globulin Ratio (1.1-2.2) Urine Color (Yellow) Urine Clarity (Clear) Urine pH (5.0-8.0) pH Units Ur Specific [place] (1.010-1.025) Urine Protein (Neg-Trace) mg/dL Urine Glucose (UA) (Normal) mg/dL Urine Ketones (Negative) mg/dL Urine Blood (Negative) Urine Nitrite (Negative) Urine Bilirubin (Negative) Urine Urobilinogen (Normal) mg/dL Ur Leukocyte Esterase (Negative) Urine Microscopic RBC (0-3) per hpf Urine Microscopic WBC (0-3) per hpf Ur Squamous Epith Cells (None-Few) per lpf Urine Bacteria (None-Few) per hpf Hyaline Casts (None-Few) per lpf Ur Culture Indicated? (NO) Chlamy pneumoniae PCR (Not Detect) Adenovirus (PCR) (Not Detect) B. pertussis DNA (PCR) (Not Detect) C. difficile Tox (PCR) (Negative) Coronavirus OC43 (PCR) (Not Detect) Coronavirus HKU1 (PCR) (Not Detect) Coronavirus 229E (PCR) (Not Detect) Coronavirus NL63 (PCR) (Not Detect) Human Metapneumovirus (Not Detect) Influenza A (H1) PCR (Not Detect) Influ A (H1N1/09) PCR (Not Detect) Influenza A (H3) PCR (Not Detect) Influenza A Untype (PCR) (Not Detect) Influenza Type B (PCR) (Not Detect) M.pneumoniae DNA (PCR) (Not Detect) Parainfluenza 1 (PCR) (Not Detect) Parainfluenza 2 (PCR) (Not Detect) Parainfluenza 3 (PCR) (Not Detect) Parainfluenza 4 (PCR) (Not Detect) RSV (PCR) (Not Detect) Entero/Rhino (PCR) (Not Detect) Specimen Rejected 09/12/16 09/12/16 09/12/16 Range/Units 05:13 11:25 12:40 WBC (4.3-11.1) K/mcL RBC (3.82-4.97) M/mcL Hgb (11.5-15.4) g/dL Hct (35.3-44.9) % MCV (83.0-100.0) fL MCH (28.0-33.3) pg MCHC (31.6-35.5) g/dL RDW (11.5-14.5) % Plt Count (140-400) K/mcL MPV (9.4-12.4) fL Immature Gran % (0-4) % Seg Neutrophils % % Lymphocytes % % Monocytes % % Eosinophils % % Basophils % % Neutrophils # (1.6-8.9) K/mcL Lymphocytes # (0.6-4.6) K/mcL Monocytes # (0.0-1.3) K/mcL Eosinophils # (0.0-0.6) K/mcL Basophils # (0.0-0.2) K/mcL Immature Plt Fraction (1.1-6.1) % PT (9.4-12.1) Seconds INR APTT (26.0-36.0) Seconds ABG pH (7.32-7.45) pH Units ABG pCO2 (35-45) mmHg ABG pO2 (85-104) mmHg ABG HCO3 (21-27) mEQ/L ABG Total CO2 (20-26) mEq/L ABG O2 Saturation (95-98) % ABG Base Excess (-2.0 to 3.0) mEq/L Blood Gas Modality Inspired O2 % Sodium 138 (136-145) mEq/L Potassium 4.2 (3.5-4.5) mEq/L Chloride 102 (98-109) mEq/L Carbon Dioxide 23 (19-29) mEq/L BUN 32 H (7-20) mg/dL Creatinine 1.04 (0.57-1.11) mg/dL Est GFR ( Amer) > 60 (> 60) Est GFR (Non-Af Amer) 52 L (> 60) BUN/Creatinine Ratio 31 H (6-26) Glucose 171 H (70-99) mg/dL POC Glucose 98 H 117 H (58-89) Est Mean Plasma Glucose mg/dl Hemoglobin A1c ( - 5.6) % Calculated Osmolality 297 (280-300) Lactic Acid (0.5-2.2) mmol/L Calcium 8.5 L (8.6-10.8) mg/dL Ionized Calcium (1.15-1.35) mmol/L Phosphorus (2.3-4.7) mg/dL Magnesium (1.6-2.6) mg/dL Total Bilirubin (0.2-1.2) mg/dL AST (5-34) Units/L ALT (0-55) Units/L Alkaline Phosphatase (38-126) Units/L Troponin I (0-0.03) ng/mL B-Natriuretic Peptide (0-100) pg/mL Serum Total Protein (6.0-8.3) g/dL Albumin (3.5-5.0) g/dL Globulin (2.4-3.5) g/dL Albumin/Globulin Ratio (1.1-2.2) Urine Color (Yellow) Urine Clarity (Clear) Urine pH (5.0-8.0) pH Units Ur Specific [place] (1.010-1.025) Urine Protein (Neg-Trace) mg/dL Urine Glucose (UA) (Normal) mg/dL Urine Ketones (Negative) mg/dL Urine Blood (Negative) Urine Nitrite (Negative) Urine Bilirubin (Negative) Urine Urobilinogen (Normal) mg/dL Ur Leukocyte Esterase (Negative) Urine Microscopic RBC (0-3) per hpf Urine Microscopic WBC (0-3) per hpf Ur Squamous Epith Cells (None-Few) per lpf Urine Bacteria (None-Few) per hpf Hyaline Casts (None-Few) per lpf Ur Culture Indicated? (NO) Chlamy pneumoniae PCR (Not Detect) Adenovirus (PCR) (Not Detect) B. pertussis DNA (PCR) (Not Detect) C. difficile Tox (PCR) (Negative) Coronavirus OC43 (PCR) (Not Detect) Coronavirus HKU1 (PCR) (Not Detect) Coronavirus 229E (PCR) (Not Detect) Coronavirus NL63 (PCR) (Not Detect) Human Metapneumovirus (Not Detect) Influenza A (H1) PCR (Not Detect) Influ A (H1N1/09) PCR (Not Detect) Influenza A (H3) PCR (Not Detect) Influenza A Untype (PCR) (Not Detect) Influenza Type B (PCR) (Not Detect) M.pneumoniae DNA (PCR) (Not Detect) Parainfluenza 1 (PCR) (Not Detect) Parainfluenza 2 (PCR) (Not Detect) Parainfluenza 3 (PCR) (Not Detect) Parainfluenza 4 (PCR) (Not Detect) RSV (PCR) (Not Detect) Entero/Rhino (PCR) (Not Detect) Specimen Rejected 09/12/16 09/13/16 09/13/16 Range/Units 18:10 00:12 04:04 WBC 13.6 H (4.3-11.1) K/mcL RBC 3.10 L (3.82-4.97) M/mcL Hgb 8.8 L (11.5-15.4) g/dL Hct 27.8 L (35.3-44.9) % MCV 89.7 (83.0-100.0) fL MCH 28.4 (28.0-33.3) pg MCHC 31.7 (31.6-35.5) g/dL RDW 17.9 H (11.5-14.5) % Plt Count 273 (140-400) K/mcL MPV 9.9 (9.4-12.4) fL Immature Gran % 0.8 (0-4) % Seg Neutrophils % 58.4 % Lymphocytes % 27.7 % Monocytes % 10.4 % Eosinophils % 2.6 % Basophils % 0.1 % Neutrophils # 8.0 (1.6-8.9) K/mcL Lymphocytes # 3.8 (0.6-4.6) K/mcL Monocytes # 1.4 H (0.0-1.3) K/mcL Eosinophils # 0.4 (0.0-0.6) K/mcL Basophils # 0.0 (0.0-0.2) K/mcL Immature Plt Fraction 3.5 (1.1-6.1) % PT (9.4-12.1) Seconds INR APTT (26.0-36.0) Seconds ABG pH (7.32-7.45) pH Units ABG pCO2 (35-45) mmHg ABG pO2 (85-104) mmHg ABG HCO3 (21-27) mEQ/L ABG Total CO2 (20-26) mEq/L ABG O2 Saturation (95-98) % ABG Base Excess (-2.0 to 3.0) mEq/L Blood Gas Modality Inspired O2 % Sodium (136-145) mEq/L Potassium (3.5-4.5) mEq/L Chloride (98-109) mEq/L Carbon Dioxide (19-29) mEq/L BUN (7-20) mg/dL Creatinine (0.57-1.11) mg/dL Est GFR ( Amer) (> 60) Est GFR (Non-Af Amer) (> 60) BUN/Creatinine Ratio (6-26) Glucose (70-99) mg/dL POC Glucose 147 H 125 H (58-89) Est Mean Plasma Glucose mg/dl Hemoglobin A1c ( - 5.6) % Calculated Osmolality (280-300) Lactic Acid (0.5-2.2) mmol/L Calcium (8.6-10.8) mg/dL Ionized Calcium (1.15-1.35) mmol/L Phosphorus (2.3-4.7) mg/dL Magnesium (1.6-2.6) mg/dL Total Bilirubin (0.2-1.2) mg/dL AST (5-34) Units/L ALT (0-55) Units/L Alkaline Phosphatase (38-126) Units/L Troponin I (0-0.03) ng/mL B-Natriuretic Peptide (0-100) pg/mL Serum Total Protein (6.0-8.3) g/dL Albumin (3.5-5.0) g/dL Globulin (2.4-3.5) g/dL Albumin/Globulin Ratio (1.1-2.2) Urine Color (Yellow) Urine Clarity (Clear) Urine pH (5.0-8.0) pH Units Ur Specific [place] (1.010-1.025) Urine Protein (Neg-Trace) mg/dL Urine Glucose (UA) (Normal) mg/dL Urine Ketones (Negative) mg/dL Urine Blood (Negative) Urine Nitrite (Negative) Urine Bilirubin (Negative) Urine Urobilinogen (Normal) mg/dL Ur Leukocyte Esterase (Negative) Urine Microscopic RBC (0-3) per hpf Urine Microscopic WBC (0-3) per hpf Ur Squamous Epith Cells (None-Few) per lpf Urine Bacteria (None-Few) per hpf Hyaline Casts (None-Few) per lpf Ur Culture Indicated? (NO) Chlamy pneumoniae PCR (Not Detect) Adenovirus (PCR) (Not Detect) B. pertussis DNA (PCR) (Not Detect) C. difficile Tox (PCR) (Negative) Coronavirus OC43 (PCR) (Not Detect) Coronavirus HKU1 (PCR) (Not Detect) Coronavirus 229E (PCR) (Not Detect) Coronavirus NL63 (PCR) (Not Detect) Human Metapneumovirus (Not Detect) Influenza A (H1) PCR (Not Detect) Influ A (H1N1/09) PCR (Not Detect) Influenza A (H3) PCR (Not Detect) Influenza A Untype (PCR) (Not Detect) Influenza Type B (PCR) (Not Detect) M.pneumoniae DNA (PCR) (Not Detect) Parainfluenza 1 (PCR) (Not Detect) Parainfluenza 2 (PCR) (Not Detect) Parainfluenza 3 (PCR) (Not Detect) Parainfluenza 4 (PCR) (Not Detect) RSV (PCR) (Not Detect) Entero/Rhino (PCR) (Not Detect) Specimen Rejected 09/13/16 09/13/16 09/13/16 Range/Units 04:04 05:41 11:21 WBC (4.3-11.1) K/mcL RBC (3.82-4.97) M/mcL Hgb (11.5-15.4) g/dL Hct (35.3-44.9) % MCV (83.0-100.0) fL MCH (28.0-33.3) pg MCHC (31.6-35.5) g/dL RDW (11.5-14.5) % Plt Count (140-400) K/mcL MPV (9.4-12.4) fL Immature Gran % (0-4) % Seg Neutrophils % % Lymphocytes % % Monocytes % % Eosinophils % % Basophils % % Neutrophils # (1.6-8.9) K/mcL Lymphocytes # (0.6-4.6) K/mcL Monocytes # (0.0-1.3) K/mcL Eosinophils # (0.0-0.6) K/mcL Basophils # (0.0-0.2) K/mcL Immature Plt Fraction (1.1-6.1) % PT (9.4-12.1) Seconds INR APTT (26.0-36.0) Seconds ABG pH (7.32-7.45) pH Units ABG pCO2 (35-45) mmHg ABG pO2 (85-104) mmHg ABG HCO3 (21-27) mEQ/L ABG Total CO2 (20-26) mEq/L ABG O2 Saturation (95-98) % ABG Base Excess (-2.0 to 3.0) mEq/L Blood Gas Modality Inspired O2 % Sodium 140 (136-145) mEq/L Potassium 3.9 (3.5-4.5) mEq/L Chloride 106 (98-109) mEq/L Carbon Dioxide 24 (19-29) mEq/L BUN 34 H (7-20) mg/dL Creatinine 0.84 (0.57-1.11) mg/dL Est GFR ( Amer) > 60 (> 60) Est GFR (Non-Af Amer) > 60 (> 60) BUN/Creatinine Ratio 40 H (6-26) Glucose 114 H (70-99) mg/dL POC Glucose 134 H 159 H (58-89) Est Mean Plasma Glucose mg/dl Hemoglobin A1c ( - 5.6) % Calculated Osmolality 298 (280-300) Lactic Acid (0.5-2.2) mmol/L Calcium 8.6 (8.6-10.8) mg/dL Ionized Calcium 1.11 L (1.15-1.35) mmol/L Phosphorus 2.7 (2.3-4.7) mg/dL Magnesium 2.2 (1.6-2.6) mg/dL Total Bilirubin (0.2-1.2) mg/dL AST (5-34) Units/L ALT (0-55) Units/L Alkaline Phosphatase (38-126) Units/L Troponin I (0-0.03) ng/mL B-Natriuretic Peptide (0-100) pg/mL Serum Total Protein (6.0-8.3) g/dL Albumin (3.5-5.0) g/dL Globulin (2.4-3.5) g/dL Albumin/Globulin Ratio (1.1-2.2) Urine Color (Yellow) Urine Clarity (Clear) Urine pH (5.0-8.0) pH Units Ur Specific [place] (1.010-1.025) Urine Protein (Neg-Trace) mg/dL Urine Glucose (UA) (Normal) mg/dL Urine Ketones (Negative) mg/dL Urine Blood (Negative) Urine Nitrite (Negative) Urine Bilirubin (Negative) Urine Urobilinogen (Normal) mg/dL Ur Leukocyte Esterase (Negative) Urine Microscopic RBC (0-3) per hpf Urine Microscopic WBC (0-3) per hpf Ur Squamous Epith Cells (None-Few) per lpf Urine Bacteria (None-Few) per hpf Hyaline Casts (None-Few) per lpf Ur Culture Indicated? (NO) Chlamy pneumoniae PCR (Not Detect) Adenovirus (PCR) (Not Detect) B. pertussis DNA (PCR) (Not Detect) C. difficile Tox (PCR) (Negative) Coronavirus OC43 (PCR) (Not Detect) Coronavirus HKU1 (PCR) (Not Detect) Coronavirus 229E (PCR) (Not Detect) Coronavirus NL63 (PCR) (Not Detect) Human Metapneumovirus (Not Detect) Influenza A (H1) PCR (Not Detect) Influ A (H1N1/09) PCR (Not Detect) Influenza A (H3) PCR (Not Detect) Influenza A Untype (PCR) (Not Detect) Influenza Type B (PCR) (Not Detect) M.pneumoniae DNA (PCR) (Not Detect) Parainfluenza 1 (PCR) (Not Detect) Parainfluenza 2 (PCR) (Not Detect) Parainfluenza 3 (PCR) (Not Detect) Parainfluenza 4 (PCR) (Not Detect) RSV (PCR) (Not Detect) Entero/Rhino (PCR) (Not Detect) Specimen Rejected 09/13/16 09/14/16 09/14/16 Range/Units 23:38 04:13 04:13 WBC 14.0 H (4.3-11.1) K/mcL RBC 3.27 L (3.82-4.97) M/mcL Hgb 9.2 L (11.5-15.4) g/dL Hct 30.1 L (35.3-44.9) % MCV 92.0 (83.0-100.0) fL MCH 28.1 (28.0-33.3) pg MCHC 30.6 L (31.6-35.5) g/dL RDW 17.6 H (11.5-14.5) % Plt Count 295 (140-400) K/mcL MPV 9.9 (9.4-12.4) fL Immature Gran % 1.4 (0-4) % Seg Neutrophils % 60.9 % Lymphocytes % 23.6 % Monocytes % 11.8 % Eosinophils % 2.1 % Basophils % 0.2 % Neutrophils # 8.5 (1.6-8.9) K/mcL Lymphocytes # 3.3 (0.6-4.6) K/mcL Monocytes # 1.7 H (0.0-1.3) K/mcL Eosinophils # 0.3 (0.0-0.6) K/mcL Basophils # 0.0 (0.0-0.2) K/mcL Immature Plt Fraction (1.1-6.1) % PT (9.4-12.1) Seconds INR APTT (26.0-36.0) Seconds ABG pH (7.32-7.45) pH Units ABG pCO2 (35-45) mmHg ABG pO2 (85-104) mmHg ABG HCO3 (21-27) mEQ/L ABG Total CO2 (20-26) mEq/L ABG O2 Saturation (95-98) % ABG Base Excess (-2.0 to 3.0) mEq/L Blood Gas Modality Inspired O2 % Sodium (136-145) mEq/L Potassium (3.5-4.5) mEq/L Chloride (98-109) mEq/L Carbon Dioxide (19-29) mEq/L BUN (7-20) mg/dL Creatinine (0.57-1.11) mg/dL Est GFR ( Amer) (> 60) Est GFR (Non-Af Amer) (> 60) BUN/Creatinine Ratio (6-26) Glucose (70-99) mg/dL POC Glucose 80 (58-89) Est Mean Plasma Glucose mg/dl Hemoglobin A1c ( - 5.6) % Calculated Osmolality (280-300) Lactic Acid (0.5-2.2) mmol/L Calcium (8.6-10.8) mg/dL Ionized Calcium 1.18 (1.15-1.35) mmol/L Phosphorus 3.6 (2.3-4.7) mg/dL Magnesium 2.4 (1.6-2.6) mg/dL Total Bilirubin (0.2-1.2) mg/dL AST (5-34) Units/L ALT (0-55) Units/L Alkaline Phosphatase (38-126) Units/L Troponin I (0-0.03) ng/mL B-Natriuretic Peptide (0-100) pg/mL Serum Total Protein (6.0-8.3) g/dL Albumin (3.5-5.0) g/dL Globulin (2.4-3.5) g/dL Albumin/Globulin Ratio (1.1-2.2) Urine Color (Yellow) Urine Clarity (Clear) Urine pH (5.0-8.0) pH Units Ur Specific [place] (1.010-1.025) Urine Protein (Neg-Trace) mg/dL Urine Glucose (UA) (Normal) mg/dL Urine Ketones (Negative) mg/dL Urine Blood (Negative) Urine Nitrite (Negative) Urine Bilirubin (Negative) Urine Urobilinogen (Normal) mg/dL Ur Leukocyte Esterase (Negative) Urine Microscopic RBC (0-3) per hpf Urine Microscopic WBC (0-3) per hpf Ur Squamous Epith Cells (None-Few) per lpf Urine Bacteria (None-Few) per hpf Hyaline Casts (None-Few) per lpf Ur Culture Indicated? (NO) Chlamy pneumoniae PCR (Not Detect) Adenovirus (PCR) (Not Detect) B. pertussis DNA (PCR) (Not Detect) C. difficile Tox (PCR) (Negative) Coronavirus OC43 (PCR) (Not Detect) Coronavirus HKU1 (PCR) (Not Detect) Coronavirus 229E (PCR) (Not Detect) Coronavirus NL63 (PCR) (Not Detect) Human Metapneumovirus (Not Detect) Influenza A (H1) PCR (Not Detect) Influ A (H1N1/09) PCR (Not Detect) Influenza A (H3) PCR (Not Detect) Influenza A Untype (PCR) (Not Detect) Influenza Type B (PCR) (Not Detect) M.pneumoniae DNA (PCR) (Not Detect) Parainfluenza 1 (PCR) (Not Detect) Parainfluenza 2 (PCR) (Not Detect) Parainfluenza 3 (PCR) (Not Detect) Parainfluenza 4 (PCR) (Not Detect) RSV (PCR) (Not Detect) Entero/Rhino (PCR) (Not Detect) Specimen Rejected 09/14/16 09/14/16 09/14/16 Range/Units 11:30 13:20 14:30 WBC (4.3-11.1) K/mcL RBC (3.82-4.97) M/mcL Hgb (11.5-15.4) g/dL Hct (35.3-44.9) % MCV (83.0-100.0) fL MCH (28.0-33.3) pg MCHC (31.6-35.5) g/dL RDW (11.5-14.5) % Plt Count (140-400) K/mcL MPV (9.4-12.4) fL Immature Gran % (0-4) % Seg Neutrophils % % Lymphocytes % % Monocytes % % Eosinophils % % Basophils % % Neutrophils # (1.6-8.9) K/mcL Lymphocytes # (0.6-4.6) K/mcL Monocytes # (0.0-1.3) K/mcL Eosinophils # (0.0-0.6) K/mcL Basophils # (0.0-0.2) K/mcL Immature Plt Fraction (1.1-6.1) % PT (9.4-12.1) Seconds INR APTT (26.0-36.0) Seconds ABG pH (7.32-7.45) pH Units ABG pCO2 (35-45) mmHg ABG pO2 (85-104) mmHg ABG HCO3 (21-27) mEQ/L ABG Total CO2 (20-26) mEq/L ABG O2 Saturation (95-98) % ABG Base Excess (-2.0 to 3.0) mEq/L Blood Gas Modality Inspired O2 % Sodium (136-145) mEq/L Potassium (3.5-4.5) mEq/L Chloride (98-109) mEq/L Carbon Dioxide (19-29) mEq/L BUN (7-20) mg/dL Creatinine (0.57-1.11) mg/dL Est GFR ( Amer) (> 60) Est GFR (Non-Af Amer) (> 60) BUN/Creatinine Ratio (6-26) Glucose (70-99) mg/dL POC Glucose 91 H (58-89) Est Mean Plasma Glucose mg/dl Hemoglobin A1c ( - 5.6) % Calculated Osmolality (280-300) Lactic Acid (0.5-2.2) mmol/L Calcium (8.6-10.8) mg/dL Ionized Calcium (1.15-1.35) mmol/L Phosphorus (2.3-4.7) mg/dL Magnesium (1.6-2.6) mg/dL Total Bilirubin (0.2-1.2) mg/dL AST (5-34) Units/L ALT (0-55) Units/L Alkaline Phosphatase (38-126) Units/L Troponin I (0-0.03) ng/mL B-Natriuretic Peptide (0-100) pg/mL Serum Total Protein (6.0-8.3) g/dL Albumin (3.5-5.0) g/dL Globulin (2.4-3.5) g/dL Albumin/Globulin Ratio (1.1-2.2) Urine Color (Yellow) Urine Clarity (Clear) Urine pH (5.0-8.0) pH Units Ur Specific [place] (1.010-1.025) Urine Protein (Neg-Trace) mg/dL Urine Glucose (UA) (Normal) mg/dL Urine Ketones (Negative) mg/dL Urine Blood (Negative) Urine Nitrite (Negative) Urine Bilirubin (Negative) Urine Urobilinogen (Normal) mg/dL Ur Leukocyte Esterase (Negative) Urine Microscopic RBC (0-3) per hpf Urine Microscopic WBC (0-3) per hpf Ur Squamous Epith Cells (None-Few) per lpf Urine Bacteria (None-Few) per hpf Hyaline Casts (None-Few) per lpf Ur Culture Indicated? (NO) Chlamy pneumoniae PCR (Not Detect) Adenovirus (PCR) (Not Detect) B. pertussis DNA (PCR) (Not Detect) C. difficile Tox (PCR) Negative (Negative) Coronavirus OC43 (PCR) (Not Detect) Coronavirus HKU1 (PCR) (Not Detect) Coronavirus 229E (PCR) (Not Detect) Coronavirus NL63 (PCR) (Not Detect) Human Metapneumovirus (Not Detect) Influenza A (H1) PCR (Not Detect) Influ A (H1N1/09) PCR (Not Detect) Influenza A (H3) PCR (Not Detect) Influenza A Untype (PCR) (Not Detect) Influenza Type B (PCR) (Not Detect) M.pneumoniae DNA (PCR) (Not Detect) Parainfluenza 1 (PCR) (Not Detect) Parainfluenza 2 (PCR) (Not Detect) Parainfluenza 3 (PCR) (Not Detect) Parainfluenza 4 (PCR) (Not Detect) RSV (PCR) (Not Detect) Entero/Rhino (PCR) (Not Detect) Specimen Rejected Hemolyzed 09/14/16 09/14/16 09/14/16 Range/Units 15:42 16:58 23:57 WBC (4.3-11.1) K/mcL RBC (3.82-4.97) M/mcL Hgb (11.5-15.4) g/dL Hct (35.3-44.9) % MCV (83.0-100.0) fL MCH (28.0-33.3) pg MCHC (31.6-35.5) g/dL RDW (11.5-14.5) % Plt Count (140-400) K/mcL MPV (9.4-12.4) fL Immature Gran % (0-4) % Seg Neutrophils % % Lymphocytes % % Monocytes % % Eosinophils % % Basophils % % Neutrophils # (1.6-8.9) K/mcL Lymphocytes # (0.6-4.6) K/mcL Monocytes # (0.0-1.3) K/mcL Eosinophils # (0.0-0.6) K/mcL Basophils # (0.0-0.2) K/mcL Immature Plt Fraction (1.1-6.1) % PT (9.4-12.1) Seconds INR APTT (26.0-36.0) Seconds ABG pH (7.32-7.45) pH Units ABG pCO2 (35-45) mmHg ABG pO2 (85-104) mmHg ABG HCO3 (21-27) mEQ/L ABG Total CO2 (20-26) mEq/L ABG O2 Saturation (95-98) % ABG Base Excess (-2.0 to 3.0) mEq/L Blood Gas Modality Inspired O2 % Sodium 144 (136-145) mEq/L Potassium 5.1 H D (3.5-4.5) mEq/L Chloride 107 (98-109) mEq/L Carbon Dioxide 27 (19-29) mEq/L BUN 27 H (7-20) mg/dL Creatinine 0.84 (0.57-1.11) mg/dL Est GFR ( Amer) > 60 (> 60) Est GFR (Non-Af Amer) > 60 (> 60) BUN/Creatinine Ratio 32 H (6-26) Glucose 147 H (70-99) mg/dL POC Glucose 152 H 84 (58-89) Est Mean Plasma Glucose mg/dl Hemoglobin A1c ( - 5.6) % Calculated Osmolality 306 H (280-300) Lactic Acid (0.5-2.2) mmol/L Calcium 9.2 (8.6-10.8) mg/dL Ionized Calcium (1.15-1.35) mmol/L Phosphorus (2.3-4.7) mg/dL Magnesium (1.6-2.6) mg/dL Total Bilirubin (0.2-1.2) mg/dL AST (5-34) Units/L ALT (0-55) Units/L Alkaline Phosphatase (38-126) Units/L Troponin I (0-0.03) ng/mL B-Natriuretic Peptide (0-100) pg/mL Serum Total Protein (6.0-8.3) g/dL Albumin (3.5-5.0) g/dL Globulin (2.4-3.5) g/dL Albumin/Globulin Ratio (1.1-2.2) Urine Color (Yellow) Urine Clarity (Clear) Urine pH (5.0-8.0) pH Units Ur Specific [place] (1.010-1.025) Urine Protein (Neg-Trace) mg/dL Urine Glucose (UA) (Normal) mg/dL Urine Ketones (Negative) mg/dL Urine Blood (Negative) Urine Nitrite (Negative) Urine Bilirubin (Negative) Urine Urobilinogen (Normal) mg/dL Ur Leukocyte Esterase (Negative) Urine Microscopic RBC (0-3) per hpf Urine Microscopic WBC (0-3) per hpf Ur Squamous Epith Cells (None-Few) per lpf Urine Bacteria (None-Few) per hpf Hyaline Casts (None-Few) per lpf Ur Culture Indicated? (NO) Chlamy pneumoniae PCR (Not Detect) Adenovirus (PCR) (Not Detect) B. pertussis DNA (PCR) (Not Detect) C. difficile Tox (PCR) (Negative) Coronavirus OC43 (PCR) (Not Detect) Coronavirus HKU1 (PCR) (Not Detect) Coronavirus 229E (PCR) (Not Detect) Coronavirus NL63 (PCR) (Not Detect) Human Metapneumovirus (Not Detect) Influenza A (H1) PCR (Not Detect) Influ A (H1N1/09) PCR (Not Detect) Influenza A (H3) PCR (Not Detect) Influenza A Untype (PCR) (Not Detect) Influenza Type B (PCR) (Not Detect) M.pneumoniae DNA (PCR) (Not Detect) Parainfluenza 1 (PCR) (Not Detect) Parainfluenza 2 (PCR) (Not Detect) Parainfluenza 3 (PCR) (Not Detect) Parainfluenza 4 (PCR) (Not Detect) RSV (PCR) (Not Detect) Entero/Rhino (PCR) (Not Detect) Specimen Rejected 09/15/16 09/15/16 09/15/16 Range/Units 04:12 04:12 11:16 WBC 15.6 H (4.3-11.1) K/mcL RBC 3.36 L (3.82-4.97) M/mcL Hgb 9.5 L (11.5-15.4) g/dL Hct 31.6 L (35.3-44.9) % MCV 94.0 (83.0-100.0) fL MCH 28.3 (28.0-33.3) pg MCHC 30.1 L (31.6-35.5) g/dL RDW 16.9 H (11.5-14.5) % Plt Count 351 (140-400) K/mcL MPV 9.8 (9.4-12.4) fL Immature Gran % 1.7 (0-4) % Seg Neutrophils % 58.3 % Lymphocytes % 25.8 % Monocytes % 10.6 % Eosinophils % 3.3 % Basophils % 0.3 % Neutrophils # 9.1 H (1.6-8.9) K/mcL Lymphocytes # 4.0 (0.6-4.6) K/mcL Monocytes # 1.7 H (0.0-1.3) K/mcL Eosinophils # 0.5 (0.0-0.6) K/mcL Basophils # 0.0 (0.0-0.2) K/mcL Immature Plt Fraction (1.1-6.1) % PT (9.4-12.1) Seconds INR APTT (26.0-36.0) Seconds ABG pH (7.32-7.45) pH Units ABG pCO2 (35-45) mmHg ABG pO2 (85-104) mmHg ABG HCO3 (21-27) mEQ/L ABG Total CO2 (20-26) mEq/L ABG O2 Saturation (95-98) % ABG Base Excess (-2.0 to 3.0) mEq/L Blood Gas Modality Inspired O2 % Sodium 145 (136-145) mEq/L Potassium 4.4 (3.5-4.5) mEq/L Chloride 107 (98-109) mEq/L Carbon Dioxide 27 (19-29) mEq/L BUN 21 H (7-20) mg/dL Creatinine 0.74 (0.57-1.11) mg/dL Est GFR ( Amer) > 60 (> 60) Est GFR (Non-Af Amer) > 60 (> 60) BUN/Creatinine Ratio 28 H (6-26) Glucose 87 (70-99) mg/dL POC Glucose 155 H (58-89) Est Mean Plasma Glucose mg/dl Hemoglobin A1c ( - 5.6) % Calculated Osmolality 302 H (280-300) Lactic Acid (0.5-2.2) mmol/L Calcium 9.5 (8.6-10.8) mg/dL Ionized Calcium (1.15-1.35) mmol/L Phosphorus (2.3-4.7) mg/dL Magnesium (1.6-2.6) mg/dL Total Bilirubin (0.2-1.2) mg/dL AST (5-34) Units/L ALT (0-55) Units/L Alkaline Phosphatase (38-126) Units/L Troponin I (0-0.03) ng/mL B-Natriuretic Peptide (0-100) pg/mL Serum Total Protein (6.0-8.3) g/dL Albumin (3.5-5.0) g/dL Globulin (2.4-3.5) g/dL Albumin/Globulin Ratio (1.1-2.2) Urine Color (Yellow) Urine Clarity (Clear) Urine pH (5.0-8.0) pH Units Ur Specific [place] (1.010-1.025) Urine Protein (Neg-Trace) mg/dL Urine Glucose (UA) (Normal) mg/dL Urine Ketones (Negative) mg/dL Urine Blood (Negative) Urine Nitrite (Negative) Urine Bilirubin (Negative) Urine Urobilinogen (Normal) mg/dL Ur Leukocyte Esterase (Negative) Urine Microscopic RBC (0-3) per hpf Urine Microscopic WBC (0-3) per hpf Ur Squamous Epith Cells (None-Few) per lpf Urine Bacteria (None-Few) per hpf Hyaline Casts (None-Few) per lpf Ur Culture Indicated? (NO) Chlamy pneumoniae PCR (Not Detect) Adenovirus (PCR) (Not Detect) B. pertussis DNA (PCR) (Not Detect) C. difficile Tox (PCR) (Negative) Coronavirus OC43 (PCR) (Not Detect) Coronavirus HKU1 (PCR) (Not Detect) Coronavirus 229E (PCR) (Not Detect) Coronavirus NL63 (PCR) (Not Detect) Human Metapneumovirus (Not Detect) Influenza A (H1) PCR (Not Detect) Influ A (H1N1/09) PCR (Not Detect) Influenza A (H3) PCR (Not Detect) Influenza A Untype (PCR) (Not Detect) Influenza Type B (PCR) (Not Detect) M.pneumoniae DNA (PCR) (Not Detect) Parainfluenza 1 (PCR) (Not Detect) Parainfluenza 2 (PCR) (Not Detect) Parainfluenza 3 (PCR) (Not Detect) Parainfluenza 4 (PCR) (Not Detect) RSV (PCR) (Not Detect) Entero/Rhino (PCR) (Not Detect) Specimen Rejected 09/15/16 09/16/16 09/16/16 Range/Units 17:22 04:25 04:25 WBC 16.6 H (4.3-11.1) K/mcL RBC 3.20 L (3.82-4.97) M/mcL Hgb 9.1 L (11.5-15.4) g/dL Hct 29.5 L (35.3-44.9) % MCV 92.2 (83.0-100.0) fL MCH 28.4 (28.0-33.3) pg MCHC 30.8 L (31.6-35.5) g/dL RDW 16.4 H (11.5-14.5) % Plt Count 341 (140-400) K/mcL MPV 9.9 (9.4-12.4) fL Immature Gran % 2.9 (0-4) % Seg Neutrophils % 56.9 % Lymphocytes % 29.0 % Monocytes % 9.3 % Eosinophils % 1.7 % Basophils % 0.2 % Neutrophils # 9.5 H (1.6-8.9) K/mcL Lymphocytes # 4.8 H (0.6-4.6) K/mcL Monocytes # 1.5 H (0.0-1.3) K/mcL Eosinophils # 0.3 (0.0-0.6) K/mcL Basophils # 0.0 (0.0-0.2) K/mcL Immature Plt Fraction (1.1-6.1) % PT (9.4-12.1) Seconds INR APTT (26.0-36.0) Seconds ABG pH (7.32-7.45) pH Units ABG pCO2 (35-45) mmHg ABG pO2 (85-104) mmHg ABG HCO3 (21-27) mEQ/L ABG Total CO2 (20-26) mEq/L ABG O2 Saturation (95-98) % ABG Base Excess (-2.0 to 3.0) mEq/L Blood Gas Modality Inspired O2 % Sodium 143 (136-145) mEq/L Potassium 3.8 (3.5-4.5) mEq/L Chloride 105 (98-109) mEq/L Carbon Dioxide 27 (19-29) mEq/L BUN 19 (7-20) mg/dL Creatinine 0.73 (0.57-1.11) mg/dL Est GFR ( Amer) > 60 (> 60) Est GFR (Non-Af Amer) > 60 (> 60) BUN/Creatinine Ratio 26 (6-26) Glucose 110 H (70-99) mg/dL POC Glucose 173 H (58-89) Est Mean Plasma Glucose mg/dl Hemoglobin A1c ( - 5.6) % Calculated Osmolality 299 (280-300) Lactic Acid (0.5-2.2) mmol/L Calcium 8.9 (8.6-10.8) mg/dL Ionized Calcium (1.15-1.35) mmol/L Phosphorus (2.3-4.7) mg/dL Magnesium (1.6-2.6) mg/dL Total Bilirubin (0.2-1.2) mg/dL AST (5-34) Units/L ALT (0-55) Units/L Alkaline Phosphatase (38-126) Units/L Troponin I (0-0.03) ng/mL B-Natriuretic Peptide (0-100) pg/mL Serum Total Protein (6.0-8.3) g/dL Albumin (3.5-5.0) g/dL Globulin (2.4-3.5) g/dL Albumin/Globulin Ratio (1.1-2.2) Urine Color (Yellow) Urine Clarity (Clear) Urine pH (5.0-8.0) pH Units Ur Specific [place] (1.010-1.025) Urine Protein (Neg-Trace) mg/dL Urine Glucose (UA) (Normal) mg/dL Urine Ketones (Negative) mg/dL Urine Blood (Negative) Urine Nitrite (Negative) Urine Bilirubin (Negative) Urine Urobilinogen (Normal) mg/dL Ur Leukocyte Esterase (Negative) Urine Microscopic RBC (0-3) per hpf Urine Microscopic WBC (0-3) per hpf Ur Squamous Epith Cells (None-Few) per lpf Urine Bacteria (None-Few) per hpf Hyaline Casts (None-Few) per lpf Ur Culture Indicated? (NO) Chlamy pneumoniae PCR (Not Detect) Adenovirus (PCR) (Not Detect) B. pertussis DNA (PCR) (Not Detect) C. difficile Tox (PCR) (Negative) Coronavirus OC43 (PCR) (Not Detect) Coronavirus HKU1 (PCR) (Not Detect) Coronavirus 229E (PCR) (Not Detect) Coronavirus NL63 (PCR) (Not Detect) Human Metapneumovirus (Not Detect) Influenza A (H1) PCR (Not Detect) Influ A (H1N1/09) PCR (Not Detect) Influenza A (H3) PCR (Not Detect) Influenza A Untype (PCR) (Not Detect) Influenza Type B (PCR) (Not Detect) M.pneumoniae DNA (PCR) (Not Detect) Parainfluenza 1 (PCR) (Not Detect) Parainfluenza 2 (PCR) (Not Detect) Parainfluenza 3 (PCR) (Not Detect) Parainfluenza 4 (PCR) (Not Detect) RSV (PCR) (Not Detect) Entero/Rhino (PCR) (Not Detect) Specimen Rejected 09/16/16 Range/Units 04:25 WBC (4.3-11.1) K/mcL RBC (3.82-4.97) M/mcL Hgb (11.5-15.4) g/dL Hct (35.3-44.9) % MCV (83.0-100.0) fL MCH (28.0-33.3) pg MCHC (31.6-35.5) g/dL RDW (11.5-14.5) % Plt Count (140-400) K/mcL MPV (9.4-12.4) fL Immature Gran % (0-4) % Seg Neutrophils % % Lymphocytes % % Monocytes % % Eosinophils % % Basophils % % Neutrophils # (1.6-8.9) K/mcL Lymphocytes # (0.6-4.6) K/mcL Monocytes # (0.0-1.3) K/mcL Eosinophils # (0.0-0.6) K/mcL Basophils # (0.0-0.2) K/mcL Immature Plt Fraction (1.1-6.1) % PT (9.4-12.1) Seconds INR APTT (26.0-36.0) Seconds ABG pH (7.32-7.45) pH Units ABG pCO2 (35-45) mmHg ABG pO2 (85-104) mmHg ABG HCO3 (21-27) mEQ/L ABG Total CO2 (20-26) mEq/L ABG O2 Saturation (95-98) % ABG Base Excess (-2.0 to 3.0) mEq/L Blood Gas Modality Inspired O2 % Sodium (136-145) mEq/L Potassium (3.5-4.5) mEq/L Chloride (98-109) mEq/L Carbon Dioxide (19-29) mEq/L BUN (7-20) mg/dL Creatinine (0.57-1.11) mg/dL Est GFR ( Amer) (> 60) Est GFR (Non-Af Amer) (> 60) BUN/Creatinine Ratio (6-26) Glucose (70-99) mg/dL POC Glucose (58-89) Est Mean Plasma Glucose 117 mg/dl Hemoglobin A1c 5.7 H ( - 5.6) % Calculated Osmolality (280-300) Lactic Acid (0.5-2.2) mmol/L Calcium (8.6-10.8) mg/dL Ionized Calcium (1.15-1.35) mmol/L Phosphorus (2.3-4.7) mg/dL Magnesium (1.6-2.6) mg/dL Total Bilirubin (0.2-1.2) mg/dL AST (5-34) Units/L ALT (0-55) Units/L Alkaline Phosphatase (38-126) Units/L Troponin I (0-0.03) ng/mL B-Natriuretic Peptide (0-100) pg/mL Serum Total Protein (6.0-8.3) g/dL Albumin (3.5-5.0) g/dL Globulin (2.4-3.5) g/dL Albumin/Globulin Ratio (1.1-2.2) Urine Color (Yellow) Urine Clarity (Clear) Urine pH (5.0-8.0) pH Units Ur Specific [place] (1.010-1.025) Urine Protein (Neg-Trace) mg/dL Urine Glucose (UA) (Normal) mg/dL Urine Ketones (Negative) mg/dL Urine Blood (Negative) Urine Nitrite (Negative) Urine Bilirubin (Negative) Urine Urobilinogen (Normal) mg/dL Ur Leukocyte Esterase (Negative) Urine Microscopic RBC (0-3) per hpf Urine Microscopic WBC (0-3) per hpf Ur Squamous Epith Cells (None-Few) per lpf Urine Bacteria (None-Few) per hpf Hyaline Casts (None-Few) per lpf Ur Culture Indicated? (NO) Chlamy pneumoniae PCR (Not Detect) Adenovirus (PCR) (Not Detect) B. pertussis DNA (PCR) (Not Detect) C. difficile Tox (PCR) (Negative) Coronavirus OC43 (PCR) (Not Detect) Coronavirus HKU1 (PCR) (Not Detect) Coronavirus 229E (PCR) (Not Detect) Coronavirus NL63 (PCR) (Not Detect) Human Metapneumovirus (Not Detect) Influenza A (H1) PCR (Not Detect) Influ A (H1N1/09) PCR (Not Detect) Influenza A (H3) PCR (Not Detect) Influenza A Untype (PCR) (Not Detect) Influenza Type B (PCR) (Not Detect) M.pneumoniae DNA (PCR) (Not Detect) Parainfluenza 1 (PCR) (Not Detect) Parainfluenza 2 (PCR) (Not Detect) Parainfluenza 3 (PCR) (Not Detect) Parainfluenza 4 (PCR) (Not Detect) RSV (PCR) (Not Detect) Entero/Rhino (PCR) (Not Detect) Specimen Rejected
[2016-09-16] MEDS: *HR* OxyCODONE/APAP 10/325 TABLET PO PRN ×3 (12:52→21:46)
[2016-09-17] MEDS: *HR* Heparin 5,000 UNIT/ML VIAL SQ SCH ×4 (00:28→23:38)
[2016-09-17] MEDS: *HR* OxyCODONE/APAP 10/325 TABLET PO PRN ×5 (03:14→23:40)
[2016-09-17] MEDS: Ipratropium/Albuterol Neb 3 ML IH SCH ×6 (03:42→23:40)
[2016-09-17 03:56] LABS: Basophils % 0.2 %; Eosinophils # 0.3 K/mcL (0.0-0.6); Eosinophils % 1.7 %; Hematocrit 29.7 % (35.3-44.9); Immature Granulocytes % 3.8 % (0-4); Lymphocytes # 5.1 K/mcL (0.6-4.6); Lymphocytes % 30.4 %; Mean Corpuscular HGB Conc 30.3 g/dL (31.6-35.5); Mean Corpuscular Hemoglobin 28.3 pg (28.0-33.3); Mean Corpuscular Volume 93.4 fL (83.0-100.0); Mean Platelet Volume 9.9 fL (9.4-12.4); Monocytes # 1.6 K/mcL (0.0-1.3); Monocytes % 9.8 %; Platelet Count 371 K/mcL (140-400); Red Blood Count 3.18 M/mcL (3.82-4.97); Red Cell Distribution Width 16.2 % (11.5-14.5); Segmented Neutrophils % 54.1 %
[2016-09-17] MEDS: *HR* HYDROmorphone (PF) 1 MG/ML SYRINGE IVP PRN ×2 (06:36→20:51)
[2016-09-17] MEDS: Aspirin 81 MG TAB.CHEW PO SCH (08:16)
[2016-09-17] MEDS: Gabapentin 300 MG CAPSULE PO SCH ×2 (08:17→20:44)
[2016-09-17] MEDS: Sennosides 8.6 MG TABLET PO SCH ×2 (08:17→20:43)
[2016-09-17] MEDS: Metoprolol XL (24 HR) Succ 25 MG TAB.ER.24H PO SCH (08:17)
[2016-09-17] MEDS: predniSONE 20 MG TABLET PO SCH (08:17)
[2016-09-17] MEDS: Azithromycin 500 MG in D5% in Water 250 ML IVPB SCH (11:41)
[2016-09-17] MEDS ORDERED: 0.9 % Sodium Chloride 1,000 ML ONE ×2 (12:21→13:35)
[2016-09-17] MEDS ORDERED: Heparin 1,000 UNITS/500 mL NS 500 ML ONE (12:21)
[2016-09-17] MEDS ORDERED: *HR* Heparin 10,000 UNIT/10 ML VIAL ONE (12:21)
[2016-09-17] MEDS ORDERED: Nitroglycerin 1,000 MCG/10 ML VIAL IV ONE (12:21)
--- NOTE | 2016-09-17 13:24 | Pre-Sedation Evaluation ---
Pre-sedation evaluation - Pre-sedation checklist Date of procedure: 09/09/16 Procedure: LHC and possible PCI Recent Vitals: Last Vital Signs Temp 97.9 F 09/17/16 11:45 Pulse 68 09/17/16 13:00 Resp 16 09/17/16 11:45 BP 115/81 09/17/16 11:45 Pulse Ox 95 09/17/16 11:45 H&P (including ROS) documented in medical record: Yes Previous reaction to sedatives/anesthetics: No Dietary Status: NPO after Midnight Airway Assessment: Patient can open mouth completely, TMJ function normal Possible difficult airway: No ASA Classification *see protocol: CLASS III-Severe systemic disease Plan of Care: Pt appropriate candidate for procedure/moderate/conscious sedation , Risks/benefits of procedure/sedation discussed w/ patient/family, If not NPO; Risk of intake outweiged by necessity to perform procedure
[2016-09-17] MEDS ORDERED: *HR* Midazolam HCl 2 MG/2 ML VIAL ONE (13:34)
[2016-09-17] MEDS ORDERED: *HR* FentaNYL (PF) 100 MCG/2 ML VIAL ONE (13:35)
--- NOTE | 2016-09-17 13:52 | Internal Med Progress Note ---
Date of Encounter: 09/17/16 Time of Encounter: 09:40 - Assessment and plan (1) Acute respiratory failure Current Visit: Yes Status: Acute Assessment and plan: Improving overall. Due to COPD exacerbation and cardiomyopathy. Moderate risk for complications Qualifiers: Respiratory failure complication: hypoxia and hypercapnia Qualified Code(s) : J96.01 - Acute respiratory failure with hypoxia; J96.02 - Acute respiratory failure with hypercapnia (2) Atrial fibrillation Current Visit: Yes Status: Chronic Assessment and plan: Rate controlled Qualifiers: Atrial fibrillation type: chronic Qualified Code(s): I48.2 - Chronic atrial fibrillation (3) Cardiomyopathy Current Visit: Yes Status: Suspected Assessment and plan: Suspected ischemic cardiomyopathy. Cardiac catheterization today Qualifiers: Cardiomyopathy type: ischemic Qualified Code(s): I25.5 - Ischemic cardiomyopathy (4) Community acquired pneumonia Current Visit: Yes Status: Acute Assessment and plan: On azithromycin. Complete 10 day treatment course. Patient will continue on his antibiotics. Claudia in sputum culture most likely contaminant. (5) COPD exacerbation Current Visit: Yes Status: Acute Assessment and plan: Continue bronchodilator. Taper steroids. (6) NSTEMI (non-ST elevated myocardial infarction) Current Visit: Yes Status: Acute (7) Sepsis Current Visit: Yes Status: Resolved Qualifiers: Sepsis type: sepsis due to unspecified organism Qualified Code(s): A41.9 - Sepsis, unspecified organism - Subjective Interval history: Continues to feel better. Is awaiting cardiac catheterization test to be done later today. Breathing is improving. No chest pain today. - Constitutional Vitals: Temp Pulse Resp BP Pulse Ox 97.9 F 68 16 115/81 95 09/17/16 11:45 09/17/16 13:00 09/17/16 11:45 09/17/16 11:45 09/17/16 11:45 General appearance: Present: cooperative, mild distress, A&O X 3, morbidly obese - Respiratory Respiratory exam: Present: decreased breath sounds (Diminished bilaterally), prolonged expiratory phase, rhonchi. Absent: accessory muscle use, rales, wheezes - Cardiovascular Cardiovascular exam: Present: RRR, +S1, +S2. Absent: diastolic murmur, gallop, rubs, systolic murmur - GI/Abdominal GI/Abdominal exam: Present: normal bowel sounds, soft, no peritoneal signs. Absent: distended, tenderness - Extremities Exam Extremities exam: Present: warm, radial pulses palpable and symetrical. Absent : calf tenderness, cyanotic, pedal edema Internal Medicine: Result - Labs CBC & Chem 7: 09/17/16 03:30 09/16/16 04:25 Labs: Short CBC 09/17/16 Range/Units 03:30 WBC 16.6 H (4.3-11.1) K/mcL Hgb 9.0 L (11.5-15.4) g/dL Hct 29.7 L (35.3-44.9) % Plt Count 371 (140-400) K/mcL Neutrophils # 9.0 H (1.6-8.9) K/mcL - ABG Interpretation ABG results: ABG ABG pH 7.51 pH Units (7.32-7.45) H 09/12/16 04:11 ABG pCO2 40 mmHg (35-45) 09/12/16 04:11 ABG pO2 66 mmHg (85-104) L 09/12/16 04:11 ABG O2 Saturation 95 % (95-98) 09/12/16 04:11 PT/INR, D-dimer PT 12.6 Seconds (9.4-12.1) H 09/09/16 14:50 D-Dimer 1585 ng/mLFEU (0-500) H 09/08/16 22:22 - VTE Documentation of Mechanical Device: Intermittent pneumatic compression device Consult Discharge Plan - Plan Referrals: Indio Aguayo CNP [Advanced Practice Nurse] - 10/03/16 10:00 am Bushra Landry MD [Primary Care Provider] - (Pt is from [facility], no PCP appointment is needed) - Attending Attestation This document has been at least partially created by [employer] recognition technology by Dr. Chavez. Errors in grammar, wording or other phrases may exist. If errors are found after the documentation is signed, they will be addressed individually in the addendum section of this document when appropriate.
--- NOTE | 2016-09-17 14:04 | Invasive Diagnostic Lab ---
Name: Chani Perez Date of Study: 09/17/2016 Date: 1940 Ht: 147.0 cm /57.9 in Medical Record#: [id number] Age: 76 Wt: 72.5 kg / 159.84 lb Account/Order#: [id number] Gender: Female BSA: 1.65 Order #: [id number] Fluoro Dose: 167 mGy BMI: 33.55 Procedure Physician: Jr Manzo MD Referring MD: Bushra Landry MD Referring MD: Procedures Performed: LEFT HEART CATH Indications: Non-Stemi, Cardiomyopathy Impressions: There is mild two vessel coronary artery disease. The left ventricle is normal and has normal contractility EF 65% Recommendations: Optimal medical therapy of patient's disease. Aggressive risk factor modification. History/Risk Factors: AFIB CHF within 2 weeks Procedure Access obtained in the right Femoral artery by percutaneous puncture Complications: None Contrast: Isovue 65ml Hemodynamics: Pressures Site Systolic/ A Wave Diastolic/ V Wave End Diastolic/ Mean HR AO 103 75 88 80 AO 104 78 91 77 LV 126 16 27 73 LV 135 80 103 82 AO 102 47 73 78 LV Ventriculography Ejection Method: LV Gram Ejection Fraction: 65% Wall Motion: ANDRADE Anterobasal Normal Anterolateral Normal Apical: Normal Inferoapical Normal Inferobasal Normal Coronary Dominance: Right Lesion Findings/Interventions * Left Main Coronary Artery The LMCA is angiographically free of disease. * Left Anterior Descending There is a 20% stenosis in the Proximal LAD. * Circumflex There is a 30% stenosis in the Proximal Circumflex. * Right Coronary Artery There is a 20% stenosis in the Mid RCA. Updated by Chika Benitez RN on 09/17/2016 1:56:17 PM Jr Manzo MD electronically signed on 09/17/2016 1:59:10 PM with status of Final
--- NOTE | 2016-09-17 14:09 | Event Note ---
Date of Encounter: 09/17/16 Time of Encounter: 14:00 - Cardiology Event Note Mild, non-obstructive CAD per [facility]. EF 65% per LV gram. No further inpatient Cardiology recommendations, will sign-off. Please call with questions. Patient was discussed and reviewed with Dr. Santos.
[2016-09-17] MEDS: 0.9 % Sodium Chloride 1,000 ML IVC SCH (16:22)
[2016-09-18] MEDS: *HR* OxyCODONE/APAP 10/325 TABLET PO PRN ×5 (04:11→22:00)
[2016-09-18 04:31] LABS: Basophils % 0.1 %; Eosinophils # 0.3 K/mcL (0.0-0.6); Eosinophils % 2.1 %; Hematocrit 27.3 % (35.3-44.9); Hemoglobin 8.3 g/dL (11.5-15.4); Immature Granulocytes % 4.1 % (0-4); Lymphocytes # 4.9 K/mcL (0.6-4.6); Lymphocytes % 34.8 %; Mean Corpuscular HGB Conc 30.4 g/dL (31.6-35.5); Mean Corpuscular Hemoglobin 28.4 pg (28.0-33.3); Mean Corpuscular Volume 93.5 fL (83.0-100.0); Mean Platelet Volume 9.8 fL (9.4-12.4); Monocytes # 1.5 K/mcL (0.0-1.3); Monocytes % 10.5 %; Neutrophils # 6.8 K/mcL (1.6-8.9); Platelet Count 341 K/mcL (140-400); Red Blood Count 2.92 M/mcL (3.82-4.97); Red Cell Distribution Width 16.2 % (11.5-14.5); Segmented Neutrophils % 48.4 %
[2016-09-18 04:48] LABS: BUN/Creatinine Ratio 20 (6-26); Blood Urea Nitrogen 14 mg/dL (7-20); Calcium 8.6 mg/dL (8.6-10.8); Carbon Dioxide 28 mEq/L (19-29); Chloride 105 mEq/L (98-109); Glucose 94 mg/dL (70-99); Osmolality,Calculated 294 (280-300); Potassium 3.9 mEq/L (3.5-4.5); Sodium 142 mEq/L (136-145); eGFR For African Americans > 60 (> 60); eGFR For Non-African Americans > 60 (> 60)
[2016-09-18] MEDS: Ipratropium/Albuterol Neb 3 ML IH SCH ×6 (04:59→23:46)
[2016-09-18] MEDS: Metoprolol XL (24 HR) Succ 25 MG TAB.ER.24H PO SCH (08:16)
[2016-09-18] MEDS: Sennosides 8.6 MG TABLET PO SCH ×2 (08:16→20:47)
[2016-09-18] MEDS: *HR* Heparin 5,000 UNIT/ML VIAL SQ SCH ×3 (08:17→23:07)
[2016-09-18] MEDS: Gabapentin 300 MG CAPSULE PO SCH ×2 (08:17→20:47)
[2016-09-18] MEDS: Aspirin 81 MG TAB.CHEW PO SCH (08:17)
[2016-09-18] MEDS: predniSONE 20 MG TABLET PO SCH (08:17)
[2016-09-18] MEDS: 0.9 % Sodium Chloride 1,000 ML IVC SCH (10:52)
[2016-09-18] MEDS: Azithromycin 500 MG in D5% in Water 250 ML IVPB SCH (10:52)
--- NOTE | 2016-09-18 15:02 | Invasive Diagnostic Lab Proc ---
Name: Chani Perez Date of Study: 09/17/2016 Date: 1940 Ht: 57.9in Medical Record#: [id number] Age: 76 Wt: 160.06lb Gender: Female BSA: 1.65 Order #: [id number] BMI: 33.6 Physicians Procedure Physician: Jr Manzo MD Referring MD: Bushra Landry MD Referring MD: Staff Name Position Time In Chika Benitez RN Video Game Script Writer 01:32 PM Kassie Ballesteros RT (R) Monitor 01:32 PM Carla Bergman RT Scrub 01:33 PM Indications Indication Non-Stemi Cardiomyopathy Procedures Performed Procedure L HRT ARTERY/VENTRICLE ANGIO Pre-Procedure Checklist Informed consent is complete signed and on chart. H\T\P is on chart. ID band is on and ID verified with patient. Patient NPO for procedure The procedure was described for the patient and questions were answered. Blood Pressure: 122/55 ECG is on chart. Plan of Care Patient will tolerate the procedure without complications. Adequate level of comfort will be maintained. Hemodynamics will remain stable Patient will recover from procedure without complications. Respiratory function will be maintained. Cardiac rhythm will remain stable. Patient temperature will be maintained. Patient and/or family have verbalized understanding of the procedure. Patient Education Chief Complaint/Reason for Test: Cardiac Cath Developmental Category: Geriatric (65+ years) Developmentally Appropriate for Age: Yes Learning Barriers: None Education Needs: Procedure Education Method: Verbal Information Taught: Cardiac Cath Educational Evaluation: Able to repeat information Intravenous Access Time IV Size Location DC'd Fluid/Drip Rate Units RN 12:37 PM 20g midline on arrival Left upper arm 0.9NaCl 25 ml/hr Chika Benitez RN Allergies PCN, ETHER, CODIENE, FAMILY OF IBUPROFEN,NAPROSYN Nsaid PCN (penicillin) Ibuprofen Ether NSAIDS (Non-Steroidal Anti-Inflamma Penicillins levofloxacin pregabalin codeine PCN NSAIDs Vital Signs Time BP (mmHg) HR (bpm) O2 Sat. RR (bpm) LOC 12:37 PM 112 / 55 66 99 % 13 5 = Fully awake and oriented or at pre-proc level 01:33 PM / % 5 = Fully awake and oriented or at pre-proc level 01:33 PM / % 4 = Oriented but drowsy 01:31 PM 142 / 78 83 99 % 20 01:36 PM 124 / 59 102 97 % 17 01:42 PM 131 / 74 90 100 % 13 01:46 PM 108 / 57 87 94 % 11 01:51 PM 111 / 70 73 95 % 18 01:56 PM 107 / 62 81 98 % 21 02:01 PM 109 / 56 82 97 % 17 02:06 PM 87 / 60 81 97 % 14 02:07 PM 103 / 62 82 96 % 18 Procedural Medications Time Medication Dose Units Method Given By 01:35 PM Versed 1 mg Intravenous Chika Benitez RN 01:35 PM Fentanyl 50 mcg Intravenous Chika Benitez RN 01:40 PM Lidocaine 2% 17 ml Subcutaneous Jr Manzo MD 01:40 PM Versed 1 mg Intravenous Chika Benitez RN 01:41 PM Fentanyl 50 mcg Intravenous Chika Benitez RN 01:41 PM 5 ml Subcutaneous Jr Manzo MD ASA Classification: CLASS II- Mild systemic disease (i.e. well-controlled diabetes, hypertension, asthma, cigarette smoking) Ovidio Score Preprocedure Postprocedure Activity 2- Moves 4 extremities sustained head lift Activity 2- Moves 4 extremities sustained head lift Circulation 2- SBP +/= 20 points of pre-anesthetic level Circulation 2- SBP +/= 20 points of pre-anesthetic level Consciousness 2- Awake and alert oriented x 3 Consciousness 2- Awake and alert oriented x 3 O2 Saturation 2- Able to maintain O2 satruation of 92% on room air O2 Saturation 2- Able to maintain O2 satruation of 92% on room air Respiratory 2- Able to deep breathe and cough well Respiratory 2- Able to deep breathe and cough well Total Score 10 Total Score 10 Contrast Agent: Isovue Diagnostic Contrast: 65 ml Total Contrast: 65 ml Fluoro Dose: 167 mGy Procedure Log Time Note Enter By 01:30 PM CathStat 01:30 PM Vitals capture started with the following parameters, Patient=Adult, Interval=5 min, Initial Kwfihxhd=255 mmHg, Deflation Rate=5 mmHg, Cuff placed on Right Arm 01:30 PM Recorded ECG: HR=85 Condition=Condition 1 01:31 PM HR=83 bpm, ABDE=732/78 mmhg, SpO2=99.0 %, Resp=20 B/min, Comment=Paced 01:32 PM Pt arrived to flue dust laborer 2 at 13:32 [email or web address] 01:32 PM Physician arrived 13: [facility] :32 PM Meet and greet completed [facility] :32 PM Sign in performed according to hospital policy. [facility] :32 PM Procedure start : [facility] :32 PM ASA Class CLASS II- Mild systemic disease (i.e. well-controlled diabetes, hypertension, asthma, cigarette smoking) [facility] :32 PM Chika Benitez RN Position: Video Game Script Writer Time in: : [facility] 33 PM Kassie Ballesteros RT (R) Position: Monitor Time in: : [facility] :33 PM Carla Bergman RT Position: Scrub Time in: : [facility] :33 PM Patient charges- Angio tray pack, Navilyst 3mm J, Pulse Oximetry and ACIST tubing and transducer [facility] 33 PM Case Delayed No [facility] 33 PM Hair removed from procedure site in procedure lab using clippers. Bilateral groin prepped with Chloraprep by Kassie Ballesteros RT (R) then patient draped. Skin intact. [facility] PM Time: 13:33 Patient comfortable and pain free: Yes [facility] PM Time: 13:33LOC: 5 = Fully awake and oriented or at pre-proc level [facility] :33 PM Clinical Presentation: Non-STEMI [facility] :34 PM Recorded ECG: HR=83 Condition=Condition 1 01:35 PM Time: 13:35 Versed 1 mg Intravenous Given by Ch[facility]itez RN [facility] :35 PM Time: 13:35 Fentanyl 50 mcg Intravenous Given by Chika Benitez RN [facility] :36 PM QF=034 bpm, YQQP=818/59 mmhg, SpO2=97.0 %, Resp=17 B/min, Comment=Paced 01:40 PM Pressure channel 1 zeroed. 01:40 PM Time out performed according to hospital policy [facility] :40 PM Time: 13:40 17 ml Lidocaine 2% to right groin Subcutaneous Given by Jr Manzo MD [facility] :41 PM Time: 13:40 Versed 1 mg Intravenous Given by Chika Benitez RN [facility] :41 PM Time: 13:41 Fentanyl 50 mcg Intravenous Given by Chika Benitez RN [facility] 01:41 PM Time: 13:41 5 ml to Subcutaneous Given by Jr Manzo MD [facility]ley 01:42 PM HR=90 bpm, XKBA=452/74 mmhg, DuW8=231.0 %, Resp=13 B/min, Comment=Paced 01:42 PM Micro-Introducer Kit utilized for sheath placement lparsley 01:42 PM Unsuccessful access attempt # 1 into the right Femoral artery. Manual pressure applied to achieve hemostasis.. lparsley 01:44 PM Unsuccessful access attempt # 2 into the right Femoral artery. Manual pressure applied to achieve hemostasis.. lparsley 01:46 PM HR=87 bpm, GFOP=795/57 mmhg, SpO2=94.0 %, Resp=11 B/min, Comment=Paced 01:46 PM Access obtained by percutaneous puncture. 5Fr 10cm Terumo [place] sheath placed in right Femoral artery. [id number] lparsley 01:46 PM 0.035 145cm Navilyst 3mmJ wire [id number] l[facility]ley 01:47 PM 5Fr FL catheter inserted over the wire [id number] l[facility]ley 01:47 PM LCA angiography performed in multiple views. lparsley 01:47 PM LCA angiography performed in multiple views. lparsley 01:48 PM Recorded Pressure: Ao, HR=80, Condition=Condition 1 (Aorta) Ao 103/75/88 01:48 PM Time: 13:33LOC: 4 = Oriented but drowsy l[facility] 01:48 PM Time: 13:33 Patient comfortable and pain free: Yes [facility] 01:49 PM Lesion found in Proximal Circumflex. Pre Stenosis: 30 Pre BRAD Flow: lparsley 01:49 PM Lesion found in Proximal LAD. Pre Stenosis: 20 Pre BRAD Flow: lparsley 01:49 PM Catheter removed lparsley 01:49 PM 5Fr FR 4 catheter inserted over the wire [facility] lparsley 01:50 PM RCA angiography performed in multiple views. lparsley 01:51 PM Recorded Pressure: Ao, HR=77, Condition=Condition 1 (Aorta) Ao 104/78/91 01:51 PM Lesion found in Mid RCA. Pre Stenosis: 20 Pre BRAD Flow: lparsley 01:51 PM Catheter removed lparsley 01:51 PM 5Fr Pigtail catheter inserted over the wire [facility] 01:51 PM HR=73 bpm, DXUC=965/70 mmhg, SpO2=95.0 %, Resp=18 B/min, Comment=Paced 01:51 PM Catheter selectively placed in left ventricle [facility] 01:52 PM Recorded Pressure: LV, HR=73, Condition=Condition 1 (Left Ventricle) LV 126/16/27 01:52 PM Bolus angiogram of left Ventricle complete: 10 ml/sec for a total of 20 mls [facility] 01:52 PM Recorded Pressure: LV, Ao, HR=78, Condition=Condition 1 (Left Ventricle) LV 135/80/103, (Aorta) Ao 102/47/73 01:52 PM Catheter removed [email or web address] 01:53 PM Procedure completed at 13:53 [facility] PM Sign out completed: Radiation Dose 166.54 mGy Fluoro Time: 1.3 Isovue 370 - 200ml contrast 65 ml given by Jr Manzo MD. Complications: NoneCardiac Rehab Consult needed: YesConfirmed administered medications: Yes [facility] 01:56 PM HR=81 bpm, QBWP=602/62 mmhg, SpO2=98.0 %, Resp=21 B/min, Comment=Paced 01:57 PM Arterial sheath pulled using manual compression and V+ Pad for 15 minutes by Carla Bergman [facility] 01:57 PM Post ECG Paced lparsley 01:57 PM Post Blood Pressure 107/62 [facility] 01:57 PM Information taught Cardiac Cath [facility] 01:57 PM Education needs Procedure, Plan of Care, and Disease Process [facility] 01:57 PM Learning barriers :None [facility] 01:57 PM Education Methods Verbal [facility] 01:57 PM Education evaluation Able to repeat information [facility] 01:57 PM Delay to floor No lparsley 01:57 PM Family placed in not available. [facility] 01:58 PM Complications: None lparsley 02:01 PM HR=82 bpm, MOQM=529/56 mmhg, SpO2=97.0 %, Resp=17 B/min, Comment=Paced 02:06 PM HR=81 bpm, NIBP=87/60 mmhg, SpO2=97.0 %, Resp=14 B/min, Comment=Paced 02:06 PM NIBP STAT measurement started. 02:07 PM HR=82 bpm, XCIA=216/62 mmhg, SpO2=96.0 %, Resp=18 B/min, Comment=Paced 02:10 PM Report given to Yaz ROTHMAN Pt taken to Room #10. 14:10 [email or web address] 02:11 PM Site status No bleeding/hematoma - Rt Groin as reported by Carla Bergman RT at 14:11 [email or web address] 02:11 PM Patient out of room: 14:11 [email or web address] Complications Complication None None Hemodynamics Pressures Site Systolic/A Wave Diastolic/V Wave Mean AO 103 75 88 AO 104 78 91 LV 126 16 27 LV 135 80 103 AO 102 47 73 Post Procedure Information Blood Pressure: 107/62 mmHg Rhythm: Paced Post procedural instructions were given Site Checks Time Location Status Staff Sheath In? Note 02:11 PM Rt Groin No bleeding/hematoma Carla Bergman Pulses Time Site Pre-Procedure Post-Procedure Note 09/17/2016 12:37:00 PM Bilateral DP \T\ PT 2+ 2+ 09/17/2016 12:37:00 PM Bilateral radial 2+ Updated by Chika Benitez RN on 09/18/2016 2:54:59 PM electronically signed on 09/18/2016 2:55:36 PM with status of Final
[2016-09-18] MEDS: *HR* HYDROmorphone (PF) 1 MG/ML SYRINGE IVP PRN ×2 (15:43→20:48)
--- NOTE | 2016-09-18 18:59 | Internal Med Progress Note ---
Date of Encounter: 09/18/16 Time of Encounter: 18:57 - Assessment and plan (1) Acute respiratory failure Current Visit: Yes Status: Acute Qualifiers: Respiratory failure complication: hypoxia and hypercapnia Qualified Code(s) : J96.01 - Acute respiratory failure with hypoxia; J96.02 - Acute respiratory failure with hypercapnia (2) COPD exacerbation Current Visit: Yes Status: Acute (3) Community acquired pneumonia Current Visit: Yes Status: Acute (4) Systolic CHF, acute Current Visit: Yes Status: Acute (5) Atrial fibrillation Current Visit: Yes Status: Chronic Qualifiers: Atrial fibrillation type: chronic Qualified Code(s): I48.2 - Chronic atrial fibrillation (6) Cardiomyopathy Current Visit: Yes Status: Suspected Assessment and plan: still has rhonchi bilaterally with prescence of leukocytosis, continue steroids and nebs continue antibiotics, improvement in wbc noted. continue diuretics. monitor ins and outs. s/p LHC, appreciate cardio recommendations. Qualifiers: Cardiomyopathy type: ischemic Qualified Code(s): I25.5 - Ischemic cardiomyopathy - Subjective Interval history: Patient evaluated, seen lying in bed. Pt denies Chest or abdominal pain, reports some chest congestion. - Constitutional Vitals: Temp Pulse Resp BP Pulse Ox 97.9 F 77 18 125/67 97 09/18/16 16:00 09/18/16 16:13 09/18/16 16:32 09/18/16 16:00 09/18/16 16:32 General appearance: Present: cooperative, mild distress, A&O X 3, morbidly obese - Head Head exam: Present: atraumatic, normocephalic - Eye Eye exam: Present: PERRL, conjuntiva pink, sclera anicteric Pupils: Present: PERRL - Neck Neck exam general surgery: Present: supple, trachea midline. Absent: lymphadenopathy - Respiratory Respiratory exam: Present: decreased breath sounds, CTAB, rhonchi. Absent: accessory muscle use, rales, wheezes - Cardiovascular Cardiovascular exam: Present: RRR, +S1, +S2. Absent: diastolic murmur, gallop, rubs, systolic murmur - GI/Abdominal GI/Abdominal exam: Present: normal bowel sounds, soft, no peritoneal signs. Absent: distended, tenderness - Extremities Exam Extremities exam: Present: warm, radial pulses palpable and symetrical. Absent : calf tenderness, cyanotic, pedal edema - Neurological Exam Neurological exam: Present: CN II-XII intact, oriented X3, no focal deficits. Absent: pronater drift, facial droop, speech deficit - Skin Skin exam: Present: dry, intact Internal Medicine: Result - Labs CBC & Chem 7: 09/18/16 04:10 09/18/16 04:10 Labs: Short CBC 09/18/16 Range/Units 04:10 WBC 14.0 H (4.3-11.1) K/mcL Hgb 8.3 L (11.5-15.4) g/dL Hct 27.3 L (35.3-44.9) % Plt Count 341 (140-400) K/mcL Neutrophils # 6.8 (1.6-8.9) K/mcL BMP 09/18/16 04:10 Sodium 142 Potassium 3.9 Chloride 105 Carbon Dioxide 28 BUN 14 Creatinine 0.71 Glucose 94 Calcium 8.6 - ABG Interpretation ABG results: ABG ABG pH 7.51 pH Units (7.32-7.45) H 09/12/16 04:11 ABG pCO2 40 mmHg (35-45) 09/12/16 04:11 ABG pO2 66 mmHg (85-104) L 09/12/16 04:11 ABG O2 Saturation 95 % (95-98) 09/12/16 04:11 PT/INR, D-dimer PT 12.6 Seconds (9.4-12.1) H 09/09/16 14:50 D-Dimer 1585 ng/mLFEU (0-500) H 09/08/16 22:22 - Impressions Impressions Chest X-Ray 09/18/16 00:01 IMPRESSION: Small pleural effusions with bibasilar atelectasis. D/ / 09/18/2016 07:16:06 Zaid Parham MD / yer Interpreting Provider: Zaid Parham MD - VTE Documentation of Mechanical Device: Intermittent pneumatic compression device Consult Discharge Plan - Plan Referrals: Indio Aguayo CNP [Advanced Practice Nurse] - 10/03/16 10:00 am Bushra Landry MD [Primary Care Provider] - (Pt is from [facility], no PCP appointment is needed)
[2016-09-18] MEDS: Albuterol 2.5 MG/3 ML NEBULIZER IH SCH ×2 (20:28→23:47)
[2016-09-19] MEDS: *HR* OxyCODONE/APAP 10/325 TABLET PO PRN ×4 (02:19→15:24)
[2016-09-19] MEDS: Ipratropium/Albuterol Neb 3 ML IH SCH ×3 (03:47→11:11)
[2016-09-19] MEDS: Albuterol 2.5 MG/3 ML NEBULIZER IH SCH ×3 (03:47→11:13)
[2016-09-19 04:09] LABS: Basophils % 0.2 %; Eosinophils # 0.4 K/mcL (0.0-0.6); Eosinophils % 2.6 %; Hematocrit 29.3 % (35.3-44.9); Hemoglobin 8.7 g/dL (11.5-15.4); Immature Granulocytes % 3.4 % (0-4); Immature Platelets 2.9 % (1.1-6.1); Lymphocytes # 3.9 K/mcL (0.6-4.6); Lymphocytes % 27.9 %; Mean Corpuscular HGB Conc 29.7 g/dL (31.6-35.5); Mean Corpuscular Hemoglobin 27.8 pg (28.0-33.3); Mean Corpuscular Volume 93.6 fL (83.0-100.0); Monocytes # 1.1 K/mcL (0.0-1.3); Monocytes % 7.7 %; Neutrophils # 8.2 K/mcL (1.6-8.9); Platelet Count 392 K/mcL (140-400); Red Blood Count 3.13 M/mcL (3.82-4.97); Red Cell Distribution Width 16.3 % (11.5-14.5); Segmented Neutrophils % 58.2 %
[2016-09-19] MEDS: Sennosides 8.6 MG TABLET PO SCH (07:16)
[2016-09-19] MEDS: Aspirin 81 MG TAB.CHEW PO SCH (07:25)
[2016-09-19] MEDS: Metoprolol XL (24 HR) Succ 25 MG TAB.ER.24H PO SCH (07:25)
[2016-09-19] MEDS: Gabapentin 300 MG CAPSULE PO SCH (07:26)
[2016-09-19] MEDS: *HR* Heparin 5,000 UNIT/ML VIAL SQ SCH (07:28)
[2016-09-19] MEDS: predniSONE 20 MG TABLET PO SCH (07:30)
[2016-09-19 07:42] VITALS: BP 107/56
[2016-09-19] MEDS: Azithromycin 500 MG in D5% in Water 250 ML IVPB SCH (10:37)
--- NOTE | 2016-09-19 13:51 | Discharge Summary ---
Date of Encounter: 09/19/16 Time of Encounter: 13:49 - Discharge Diagnosis (1) Acute respiratory failure Priority: Primary Status: Acute Qualifiers: Respiratory failure complication: hypoxia and hypercapnia Qualified Code(s) : J96.01 - Acute respiratory failure with hypoxia; J96.02 - Acute respiratory failure with hypercapnia (2) COPD exacerbation Priority: Primary Status: Acute (3) Community acquired pneumonia Priority: Primary Status: Acute (4) Systolic CHF, acute Priority: Primary Status: Acute (5) Atrial fibrillation Priority: Primary Status: Chronic Qualifiers: Atrial fibrillation type: chronic Qualified Code(s): I48.2 - Chronic atrial fibrillation (6) Cardiomyopathy Priority: Secondary Status: Suspected Qualifiers: Cardiomyopathy type: ischemic Qualified Code(s): I25.5 - Ischemic cardiomyopathy - Discharge Medications Prescriptions: Oxycodone HCl/Acetaminophen [Percocet 5-325 mg Tablet] 1 tab PO Q6H PRN #10 tablet PRN Reason: Pain Home Medications: Acetaminophen [Tylenol] 325 mg PO Q6H PRN 04/20/16 [History] Albuterol Neb [Proventil Neb] 2.5 mg IH QID PRN 04/20/16 [History] Albuterol Sulfate [Ventolin Hfa] 2 puff IH QID PRN 04/20/16 [History] Ascorbate Calcium [Vitamin C] 500 mg PO DAILY 04/20/16 [History] Aspirin 81 mg PO DAILY 04/20/16 [History] Bisacodyl [Dulcolax] 10 mg PO DAILY PRN 04/20/16 [History] Cyanocobalamin (Vitamin B-12) [Vitamin B-12] 1,000 mcg SL DAILY 04/20/16 [ History] Ergocalciferol (VITAMIN D2) [Vitamin D2 (50,000 UNIT)] 50,000 unit PO Q2W [History] Fluticasone Propionate Nasal [Flonase] 100 mcg NS DAILY 04/20/16 [History] Gabapentin [Neurontin] 300 mg PO QAM 04/20/16 [History] Gabapentin [Neurontin] 600 mg PO HS 04/20/16 [History] Levothyroxine [Synthroid] 112 mcg PO DAILY 04/20/16 [History] Mv-Mn/FA/Vit K1/Lycop/Lut/Zeax [Ocuvite Eye + Multi Tablet] 2 tab PO DAILY 04/20 [History] Omeprazole [PriLOSEC] 20 mg PO DAILY 04/20/16 [History] Tiotropium [place] [Spiriva Respimat] 2 puff IH DAILY 04/20/16 [History] TraZODone 75 mg PO HS 04/20/16 [History] Albuterol Neb [Proventil Neb] 2.5 mg IH Q2H 09/09/16 [History] Budesonide/Formoterol 160/4.5 [Symbicort 160/4.5] 2 puff IH BID 09/09/16 [ History] Dextran 70/Hypromellose/Pf [Artificial Tears Drops] 1 drop RIGHT EYE QID PRN [History] Escitalopram [Lexapro] 10 mg PO DAILY 09/09/16 [History] Furosemide [Lasix] 40 mg PO QAM 09/09/16 [History] Mag Hydrox/Al Hydrox/Simeth [Maalox] 30 ml PO DAILY PRN 09/09/16 [History] Polyethylene Glycol 3350 [MiraLAX] 17 gm PO DAILY 09/09/16 [History] Potassium Chloride [Klor-Con 10] 10 meq PO DAILY 09/09/16 [History] Atorvastatin [Lipitor] 40 mg PO HS tablet 09/19/16 [Rx] Azithromycin [Zithromax] 250 mg PO DAILY #5 tablet 09/19/16 [Rx] Cetirizine HCl [Zyrtec] 10 mg PO DAILY PRN #0 09/19/16 [Rx] Citalopram [CeleXA] 20 mg PO DAILY tablet 09/19/16 [Rx] Doxycycline 100 mg PO BID #14 capsule 09/19/16 [Rx] GuaiFENesin ER [Mucinex] 600 mg PO BID 7 Days 09/19/16 [Rx] Ipratropium/Albuterol Neb [Duoneb] 3 ml IH [id number] inhsol 09/19/16 [Rx] Metoprolol XL (24 HR) Succ [Toprol Xl] 25 mg PO DAILY tab.er.24h 09/19/16 [Rx] Montelukast [Singulair] 10 mg PO HS tablet 09/19/16 [Rx] Oxycodone HCl/Acetaminophen [Percocet 5-325 mg Tablet] 1 tab PO Q6H PRN #10 tablet 09/19/16 [Rx] Allergies/Adverse Reactions: Allergies codeine Allergy (Verified 09/09/16 16:47) Rash Ether Allergy (Verified 09/09/16 16:47) See Comments UNABLE TO CONFIRM REACTION- LISTED ON PATIENT'S ECW PROFILE levofloxacin [From Levaquin] Allergy (Verified 09/09/16 16:47) Hives Penicillins Allergy (Verified 09/09/16 16:47) Rash NSAIDS (Non-Steroidal Anti-Inflamma Adverse Reaction (Verified 09/08/16 18:47) Nausea pregabalin [From Lyrica] Adverse Reaction (Verified 09/08/16 18:47) Blurry Vision SALMON Allergy (Uncoded 09/09/16 16:47) See Comments UNABLE TO CONFIRM REACTION- LISTED ON PATIENT'S ECW PROFILE Date of admission: 09/09/16 08:31 Primary care physician: Bushra Landry Consults: 09/12/16 11:00 consult to parking meter servicer [Consult to Nutrition] [CONS] Routine Comment: Consulting Provider: NUTRITION Reason for Dietary Consult: TF Start and Manage 09/17/16 13:56 Consult to Cardiac Rehabilitation-Phase1 [CONS] Routine Comment: Reason for Consult: post op cath Call Completed: Yes - Patient Status Disposition: Transfer SNF Condition: Fair Overall status at discharge: patient is progressing back to baseline - Discharge Instructions Follow Up With: Indio Aguayo CNP [Advanced Practice Nurse] - 10/03/16 10:00 am Bushra Landry MD [Primary Care Provider] - (Pt is from [facility], no PCP appointment is needed) - Diet and Activity Activity: increase activity as tolerated Diet: low fat, low cholesterol Hospital course: Ms. Perez is a 76 year old female who presented to the hospital with shortness of breath and chest pressure. Patient subsequently developed respiratory failure was intubated. Patient was treated for acute systolic heart failure, pneumonia, non-ST elevated ME. Patient was successfully extubated, she was treated with antibiotics, steroids and bronchodilators with improvement. Patient was also seen by cardiology, she had left heart catheterization which showed non-obstructive coronary artery disease. Recommendations were to continue medical management. Patient will be discharged in stable condition to group home facility with continuation of antibiotics, steroids and nebs. - Time Spent with Patient Total time spent providing and/or coordinating discharge services: - Constitutional Vitals: Temp Pulse Resp BP Pulse Ox 97.5 F L 77 18 107/56 97 09/19/16 07:40 09/19/16 11:52 09/19/16 07:40 09/19/16 07:40 09/19/16 07:40 General appearance: Present: cooperative, mild distress, A&O X 3, morbidly obese - Head Head exam: Present: atraumatic, normocephalic - Eye Eye exam: Present: PERRL, conjuntiva pink, sclera anicteric Pupils: Present: PERRL - Neck Neck exam general surgery: Present: supple, trachea midline. Absent: lymphadenopathy - Respiratory Respiratory exam: Present: decreased breath sounds, rhonchi. Absent: accessory muscle use, rales - Cardiovascular Cardiovascular exam: Present: RRR, +S1, +S2. Absent: diastolic murmur, gallop, rubs, systolic murmur - GI/Abdominal GI/Abdominal exam: Present: normal bowel sounds, soft, no peritoneal signs. Absent: distended, tenderness - Extremities Exam Extremities exam: Present: warm, radial pulses palpable and symetrical. Absent : calf tenderness, cyanotic, pedal edema - Neurological Exam Neurological exam: Present: CN II-XII intact, oriented X3, no focal deficits. Absent: pronater drift, facial droop, speech deficit - Skin Skin exam: Present: dry, intact - VTE Documentation of Mechanical Device: Intermittent pneumatic compression device
--- NOTE | 2016-09-19 14:22 | Physician Discharge Referral ---
- Diagnosis (1) Acute respiratory failure Status: Acute (2) COPD exacerbation Status: Acute (3) Community acquired pneumonia Status: Acute (4) Systolic CHF, acute Status: Acute (5) Atrial fibrillation Status: Chronic (6) Cardiomyopathy Status: Suspected - Transfer Medications Prescriptions: Azithromycin [Zithromax] 250 mg PO DAILY #5 tablet Doxycycline 100 mg PO BID #14 capsule Oxycodone HCl/Acetaminophen [Percocet 5-325 mg Tablet] 1 tab PO Q6H PRN #10 tablet PRN Reason: Pain Home Medications: Acetaminophen [Tylenol] 325 mg PO Q6H PRN 04/20/16 [History] Albuterol Neb [Proventil Neb] 2.5 mg IH QID PRN 04/20/16 [History] Albuterol Sulfate [Ventolin Hfa] 2 puff IH QID PRN 04/20/16 [History] Ascorbate Calcium [Vitamin C] 500 mg PO DAILY 04/20/16 [History] Aspirin 81 mg PO DAILY 04/20/16 [History] Bisacodyl [Dulcolax] 10 mg PO DAILY PRN 04/20/16 [History] Cyanocobalamin (Vitamin B-12) [Vitamin B-12] 1,000 mcg SL DAILY 04/20/16 [ History] Ergocalciferol (VITAMIN D2) [Vitamin D2 (50,000 UNIT)] 50,000 unit PO Q2W [History] Fluticasone Propionate Nasal [Flonase] 100 mcg NS DAILY 04/20/16 [History] Gabapentin [Neurontin] 300 mg PO QAM 04/20/16 [History] Gabapentin [Neurontin] 600 mg PO HS 04/20/16 [History] Levothyroxine [Synthroid] 112 mcg PO DAILY 04/20/16 [History] Mv-Mn/FA/Vit K1/Lycop/Lut/Zeax [Ocuvite Eye + Multi Tablet] 2 tab PO DAILY 04/20 [History] Omeprazole [PriLOSEC] 20 mg PO DAILY 04/20/16 [History] Tiotropium [place] [Spiriva Respimat] 2 puff IH DAILY 04/20/16 [History] TraZODone 75 mg PO HS 04/20/16 [History] Albuterol Neb [Proventil Neb] 2.5 mg IH Q2H 09/09/16 [History] Budesonide/Formoterol 160/4.5 [Symbicort 160/4.5] 2 puff IH BID 09/09/16 [ History] Dextran 70/Hypromellose/Pf [Artificial Tears Drops] 1 drop RIGHT EYE QID PRN [History] Escitalopram [Lexapro] 10 mg PO DAILY 09/09/16 [History] Furosemide [Lasix] 40 mg PO QAM 09/09/16 [History] Mag Hydrox/Al Hydrox/Simeth [Maalox] 30 ml PO DAILY PRN 09/09/16 [History] Polyethylene Glycol 3350 [MiraLAX] 17 gm PO DAILY 09/09/16 [History] Potassium Chloride [Klor-Con 10] 10 meq PO DAILY 09/09/16 [History] Atorvastatin [Lipitor] 40 mg PO HS tablet 09/19/16 [Rx] Azithromycin [Zithromax] 250 mg PO DAILY #5 tablet 09/19/16 [Rx] Cetirizine HCl [Zyrtec] 10 mg PO DAILY PRN #0 09/19/16 [Rx] Citalopram [CeleXA] 20 mg PO DAILY tablet 09/19/16 [Rx] Doxycycline 100 mg PO BID #14 capsule 09/19/16 [Rx] GuaiFENesin ER [Mucinex] 600 mg PO BID 7 Days 09/19/16 [Rx] Ipratropium/Albuterol Neb [Duoneb] 3 ml IH [id number] inhsol 09/19/16 [Rx] Metoprolol XL (24 HR) Succ [Toprol Xl] 25 mg PO DAILY tab.er.24h 09/19/16 [Rx] Montelukast [Singulair] 10 mg PO HS tablet 09/19/16 [Rx] Oxycodone HCl/Acetaminophen [Percocet 5-325 mg Tablet] 1 tab PO Q6H PRN #10 tablet 09/19/16 [Rx] Allergies/Adverse Reactions: Allergies codeine Allergy (Verified 09/09/16 16:47) Rash Ether Allergy (Verified 09/09/16 16:47) See Comments UNABLE TO CONFIRM REACTION- LISTED ON PATIENT'S [facility] PROFILE levofloxacin [From Levaquin] Allergy (Verified 09/09/16 16:47) Hives Penicillins Allergy (Verified 09/09/16 16:47) Rash NSAIDS (Non-Steroidal Anti-Inflamma Adverse Reaction (Verified 09/08/16 18:47) Nausea pregabalin [From Lyrica] Adverse Reaction (Verified 09/08/16 18:47) Blurry Vision SALMON Allergy (Uncoded 09/09/16 16:47) See Comments UNABLE TO CONFIRM REACTION- LISTED ON PATIENT'S [facility] PROFILE - Respiratory Orders Smoking Cessation: Smoking cessation has been advised. For more information, call the [place] Tobacco Quit Line at 4-879-ZBQO-NOW. CERTIFICATION: I certify that the transfer of the above named patient to an Extended Care Facility is necessary for the continuing treatment of the diagnosis listed. The above information is true and accurate reflection of patient's current condition. Confidential - Redisclosure prohibited without a patient's written consent.
== END 2016-09-19 15:27 ==
LOC: EMEROO 18:44 → 3BNU 18:44 → 2NENU 09-09 01:11 → SUATTDRO 09-09 08:31 → 2NNU 09-14 14:54
PROVIDERS: ADMIT Internal Medicine; ATTEND Family Medicine

== ENCOUNTER 2019-10-15 13:21 | Inpatient (IN) ==
[2019-10-15 13:43] LABS: Hematocrit 30.6 % (35.3-44.9); Hemoglobin 8.9 g/dL (11.5-15.4); Mean Corpuscular HGB Conc 29.1 g/dL (31.6-35.5); Mean Corpuscular Hemoglobin 31.3 pg (28.0-33.3); Mean Corpuscular Volume 107.7 fL (83.0-100.0); Mean Platelet Volume 9.1 fL (9.4-12.4); Platelet Count 322 K/mcL (140-400); Red Blood Count 2.84 M/mcL (3.82-4.97); Red Cell Distribution Width 13.6 % (11.5-14.5); White Blood Count 13.2 K/mcL (4.3-11.1)
[2019-10-15 14:10] LABS: Calcium 7.3 mg/dL (8.6-10.3); Potassium 4.3 mEq/L (3.5-5.1)
[2019-10-15] MEDS ORDERED: Isovue-370 500 ML BOTTLE IVP ONE (16:21)
[2019-10-15] MEDS ORDERED: 0.9 % Sodium Chloride 1,000 ML IVC ONE (16:37)
[2019-10-15 16:42] LABS: INR 1.1; Prothrombin Time 12.3 Seconds (9.4-12.1)
[2019-10-15] MEDS ORDERED: Ondansetron 4 MG/2 ML VIAL IVP PRN (17:26)
[2019-10-15] MEDS ORDERED: Naloxone 0.4 MG/ML INJ IVP PRN (17:26)
[2019-10-15] MEDS ORDERED: Ringers Solution, Lactated 1,000 ML IVC SCH (17:30)
[2019-10-15 17:48] LABS: VBG HCO3 31 mEq/L (21-27); VBG PCO2 43 mmHg (41-51); VBG PH 7.46 pH Units (7.32-7.42); VBG PO2 194 mmHg (25-50)
[2019-10-15 19:50] LABS: Hematocrit 29.2 % (35.3-44.9); Hemoglobin 8.8 g/dL (11.5-15.4)
[2019-10-15] MEDS: Pantoprazole 40 MG VIAL IVP SCH (20:33)
[2019-10-15] MEDS ORDERED: *HR* LORazepam 2 MG/ML VIAL IM PRN (21:16)
[2019-10-16] MEDS ORDERED: Ipratropium/Albuterol Neb 3 ML IH ONE (01:48)
[2019-10-16 02:48] LABS: Calcium 7.3 mg/dL (8.6-10.3); Potassium 4.4 mEq/L (3.5-5.1)
[2019-10-16 03:27] LABS: Basophils # 0.1 K/mcL (0.0-0.2); Basophils % 0.6 %; Eosinophils # 0.7 K/mcL (0.0-0.6); Eosinophils % 4.6 %; Hematocrit 31.2 % (35.3-44.9); Hemoglobin 9.3 g/dL (11.5-15.4); Immature Granulocytes % 0.5 % (0-4); Lymphocytes # 3.8 K/mcL (0.6-4.6); Lymphocytes % 26.1 %; Mean Corpuscular HGB Conc 29.8 g/dL (31.6-35.5); Mean Corpuscular Hemoglobin 32.3 pg (28.0-33.3); Mean Corpuscular Volume 108.3 fL (83.0-100.0); Mean Platelet Volume 10.2 fL (9.4-12.4); Monocytes # 1.3 K/mcL (0.0-1.3); Monocytes % 9.2 %; Neutrophils # 8.5 K/mcL (1.6-8.9); Platelet Count 347 K/mcL (140-400); Red Blood Count 2.88 M/mcL (3.82-4.97); Red Cell Distribution Width 13.7 % (11.5-14.5); White Blood Count 14.4 K/mcL (4.3-11.1)
[2019-10-16] MEDS: Pantoprazole 40 MG VIAL IVP SCH ×2 (05:54→17:43)
[2019-10-16] MEDS ORDERED: Tiotropium 18 MCG inhalation IH SCH (09:00)
[2019-10-16 09:14] LABS: Bilirubin,Urine Negative (Negative); Blood,Urine Trace (Negative); Clarity,Urine Cloudy (Clear); Color,Urine Yellow (Yellow); Glucose,Urine (UA) Normal (Normal); Ketones,Urine 15 mg/dL (Negative); Leukocyte Esterase,Urine Large (Negative); Nitrite,Urine Positive (Negative); PH,Urine 5.5 pH Units (5.0-8.0); Protein,Urine Trace mg/dL (Neg-Trace); Specific Gravity,Urine 1.021 (1.010-1.025); Urobilinogen,Urine Normal (Normal)
[2019-10-16 09:17] LABS: Bacteria,Urine Many per hpf (None-Few); RBC,Urine 0-3 per hpf (0-3); Squamous Epithelial Cell,Urine Moderate per lpf (None-Few); WBC,Urine TNTC per hpf (0-3)
[2019-10-16 09:22] LABS: Amphetamine Screen,Urine Negative ng/mL (Cutoff=1000); Barbiturate Screen,Urine Negative ng/mL (Cutoff=200); Cannabinoid Screen,Urine Negative ng/mL (Cutoff = 50); Cocaine Screen,Urine Negative ng/mL (Cutoff= 300); Opiate Screen,Urine Negative ng/mL (Cutoff=300); Phencyclidine Screen,Urine Negative ng/mL (Cutoff=25)
[2019-10-16 09:25] LABS: Benzodiazepines Screen,Urine Positive ng/mL (Cutoff=300)
[2019-10-16 09:36] LABS: Hyaline Casts,Urine Few per lpf (None-Few)
[2019-10-16] MEDS ORDERED: cefTRIAXone 1,000 MG in 0.9 % Sodium Chloride Mini Bag 100 ML IVPB SCH (11:00)
[2019-10-16 14:34] LABS: Hematocrit 32.5 % (35.3-44.9); Hemoglobin 9.4 g/dL (11.5-15.4)
[2019-10-16] MEDS ORDERED: Ipratropium/Albuterol Neb 3 ML IH PRN (14:42)
[2019-10-16] MEDS: Acetaminophen 325 MG TABLET PO PRN ×2 (14:55→21:52)
[2019-10-16] MEDS ORDERED: traZODone 50 MG TABLET PO SCH (21:00)
[2019-10-16] MEDS ORDERED: Budesonide/Formoterol 160/4.5 1 PUFF INH IH SCH (22:00)
[2019-10-17] MEDS: Pantoprazole 40 MG VIAL IVP SCH (05:39)
[2019-10-17 07:02] LABS: Hemoglobin 8.9 g/dL (11.5-15.4); Mean Corpuscular HGB Conc 29.7 g/dL (31.6-35.5); Mean Corpuscular Hemoglobin 31.3 pg (28.0-33.3); Mean Corpuscular Volume 105.6 fL (83.0-100.0); Mean Platelet Volume 9.2 fL (9.4-12.4); Platelet Count 287 K/mcL (140-400); Red Blood Count 2.84 M/mcL (3.82-4.97); White Blood Count 7.8 K/mcL (4.3-11.1)
[2019-10-17 07:21] LABS: BUN/Creatinine Ratio 12 (6-26); Blood Urea Nitrogen 11 mg/dL (8-23); Calcium 6.7 mg/dL (8.6-10.3); Carbon Dioxide 26 mEq/L (23-29); Chloride 108 mEq/L (98-107); Glucose 98 mg/dL (70-105); Osmolality,Calculated 293 (280-300); Potassium 3.7 mEq/L (3.5-5.1); Sodium 142 mEq/L (136-145); eGFR For African Americans > 60 (> 60); eGFR For Non-African Americans 59 (> 60)
[2019-10-17 08:37] LABS: Eosinophils # 0.5 K/mcL (0.0-0.6); Lymphocytes # 2.3 K/mcL (0.6-4.6); Monocytes # 0.6 K/mcL (0.0-1.3); Neutrophils # 4.4 K/mcL (1.6-8.9); Platelet Estimate Normal (Normal)
[2019-10-17] MEDS ORDERED: Propofol 500 MG/50 ML INFUS..BTL ONE (09:52)
[2019-10-17] MEDS ORDERED: Lidocaine -MPF 2% 2 ML VIAL ONE (09:53)
[2019-10-17] MEDS ORDERED: Tiotropium 18 MCG inhalation IH SCH (10:00)
[2019-10-17] MEDS ORDERED: EPHEDrine 50 MG/ML VIAL ONE (10:55)
[2019-10-17] MEDS ORDERED: *HR* Propofol 200 MG/20 ML VIAL IVP ONE (11:30)
[2019-10-17] MEDS ORDERED: Naloxone 0.4 MG/ML INJ IVP PRN (11:54)
[2019-10-17] MEDS ORDERED: Acetaminophen 325 MG TABLET PO PRN (11:54)
[2019-10-17] MEDS ORDERED: Ipratropium/Albuterol Neb 3 ML IH PRN (11:54)
[2019-10-17] MEDS ORDERED: Ondansetron 4 MG/2 ML VIAL IVP PRN (11:54)
[2019-10-17] MEDS ORDERED: Pantoprazole 40 MG VIAL IVP SCH (18:00)
[2019-10-17] MEDS ORDERED: traZODone 50 MG TABLET PO SCH (21:00)
[2019-10-17] MEDS ORDERED: *HR* LORazepam 2 MG/ML VIAL IVP PRN (21:33)
[2019-10-17] MEDS: Budesonide/Formoterol 160/4.5 1 PUFF INH IH SCH (22:58)
[2019-10-18] MEDS: Budesonide/Formoterol 160/4.5 1 PUFF INH IH SCH (07:19)
[2019-10-18] MEDS ORDERED: Famotidine 20 MG TABLET PO SCH (09:00)
[2019-10-18] MEDS ORDERED: Tiotropium 18 MCG inhalation IH SCH (10:00)
[2019-10-18 10:39] VITALS: BP 119/68
[2019-10-18] MEDS ORDERED: cefTRIAXone 1,000 MG in 0.9 % Sodium Chloride Mini Bag 100 ML IVPB SCH (11:00)
== END 2019-10-18 13:50 | DRG 378 ==
LOC: 3ANU 13:21 → EMEROOARM 13:21 → 3ANU 18:52 → SUATTDRO 10-16 12:37
PROVIDERS: ADMIT Internal Medicine; ATTEND Internal Medicine

== ENCOUNTER 2020-03-05 15:19 | Inpatient (IN) ==
[2020-03-05] MEDS ORDERED: Ipratropium/Albuterol Neb 3 ML IH ONE (15:40)
[2020-03-05] MEDS ORDERED: Piperacillin/Tazobactam 3.375 GM in Water for inj. (sterile) 20 ML IVP ONE (15:40)
[2020-03-05] MEDS ORDERED: methylPREDNISolone 125 MG/2 ML VIAL IVP ONE (15:40)
[2020-03-05 16:28] LABS: BUN/Creatinine Ratio 20 (6-26); Blood Urea Nitrogen 20 mg/dL (8-23); Calcium 8.1 mg/dL (8.6-10.3); Carbon Dioxide 37 mEq/L (23-29); Chloride 95 mEq/L (98-107); Glucose 154 mg/dL (70-105); Osmolality,Calculated 298 (280-300); Sodium 141 mEq/L (136-145); Troponin I < 0.03 ng/mL (< 0.04); eGFR For African Americans > 60 (> 60); eGFR For Non-African Americans 55 (> 60)
[2020-03-05 17:11] LABS: Basophils # 0.1 K/mcL (0.0-0.2); Basophils % 0.2 %; Eosinophils # 0.1 K/mcL (0.0-0.6); Eosinophils % 0.5 %; Hematocrit 25.3 % (35.3-44.9); Hemoglobin 7.3 g/dL (11.5-15.4); Immature Granulocytes % 1.5 % (0-4); Lymphocytes # 1.9 K/mcL (0.6-4.6); Lymphocytes % 7.6 %; Mean Corpuscular HGB Conc 28.9 g/dL (31.6-35.5); Mean Corpuscular Hemoglobin 26.8 pg (28.0-33.3); Mean Platelet Volume 9.1 fL (9.4-12.4); Monocytes # 2.3 K/mcL (0.0-1.3); Monocytes % 9.3 %; Neutrophils # 19.7 K/mcL (1.6-8.9); Platelet Count 300 K/mcL (140-400); Red Blood Count 2.72 M/mcL (3.82-4.97); Red Cell Distribution Width 14.7 % (11.5-14.5); Segmented Neutrophils % 80.9 %; White Blood Count 24.3 K/mcL (4.3-11.1)
[2020-03-05 17:33] LABS: Hypochromasia Present (Not Present); Platelet Estimate Normal (Normal)
[2020-03-05 18:24] LABS: Bacteria,Urine Few per hpf (None-Few); Bilirubin,Urine Negative (Negative); Blood,Urine Negative (Negative); Clarity,Urine Clear (Clear); Color,Urine Light-Yellow (Yellow); Glucose,Urine (UA) Normal (Normal); Hyaline Casts,Urine Few per lpf (None Seen); Ketones,Urine Negative (Negative); Leukocyte Esterase,Urine Small (Negative); Nitrite,Urine Negative (Negative); PH,Urine 6.5 pH Units (5.0-8.0); Protein,Urine Negative (Neg-Trace); RBC,Urine 0-3 per hpf (0-3); Specific Gravity,Urine 1.014 (1.010-1.025); Squamous Epithelial Cell,Urine Few per hpf (None-Few); Urobilinogen,Urine Normal (Normal)
[2020-03-05] MEDS ORDERED: Naloxone 0.4 MG/ML INJ IVP PRN (20:13)
[2020-03-06 01:02] LABS: Hemoglobin 7.6 g/dL (11.5-15.4); Immature Granulocytes % 3.1 % (0-4); Mean Corpuscular Volume 94.9 fL (83.0-100.0); Monocytes % 4.7 %; Red Cell Distribution Width 14.6 % (11.5-14.5); Segmented Neutrophils % 86.9 %
[2020-03-06 01:04] LABS: Basophils # 0.1 K/mcL (0.0-0.2); Basophils % 0.2 %; Eosinophils # 0.1 K/mcL (0.0-0.6); Eosinophils % 0.2 %; Hematocrit 25.9 % (35.3-44.9); Lymphocytes % 4.9 %; Mean Corpuscular HGB Conc 29.3 g/dL (31.6-35.5); Mean Corpuscular Hemoglobin 27.8 pg (28.0-33.3); Mean Platelet Volume 9.7 fL (9.4-12.4); Monocytes # 1.6 K/mcL (0.0-1.3); Neutrophils # 29.3 K/mcL (1.6-8.9); Platelet Count 300 K/mcL (140-400); Red Blood Count 2.73 M/mcL (3.82-4.97)
[2020-03-06 01:07] LABS: INR 1.3; Prothrombin Time 14.8 Seconds (9.4-12.1)
[2020-03-06 01:25] LABS: Lymphocytes # 1.7 K/mcL (0.6-4.6); White Blood Count 33.7 K/mcL (4.3-11.1)
[2020-03-06 01:36] LABS: Magnesium 1.9 mg/dL (1.6-2.6); Phosphorous 4.8 mg/dL (2.7-4.5)
[2020-03-06 02:14] LABS: Albumin 3.5 g/dL (3.5-5.7); Albumin/Globulin Ratio 1.3 (1.1-2.2); Bilirubin,Total 0.6 mg/dL (0.3-1.0); Calcium 7.7 mg/dL (8.6-10.3); Globulin 2.6 g/dL (2.4-3.5); Potassium 4.2 mEq/L (3.5-5.1); Total Protein 6.1 g/dL (6.4-8.9)
[2020-03-06] MEDS: Ipratropium 1 PUFF INHALER IH SCH ×6 (05:42→23:36)
[2020-03-06] MEDS: MethylPREDNISolone 40 MG/ML VIAL IVP SCH ×3 (06:11→16:57)
[2020-03-06] MEDS: Cefepime HCl 2,000 MG in Water for inj. (sterile) 20 ML IVP SCH ×2 (06:11→16:57)
[2020-03-06 07:27] LABS: Hemoglobin 7.3 g/dL (11.5-15.4); Mean Platelet Volume 9.7 fL (9.4-12.4); Red Cell Distribution Width 14.6 % (11.5-14.5)
[2020-03-06 07:28] LABS: Hematocrit 24.7 % (35.3-44.9); Mean Corpuscular HGB Conc 29.6 g/dL (31.6-35.5); Mean Corpuscular Volume 94.6 fL (83.0-100.0); Platelet Count 287 K/mcL (140-400); Red Blood Count 2.61 M/mcL (3.82-4.97)
[2020-03-06 07:37] LABS: White Blood Count 33.4 K/mcL (4.3-11.1)
[2020-03-06] MEDS: Acetaminophen 325 MG TABLET PO PRN (13:04)
[2020-03-06] MEDS ORDERED: 0.9 % Sodium Chloride 1,000 ML IVC SCH (14:00)
[2020-03-06 14:39] LABS: Hemoglobin 7.1 g/dL (11.5-15.4)
[2020-03-06 14:41] LABS: Hematocrit 24.7 % (35.3-44.9)
[2020-03-06] MEDS: Cholecalciferol (D-3) 1,000 UNIT (25MCG) TABLET PO SCH (14:55)
[2020-03-06] MEDS: Pantoprazole 40 MG VIAL IVP SCH (16:57)
[2020-03-06] MEDS ORDERED: Haloperidol Lactate 5 MG/ML VIAL IVP PRN (18:45)
[2020-03-06] MEDS ORDERED: *HR* LORazepam 2 MG/ML VIAL IM STA (21:55)
[2020-03-06] MEDS ORDERED: *HR* LORazepam 2 MG/ML VIAL IVP PRN (22:04)
[2020-03-06] MEDS: Budesonide/Formoterol 160/4.5 1 PUFF INH IH SCH (23:36)
[2020-03-07] MEDS: MethylPREDNISolone 40 MG/ML VIAL IVP SCH ×4 (00:06→22:53)
[2020-03-07] MEDS: Acetaminophen 325 MG TABLET PO PRN ×3 (04:01→23:19)
[2020-03-07] MEDS: Ipratropium 1 PUFF INHALER IH SCH ×6 (04:06→23:43)
[2020-03-07] MEDS: Cefepime HCl 2,000 MG in Water for inj. (sterile) 20 ML IVP SCH ×2 (05:52→18:27)
[2020-03-07] MEDS: Pantoprazole 40 MG VIAL IVP SCH ×2 (05:53→18:28)
[2020-03-07] MEDS ORDERED: Nitroglycerin 0.4 MG TAB.SUBL SL PRN (06:04)
[2020-03-07] MEDS ORDERED: Nitroglycerin 0.4 MG TAB.SUBL SL ONE (06:07)
[2020-03-07] MEDS ORDERED: Morphine Sulfate 2 MG/ML SYRINGE IVP STA (06:09)
[2020-03-07 06:33] LABS: Basophils % 0.1 %; Hematocrit 24.1 % (35.3-44.9); Lymphocytes # 1.2 K/mcL (0.6-4.6); Lymphocytes % 5.2 %; Mean Corpuscular Hemoglobin 27.1 pg (28.0-33.3); Mean Corpuscular Volume 93.4 fL (83.0-100.0); Mean Platelet Volume 9.9 fL (9.4-12.4); Monocytes # 0.8 K/mcL (0.0-1.3); Monocytes % 3.5 %; Neutrophils # 21.4 K/mcL (1.6-8.9); Platelet Count 340 K/mcL (140-400); Red Blood Count 2.58 M/mcL (3.82-4.97); Red Cell Distribution Width 14.7 % (11.5-14.5); Segmented Neutrophils % 90.2 %; White Blood Count 23.7 K/mcL (4.3-11.1)
[2020-03-07 06:56] LABS: Potassium 4.3 mEq/L (3.5-5.1); Troponin I 0.08 ng/mL (< 0.04)
[2020-03-07 07:08] LABS: Platelet Estimate Normal (Normal)
[2020-03-07] MEDS: Budesonide/Formoterol 160/4.5 1 PUFF INH IH SCH ×2 (07:38→19:49)
[2020-03-07] MEDS ORDERED: Aspirin Enteric Coated 81 MG Tablet PO SCH (09:00)
[2020-03-07] MEDS ORDERED: NON-FORMULARY MEDICATION 1 EACH EACH (Tiotropium Bromide [Spiriva Respimat] 2 PUFF) IH SCH (09:00)
[2020-03-07] MEDS: Cyanocobalamin (B-12) 1,000 MCG TABLET PO SCH (09:17)
[2020-03-07] MEDS: Metoprolol XL (24 HR) Succ 25 MG TAB.ER.24H PO SCH (09:18)
[2020-03-07] MEDS: Cholecalciferol (D-3) 1,000 UNIT (25MCG) TABLET PO SCH (09:18)
[2020-03-07] MEDS ORDERED: 0.9 % Sodium Chloride 500 ML ONE (11:38)
[2020-03-07] MEDS ORDERED: 0.9 % Sodium Chloride 1,000 ML IVC SCH (14:00)
[2020-03-07 17:31] LABS: Hematocrit 31.7 % (35.3-44.9)
[2020-03-07 17:32] LABS: Hemoglobin 9.3 g/dL (11.5-15.4)
[2020-03-07] MEDS: Vancomycin 1,250 MG/262.5 ML IV.SOLN IVPB SCH (20:08)
[2020-03-08] MEDS ORDERED: Haloperidol Lactate 5 MG/ML VIAL IVP ONE (02:13)
[2020-03-08] MEDS: Ipratropium 1 PUFF INHALER IH SCH ×5 (03:32→20:01)
[2020-03-08] MEDS: MethylPREDNISolone 40 MG/ML VIAL IVP SCH ×2 (06:17→17:03)
[2020-03-08] MEDS: Cefepime HCl 2,000 MG in Water for inj. (sterile) 20 ML IVP SCH (06:17)
[2020-03-08] MEDS: Pantoprazole 40 MG VIAL IVP SCH ×2 (06:17→17:03)
[2020-03-08 06:21] LABS: Red Cell Distribution Width 15.9 % (11.5-14.5)
[2020-03-08 06:23] LABS: Hematocrit 30.1 % (35.3-44.9); Mean Corpuscular HGB Conc 29.9 g/dL (31.6-35.5); Mean Corpuscular Hemoglobin 26.9 pg (28.0-33.3); Mean Corpuscular Volume 90.1 fL (83.0-100.0); Mean Platelet Volume 9.9 fL (9.4-12.4); Platelet Count 406 K/mcL (140-400); Red Blood Count 3.34 M/mcL (3.82-4.97); White Blood Count 16.3 K/mcL (4.3-11.1)
[2020-03-08 06:46] LABS: Calcium 7.2 mg/dL (8.6-10.3); Potassium 3.9 mEq/L (3.5-5.1); Troponin I 0.29 ng/mL (< 0.04)
[2020-03-08] MEDS: Budesonide/Formoterol 160/4.5 1 PUFF INH IH SCH ×2 (08:23→20:02)
[2020-03-08] MEDS: Cyanocobalamin (B-12) 1,000 MCG TABLET PO SCH (08:46)
[2020-03-08] MEDS: Cholecalciferol (D-3) 1,000 UNIT (25MCG) TABLET PO SCH (08:46)
[2020-03-08] MEDS: Metoprolol XL (24 HR) Succ 25 MG TAB.ER.24H PO SCH (08:46)
[2020-03-08] MEDS ORDERED: Perflutren Lipid Microsphere 1.3 ML in 0.9 % Sodium Chloride 8.7 ML IVP PRN (12:29)
[2020-03-08] MEDS: Acetaminophen 325 MG TABLET PO PRN (12:54)
[2020-03-08] MEDS: QUEtiapine Fumarate 25 MG TABLET PO SCH (14:05)
[2020-03-08] MEDS: Vancomycin 1,250 MG/262.5 ML IV.SOLN IVPB SCH (17:03)
[2020-03-08] MEDS ORDERED: Ipratropium/Albuterol Neb 3 ML IH PRN (21:07)
[2020-03-09] MEDS: Acetaminophen 325 MG TABLET PO PRN ×2 (00:10→17:38)
[2020-03-09] MEDS: Ipratropium 1 PUFF INHALER IH SCH ×6 (00:15→19:50)
[2020-03-09] MEDS ORDERED: Melatonin 3 MG TABLET PO ONE (02:46)
[2020-03-09 06:15] LABS: Basophils % 0.1 %; Hematocrit 30.7 % (35.3-44.9); Immature Granulocytes % 1.2 % (0-4); Lymphocytes # 1.5 K/mcL (0.6-4.6); Lymphocytes % 11.2 %; Mean Corpuscular HGB Conc 29.3 g/dL (31.6-35.5); Mean Corpuscular Hemoglobin 26.2 pg (28.0-33.3); Mean Corpuscular Volume 89.5 fL (83.0-100.0); Monocytes % 7.4 %; Neutrophils # 10.9 K/mcL (1.6-8.9); Nucleated Red Blood Cells 0.4 /100 WBC (0); Platelet Count 460 K/mcL (140-400); Red Blood Count 3.43 M/mcL (3.82-4.97); Segmented Neutrophils % 80.1 %; White Blood Count 13.6 K/mcL (4.3-11.1)
[2020-03-09 06:36] LABS: Calcium 7.4 mg/dL (8.6-10.3); Potassium 3.8 mEq/L (3.5-5.1)
[2020-03-09] MEDS: Metoprolol XL (24 HR) Succ 25 MG TAB.ER.24H PO SCH (08:15)
[2020-03-09] MEDS: Cholecalciferol (D-3) 1,000 UNIT (25MCG) TABLET PO SCH (08:15)
[2020-03-09] MEDS: Cyanocobalamin (B-12) 1,000 MCG TABLET PO SCH (08:15)
[2020-03-09] MEDS: QUEtiapine Fumarate 25 MG TABLET PO SCH (08:15)
[2020-03-09] MEDS: MethylPREDNISolone 40 MG/ML VIAL IVP SCH ×2 (09:56→17:38)
[2020-03-09] MEDS: Pantoprazole 40 MG VIAL IVP SCH ×2 (09:56→17:38)
[2020-03-09] MEDS ORDERED: Tigecycline 100 MG in 0.9 % Sodium Chloride Mini Bag 100 ML IVPB ONE (16:00)
[2020-03-09] MEDS ORDERED: Tigecycline 100 MG in 0.9 % Sodium Chloride 100 ML IVPB ONE (16:15)
[2020-03-09] MEDS ORDERED: Aminoglycoside Consult 1 EACH MC ONE (19:27)
[2020-03-10] MEDS: Ipratropium 1 PUFF INHALER IH SCH ×3 (00:06→07:33)
[2020-03-10 04:14] LABS: Basophils % 0.1 %; Hematocrit 31.9 % (35.3-44.9); Hemoglobin 9.4 g/dL (11.5-15.4); Immature Granulocytes % 1.6 % (0-4); Lymphocytes % 7.8 %; Mean Corpuscular HGB Conc 29.5 g/dL (31.6-35.5); Mean Corpuscular Hemoglobin 26.6 pg (28.0-33.3); Mean Corpuscular Volume 90.1 fL (83.0-100.0); Mean Platelet Volume 10.3 fL (9.4-12.4); Monocytes # 0.5 K/mcL (0.0-1.3); Monocytes % 3.7 %; Neutrophils # 11.6 K/mcL (1.6-8.9); Nucleated Red Blood Cells 0.3 /100 WBC (0); Platelet Count 439 K/mcL (140-400); Red Blood Count 3.54 M/mcL (3.82-4.97); Red Cell Distribution Width 15.9 % (11.5-14.5); Segmented Neutrophils % 86.8 %; White Blood Count 13.4 K/mcL (4.3-11.1)
[2020-03-10 04:26] LABS: Calcium 7.5 mg/dL (8.6-10.3); Potassium 4.5 mEq/L (3.5-5.1)
[2020-03-10] MEDS: Tigecycline 50 MG in 0.9 % Sodium Chloride Mini Bag 100 ML IVPB SCH ×2 (05:15→17:09)
[2020-03-10] MEDS: Pantoprazole 40 MG VIAL IVP SCH (05:28)
[2020-03-10] MEDS: Furosemide 40 MG/4 ML VIAL IVP SCH ×2 (08:29→17:09)
[2020-03-10] MEDS: QUEtiapine Fumarate 25 MG TABLET PO SCH (08:29)
[2020-03-10] MEDS: Cholecalciferol (D-3) 1,000 UNIT (25MCG) TABLET PO SCH (08:29)
[2020-03-10] MEDS: predniSONE 20 MG TABLET PO SCH (08:29)
[2020-03-10] MEDS: Cyanocobalamin (B-12) 1,000 MCG TABLET PO SCH (08:30)
[2020-03-10] MEDS: Metoprolol XL (24 HR) Succ 25 MG TAB.ER.24H PO SCH (08:30)
[2020-03-10] MEDS: Budesonide/Formoterol 160/4.5 1 PUFF INH IH SCH ×2 (11:08→22:36)
[2020-03-10] MEDS: Tiotropium 18 MCG inhalation IH SCH (11:11)
[2020-03-10 15:38] LABS: Calcium 7.1 mg/dL (8.6-10.3); Potassium 4.3 mEq/L (3.5-5.1)
[2020-03-11] MEDS ORDERED: *HR* OxyCODONE/APAP 7.5/325 TABLET PO ONE ×2 (02:02→22:25)
[2020-03-11 03:44] LABS: Basophils % 0.1 %; Hematocrit 31.2 % (35.3-44.9); Hemoglobin 9.2 g/dL (11.5-15.4); Lymphocytes # 3.7 K/mcL (0.6-4.6); Lymphocytes % 17.9 %; Mean Corpuscular HGB Conc 29.5 g/dL (31.6-35.5); Mean Corpuscular Hemoglobin 26.4 pg (28.0-33.3); Mean Corpuscular Volume 89.4 fL (83.0-100.0); Mean Platelet Volume 10.3 fL (9.4-12.4); Monocytes # 2.2 K/mcL (0.0-1.3); Monocytes % 10.6 %; Neutrophils # 14.5 K/mcL (1.6-8.9); Nucleated Red Blood Cells 0.3 /100 WBC (0); Platelet Count 451 K/mcL (140-400); Red Blood Count 3.49 M/mcL (3.82-4.97); Red Cell Distribution Width 15.9 % (11.5-14.5); Segmented Neutrophils % 70.4 %
[2020-03-11 03:50] LABS: White Blood Count 20.6 K/mcL (4.3-11.1)
[2020-03-11] MEDS ORDERED: Acetaminophen IV 1,000 MG/100 ML BAG IVPB ONE (03:52)
[2020-03-11 04:06] LABS: Calcium 6.8 mg/dL (8.6-10.3); Potassium 3.8 mEq/L (3.5-5.1)
[2020-03-11] MEDS: Tigecycline 50 MG in 0.9 % Sodium Chloride Mini Bag 100 ML IVPB SCH ×2 (05:54→17:23)
[2020-03-11] MEDS: Furosemide 40 MG/4 ML VIAL IVP SCH ×2 (07:46→17:23)
[2020-03-11] MEDS: predniSONE 20 MG TABLET PO SCH (07:46)
[2020-03-11] MEDS: QUEtiapine Fumarate 25 MG TABLET PO SCH (07:47)
[2020-03-11] MEDS: Cholecalciferol (D-3) 1,000 UNIT (25MCG) TABLET PO SCH (07:47)
[2020-03-11] MEDS: Cyanocobalamin (B-12) 1,000 MCG TABLET PO SCH (07:47)
[2020-03-11] MEDS: Metoprolol XL (24 HR) Succ 25 MG TAB.ER.24H PO SCH (07:47)
[2020-03-11] MEDS: Budesonide/Formoterol 160/4.5 1 PUFF INH IH SCH ×2 (10:09→20:07)
[2020-03-11] MEDS: Tiotropium 18 MCG inhalation IH SCH (10:09)
[2020-03-12 04:22] LABS: Immature Granulocytes % 0.9 % (0-4); Mean Platelet Volume 9.9 fL (9.4-12.4); Red Cell Distribution Width 15.8 % (11.5-14.5)
[2020-03-12 04:24] LABS: Basophils % 0.2 %; Hematocrit 34.9 % (35.3-44.9); Hemoglobin 10.5 g/dL (11.5-15.4); Lymphocytes # 4.9 K/mcL (0.6-4.6); Lymphocytes % 19.3 %; Mean Corpuscular HGB Conc 30.1 g/dL (31.6-35.5); Mean Corpuscular Hemoglobin 26.7 pg (28.0-33.3); Mean Corpuscular Volume 88.8 fL (83.0-100.0); Monocytes % 11.9 %; Neutrophils # 17.2 K/mcL (1.6-8.9); Nucleated Red Blood Cells 0.3 /100 WBC (0); Platelet Count 516 K/mcL (140-400); Red Blood Count 3.93 M/mcL (3.82-4.97); Segmented Neutrophils % 67.7 %; White Blood Count 25.4 K/mcL (4.3-11.1)
[2020-03-12 04:27] LABS: Basophils # 0.1 K/mcL (0.0-0.2)
[2020-03-12 04:42] LABS: Albumin 3.5 g/dL (3.5-5.7); Albumin/Globulin Ratio 1.3 (1.1-2.2); Bilirubin,Total 0.6 mg/dL (0.3-1.0); Calcium 6.2 mg/dL (8.6-10.3); Globulin 2.6 g/dL (2.4-3.5); Potassium 3.8 mEq/L (3.5-5.1); Total Protein 6.1 g/dL (6.4-8.9)
[2020-03-12 04:58] LABS: Large Platelets Present (Not Present)
[2020-03-12] MEDS ORDERED: *HR* LORazepam 2 MG/ML VIAL IVP ONE ×3 (05:17→20:11)
[2020-03-12] MEDS: Tigecycline 50 MG in 0.9 % Sodium Chloride Mini Bag 100 ML IVPB SCH ×2 (05:38→17:38)
[2020-03-12] MEDS: Budesonide/Formoterol 160/4.5 1 PUFF INH IH SCH ×2 (07:42→20:17)
[2020-03-12] MEDS: Tiotropium 18 MCG inhalation IH SCH (07:42)
[2020-03-12] MEDS: Metoprolol XL (24 HR) Succ 25 MG TAB.ER.24H PO SCH (08:07)
[2020-03-12] MEDS ORDERED: *HR* FentaNYL (PF) 100 MCG/2 ML VIAL ONE (09:35)
[2020-03-12] MEDS ORDERED: *HR* Propofol 200 MG/20 ML VIAL IVP ONE ×2 (09:36→09:59)
[2020-03-12] MEDS ORDERED: Ondansetron 4 MG/2 ML VIAL ONE (09:44)
[2020-03-12] MEDS ORDERED: Lidocaine -MPF 2% 2 ML VIAL ONE (09:44)
[2020-03-12] MEDS ORDERED: Isovue-300 50ML VIAL ONE (09:58)
[2020-03-12] MEDS ORDERED: *HR* Vasopressin 20 UNIT/ML VIAL ONE (09:59)
[2020-03-12] MEDS: Furosemide 40 MG/4 ML VIAL IVP SCH ×2 (12:29→17:38)
[2020-03-12] MEDS: Cholecalciferol (D-3) 1,000 UNIT (25MCG) TABLET PO SCH (12:31)
[2020-03-12] MEDS: QUEtiapine Fumarate 25 MG TABLET PO SCH (12:31)
[2020-03-12] MEDS: Cyanocobalamin (B-12) 1,000 MCG TABLET PO SCH (12:37)
[2020-03-12] MEDS: predniSONE 20 MG TABLET PO SCH (12:37)
[2020-03-12] MEDS ORDERED: Perflutren Lipid Microsphere 1.3 ML in 0.9 % Sodium Chloride 8.7 ML IVP PRN (13:44)
[2020-03-12] MEDS ORDERED: Ipratropium/Albuterol Neb 3 ML IH PRN (13:44)
[2020-03-12] MEDS ORDERED: Naloxone 0.4 MG/ML INJ IVP PRN (13:44)
[2020-03-13 03:54] LABS: Basophils % 0.1 %; Hematocrit 32.2 % (35.3-44.9); Hemoglobin 9.6 g/dL (11.5-15.4); Immature Granulocytes % 0.7 % (0-4); Lymphocytes # 1.2 K/mcL (0.6-4.6); Lymphocytes % 7.9 %; Mean Corpuscular HGB Conc 29.8 g/dL (31.6-35.5); Mean Corpuscular Hemoglobin 26.1 pg (28.0-33.3); Mean Corpuscular Volume 87.5 fL (83.0-100.0); Mean Platelet Volume 10.6 fL (9.4-12.4); Monocytes # 1.3 K/mcL (0.0-1.3); Monocytes % 8.3 %; Neutrophils # 12.5 K/mcL (1.6-8.9); Nucleated Red Blood Cells 0.1 /100 WBC (0); Platelet Count 454 K/mcL (140-400); Red Blood Count 3.68 M/mcL (3.82-4.97); Red Cell Distribution Width 15.9 % (11.5-14.5); White Blood Count 15.1 K/mcL (4.3-11.1)
[2020-03-13 03:56] LABS: Albumin 3.2 g/dL (3.5-5.7); Albumin/Globulin Ratio 1.4 (1.1-2.2); Bilirubin,Total 0.5 mg/dL (0.3-1.0); Calcium 5.7 mg/dL (8.6-10.3); Globulin 2.3 g/dL (2.4-3.5); Potassium 3.8 mEq/L (3.5-5.1); Total Protein 5.5 g/dL (6.4-8.9)
[2020-03-13] MEDS: Calcium Gluconate 1gm/50mL 1 GM/50 ML BAG IVPB SCH ×3 (04:29→06:26)
[2020-03-13] MEDS: Tigecycline 50 MG in 0.9 % Sodium Chloride Mini Bag 100 ML IVPB SCH ×2 (07:31→18:32)
[2020-03-13] MEDS ORDERED: Calcium Chloride 1,000 MG in 0.9 % Sodium Chloride 100 ML IVPB ONE (09:02)
[2020-03-13] MEDS ORDERED: 0.9 % Sodium Chloride 1,000 ML IVC SCH (09:15)
[2020-03-13] MEDS: Furosemide 40 MG/4 ML VIAL IVP SCH ×2 (10:30→18:33)
[2020-03-13] MEDS: Tiotropium 18 MCG inhalation IH SCH (10:38)
[2020-03-13] MEDS: Budesonide/Formoterol 160/4.5 1 PUFF INH IH SCH ×2 (10:39→20:11)
[2020-03-13] MEDS: QUEtiapine Fumarate 25 MG TABLET PO SCH (10:41)
[2020-03-13] MEDS: predniSONE 20 MG TABLET PO SCH (10:41)
[2020-03-13] MEDS: Cyanocobalamin (B-12) 1,000 MCG TABLET PO SCH (10:42)
[2020-03-13] MEDS: Metoprolol XL (24 HR) Succ 25 MG TAB.ER.24H PO SCH (10:42)
[2020-03-13] MEDS: Cholecalciferol (D-3) 1,000 UNIT (25MCG) TABLET PO SCH (10:43)
[2020-03-13 13:58] LABS: Calcium 6.7 mg/dL (8.6-10.3); Potassium 4.1 mEq/L (3.5-5.1)
[2020-03-13] MEDS ORDERED: Nitroglycerin 0.4 MG TAB.SUBL SL ONE (18:12)
[2020-03-13] MEDS ORDERED: Aspirin 325 MG TABLET PO ONE (18:27)
[2020-03-14 01:14] LABS: Basophils % 0.1 %; Hemoglobin 9.1 g/dL (11.5-15.4); Immature Granulocytes % 0.7 % (0-4); Lymphocytes # 1.7 K/mcL (0.6-4.6); Lymphocytes % 10.8 %; Mean Corpuscular HGB Conc 29.4 g/dL (31.6-35.5); Mean Corpuscular Hemoglobin 26.1 pg (28.0-33.3); Mean Corpuscular Volume 88.8 fL (83.0-100.0); Mean Platelet Volume 10.7 fL (9.4-12.4); Monocytes # 1.5 K/mcL (0.0-1.3); Monocytes % 9.3 %; Neutrophils # 12.4 K/mcL (1.6-8.9); Platelet Count 311 K/mcL (140-400); Red Blood Count 3.49 M/mcL (3.82-4.97); Red Cell Distribution Width 16.1 % (11.5-14.5); Segmented Neutrophils % 79.1 %; White Blood Count 15.7 K/mcL (4.3-11.1)
[2020-03-14 01:31] LABS: Albumin 3.1 g/dL (3.5-5.7); Albumin/Globulin Ratio 1.5 (1.1-2.2); Bilirubin,Total 0.4 mg/dL (0.3-1.0); Calcium 6.2 mg/dL (8.6-10.3); Globulin 2.1 g/dL (2.4-3.5); Potassium 3.8 mEq/L (3.5-5.1); Total Protein 5.2 g/dL (6.4-8.9)
[2020-03-14] MEDS ORDERED: *HR* LORazepam 2 MG/ML VIAL IVP ONE (02:48)
[2020-03-14] MEDS: Tigecycline 50 MG in 0.9 % Sodium Chloride Mini Bag 100 ML IVPB SCH ×2 (06:13→17:49)
[2020-03-14] MEDS: Budesonide/Formoterol 160/4.5 1 PUFF INH IH SCH ×2 (07:51→19:51)
[2020-03-14] MEDS: Tiotropium 18 MCG inhalation IH SCH (07:54)
[2020-03-14] MEDS: Cyanocobalamin (B-12) 1,000 MCG TABLET PO SCH (10:39)
[2020-03-14] MEDS: Cholecalciferol (D-3) 1,000 UNIT (25MCG) TABLET PO SCH (10:39)
[2020-03-14] MEDS: Metoprolol XL (24 HR) Succ 25 MG TAB.ER.24H PO SCH (10:39)
[2020-03-14] MEDS: QUEtiapine Fumarate 25 MG TABLET PO SCH (10:39)
[2020-03-14] MEDS: Furosemide 40 MG/4 ML VIAL IVP SCH ×2 (10:40→17:49)
[2020-03-14] MEDS: predniSONE 20 MG TABLET PO SCH (10:40)
[2020-03-14] MEDS: Acetaminophen 325 MG TABLET PO PRN (21:08)
[2020-03-15 04:35] LABS: Basophils % 0.1 %; Hemoglobin 9.7 g/dL (11.5-15.4); Immature Granulocytes % 0.4 % (0-4); Lymphocytes # 2.2 K/mcL (0.6-4.6); Mean Corpuscular HGB Conc 29.4 g/dL (31.6-35.5); Mean Corpuscular Hemoglobin 26.4 pg (28.0-33.3); Mean Corpuscular Volume 89.7 fL (83.0-100.0); Monocytes # 1.4 K/mcL (0.0-1.3); Monocytes % 8.8 %; Neutrophils # 12.1 K/mcL (1.6-8.9); Platelet Count 363 K/mcL (140-400); Red Blood Count 3.68 M/mcL (3.82-4.97); Segmented Neutrophils % 76.7 %; White Blood Count 15.8 K/mcL (4.3-11.1)
[2020-03-15 04:59] LABS: Calcium 5.8 mg/dL (8.6-10.3); Potassium 3.5 mEq/L (3.5-5.1)
[2020-03-15] MEDS: Tigecycline 50 MG in 0.9 % Sodium Chloride Mini Bag 100 ML IVPB SCH (05:05)
[2020-03-15] MEDS: Calcium Gluconate 1gm/50mL 1 GM/50 ML BAG IVPB SCH ×3 (06:56→13:22)
[2020-03-15] MEDS: Budesonide/Formoterol 160/4.5 1 PUFF INH IH SCH (07:48)
[2020-03-15] MEDS: Cyanocobalamin (B-12) 1,000 MCG TABLET PO SCH (08:53)
[2020-03-15] MEDS: predniSONE 20 MG TABLET PO SCH (08:53)
[2020-03-15] MEDS: QUEtiapine Fumarate 25 MG TABLET PO SCH (08:55)
[2020-03-15] MEDS: Metoprolol XL (24 HR) Succ 25 MG TAB.ER.24H PO SCH (08:55)
[2020-03-15] MEDS: Furosemide 40 MG/4 ML VIAL IVP SCH ×2 (08:56→17:22)
[2020-03-15] MEDS: Cholecalciferol (D-3) 1,000 UNIT (25MCG) TABLET PO SCH (09:00)
[2020-03-15] MEDS: Acetaminophen 325 MG TABLET PO PRN (09:28)
[2020-03-15] MEDS: Tiotropium 18 MCG inhalation IH SCH (11:18)
[2020-03-15] MEDS: Nystatin SUSP 5 ML UD.LIQ PO SCH ×2 (13:03→17:17)
[2020-03-15 15:03] LABS: Potassium 3.8 mEq/L (3.5-5.1)
[2020-03-15 18:46] VITALS: BP 121/64
== END 2020-03-15 19:28 | DRG 853 ==
LOC: 2NENU 15:19 → EMEROOARM 15:19 → 2NENU 21:01 → SUATTDRO 03-06 17:29 → 3ANU 03-09 11:20
PROVIDERS: ADMIT Internal Medicine; ATTEND Family Medicine

== ENCOUNTER 2020-03-28 17:38 | Inpatient (IN) ==
[2020-03-28 18:49] LABS: Red Blood Count 3.22 M/mcL (3.82-4.97)
[2020-03-28 18:51] LABS: Basophils % 0.2 %; Eosinophils % 0.4 %; Hematocrit 28.8 % (35.3-44.9); Hemoglobin 8.4 g/dL (11.5-15.4); Immature Platelets 7.9 % (1.1-6.1); Lymphocytes # 2.3 K/mcL (0.6-4.6); Lymphocytes % 23.1 %; Mean Corpuscular HGB Conc 29.2 g/dL (31.6-35.5); Mean Corpuscular Hemoglobin 26.1 pg (28.0-33.3); Mean Corpuscular Volume 89.4 fL (83.0-100.0); Mean Platelet Volume 12.4 fL (9.4-12.4); Monocytes # 0.9 K/mcL (0.0-1.3); Monocytes % 8.7 %; Neutrophils # 6.7 K/mcL (1.6-8.9); Red Cell Distribution Width 17.5 % (11.5-14.5); Segmented Neutrophils % 66.6 %; White Blood Count 10.1 K/mcL (4.3-11.1)
[2020-03-28 18:56] LABS: INR 1.1; Prothrombin Time 12.2 Seconds (9.4-12.1)
[2020-03-28 18:59] LABS: Activated Partial Thrombo Time 26.5 Seconds (26.0-36.0)
[2020-03-28 19:06] LABS: Alanine Aminotransferase 14 Units/L (7-52); Albumin 3.6 g/dL (3.5-5.7); Albumin/Globulin Ratio 1.6 (1.1-2.2); Alkaline Phosphatase 66 Units/L (34-104); Aspartate Amino Transferase 19 Units/L (13-39); BUN/Creatinine Ratio 33 (6-26); Bilirubin,Total 0.4 mg/dL (0.3-1.0); Blood Urea Nitrogen 30 mg/dL (8-23); Calcium 7.9 mg/dL (8.6-10.3); Carbon Dioxide 34 mEq/L (23-29); Chloride 102 mEq/L (98-107); Globulin 2.2 g/dL (2.4-3.5); Glucose 113 mg/dL (70-105); Osmolality,Calculated 301 (280-300); Potassium 5.5 mEq/L (3.5-5.1); Sodium 142 mEq/L (136-145); Total Protein 5.8 g/dL (6.4-8.9); eGFR For African Americans > 60 (> 60); eGFR For Non-African Americans 59 (> 60)
[2020-03-28] MEDS ORDERED: Isovue-370 500 ML BOTTLE IVP ONE (19:09)
[2020-03-28 19:20] LABS: Platelet Count 81 K/mcL (140-400)
[2020-03-28 19:21] LABS: Reactive Lymphocytes Present (Not Present)
[2020-03-28 21:06] LABS: Bilirubin,Urine Negative (Negative); Blood,Urine Moderate (Negative); Clarity,Urine Clear (Clear); Color,Urine Colorless (Yellow); Glucose,Urine (UA) Normal (Normal); Ketones,Urine Negative (Negative); Leukocyte Esterase,Urine Moderate (Negative); Mucus,Urine Few per lpf (None-Few); Nitrite,Urine Negative (Negative); PH,Urine 7.5 pH Units (5.0-8.0); Protein,Urine Negative (Neg-Trace); RBC,Urine 50-100 per hpf (0-3); Renal Epithelial Cells,Urine Few per hpf (None-Few); Specific Gravity,Urine 1.015 (1.010-1.025); Squamous Epithelial Cell,Urine Few per hpf (None-Few); Urobilinogen,Urine Normal (Normal); WBC,Urine 15-30 per hpf (0-3)
[2020-03-28] MEDS ORDERED: 0.9 % Sodium Chloride 1,000 ML IVC ONE (21:21)
[2020-03-28 23:26] LABS: Adenovirus Not Detected (Not Detect); Bordetella Pertussis Not Detected (Not Detect); Chlamydophila pneumoniae Not Detected (Not Detect); Coronavirus 229E Not Detected (Not Detect); Coronavirus HKU1 Not Detected (Not Detect); Coronavirus NL63 Not Detected (Not Detect); Coronavirus OC43 Not Detected (Not Detect); Human Metapneumovirus Not Detected (Not Detect); Human Rhinovirus/Enterovirus Not Detected (Not Detect); Influenza A Subtype 2009 H1 Not Detected (Not Detect); Influenza B Not Detected (Not Detect); Mycoplasma pneumoniae Not Detected (Not Detect); Parainfluenza Virus 1 Not Detected (Not Detect); Parainfluenza Virus 2 Not Detected (Not Detect); Parainfluenza Virus 3 Not Detected (Not Detect); Parainfluenza Virus 4 Not Detected (Not Detect); Respiratory Syncytial Virus Not Detected (Not Detect)
[2020-03-28] MEDS ORDERED: Naloxone 0.4 MG/ML INJ IVP PRN (23:36)
[2020-03-28] MEDS ORDERED: Ondansetron 4 MG/2 ML VIAL IVP PRN (23:36)
[2020-03-28] MEDS ORDERED: 0.9 % Sodium Chloride 1,000 ML IVC SCH (23:45)
[2020-03-29 02:03] LABS: Lactate Dehydrogenase 373 Units/L (140-271)
[2020-03-29 02:44] LABS: Immature Granulocytes % 0.9 % (0-4); Mean Platelet Volume 11.9 fL (9.4-12.4); Red Cell Distribution Width 17.2 % (11.5-14.5)
[2020-03-29 02:46] LABS: Basophils % 0.1 %; Eosinophils # 0.4 K/mcL (0.0-0.6); Eosinophils % 3.3 %; Hematocrit 26.3 % (35.3-44.9); Hemoglobin 7.8 g/dL (11.5-15.4); Immature Platelets 6.3 % (1.1-6.1); Lymphocytes # 3.4 K/mcL (0.6-4.6); Lymphocytes % 27.5 %; Mean Corpuscular HGB Conc 29.7 g/dL (31.6-35.5); Mean Corpuscular Hemoglobin 26.1 pg (28.0-33.3); Monocytes # 1.3 K/mcL (0.0-1.3); Monocytes % 10.6 %; Red Blood Count 2.99 M/mcL (3.82-4.97); Segmented Neutrophils % 57.6 %; White Blood Count 12.4 K/mcL (4.3-11.1)
[2020-03-29 02:52] LABS: Neutrophils # 7.1 K/mcL (1.6-8.9); Platelet Count 88 K/mcL (140-400)
[2020-03-29 02:54] LABS: Alanine Aminotransferase 14 Units/L (7-52); Albumin 3.1 g/dL (3.5-5.7); Albumin/Globulin Ratio 1.4 (1.1-2.2); Alkaline Phosphatase 62 Units/L (34-104); Aspartate Amino Transferase 13 Units/L (13-39); BUN/Creatinine Ratio 29 (6-26); Bilirubin,Total 0.4 mg/dL (0.3-1.0); Blood Urea Nitrogen 23 mg/dL (8-23); Calcium 7.5 mg/dL (8.6-10.3); Carbon Dioxide 32 mEq/L (23-29); Chloride 103 mEq/L (98-107); Globulin 2.2 g/dL (2.4-3.5); Glucose 102 mg/dL (70-105); Osmolality,Calculated 300 (280-300); Potassium 4.7 mEq/L (3.5-5.1); Sodium 143 mEq/L (136-145); Total Protein 5.3 g/dL (6.4-8.9); eGFR For African Americans > 60 (> 60); eGFR For Non-African Americans > 60 (> 60)
[2020-03-29] MEDS ORDERED: Acetaminophen 325 MG TABLET PO PRN (03:01)
[2020-03-29] MEDS: Pantoprazole 40 MG VIAL IVP SCH ×2 (09:24→16:36)
[2020-03-29] MEDS: *HR* OxyCODONE Immed Rel 5 MG TABLET PO PRN (15:38)
[2020-03-29 16:51] LABS: % Iron Saturation 6 % (15-50); Iron 16 mcg/dL (50-170); Transferrin 196 mg/dL (203-362)
[2020-03-29] MEDS ORDERED: SODIUM CHLORIDE/NAHCO3/KCL/PEG 4,000 ML SOLN.RECON PO ONE (17:00)
[2020-03-29 17:16] LABS: Ferritin 125 ng/mL (10-120)
[2020-03-29] MEDS ORDERED: *HR* OxyCODONE Immed Rel 5 MG TABLET PO SCH (18:00)
[2020-03-29] MEDS ORDERED: Ipratropium/Albuterol Neb 3 ML IH PRN ×2 (18:52→19:56)
[2020-03-29] MEDS ORDERED: Fluticasone Propionate Nasal 50 MCG/SPRAY BOTTLE NS PRN (19:56)
[2020-03-29] MEDS: Gabapentin 300 MG CAPSULE PO SCH (21:11)
[2020-03-29] MEDS: Metoprolol XL (24 HR) Succ 25 MG TAB.ER.24H PO SCH (21:12)
[2020-03-29] MEDS: Furosemide 40 MG TABLET PO SCH (21:12)
[2020-03-29] MEDS: Budesonide/Formoterol 160/4.5 1 PUFF INH IH SCH (22:44)
[2020-03-30] MEDS: *HR* OxyCODONE Immed Rel 5 MG TABLET PO PRN (01:34)
[2020-03-30] MEDS: Pantoprazole 40 MG VIAL IVP SCH ×2 (04:57→18:42)
[2020-03-30 05:03] LABS: Basophils % 0.3 %; Eosinophils % 5.2 %; Red Cell Distribution Width 17.2 % (11.5-14.5)
[2020-03-30 05:04] LABS: Eosinophils # 0.6 K/mcL (0.0-0.6); Hematocrit 23.9 % (35.3-44.9); Immature Granulocytes % 1.9 % (0-4); Lymphocytes # 2.4 K/mcL (0.6-4.6); Lymphocytes % 20.9 %; Mean Corpuscular HGB Conc 29.3 g/dL (31.6-35.5); Mean Corpuscular Volume 92.3 fL (83.0-100.0); Mean Platelet Volume 11.2 fL (9.4-12.4); Monocytes # 1.4 K/mcL (0.0-1.3); Monocytes % 12.3 %; Neutrophils # 6.8 K/mcL (1.6-8.9); Platelet Count 105 K/mcL (140-400); Red Blood Count 2.59 M/mcL (3.82-4.97); Segmented Neutrophils % 59.4 %; White Blood Count 11.5 K/mcL (4.3-11.1)
[2020-03-30 05:16] LABS: Alanine Aminotransferase 12 Units/L (7-52); Albumin/Globulin Ratio 1.5 (1.1-2.2); Alkaline Phosphatase 61 Units/L (34-104); Aspartate Amino Transferase 15 Units/L (13-39); BUN/Creatinine Ratio 19 (6-26); Bilirubin,Total 0.4 mg/dL (0.3-1.0); Blood Urea Nitrogen 14 mg/dL (8-23); Calcium 6.9 mg/dL (8.6-10.3); Carbon Dioxide 29 mEq/L (23-29); Chloride 105 mEq/L (98-107); Glucose 95 mg/dL (70-105); Osmolality,Calculated 296 (280-300); Potassium 3.8 mEq/L (3.5-5.1); Sodium 143 mEq/L (136-145); eGFR For African Americans > 60 (> 60); eGFR For Non-African Americans > 60 (> 60)
[2020-03-30] MEDS ORDERED: Ipratropium/Albuterol Neb 3 ML IH PRN (05:35)
[2020-03-30 07:01] LABS: VBG HCO3 33 mEq/L (21-27); VBG PCO2 53 mmHg (41-51); VBG PH 7.41 pH Units (7.32-7.42); VBG PO2 208 mmHg (25-50)
[2020-03-30] MEDS ORDERED: 0.9 % Sodium Chloride 250 ML IVC SCH (08:00)
[2020-03-30 08:34] LABS: Hematocrit 24.2 % (35.3-44.9); Hemoglobin 6.9 g/dL (11.5-15.4)
[2020-03-30] MEDS: Furosemide 40 MG TABLET PO SCH ×2 (09:44→18:43)
[2020-03-30] MEDS: Metoprolol XL (24 HR) Succ 25 MG TAB.ER.24H PO SCH (09:45)
[2020-03-30] MEDS: Budesonide/Formoterol 160/4.5 1 PUFF INH IH SCH ×2 (10:59→21:47)
[2020-03-30] MEDS: Ipratropium/Albuterol Neb 3 ML IH SCH ×3 (10:59→21:47)
[2020-03-30] MEDS ORDERED: Calcium Gluconate 1gm/50mL 1 GM/50 ML BAG IVPB ONE (13:48)
[2020-03-30 15:18] LABS: Hematocrit 25.4 % (35.3-44.9); Hemoglobin 7.5 g/dL (11.5-15.4)
[2020-03-30] MEDS ORDERED: *HR* Midazolam HCl 5 MG/5 ML VIAL IVP ONE ×2 (16:38→17:02)
[2020-03-30] MEDS ORDERED: *HR* FentaNYL (PF) 100 MCG/2 ML VIAL ONE (16:38)
[2020-03-30] MEDS ORDERED: Simethicone 40 MG/0.6 ML MLS IR ONE (17:02)
[2020-03-30] MEDS ORDERED: *HR* FentaNYL (PF) 100 MCG/2 ML VIAL IVP ONE (17:02)
[2020-03-30] MEDS: Gabapentin 300 MG CAPSULE PO SCH (20:22)
[2020-03-30] MEDS ORDERED: Loratadine 10 MG TABLET PO SCH (21:00)
[2020-03-31 01:08] LABS: Hematocrit 28.1 % (35.3-44.9); Hemoglobin 8.4 g/dL (11.5-15.4)
[2020-03-31 01:28] LABS: Magnesium 1.5 mg/dL (1.6-2.6); Phosphorous 2.5 mg/dL (2.7-4.5)
[2020-03-31 01:45] LABS: Thyroid Stimulating Hormone 3.514 mcIU/mL (0.340-5.600)
[2020-03-31] MEDS: Ipratropium/Albuterol Neb 3 ML IH SCH ×3 (03:36→15:46)
[2020-03-31] MEDS: Pantoprazole 40 MG VIAL IVP SCH (05:43)
[2020-03-31] MEDS: Furosemide 40 MG TABLET PO SCH ×2 (08:15→16:16)
[2020-03-31] MEDS: Metoprolol XL (24 HR) Succ 25 MG TAB.ER.24H PO SCH (08:15)
[2020-03-31] MEDS ORDERED: Cyanocobalamin (B-12) 1,000 MCG TABLET PO SCH (09:00)
[2020-03-31] MEDS ORDERED: Tiotropium 18 MCG inhalation IH SCH (10:00)
[2020-03-31] MEDS: Budesonide/Formoterol 160/4.5 1 PUFF INH IH SCH (10:20)
[2020-03-31] MEDS ORDERED: Magnesium Oxide 400 MG TABLET PO SCH (12:00)
[2020-03-31 14:21] VITALS: BP 110/65
[2020-03-31 15:48] LABS: Hematocrit 27.3 % (35.3-44.9); Hemoglobin 8.3 g/dL (11.5-15.4); Mean Corpuscular HGB Conc 30.4 g/dL (31.6-35.5); Mean Corpuscular Hemoglobin 25.7 pg (28.0-33.3); Platelet Count 158 K/mcL (140-400); Red Blood Count 3.23 M/mcL (3.82-4.97); Red Cell Distribution Width 17.9 % (11.5-14.5); White Blood Count 11.8 K/mcL (4.3-11.1)
[2020-03-31 15:50] LABS: Mean Corpuscular Volume 84.5 fL (83.0-100.0)
[2020-03-31 15:58] LABS: BUN/Creatinine Ratio 8 (6-26); Blood Urea Nitrogen 7 mg/dL (8-23); Calcium 6.5 mg/dL (8.6-10.3); Carbon Dioxide 29 mEq/L (23-29); Chloride 102 mEq/L (98-107); Glucose 221 mg/dL (70-105); Osmolality,Calculated 299 (280-300); Potassium 3.7 mEq/L (3.5-5.1); Sodium 142 mEq/L (136-145); eGFR For African Americans > 60 (> 60); eGFR For Non-African Americans > 60 (> 60)
[2020-03-31] MEDS: *HR* OxyCODONE Immed Rel 5 MG TABLET PO PRN (16:16)
[2020-04-01 07:58] LABS: Immunoglobulin A 143 mg/dL (68-408); Immunoglobulin G 451 mg/dL (768-1632); Immunoglobulin M 10 mg/dL (35-263)
== END 2020-03-31 18:39 | DRG 377 ==
LOC: EMEROOARM 17:38 → 3ANU 17:38 → SUATTDRO 23:27 → 3ANU 23:52 → SUATTDRO 03-29 14:55
PROVIDERS: ADMIT Student in an Organized Health Care Education/Training Program; ATTEND Internal Medicine

== ENCOUNTER 2020-05-07 18:03 | Inpatient (IN) ==
[2020-05-07] MEDS ORDERED: Isovue-370 500 ML BOTTLE IVP ONE (18:31)
[2020-05-07 18:52] LABS: Basophils # 0.1 K/mcL (0.0-0.2); Basophils % 0.9 %; Hematocrit 38.2 % (35.3-44.9); Hemoglobin 11.4 g/dL (11.5-15.4); Immature Granulocytes % 1.1 % (0-4); Lymphocytes # 1.7 K/mcL (0.6-4.6); Mean Corpuscular HGB Conc 29.8 g/dL (31.6-35.5); Mean Corpuscular Hemoglobin 29.5 pg (28.0-33.3); Monocytes # 1.6 K/mcL (0.0-1.3); Monocytes % 12.1 %; Neutrophils # 9.5 K/mcL (1.6-8.9); Nucleated Red Blood Cells 0.3 /100 WBC (0); Platelet Count 413 K/mcL (140-400); Red Blood Count 3.86 M/mcL (3.82-4.97); Red Cell Distribution Width 21.4 % (11.5-14.5); Segmented Neutrophils % 72.9 %
[2020-05-07 19:09] LABS: Hypochromasia Present (Not Present); Polychromasia 1+ (Not Present)
[2020-05-07 19:10] LABS: Anisocytosis 2+ (Not Present); Toxic Granulation Present (Not Present)
[2020-05-07 19:21] LABS: Albumin 3.6 g/dL (3.5-5.7); Albumin/Globulin Ratio 0.9 (1.1-2.2); Bilirubin,Direct 0.1 mg/dL (0.0-0.2); Bilirubin,Indirect 0.2 mg/dL (0.0-1.0); Bilirubin,Total 0.3 mg/dL (0.3-1.0); Calcium 10.7 mg/dL (8.6-10.3); Globulin 3.8 g/dL (2.4-3.5); Potassium 5.8 mEq/L (3.5-5.1); Total Protein 7.4 g/dL (6.4-8.9); Troponin I 0.05 ng/mL (< 0.04)
[2020-05-07] MEDS ORDERED: Azithromycin 500 MG in 0.9 % Sodium Chloride 250 ML IVPB ONE (21:40)
[2020-05-07] MEDS ORDERED: Cefepime HCl 2,000 MG in Water for inj. (sterile) 20 ML IVP ONE (21:45)
[2020-05-07] MEDS ORDERED: 0.9 % Sodium Chloride 1,000 ML IVC ONE (22:26)
[2020-05-07] MEDS ORDERED: 0.9 % Sodium Chloride 1,000 ML IVC SCH (23:30)
[2020-05-07] MEDS ORDERED: Naloxone 0.4 MG/ML INJ IVP PRN (23:30)
[2020-05-07] MEDS ORDERED: Ondansetron 4 MG/2 ML VIAL IVP PRN (23:30)
[2020-05-08 00:18] LABS: Adenovirus Not Detected (Not Detect); Bordetella Pertussis Not Detected (Not Detect); Chlamydophila pneumoniae Not Detected (Not Detect); Coronavirus 229E Not Detected (Not Detect); Coronavirus HKU1 Not Detected (Not Detect); Coronavirus NL63 Not Detected (Not Detect); Coronavirus OC43 Not Detected (Not Detect); Human Metapneumovirus Not Detected (Not Detect); Human Rhinovirus/Enterovirus Not Detected (Not Detect); Influenza A Subtype 2009 H1 Not Detected (Not Detect); Influenza B Not Detected (Not Detect); Mycoplasma pneumoniae Not Detected (Not Detect); Parainfluenza Virus 1 Not Detected (Not Detect); Parainfluenza Virus 2 Not Detected (Not Detect); Parainfluenza Virus 3 Not Detected (Not Detect); Parainfluenza Virus 4 Not Detected (Not Detect); Respiratory Syncytial Virus Not Detected (Not Detect); SARS-CoV-2 Not Detected (Not Detect)
[2020-05-08 01:49] LABS: ABG Base Excess 3 mEq/L (-2 to 3); ABG HCO3 38 mEq/L (21-27); ABG Oxygen Saturation 95 % (95-98); ABG PCO2 127 mmHg (35-45); ABG PH 7.08 pH Units (7.32-7.45); ABG PO2 110 mmHg (85-104); ABG TCO2 41 mEq/L (20-26)
[2020-05-08] MEDS ORDERED: Naloxone 0.4 MG/ML INJ IVP PRN (02:09)
[2020-05-08] MEDS ORDERED: *HR* Norepinephrine 4 MG/4 ML VIAL IVC ONE (02:25)
[2020-05-08] MEDS ORDERED: 0.9 % Sodium Chloride 250 ML ONE (02:25)
[2020-05-08 03:14] LABS: ABG Base Excess 5 mEq/L (-2 to 3); ABG HCO3 35 mEq/L (21-27); ABG Oxygen Saturation 100 % (95-98); ABG PCO2 83 mmHg (35-45); ABG PH 7.23 pH Units (7.32-7.45); ABG PO2 343 mmHg (85-104); ABG TCO2 37 mEq/L (20-26); Blood Gas VT 450 cc
[2020-05-08] MEDS: FentaNYL (PF) 1,000 MCG/100 ML IV.SOLN IVC SCH ×2 (03:29→16:20)
[2020-05-08 04:47] LABS: ABG Base Excess 5 mEq/L (-2 to 3); ABG HCO3 33 mEq/L (21-27); ABG Oxygen Saturation 100 % (95-98); ABG PCO2 66 mmHg (35-45); ABG PH 7.31 pH Units (7.32-7.45); ABG PO2 235 mmHg (85-104); ABG TCO2 35 mEq/L (20-26); Blood Gas VT 450 cc
[2020-05-08 04:47] LABS: Nucleated Red Blood Cells 0.5 /100 WBC (0)
[2020-05-08 04:49] LABS: Basophils # 0.1 K/mcL (0.0-0.2); Basophils % 0.8 %; Hematocrit 38.1 % (35.3-44.9); Hemoglobin 10.4 g/dL (11.5-15.4); Immature Granulocytes % 2.9 % (0-4); Lymphocytes # 0.8 K/mcL (0.6-4.6); Lymphocytes % 5.6 %; Mean Corpuscular HGB Conc 27.3 g/dL (31.6-35.5); Mean Corpuscular Hemoglobin 28.1 pg (28.0-33.3); Mean Platelet Volume 9.8 fL (9.4-12.4); Monocytes # 0.8 K/mcL (0.0-1.3); Monocytes % 5.8 %; Neutrophils # 11.6 K/mcL (1.6-8.9); Platelet Count 368 K/mcL (140-400); Red Cell Distribution Width 21.3 % (11.5-14.5); Segmented Neutrophils % 84.9 %; White Blood Count 13.7 K/mcL (4.3-11.1)
[2020-05-08 04:54] LABS: INR 1.2; Prothrombin Time 14.1 Seconds (9.4-12.1)
[2020-05-08 04:54] LABS: Bilirubin,Urine Small (Negative); Blood,Urine Moderate (Negative); Clarity,Urine Cloudy (Clear); Color,Urine Yellow (Yellow); Glucose,Urine (UA) Normal (Normal); Ketones,Urine Trace mg/dL (Negative); Leukocyte Esterase,Urine Moderate (Negative); Nitrite,Urine Negative (Negative); Protein,Urine >=300 mg/dL (Neg-Trace); Specific Gravity,Urine >= 1.030 (1.010-1.025); Urobilinogen,Urine Normal (Normal)
[2020-05-08 04:56] LABS: VBG Ionized Calcium 1.16 mmol/L (1.15-1.35)
[2020-05-08 05:04] LABS: Calcium 9.4 mg/dL (8.6-10.3); Magnesium 2.5 mg/dL (1.6-2.6); Phosphorous 7.2 mg/dL (2.7-4.5); Potassium 5.1 mEq/L (3.5-5.1)
[2020-05-08 05:06] LABS: Bacteria,Urine Few per hpf (None-Few); Mucus,Urine Few per lpf (None-Few); RBC,Urine TNTC per hpf (0-3); Squamous Epithelial Cell,Urine Few per hpf (None-Few); Transitional Epi Cells,Urine Many per hpf (None-Few); WBC,Urine TNTC per hpf (0-3)
[2020-05-08] MEDS: Norepinephrine 4 MG/254 ML IV.SOLN IVC SCH ×2 (05:38→22:26)
[2020-05-08] MEDS: Artificial Tears SOLN 15 ML BOTTLE BOTH EYES PRN ×2 (05:40→23:53)
[2020-05-08] MEDS: Artificial Tears SOLN 15 ML BOTTLE BOTH EYES SCH ×5 (05:51→20:31)
[2020-05-08] MEDS: *HR* Heparin 5,000 UNIT/ML VIAL SQ SCH ×3 (05:55→20:30)
[2020-05-08 06:02] LABS: Platelet Estimate Normal (Normal); Toxic Granulation Present (Not Present)
[2020-05-08 06:03] LABS: Anisocytosis 2+ (Not Present); Hypochromasia Present (Not Present); Polychromasia 1+ (Not Present)
[2020-05-08] MEDS: Pantoprazole 40 MG VIAL IVP SCH (08:05)
[2020-05-08] MEDS: Chlorhexidine Rinse 15 ML MOUTHWASH MM SCH ×2 (08:06→20:30)
[2020-05-08] MEDS ORDERED: Metoprolol XL (24 HR) Succ 25 MG TAB.ER.24H PO SCH (09:00)
[2020-05-08] MEDS ORDERED: Aspirin Enteric Coated 81 MG Tablet PO SCH (09:00)
[2020-05-08] MEDS: Ipratropium/Albuterol Neb 3 ML IH SCH ×4 (11:11→23:24)
[2020-05-08 12:04] LABS: ABG Base Excess 4 mEq/L (-2 to 3); ABG HCO3 31 mEq/L (21-27); ABG Oxygen Saturation 96 % (95-98); ABG PCO2 57 mmHg (35-45); ABG PH 7.35 pH Units (7.32-7.45); ABG PO2 90 mmHg (85-104); ABG TCO2 33 mEq/L (20-26); Blood Gas Modality VC; Blood Gas VT 320 cc
[2020-05-08] MEDS: Ringers Solution, Lactated 1,000 ML IVC SCH ×2 (14:55→21:26)
[2020-05-08] MEDS: Aspirin 81 MG TAB.CHEW PO SCH (14:55)
[2020-05-08] MEDS: MethylPREDNISolone 40 MG/ML VIAL IVP SCH ×2 (16:43→23:29)
[2020-05-08] MEDS: MetroNIDAZOLE 500 MG/100 ML 500 MG/100 ML BAG IVPB SCH ×2 (16:43→23:29)
[2020-05-08] MEDS ORDERED: *HR* Metoprolol 5 MG/5 ML VIAL IVP ONE (16:52)
[2020-05-08] MEDS ORDERED: *HR* Metoprolol 5 MG/5 ML VIAL IVP PRN (16:52)
[2020-05-08] MEDS: Doxycycline 100 MG in 0.9 % Sodium Chloride Mini Bag 100 ML IVPB SCH (18:38)
[2020-05-08] MEDS ORDERED: Azithromycin 500 MG in 0.9 % Sodium Chloride 250 ML IVPB SCH (21:00)
[2020-05-08] MEDS: Cefepime HCl 1,000 MG in Water for inj. (sterile) 10 ML IVP SCH (21:26)
[2020-05-09] MEDS: Artificial Tears SOLN 15 ML BOTTLE BOTH EYES PRN ×2 (01:35→05:32)
[2020-05-09] MEDS: Artificial Tears SOLN 15 ML BOTTLE BOTH EYES SCH ×7 (01:36→23:59)
[2020-05-09] MEDS: Ipratropium/Albuterol Neb 3 ML IH SCH ×6 (03:17→23:30)
[2020-05-09 04:06] LABS: Hematocrit 33.5 % (35.3-44.9); Hemoglobin 9.7 g/dL (11.5-15.4); Mean Corpuscular Hemoglobin 28.9 pg (28.0-33.3); Mean Corpuscular Volume 99.7 fL (83.0-100.0); Platelet Count 373 K/mcL (140-400); Red Blood Count 3.36 M/mcL (3.82-4.97); Red Cell Distribution Width 22.4 % (11.5-14.5); White Blood Count 15.8 K/mcL (4.3-11.1)
[2020-05-09 04:25] LABS: Calcium 7.8 mg/dL (8.6-10.3); Potassium 6.1 mEq/L (3.5-5.1)
[2020-05-09 04:32] LABS: ABG Base Excess 0 mEq/L (-2 to 3); ABG HCO3 28 mEq/L (21-27); ABG Oxygen Saturation 97 % (95-98); ABG PCO2 59 mmHg (35-45); ABG PH 7.28 pH Units (7.32-7.45); ABG PO2 101 mmHg (85-104); ABG TCO2 29 mEq/L (20-26); Blood Gas Modality VC; Blood Gas VT 320 cc
[2020-05-09] MEDS: Doxycycline 100 MG in 0.9 % Sodium Chloride Mini Bag 100 ML IVPB SCH ×2 (05:32→17:26)
[2020-05-09] MEDS: *HR* Heparin 5,000 UNIT/ML VIAL SQ SCH ×3 (05:33→20:14)
[2020-05-09] MEDS: Ringers Solution, Lactated 1,000 ML IVC SCH (08:53)
[2020-05-09] MEDS: MetroNIDAZOLE 500 MG/100 ML 500 MG/100 ML BAG IVPB SCH ×3 (08:54→23:59)
[2020-05-09] MEDS: Chlorhexidine Rinse 15 ML MOUTHWASH MM SCH ×2 (09:01→20:08)
[2020-05-09] MEDS: Aspirin 81 MG TAB.CHEW PO SCH (09:02)
[2020-05-09] MEDS: MethylPREDNISolone 40 MG/ML VIAL IVP SCH ×2 (09:02→16:30)
[2020-05-09] MEDS: Pantoprazole 40 MG VIAL IVP SCH (09:02)
[2020-05-09] MEDS ORDERED: Albuterol 2.5 MG/3 ML NEBULIZER IH ONE (09:37)
[2020-05-09] MEDS ORDERED: Albuterol 2.5 MG/3 ML NEBULIZER ONE (09:39)
[2020-05-09] MEDS ORDERED: D5% in Water 1,000 ML IVC SCH (10:00)
[2020-05-09 10:43] LABS: Calcium 7.4 mg/dL (8.6-10.3); Magnesium 2.2 mg/dL (1.6-2.6); Phosphorous 4.8 mg/dL (2.7-4.5); Potassium 5.1 mEq/L (3.5-5.1)
[2020-05-09] MEDS ORDERED: Vancomycin 500 MG in 0.9 % Sodium Chloride Mini Bag 100 ML IVPB ONE (14:00)
[2020-05-09] MEDS: Silvasorb 44.4 ML TUBE TP SCH ×2 (14:39→20:15)
[2020-05-09 15:23] LABS: Protein/Creatinine Ratio,Urine 0.87 mg/mg (0.00-0.20); Sodium, Urine 12.5 mEq/L
[2020-05-09 16:56] LABS: Calcium 7.2 mg/dL (8.6-10.3); Potassium 4.4 mEq/L (3.5-5.1); Uric Acid 18.7 mg/dL (2.3-7.6)
[2020-05-09] MEDS ORDERED: *HR* Dextrose 50 % in Water (Vial) 50 ML VIAL IVP PRN (17:21)
[2020-05-09] MEDS ORDERED: Dextrose Gel 15 GM/37.5 ML TUBE PO PRN ×2 (17:21)
[2020-05-09] MEDS ORDERED: D5% in Water 1,000 ML IVC PRN (17:21)
[2020-05-09] MEDS: Insulin LISPRO 300 UNITS/3 ML VIAL SQ SCH ×2 (17:42→20:18)
[2020-05-09 17:54] LABS: Folate 6.2 ng/mL (3.0-16.0); Vitamin B12 > 1500 pg/mL (250-1100)
[2020-05-09] MEDS ORDERED: Insulin LISPRO 300 UNITS/3 ML VIAL SQ SCH (20:00)
[2020-05-09] MEDS: Norepinephrine 4 MG/254 ML IV.SOLN IVC SCH (20:14)
[2020-05-09] MEDS: D5% in Water 1,000 ML IVC SCH (20:16)
[2020-05-09] MEDS: Cefepime HCl 1,000 MG in Water for inj. (sterile) 10 ML IVP SCH (21:21)
[2020-05-10] MEDS: Ipratropium/Albuterol Neb 3 ML IH SCH ×5 (03:09→20:06)
[2020-05-10] MEDS: Artificial Tears SOLN 15 ML BOTTLE BOTH EYES PRN (03:52)
[2020-05-10] MEDS: Insulin LISPRO 300 UNITS/3 ML VIAL SQ SCH ×6 (03:53→20:49)
[2020-05-10] MEDS: Artificial Tears SOLN 15 ML BOTTLE BOTH EYES SCH ×4 (03:56→17:26)
[2020-05-10 04:08] LABS: Hematocrit 30.4 % (35.3-44.9); Hemoglobin 9.1 g/dL (11.5-15.4); Mean Corpuscular HGB Conc 29.9 g/dL (31.6-35.5); Mean Corpuscular Hemoglobin 29.3 pg (28.0-33.3); Mean Corpuscular Volume 97.7 fL (83.0-100.0); Mean Platelet Volume 9.7 fL (9.4-12.4); Platelet Count 312 K/mcL (140-400); Red Blood Count 3.11 M/mcL (3.82-4.97); Red Cell Distribution Width 21.9 % (11.5-14.5); White Blood Count 27.4 K/mcL (4.3-11.1)
[2020-05-10 04:22] LABS: ABG Base Excess 1 mEq/L (-2 to 3); ABG HCO3 28 mEq/L (21-27); ABG Oxygen Saturation 97 % (95-98); ABG PCO2 56 mmHg (35-45); ABG PH 7.31 pH Units (7.32-7.45); ABG PO2 98 mmHg (85-104); ABG TCO2 30 mEq/L (20-26); Blood Gas Modality VC; Blood Gas VT 350 cc
[2020-05-10 04:28] LABS: Potassium 3.7 mEq/L (3.5-5.1)
[2020-05-10] MEDS: Doxycycline 100 MG in 0.9 % Sodium Chloride Mini Bag 100 ML IVPB SCH (06:08)
[2020-05-10] MEDS: *HR* Heparin 5,000 UNIT/ML VIAL SQ SCH ×3 (06:08→20:54)
[2020-05-10] MEDS: FentaNYL (PF) 1,000 MCG/100 ML IV.SOLN IVC SCH (07:57)
[2020-05-10] MEDS: Pantoprazole 40 MG VIAL IVP SCH (08:18)
[2020-05-10] MEDS: MethylPREDNISolone 40 MG/ML VIAL IVP SCH ×2 (08:19)
[2020-05-10] MEDS: Aspirin 81 MG TAB.CHEW PO SCH (08:19)
[2020-05-10] MEDS: Chlorhexidine Rinse 15 ML MOUTHWASH MM SCH (08:19)
[2020-05-10] MEDS: MetroNIDAZOLE 500 MG/100 ML 500 MG/100 ML BAG IVPB SCH (08:25)
[2020-05-10 10:18] LABS: Hematocrit 30.3 % (35.3-44.9); Hemoglobin 9.1 g/dL (11.5-15.4); Mean Corpuscular Hemoglobin 29.4 pg (28.0-33.3); Mean Corpuscular Volume 97.7 fL (83.0-100.0); Mean Platelet Volume 10.5 fL (9.4-12.4); Nucleated Red Blood Cells 0.7 /100 WBC (0); Platelet Count 322 K/mcL (140-400); White Blood Count 26.9 K/mcL (4.3-11.1)
[2020-05-10 10:35] LABS: Lymphocytes # 1.6 K/mcL (0.6-4.6); Neutrophils # 24.2 K/mcL (1.6-8.9)
[2020-05-10 10:36] LABS: Platelet Estimate Normal (Normal); Toxic Granulation Present (Not Present)
[2020-05-10] MEDS: Silvasorb 44.4 ML TUBE TP SCH (11:56)
[2020-05-10] MEDS: D5% in Water 1,000 ML IVC SCH (15:01)
[2020-05-10] MEDS ORDERED: Cefepime HCl 1,000 MG in Water for inj. (sterile) 10 ML IVP SCH (16:00)
[2020-05-10 16:37] LABS: Appearance of Body Fluid Cloudy (Clear)
[2020-05-10 16:38] LABS: Volume of Body Fluid 23 mL
[2020-05-10] MEDS: Meropenem 1,000 MG in Water for inj. (sterile) 20 ML IVP SCH (17:17)
[2020-05-10] MEDS ORDERED: *HR* Metoprolol 5 MG/5 ML VIAL IVP PRN (22:24)
[2020-05-11] MEDS: Ipratropium/Albuterol Neb 3 ML IH SCH ×6 (00:12→20:34)
[2020-05-11] MEDS: Insulin LISPRO 300 UNITS/3 ML VIAL SQ SCH ×6 (00:15→19:41)
[2020-05-11 04:21] LABS: Hemoglobin 9.6 g/dL (11.5-15.4)
[2020-05-11 04:22] LABS: Hematocrit 32.2 % (35.3-44.9); Mean Corpuscular HGB Conc 29.8 g/dL (31.6-35.5); Mean Corpuscular Hemoglobin 29.1 pg (28.0-33.3); Mean Corpuscular Volume 97.6 fL (83.0-100.0); Nucleated Red Blood Cells 0.5 /100 WBC (0); Platelet Count 289 K/mcL (140-400); White Blood Count 27.9 K/mcL (4.3-11.1)
[2020-05-11 04:38] LABS: Calcium 7.2 mg/dL (8.6-10.3); Phosphorous 4.1 mg/dL (2.7-4.5); Potassium 4.2 mEq/L (3.5-5.1)
[2020-05-11 04:57] LABS: ABG Base Excess 0 mEq/L (-2 to 3); ABG HCO3 27 mEq/L (21-27); ABG Oxygen Saturation 96 % (95-98); ABG PCO2 51 mmHg (35-45); ABG PH 7.33 pH Units (7.32-7.45); ABG PO2 88 mmHg (85-104); ABG TCO2 28 mEq/L (20-26); Blood Gas Modality avaps; Blood Gas Pressure Support 8 cm H2O; Blood Gas VT 500 cc
[2020-05-11] MEDS: Meropenem 1,000 MG in Water for inj. (sterile) 20 ML IVP SCH (05:00)
[2020-05-11] MEDS: *HR* Heparin 5,000 UNIT/ML VIAL SQ SCH ×3 (05:08→23:26)
[2020-05-11 05:09] LABS: Anisocytosis 1+ (Not Present); Hypochromasia Present (Not Present); Lymphocytes # 1.7 K/mcL (0.6-4.6); Neutrophils # 26.2 K/mcL (1.6-8.9)
[2020-05-11 05:10] LABS: Platelet Estimate Normal (Normal); Toxic Granulation Present (Not Present)
[2020-05-11] MEDS: Pantoprazole 40 MG VIAL IVP SCH (08:11)
[2020-05-11] MEDS: Aspirin 81 MG TAB.CHEW PO SCH (08:11)
[2020-05-11] MEDS: Silvasorb 44.4 ML TUBE TP SCH (08:11)
[2020-05-11] MEDS: MethylPREDNISolone 40 MG/ML VIAL IVP SCH (10:49)
[2020-05-11] MEDS: D5% in Water 1,000 ML IVC SCH (10:50)
[2020-05-11] MEDS ORDERED: Vancomycin 500 MG in 0.9 % Sodium Chloride Mini Bag 100 ML IVPB ONE (15:00)
[2020-05-11] MEDS: WATER FOR INJ IVP SCH (16:54)
[2020-05-11] MEDS: MEROPENEM IVP SCH (16:54)
[2020-05-12] MEDS: Insulin LISPRO 300 UNITS/3 ML VIAL SQ SCH ×6 (00:26→20:46)
[2020-05-12] MEDS: Ipratropium/Albuterol Neb 3 ML IH SCH ×8 (00:36→23:46)
[2020-05-12] MEDS: WATER FOR INJ IVP SCH (03:53)
[2020-05-12] MEDS: MEROPENEM IVP SCH (03:53)
[2020-05-12] MEDS: D5% in Water 1,000 ML IVC SCH ×2 (03:54→17:52)
[2020-05-12 04:06] LABS: Hematocrit 31.1 % (35.3-44.9); Hemoglobin 9.4 g/dL (11.5-15.4); Mean Corpuscular HGB Conc 30.2 g/dL (31.6-35.5); Mean Corpuscular Hemoglobin 28.3 pg (28.0-33.3); Mean Corpuscular Volume 93.7 fL (83.0-100.0); Mean Platelet Volume 10.2 fL (9.4-12.4); Nucleated Red Blood Cells 0.4 /100 WBC (0); Platelet Count 260 K/mcL (140-400); Red Blood Count 3.32 M/mcL (3.82-4.97); Red Cell Distribution Width 21.9 % (11.5-14.5); White Blood Count 23.7 K/mcL (4.3-11.1)
[2020-05-12 04:27] LABS: Calcium 7.3 mg/dL (8.6-10.3)
[2020-05-12 05:15] LABS: Anisocytosis 1+ (Not Present)
[2020-05-12 05:16] LABS: Platelet Estimate Normal (Normal)
[2020-05-12 05:17] LABS: Lymphocytes # 2.4 K/mcL (0.6-4.6); Monocytes # 2.4 K/mcL (0.0-1.3); Neutrophils # 17.5 K/mcL (1.6-8.9)
[2020-05-12] MEDS: *HR* Heparin 5,000 UNIT/ML VIAL SQ SCH ×3 (06:05→20:47)
[2020-05-12] MEDS: Pantoprazole 40 MG VIAL IVP SCH (07:56)
[2020-05-12] MEDS: Aspirin 81 MG TAB.CHEW PO SCH (07:56)
[2020-05-12] MEDS: MethylPREDNISolone 40 MG/ML VIAL IVP SCH (07:58)
[2020-05-12] MEDS: Silvasorb 44.4 ML TUBE TP SCH (07:58)
[2020-05-12] MEDS ORDERED: metroNIDAZOLE 500 MG TABLET PO SCH (15:45)
[2020-05-12] MEDS ORDERED: *HR* Dextrose 50 % in Water (Vial) 50 ML VIAL IVP PRN (15:58)
[2020-05-12] MEDS ORDERED: D5% in Water 1,000 ML IVC PRN (15:58)
[2020-05-12] MEDS ORDERED: Ondansetron 4 MG/2 ML VIAL IVP PRN (15:58)
[2020-05-12] MEDS ORDERED: Dextrose Gel 15 GM/37.5 ML TUBE PO PRN ×2 (15:58)
[2020-05-12] MEDS ORDERED: *HR* Metoprolol 5 MG/5 ML VIAL IVP PRN (15:58)
[2020-05-12] MEDS ORDERED: Naloxone 0.4 MG/ML INJ IVP PRN (15:58)
[2020-05-12] MEDS ORDERED: Cefepime HCl 2,000 MG in Water for inj. (sterile) 20 ML IVP SCH (16:00)
[2020-05-12] MEDS ORDERED: Fosfomycin Tromethamine 3 GM Packet PO ONE ×3 (17:00→18:00)
[2020-05-12] MEDS: Cefepime HCl 2,000 MG in Water for inj. (sterile) 20 ML IVP SCH (17:43)
[2020-05-12] MEDS: Gabapentin 300 MG CAPSULE PO SCH (17:44)
[2020-05-12] MEDS: Budesonide/Formoterol 160/4.5 1 PUFF INH IH SCH (19:50)
[2020-05-12] MEDS: metroNIDAZOLE 500 MG TABLET PO SCH (20:46)
[2020-05-12] MEDS: Loratadine 10 MG TABLET PO SCH (20:46)
[2020-05-13] MEDS: Insulin LISPRO 300 UNITS/3 ML VIAL SQ SCH ×6 (00:34→22:06)
[2020-05-13] MEDS: Ipratropium/Albuterol Neb 3 ML IH SCH ×5 (03:04→20:18)
[2020-05-13] MEDS: Cefepime HCl 2,000 MG in Water for inj. (sterile) 20 ML IVP SCH ×2 (04:55→17:11)
[2020-05-13] MEDS: *HR* Heparin 5,000 UNIT/ML VIAL SQ SCH ×3 (05:25→23:04)
[2020-05-13 05:47] LABS: Hematocrit 29.5 % (35.3-44.9); Hemoglobin 8.8 g/dL (11.5-15.4); Mean Corpuscular HGB Conc 29.8 g/dL (31.6-35.5); Mean Corpuscular Volume 93.9 fL (83.0-100.0); Mean Platelet Volume 10.6 fL (9.4-12.4); Nucleated Red Blood Cells 0.2 /100 WBC (0); Platelet Count 237 K/mcL (140-400); Red Blood Count 3.14 M/mcL (3.82-4.97); Red Cell Distribution Width 22.2 % (11.5-14.5); White Blood Count 22.8 K/mcL (4.3-11.1)
[2020-05-13 06:22] LABS: Anisocytosis 1+ (Not Present); Hypochromasia Present (Not Present); Lymphocytes # 1.8 K/mcL (0.6-4.6); Monocytes # 1.8 K/mcL (0.0-1.3); Neutrophils # 17.8 K/mcL (1.6-8.9); Platelet Estimate Normal (Normal); Toxic Granulation Present (Not Present)
[2020-05-13 06:23] LABS: Macrocytosis Present (Not Present)
[2020-05-13 07:15] LABS: BUN/Creatinine Ratio 54 (6-26); Blood Urea Nitrogen 52 mg/dL (8-23); Calcium 7.3 mg/dL (8.6-10.3); Carbon Dioxide 27 mEq/L (23-29); Chloride 107 mEq/L (98-107); Glucose 143 mg/dL (70-105); Osmolality,Calculated 311 (280-300); Potassium 3.9 mEq/L (3.5-5.1); Sodium 142 mEq/L (136-145); eGFR For African Americans > 60 (> 60); eGFR For Non-African Americans 55 (> 60)
[2020-05-13] MEDS: Budesonide/Formoterol 160/4.5 1 PUFF INH IH SCH ×2 (07:52→20:18)
[2020-05-13] MEDS: Tiotropium 18 MCG inhalation IH SCH (07:56)
[2020-05-13] MEDS: metroNIDAZOLE 500 MG TABLET PO SCH ×3 (08:29→22:33)
[2020-05-13] MEDS: predniSONE 10 MG TABLET PO SCH (08:29)
[2020-05-13] MEDS: Gabapentin 300 MG CAPSULE PO SCH ×2 (08:30→17:11)
[2020-05-13] MEDS: Aspirin 81 MG TAB.CHEW PO SCH (08:30)
[2020-05-13] MEDS: Silvasorb 44.4 ML TUBE TP SCH (08:47)
[2020-05-13] MEDS ORDERED: Pantoprazole 40 MG VIAL IVP SCH (09:00)
[2020-05-13] MEDS: D5% in Water 1,000 ML IVC SCH (14:45)
[2020-05-13] MEDS: Loratadine 10 MG TABLET PO SCH (22:33)
[2020-05-14] MEDS: Ipratropium/Albuterol Neb 3 ML IH SCH ×7 (00:10→23:05)
[2020-05-14] MEDS: Insulin LISPRO 300 UNITS/3 ML VIAL SQ SCH ×6 (01:09→20:49)
[2020-05-14] MEDS: Cefepime HCl 2,000 MG in Water for inj. (sterile) 20 ML IVP SCH ×2 (04:07→16:21)
[2020-05-14 04:32] LABS: Basophils # 0.2 K/mcL (0.0-0.2); Basophils % 0.9 %; Eosinophils # 0.1 K/mcL (0.0-0.6); Eosinophils % 0.4 %; Hematocrit 29.5 % (35.3-44.9); Hemoglobin 8.7 g/dL (11.5-15.4); Immature Granulocytes % 9.9 % (0-4); Lymphocytes # 4.2 K/mcL (0.6-4.6); Lymphocytes % 19.6 %; Mean Corpuscular HGB Conc 29.5 g/dL (31.6-35.5); Mean Corpuscular Hemoglobin 29.2 pg (28.0-33.3); Mean Platelet Volume 9.9 fL (9.4-12.4); Monocytes # 1.7 K/mcL (0.0-1.3); Monocytes % 7.8 %; Nucleated Red Blood Cells 0.2 /100 WBC (0); Platelet Count 192 K/mcL (140-400); Red Blood Count 2.98 M/mcL (3.82-4.97); Red Cell Distribution Width 22.6 % (11.5-14.5); Segmented Neutrophils % 61.4 %; White Blood Count 21.6 K/mcL (4.3-11.1)
[2020-05-14 04:36] LABS: Neutrophils # 13.3 K/mcL (1.6-8.9)
[2020-05-14 04:59] LABS: Anisocytosis 2+ (Not Present); Platelet Estimate Normal (Normal)
[2020-05-14] MEDS: *HR* Heparin 5,000 UNIT/ML VIAL SQ SCH ×3 (05:41→20:47)
[2020-05-14] MEDS: Budesonide/Formoterol 160/4.5 1 PUFF INH IH SCH ×2 (07:23→19:50)
[2020-05-14] MEDS: Tiotropium 18 MCG inhalation IH SCH (07:23)
[2020-05-14] MEDS: Aspirin 81 MG TAB.CHEW PO SCH (09:14)
[2020-05-14] MEDS: predniSONE 10 MG TABLET PO SCH (09:14)
[2020-05-14] MEDS: Gabapentin 300 MG CAPSULE PO SCH ×2 (09:14→16:23)
[2020-05-14] MEDS: metroNIDAZOLE 500 MG TABLET PO SCH ×3 (09:14→20:47)
[2020-05-14] MEDS: Silvasorb 44.4 ML TUBE TP SCH (09:16)
[2020-05-14] MEDS: D5% in Water 1,000 ML IVC SCH (14:13)
[2020-05-14] MEDS: Ketorolac 15 MG/ML VIAL IVP SCH ×2 (17:24→23:48)
[2020-05-14] MEDS: Loratadine 10 MG TABLET PO SCH (20:47)
[2020-05-15] MEDS: Ipratropium/Albuterol Neb 3 ML IH SCH ×6 (03:52→23:04)
[2020-05-15] MEDS: Ketorolac 15 MG/ML VIAL IVP SCH ×3 (05:10→17:45)
[2020-05-15] MEDS: *HR* Heparin 5,000 UNIT/ML VIAL SQ SCH ×3 (05:11→21:51)
[2020-05-15] MEDS: Cefepime HCl 2,000 MG in Water for inj. (sterile) 20 ML IVP SCH ×2 (05:11→16:36)
[2020-05-15] MEDS: Insulin LISPRO 300 UNITS/3 ML VIAL SQ SCH ×6 (05:30→21:47)
[2020-05-15 05:33] LABS: Eosinophils # 0.3 K/mcL (0.0-0.6); Hemoglobin 8.6 g/dL (11.5-15.4); Mean Corpuscular HGB Conc 29.7 g/dL (31.6-35.5); Mean Corpuscular Hemoglobin 29.2 pg (28.0-33.3); Mean Corpuscular Volume 98.3 fL (83.0-100.0); Mean Platelet Volume 10.7 fL (9.4-12.4); Nucleated Red Blood Cells 0.2 /100 WBC (0); Platelet Count 226 K/mcL (140-400); Red Blood Count 2.95 M/mcL (3.82-4.97); Red Cell Distribution Width 22.8 % (11.5-14.5); White Blood Count 15.7 K/mcL (4.3-11.1)
[2020-05-15 05:54] LABS: Lymphocytes # 4.4 K/mcL (0.6-4.6); Monocytes # 1.9 K/mcL (0.0-1.3); Neutrophils # 8.8 K/mcL (1.6-8.9)
[2020-05-15 05:55] LABS: Anisocytosis 1+ (Not Present); Basophilic Stippling 1+ (Not Present); Platelet Estimate Normal (Normal); Polychromasia 1+ (Not Present)
[2020-05-15] MEDS: D5% in Water 1,000 ML IVC SCH (06:23)
[2020-05-15] MEDS: Tiotropium 18 MCG inhalation IH SCH (07:35)
[2020-05-15] MEDS: Budesonide/Formoterol 160/4.5 1 PUFF INH IH SCH ×2 (07:36→19:44)
[2020-05-15] MEDS: Gabapentin 300 MG CAPSULE PO SCH ×3 (10:18→21:52)
[2020-05-15] MEDS: predniSONE 10 MG TABLET PO SCH (10:18)
[2020-05-15] MEDS: Aspirin 81 MG TAB.CHEW PO SCH (10:18)
[2020-05-15] MEDS: metroNIDAZOLE 500 MG TABLET PO SCH ×3 (10:18→21:52)
[2020-05-15] MEDS: Silvasorb 44.4 ML TUBE TP SCH (10:19)
[2020-05-15] MEDS ORDERED: Benzocaine 20% 12 APPL GEL..GRAM. MM PRN (18:34)
[2020-05-15] MEDS ORDERED: Fluticasone Propionate Nasal 50 MCG/SPRAY BOTTLE NS PRN (18:34)
[2020-05-15] MEDS ORDERED: NON-FORMULARY MEDICATION 1 EACH EACH (Calcium Carbonate/Vitamin D3 [Calcium 600-Vit D3 400 PO SCH (21:00)
[2020-05-15] MEDS: Loratadine 10 MG TABLET PO SCH (21:52)
[2020-05-16] MEDS: Ketorolac 15 MG/ML VIAL IVP SCH ×5 (00:51→21:44)
[2020-05-16] MEDS: D5% in Water 1,000 ML IVC SCH ×2 (00:53→22:12)
[2020-05-16] MEDS: Insulin LISPRO 300 UNITS/3 ML VIAL SQ SCH ×6 (00:55→22:12)
[2020-05-16] MEDS: Ipratropium/Albuterol Neb 3 ML IH SCH ×6 (03:31→23:45)
[2020-05-16] MEDS: Cefepime HCl 2,000 MG in Water for inj. (sterile) 20 ML IVP SCH ×2 (03:53→16:11)
[2020-05-16 06:27] LABS: Hematocrit 29.4 % (35.3-44.9); Hemoglobin 8.9 g/dL (11.5-15.4); Mean Corpuscular HGB Conc 30.3 g/dL (31.6-35.5); Mean Corpuscular Hemoglobin 29.6 pg (28.0-33.3); Mean Corpuscular Volume 97.7 fL (83.0-100.0); Mean Platelet Volume 10.5 fL (9.4-12.4); Platelet Count 251 K/mcL (140-400); Red Blood Count 3.01 M/mcL (3.82-4.97); Red Cell Distribution Width 22.9 % (11.5-14.5); White Blood Count 17.1 K/mcL (4.3-11.1)
[2020-05-16] MEDS: *HR* Heparin 5,000 UNIT/ML VIAL SQ SCH ×3 (06:33→21:47)
[2020-05-16 06:39] LABS: BUN/Creatinine Ratio 31 (6-26); Blood Urea Nitrogen 24 mg/dL (8-23); Calcium 7.1 mg/dL (8.6-10.3); Carbon Dioxide 27 mEq/L (23-29); Chloride 110 mEq/L (98-107); Glucose 107 mg/dL (70-105); Osmolality,Calculated 295 (280-300); Sodium 140 mEq/L (136-145); eGFR For African Americans > 60 (> 60); eGFR For Non-African Americans > 60 (> 60)
[2020-05-16] MEDS: Budesonide/Formoterol 160/4.5 1 PUFF INH IH SCH ×2 (07:34→19:57)
[2020-05-16] MEDS: Tiotropium 18 MCG inhalation IH SCH (07:35)
[2020-05-16] MEDS: Silvasorb 44.4 ML TUBE TP SCH (09:50)
[2020-05-16] MEDS: predniSONE 10 MG TABLET PO SCH (10:05)
[2020-05-16] MEDS: metroNIDAZOLE 500 MG TABLET PO SCH ×3 (10:05→21:43)
[2020-05-16] MEDS: Aspirin 81 MG TAB.CHEW PO SCH (10:05)
[2020-05-16] MEDS: Cyanocobalamin (B-12) 1,000 MCG TABLET PO SCH (10:05)
[2020-05-16] MEDS: Gabapentin 300 MG CAPSULE PO SCH ×3 (10:06→21:44)
[2020-05-16] MEDS: Cholecalciferol (D-3) 1,000 UNIT (25MCG) TABLET PO SCH (10:06)
[2020-05-16] MEDS: Loratadine 10 MG TABLET PO SCH (21:44)
[2020-05-17] MEDS: Insulin LISPRO 300 UNITS/3 ML VIAL SQ SCH ×4 (01:15→11:28)
[2020-05-17] MEDS: Ipratropium/Albuterol Neb 3 ML IH SCH ×4 (03:35→15:59)
[2020-05-17] MEDS: Cefepime HCl 2,000 MG in Water for inj. (sterile) 20 ML IVP SCH ×2 (05:06→16:36)
[2020-05-17] MEDS: *HR* Heparin 5,000 UNIT/ML VIAL SQ SCH ×2 (05:07→14:08)
[2020-05-17] MEDS: Ketorolac 15 MG/ML VIAL IVP SCH ×2 (05:08→11:26)
[2020-05-17] MEDS: Budesonide/Formoterol 160/4.5 1 PUFF INH IH SCH (07:35)
[2020-05-17] MEDS: Tiotropium 18 MCG inhalation IH SCH (07:36)
[2020-05-17] MEDS: Cholecalciferol (D-3) 1,000 UNIT (25MCG) TABLET PO SCH (08:45)
[2020-05-17] MEDS: Cyanocobalamin (B-12) 1,000 MCG TABLET PO SCH (08:46)
[2020-05-17] MEDS: predniSONE 10 MG TABLET PO SCH (08:46)
[2020-05-17] MEDS: Gabapentin 300 MG CAPSULE PO SCH ×2 (08:46→16:28)
[2020-05-17] MEDS: Aspirin 81 MG TAB.CHEW PO SCH (08:46)
[2020-05-17] MEDS: metroNIDAZOLE 500 MG TABLET PO SCH ×2 (08:46→14:08)
[2020-05-17] MEDS: Silvasorb 44.4 ML TUBE TP SCH (08:51)
[2020-05-17 10:26] LABS: Hemoglobin 8.8 g/dL (11.5-15.4)
[2020-05-17 10:27] LABS: Hematocrit 30.5 % (35.3-44.9); Mean Corpuscular HGB Conc 28.9 g/dL (31.6-35.5); Mean Corpuscular Hemoglobin 29.2 pg (28.0-33.3); Mean Corpuscular Volume 101.3 fL (83.0-100.0); Mean Platelet Volume 9.8 fL (9.4-12.4); Platelet Count 299 K/mcL (140-400); Red Blood Count 3.01 M/mcL (3.82-4.97); White Blood Count 15.4 K/mcL (4.3-11.1)
[2020-05-17 10:47] LABS: BUN/Creatinine Ratio 23 (6-26); Blood Urea Nitrogen 21 mg/dL (8-23); Calcium 7.4 mg/dL (8.6-10.3); Carbon Dioxide 29 mEq/L (23-29); Chloride 108 mEq/L (98-107); Glucose 120 mg/dL (70-105); Osmolality,Calculated 290 (280-300); Phosphorous 2.7 mg/dL (2.7-4.5); Sodium 138 mEq/L (136-145); eGFR For African Americans > 60 (> 60); eGFR For Non-African Americans 58 (> 60)
[2020-05-17 15:00] VITALS: BP 115/79
== END 2020-05-17 20:04 | DRG 871 ==
LOC: 3ANU 18:03 → EMEROOARM 18:03 → 3ANU 05-08 01:13 → ICNU 05-08 02:21 → SUATTDRO 05-08 07:40 → 3ANU 05-12 15:26
PROVIDERS: ADMIT Student in an Organized Health Care Education/Training Program; ATTEND Internal Medicine
PROC: ENDOBRF (2020-05-10 10:20)